=== PATIENT | male | born 1950 | race Caucasian/White ===

== ENCOUNTER → 2019-07-05 | Outpatient (CLI) | payer BC ==
--- NOTE | 2019-07-05 11:01 | US ---
EXAMINATION TYPE: US venous doppler duplex LE DATE OF EXAM: 07/05/2019 10:47 AM COMPARISON: NONE CLINICAL HISTORY: M79.661 pain in limb, M79.662 pain in limb. Pain and edema bilateral legs SIDE PERFORMED: bilateral TECHNIQUE: The lower extremity deep venous system is examined utilizing real time linear array sonog ernestine with graded compression, doppler sonography and color-flow sonography. VESSELS IMAGED: External Iliac Vein (EIV) Common Femoral Vein Deep Femoral Vein Greater Saphenous Vein * Femoral Vein Popliteal Vein Small Saphenous Vein * Proximal Calf Veins (* superficial vessels) Right Leg: No evidence of DVT Left Leg: No evidence of DVT Grayscale, color doppler, spectral doppler imaging performed of the deep veins of the bilateral lower extremities. There is normal flow, compressibility, vascular waveforms. IMPRESSION: No ultrasonographic evidence for acute DVT in either lower extremity.
[2019-07-05 11:12] LABS: Basophils # (A) 0.1 k/uL (0-0.2); Basophils % (A) 1 %; Eosinophils # (A) 0.6 k/uL (0-0.7); Eosinophils % (A) 6 %; HCT 40.4 % (39.0-53.0); HGB 13.4 gm/dL (13.0-17.5); Lymphocytes # (A) 4.4 k/uL (1.0-4.8); Lymphocytes % (A) 39 %; MCHC 33.2 g/dL (31.0-37.0); MCV 99.3 fL (80.0-100.0); Mean Platelet Volume 7.1; Monocytes # (A) 0.7 k/uL (0-1.0); Monocytes % (A) 6 %; Neutrophils % (A) 45 %; Platelet Count 154 k/uL (150-450); RBC 4.07 m/uL (4.30-5.90); RDW 14.3 % (11.5-15.5); WBC 11.1 k/uL (3.8-10.6)
[2019-07-05 11:33] LABS: ALT 50 U/L (21-72); AST 76 U/L (17-59); African American GFR (CKD) >90 (>60 ml/min/1.73 sqM); Albumin 3.5 g/dL (3.5-5.0); Alkaline Phosphatase 84 U/L (38-126); Anion Gap 7 mmol/L; Blood Urea Nitrogen 19 mg/dL (9-20); Carbon Dioxide 28 mmol/L (22-30); Chloride 107 mmol/L (98-107); Glucose 85 mg/dL (74-99); Potassium 4.7 mmol/L (3.5-5.1); Sodium 142 mmol/L (137-145); Total Bilirubin 1.1 mg/dL (0.2-1.3)
--- NOTE | 2019-07-05 13:05 | XR ---
EXAMINATION TYPE: XR chest 2V DATE OF EXAM: 07/05/2019 COMPARISON: NONE HISTORY: I 10, I 50.9 TECHNIQUE: Frontal and lateral views of the chest are obtained. FINDINGS: There is no focal air space opacity, pleural effusion, or pneumothorax seen. The cardiac silhouette size is within normal limits. The osseous structures are intact. IMPRESSION: No acute cardiopulmonary process.
== END | disposition home or self-care (01) ==
LOC: RADUSWWP 10:15
PROVIDERS: ATTEND Internal Medicine
DX: I82.409 Acute embolism and thrombosis of unspecified deep veins of unspecified lower extremity (principal); R22.42 Localized swelling, mass and lump, left lower limb; M79.661 Pain in right lower leg; R22.41 Localized swelling, mass and lump, right lower limb; M79.662 Pain in left lower leg; I11.0 Hypertensive heart disease with heart failure; I50.9 Heart failure, unspecified
CPT/HCPCS: 71046; 80053; 83880; 85025; 93970

== ENCOUNTER → 2020-05-31 | Outpatient (CLI) | payer BC ==
--- NOTE | 2020-05-31 09:28 | US ---
EXAMINATION TYPE: US liver DATE OF EXAM: 05/31/2020 COMPARISON: NONE CLINICAL HISTORY: 69-year-old male R94.5 abnormal liver function test. TECHNIQUE: Multiple sonographic images of the right upper quadrant are obtained. FINDINGS: DESIGN INTERN NOTES: Difficult and limited exam due to patient body habitus and overlying bowel gas EXAM MEASUREMENTS: Liver Length: 12.7 cm Gallbladder: Surgically absent CBD: 0.4 cm Right Kidney: 11.4 x 5.0 x 5.8 cm Pancreas: Obscured by bowel gas. Only a small portion of the pancreatic neck is seen. Liver: Coarse, heterogeneous. Nodular contour. No focal lesion identified. Gallbladder: Surgically absent Evidence for sonographic Michael's sign: No CBD: wnl Right Kidney: No hydronephrosis. IMPRESSION: 1. Cirrhotic morphology of the liver. No focal lesion seen. 2. Status post cholecystectomy. No biliary ductal dilatation.
== END | disposition home or self-care (01) ==
LOC: RADUSWWP 07:39
PROVIDERS: ATTEND Internal Medicine
DX: K74.60 Unspecified cirrhosis of liver (principal); Z90.49 Acquired absence of other specified parts of digestive tract
CPT/HCPCS: 76705

== ENCOUNTER → 2020-08-01 | Outpatient (CLI) | payer BC ==
[2020-08-01 09:45] LABS: Albumin 3.7 g/dL (3.5-5.0); Calcium 9.1 mg/dL (8.4-10.2); Potassium 4.9 mmol/L (3.5-5.1); Total Bilirubin 1.3 mg/dL (0.2-1.3); Total Protein 8.5 g/dL (6.3-8.2)
[2020-08-01 09:50] LABS: HCT 48.7 % (39.0-53.0); HGB 15.8 gm/dL (13.0-17.5); MCH 34.6 pg (25.0-35.0); MCHC 32.3 g/dL (31.0-37.0); MCV 106.9 fL (80.0-100.0); Macrocytosis Moderate; Mean Platelet Volume 7.4; Platelet Count 192 k/uL (150-450); RBC 4.56 m/uL (4.30-5.90); RDW 13.9 % (11.5-15.5); WBC 14.9 k/uL (3.8-10.6)
[2020-08-01 11:34] LABS: Basophils # (M) 0.15 k/uL (0-0.2); Eosinophils # (M) 1.64 k/uL (0-0.7); Lymphocytes # (M) 5.51 k/uL (1.0-4.8); Monocytes # (M) 1.04 k/uL (0-1.0); Neutrophils # (M) 6.56 k/uL (1.3-7.7); Neutrophils % (M) 44 %; Nucleated Red Blood Cells 0 /100 WBC (0-0); Total Cells Counted 100
== END | disposition home or self-care (01) ==
LOC: RADMRIMAIN 07:31
PROVIDERS: ATTEND Nurse Practitioner
DX: B18.2 Chronic viral hepatitis C (principal)
CPT/HCPCS: 80053; 82105; 85025; 87522

== ENCOUNTER → 2021-01-18 | Outpatient (CLI) | payer BC ==
--- NOTE | 2021-01-18 10:21 | US ---
EXAMINATION TYPE: US liver DATE OF EXAM: 01/18/2021 COMPARISON: NONE CLINICAL HISTORY: K74.60 Unspecified cirrhosis of liver. Hep C cirrhosis EXAM MEASUREMENTS: Liver Length: 14 cm Gallbladder Wall: Surgically absent cm CBD: .6 cm Right Kidney: 10.0 x 4.3 x 5.1 cm Pancreas: Obscured by bowel gas Liver: Increased attenuation Gallbladder: Surgically absent Evidence for sonographic Michael's sign: No CBD: wnl Right Kidney: Dilated renal pelvis 2.4 x 2.1 x 3.4 cm there is may be an extrarenal pelvis. IMPRESSION: 1. No suspicious acute changes right upper quadrant ultrasound
== END | disposition home or self-care (01) ==
LOC: RADUSWWP 07:45
PROVIDERS: ATTEND Internal Medicine Gastroenterology
DX: K74.60 Unspecified cirrhosis of liver (principal); B19.20 Unspecified viral hepatitis C without hepatic coma; Z90.49 Acquired absence of other specified parts of digestive tract
CPT/HCPCS: 76705

== ENCOUNTER → 2021-09-20 | Outpatient (CLI) | payer BC ==
--- NOTE | 2021-09-20 08:28 | US ---
EXAMINATION TYPE: US liver DATE OF EXAM: 09/20/2021 COMPARISON: NONE CLINICAL HISTORY: K74.60 Unspecified cirrhosis of liver. Hep C, history cholecystectomy EXAM MEASUREMENTS: Liver Length: 13.0 cm CBD: 0.6 cm Right Kidney: 10.2 x 5.8 x 5.3 cm Pancreas: visualized portions wnl, limited by overlying Liver: heterogeneous, increased attenuation, mildy nodular Gallbladder: surgically absent Evidence for sonographic Michael's sign: no CBD: wnl Right Kidney: wnl IMPRESSION: Cirrhotic changes suggested.
== END | disposition home or self-care (01) ==
LOC: RADUSWWP 07:39
PROVIDERS: ATTEND Internal Medicine Gastroenterology
DX: K74.60 Unspecified cirrhosis of liver (principal)
CPT/HCPCS: 76705

== ENCOUNTER 2021-12-13 09:09 | Inpatient (IN) | payer BC ==
[2021-12-13] MEDS ORDERED: ASPIRIN 81 MG PO STA (09:31)
--- NOTE | 2021-12-13 09:34 | ED ---
Chest Pain HPI - General Source: patient, RN notes reviewed Mode of arrival: ambulatory Limitations: no limitations <Simone Patel - Last Filed: 12/13/21 12:00> <Kady Vegas - Last Filed: 12/17/21 00:34> - General Chief Complaint: Chest Pain Stated Complaint: hypotensive, chest pain, swollen legs Time Seen by Provider: 12/13/21 09:22 - History of Present Illness Initial Comments: This a 71-year-old male presents emergency from from PCPs office chief complaint of chest pain, shortness breath, leg swelling. Patient has been taken Lasix he has no official diagnosis of CHF. Patient states that he cannot lay down on his back he has increasing shortness breath and chest pain. Patient denies any fevers or chills. He has significant leg swelling he states his weight has been up and down presents definitely can't some weight recently. Patient reported to have hypotension at PCPs office. Patient denies any recent dietary changes (Simone Patel) - Related Data Home Medications Medication Instructions Recorded Confirmed Esomeprazole Magnesium [NexIUM] 20 mg PO DAILY 12/13/21 12/13/21 Finasteride [Proscar] 5 mg PO DAILY 12/13/21 12/13/21 Furosemide [Lasix] 40 mg PO BID 12/13/21 12/13/21 Potassium Chloride [Potassium 8 meq PO BID 12/13/21 12/13/21 Chloride ER] traMADol HCL [Ultram] 50 mg PO BID PRN 12/13/21 12/13/21 Previous Rx's Medication Instructions Recorded Apixaban [Eliquis] 5 mg PO BID #60 tab 12/14/21 Albuterol Sulfate [Albuterol 1 puff PO Q4-6H #8.5 gm 12/15/21 Sulfate Hfa] Tiotropium 18 Mcg/Puff [Spiriva] 1 puff INHALATION DAILY #30 each 12/15/21 predniSONE 10 mg PO DAILY 7 Days #21 tab 12/15/21 Allergies Allergy/AdvReac Type Severity Reaction Status Date / Time No Known Allergies Allergy Verified 12/13/21 10:05 Review of Systems ROS Other: All systems not noted in ROS Statement are negative. <Simone Patel - Last Filed: 12/13/21 12:00> ROS Other: All systems not noted in ROS Statement are negative. <Kady Vegas - Last Filed: 12/17/21 00:34> ROS Statement: Those systems with pertinent positive or pertinent negative responses have been documented in the HPI. Past Medical History Past Medical History: GERD/Reflux, Prostate Disorder History of Any Multi-Drug Resistant Organisms: None Reported Past Surgical History: Cholecystectomy, Tonsillectomy Past Psychological History: No Psychological Hx Reported Smoking Status: Current every day smoker Past Alcohol Use History: None Reported Past Drug Use History: Marijuana <Simone Patel - Last Filed: 12/13/21 12:00> General Exam Limitations: no limitations General appearance: alert, in no apparent distress Head exam: Present: atraumatic, normocephalic, normal inspection Eye exam: Present: normal appearance, PERRL, EOMI. Absent: scleral icterus, conjunctival injection, periorbital swelling ENT exam: Present: normal exam, normal oropharynx, mucous membranes moist Neck exam: Present: normal inspection, full ROM. Absent: tenderness, meningismus, lymphadenopathy Respiratory exam: Present: decreased breath sounds. Absent: normal lung sounds bilaterally, respiratory distress, wheezes, rales, rhonchi, stridor Cardiovascular Exam: Present: irregular rhythm, normal heart sounds. Absent: regular rate, normal rhythm, systolic murmur, diastolic murmur, rubs, gallop, clicks GI/Abdominal exam: Present: soft, normal bowel sounds. Absent: distended, tenderness, guarding, rebound, rigid Extremities exam: Present: pedal edema Neurological exam: Present: alert, oriented X3 <Simone Patel - Last Filed: 12/13/21 12:00> Course Vital Signs 12/13/21 12/13/21 12/13/21 09:12 09:31 10:43 Temperature 97.8 F Pulse Rate 58 L 56 L Pulse Rate [ 64 [employer] ] Respiratory 18 16 Rate Blood Pressure 101/71 95/54 O2 Sat by Pulse 95 95 Oximetry 12/13/21 12/13/21 12/13/21 11:00 12:02 12:43 Temperature Pulse Rate 64 58 L 50 L Pulse Rate [ [employer] ] Respiratory 18 16 18 Rate Blood Pressure 90/70 98/57 101/72 O2 Sat by Pulse 95 96 98 Oximetry 12/13/21 14:00 Temperature Pulse Rate 52 L Pulse Rate [ [employer] ] Respiratory 18 Rate Blood Pressure 99/73 O2 Sat by Pulse 97 Oximetry Chest Pain MDM <Simone Patel - Last Filed: 12/13/21 12:00> <Kady Vegas - Last Filed: 12/17/21 00:34> - [facility] 71-year-old male presents emergency from for leg swelling, shortness breath and chest pain. Patient's been having ongoing chest pain. Patient vomiting A. fib which is new onset for the patient, evidence of pulmonary edema on chest x-ray extensive leg swelling. BMP is 1800. Patient was given 40 mg of Lasix IV as he took his morning dose of Lasix. Patient will be admitted for echocardiogram, cardiology (Simone Patel) I was available for consultation in the emergency department. The history and physical exam were done by the midlevel provider. I was consulted for this patients care. I reviewed the case with the midlevel provider and based on their presentation of the patient, I agree with the assessment, medical decision making and plan of care as documented. Chart was dictated using mir[employer] dictation software. Attempts were made to correct any dictation errors however some typographical errors may persist. Patient was seen during a national state of emergency due to the Covid-19 pandemic. (Kady Vegas) Critical Care Time Critical Care Time: Yes Total Critical Care Time: 35 <Simone Patel - Last Filed: 12/13/21 12:00> Disposition <Simone Patel - Last Filed: 12/13/21 12:00> <Kady Vegas - Last Filed: 12/17/21 00:34> Clinical Impression: Chest pain, Acute CHF, A-fib Disposition: ADMITTED IP TO THIS HOSP Condition: Poor
[2021-12-13 10:26] LABS: Basophils # (A) 0.1 k/uL (0-0.2); Basophils % (A) 0 %; Eosinophils # (A) 0.3 k/uL (0-0.7); Eosinophils % (A) 2 %; HCT 40.7 % (39.0-53.0); Lymphocytes # (A) 3.2 k/uL (1.0-4.8); Lymphocytes % (A) 22 %; MCH 35.5 pg (25.0-35.0); MCHC 34.3 g/dL (31.0-37.0); MCV 103.5 fL (80.0-100.0); Macrocytosis Slight; Monocytes % (A) 7 %; Neutrophils # (A) 9.8 k/uL (1.3-7.7); Neutrophils % (A) 67 %; Platelet Count 315 k/uL (150-450); RBC 3.94 m/uL (4.30-5.90); RDW 14.1 % (11.5-15.5); WBC 14.7 k/uL (3.8-10.6)
--- NOTE | 2021-12-13 10:26 | XR ---
EXAMINATION TYPE: XR chest 2V DATE OF EXAM: 12/13/2021 COMPARISON: 07/05/2019 HISTORY: 71-year-old male with chest pain and largest on the swelling TECHNIQUE: AP and lateral views FINDINGS: Heart is enlarged. Interstitial prominence. Small left pleural effusion. Large appearance to the main right pulmonary artery on the lateral view. IMPRESSION: Correlate for CHF with pulmonary vascular congestion. Small left pleural effusion with adjacent atele ctasis and/or consolidation. Possible underlying pulmonary arterial hypertension as well.
[2021-12-13 10:39] LABS: INR 1.2 (<1.2); Prothrombin Time 12.5 sec (9.0-12.0)
[2021-12-13 10:40] LABS: ALT 23 U/L (4-49); AST 43 U/L (17-59); African American GFR (CKD) >90 (>60 ml/min/1.73 sqM); Albumin 2.7 g/dL (3.5-5.0); Alkaline Phosphatase 71 U/L (38-126); Anion Gap 4 mmol/L; Blood Urea Nitrogen 17 mg/dL (9-20); Calcium 8.1 mg/dL (8.4-10.2); Carbon Dioxide 24 mmol/L (22-30); Chloride 108 mmol/L (98-107); Glucose 123 mg/dL (74-99); Lipase 202 U/L (23-300); Non-African American GFR(CKD) 89 (>60 ml/min/1.73 sqM); Potassium 3.9 mmol/L (3.5-5.1); Sodium 136 mmol/L (137-145); Total Bilirubin 1.9 mg/dL (0.2-1.3); Total Protein 7.3 g/dL (6.3-8.2)
[2021-12-13] MEDS ORDERED: FUROSEMIDE 10 MG/ML 2 ML VIAL IV ONE (12:00)
[2021-12-13] MEDS ORDERED: HEPARIN SODIUM 1,000 UN/ML (10ML VL) IV ONE (12:01)
[2021-12-13] MEDS ORDERED: NITROGLYCERIN SL TABS 0.4 MG TAB SUBLINGUAL PRN (12:01)
[2021-12-13] MEDS: HEPARIN SOD,PORK IN 0.45% NACL 25,000 UNIT in 0.45% NACL 1 250ML.BAG IV SCH (12:20)
--- NOTE | 2021-12-13 13:10 | P.HPIM ---
History of Present Illness H&P Date: 12/13/21 Chief Complaint: shortness of breath and chest pain Patient is a 71-year-old male with a past medical history of hepatitis C, BPH, GERD, tobacco abuse and remote history of IV drug abuse who presents to the ED with worsening lower extremity edema, shortness of breath with exertion and also intermittent chest pain for the past 2 weeks. Patient was seen by his PCP this morning who told him to go to the emergency room. Patient states that he sleeps on 2 pillows more for comfort and not because of shortness of breath. Patient states that he takes Lasix at home however does not watch his water intake. He states that he does eat a low-salt diet. Patient states that his chest pain is pressure-like and sometimes on his right side and sometimes on his left side and also sometimes radiates to his neck and his arms. Patient states that his 2-year-old granddaughter was jumping on his chest so he believed that he may have bruised himself. In the ED patient's chest x-ray showed possible CHF with vascular congestion and small left pleural effusion. EKG showed atrial fibrillation with heart rate in the 50s. Patient was given 1 dose of IV Lasix. He reports some improvement in her shortness of breath. He is currently satting well on room air. Review of Systems 10 ROS reviewed and are negative except as noted in HPI Past Medical History Past Medical History: GERD/Reflux, Prostate Disorder History of Any Multi-Drug Resistant Organisms: None Reported Past Surgical History: Cholecystectomy, Tonsillectomy Past Psychological History: No Psychological Hx Reported Smoking Status: Current every day smoker Past Alcohol Use History: None Reported Past Drug Use History: Marijuana Medications and Allergies Home Medications Medication Instructions Recorded Confirmed Type Aspirin 325 mg PO DAILY 12/13/21 12/13/21 History Esomeprazole Magnesium [NexIUM] 20 mg PO DAILY 12/13/21 12/13/21 History Finasteride [Proscar] 5 mg PO DAILY 12/13/21 12/13/21 History Furosemide [Lasix] 40 mg PO BID 12/13/21 12/13/21 History Ibuprofen [Motrin] 800 mg PO Q8H PRN 12/13/21 12/13/21 History Potassium Chloride [Potassium 8 meq PO BID 12/13/21 12/13/21 History Chloride ER] Propranolol [Inderal] 40 mg PO DAILY 12/13/21 12/13/21 History traMADol HCL [Ultram] 50 mg PO BID PRN 12/13/21 12/13/21 History Allergies Allergy/AdvReac Type Severity Reaction Status Date / Time No Known Allergies Allergy Verified 12/13/21 10:05 Physical Exam Osteopathic Statement: *. No significant issues noted on an osteopathic structural exam other than those noted in the History and Physical/Consult. Vitals: Vital Signs Temp Pulse Pulse Resp BP Pulse Ox 12/13/21 12:43 50 L 18 101/72 98 12/13/21 12:02 58 L 16 98/57 96 12/13/21 11:00 64 18 90/70 95 12/13/21 10:43 56 L 16 95/54 95 12/13/21 09:31 64 12/13/21 09:12 97.8 F 58 L 18 101/71 95 Intake and Output 12/12/21 12/13/21 12/13/21 22:59 06:59 14:59 Other: Weight 153.768 kg General: [Alert and oriented, well nourished, no acute distress]. Eye: [PERRL, EOMI, normal conjunctiva]. HENT: [Normocephalic, clear tympanic membranes, normal hearing, moist oral mucosa, no scleral icterus, no sinus tenderness]. Neck: [Supple, non-tender, no carotid bruits, no JVD, no lymphadenopathy]. Lungs: [Diminished but does bilaterally, non-labored respiration]. Heart: [Irregularly irregular, bradycardic, no murmurs rubs or gallops, +3 pitting edema in lower extremities up to the knees]. Abdomen: [Soft, non-tender, non-distended, normal bowel sounds, no masses]. Musculoskeletal: [Normal range of motion and strength, no tenderness or swelling]. Skin: [Skin is warm, dry and pink, no rashes or lesions]. Neurologic: [Awake, alert, and oriented X3, CN II-XII intact]. Psychiatric: [Cooperative, appropriate mood and affect]. Results CBC & Chem 7: 12/13/21 10:05 12/13/21 10:05 Labs: Abnormal Lab Results - Last 24 Hours (Table) 12/13/21 12/13/21 12/13/21 Range/Units 10:05 10:05 10:05 WBC 14.7 H (3.8-10.6) k/uL RBC 3.94 L (4.30-5.90) m/uL MCV 103.5 H (80.0-100.0) fL MCH 35.5 H (25.0-35.0) pg Neutrophils # 9.8 H (1.3-7.7) k/uL PT 12.5 H (9.0-12.0) sec INR 1.2 H (<1.2) Sodium 136 L (137-145) mmol/L Chloride 108 H (98-107) mmol/L Glucose 123 H (74-99) mg/dL Calcium 8.1 L (8.4-10.2) mg/dL Total Bilirubin 1.9 H (0.2-1.3) mg/dL Albumin 2.7 L (3.5-5.0) g/dL Assessment and Plan Assessment: Dyspnea Possible acute unspecified heart failure -We'll start patient on IV Lasix 40 mg twice a day with blood pressure parameters -Strict I's and O's and daily weight -Check echocardiogram -Consult cardiology Atypical chest pain -First set troponin is negative; check 2 more troponins to rule out ACS -No ST changes on EKG -Cardiology consult New-onset Atrial fibrillation with slow ventricular response -Hold home dose propanol -Cardiology consult -Patient started on heparin drip Hepatitis C Possible history of liver cirrhosis -Patient had an ultrasound done last year that showed findings consistent with liver cirrhosis -He follows up with Dr. Appiah from gastroenterology -Patient not aware of any history of liver cirrhosis BPH -Resume finasteride GERD -Resume PPI Tobacco abuse -Patient counseled on smoking cessation History of drug abuse CODE STATUS:full code DPOA: fiance DVT prophylaxis: Heparin drip Discussed with: Patient, ER, rn Anticipated length of stay > than [address]: home A total of 75 minutes was spent on the care of this complex patient more than 50% of the time was spent in counseling and care coordination.
[2021-12-13 13:11] LABS: Appearance,Urine Clear (Clear); Bilirubin,Urine Negative (Negative); Blood,Urine Negative (Negative); Color,Urine Yellow; Glucose,Urine (UA) Negative (Negative); Ketones,Urine Negative (Negative); Leukocyte Esterase,Urine Negative (Negative); Nitrite,Urine Negative (Negative); Protein,Urine Negative (Negative); Specific Gravity,Urine 1.016 (1.001-1.035)
[2021-12-13] MEDS: FUROSEMIDE 10 MG/ML 4 ML VIAL IV SCH (20:56)
[2021-12-14 04:45] LABS: ALT 24 U/L (4-49); AST 45 U/L (17-59); African American GFR (CKD) >90 (>60 ml/min/1.73 sqM); Albumin 2.6 g/dL (3.5-5.0); Alkaline Phosphatase 71 U/L (38-126); Anion Gap 4 mmol/L; Blood Urea Nitrogen 16 mg/dL (9-20); Calcium 8.2 mg/dL (8.4-10.2); Carbon Dioxide 27 mmol/L (22-30); Chloride 107 mmol/L (98-107); Glucose 92 mg/dL (74-99); Magnesium 1.9 mg/dL (1.6-2.3); Non-African American GFR(CKD) >90 (>60 ml/min/1.73 sqM); Sodium 138 mmol/L (137-145); Total Bilirubin 1.8 mg/dL (0.2-1.3)
[2021-12-14 04:58] LABS: Basophils # (A) 0.1 k/uL (0-0.2); Basophils % (A) 1 %; Eosinophils # (A) 0.3 k/uL (0-0.7); Eosinophils % (A) 3 %; Lymphocytes # (A) 2.7 k/uL (1.0-4.8); Lymphocytes % (A) 27 %; MCHC 34.2 g/dL (31.0-37.0); MCV 105.4 fL (80.0-100.0); Macrocytosis Moderate; Mean Platelet Volume 7.1; Monocytes # (A) 0.7 k/uL (0-1.0); Monocytes % (A) 7 %; Neutrophils # (A) 6.2 k/uL (1.3-7.7); Neutrophils % (A) 60 %; Platelet Count 326 k/uL (150-450); RBC 3.89 m/uL (4.30-5.90); RDW 14.1 % (11.5-15.5); WBC 10.3 k/uL (3.8-10.6)
[2021-12-14] MEDS: PANTOPRAZOLE 40 MG TABLET PO SCH (06:26)
[2021-12-14] MEDS: HEPARIN SOD,PORK IN 0.45% NACL 25,000 UNIT in 0.45% NACL 1 250ML.BAG IV SCH (06:27)
--- NOTE | 2021-12-14 07:38 | ECHOF ---
Referral Reason:Chest pain CHF MEASUREMENTS -------- HEIGHT: 185.4 cm WEIGHT: 153.8 kg BP: 101/72 RVIDd: 3.3 cm (< 3.3) IVSd: 1.5 cm (0.6 - 1.1) LVIDd: 4.7 cm (3.9 - 5.3) LVPWd: 1.4 cm (0.6 - 1.1) IVSs: 2.0 cm LVIDs: 3.0 cm LVPWs: 1.9 cm LA Diam: 4.7 cm (2.7 - 3.8) Ao Diam: 3.5 cm (2.0 - 3.7) AV Cusp: 2.5 cm (1.5 - 2.6) MV EXCURSION: 16.399 mm (> 18.000) MV EF SLOPE: 66 mm/s (70 - 150) EPSS: 0.5 cm FINDINGS -------- Atrial fibrillation. This was a technically difficult study with suboptimal views. The left ventricular size is normal. There is moderate concentric left ventricular hypertrophy. O verall left ventricular systolic function is normal with, an EF between 55 - 60 %. The right ventricle is mildly enlarged. The left atrium is moderately dilated. The right atrium is normal in size. 3 ml of Lumason was utilized for enhancement of images. Aortic valve is trileaflet and is mildly thickened. The mitral valve was not well visualized. There is trace mitral regurgitation. The tricuspid valve was not well visualized. Trace/mild (physiologic) pulmonic regurgitation. The aortic root size is normal. The inferior vena cava is mildly dilated. There is a small, generalized pericardial effusion present. CONCLUSIONS -------- 1. This was a technically difficult study with suboptimal views. 2. There is moderate concentric left ventricular hypertrophy. 3. Overall left ventricular systolic function is normal with, an EF between 55 - 60 %. 4. The right ventricle is mildly enlarged. 5. The left atrium is moderately dilated. 6. 3 ml of Lumason was utilized for enhancement of images. 7. Aortic valve is trileaflet and is mildly thickened. 8. There is trace mitral regurgitation. 9. Trace/mild (physiologic) pulmonic regurgitation. 10. The inferior vena cava is mildly dilated. 11. There is a small, generalized pericardial effusion present. ELECTRONIC MASKING SYSTEM OPERATOR: Colette Salguero RDCS
[2021-12-14] MEDS ORDERED: ASPIRIN 325 MG TAB PO SCH (09:00)
[2021-12-14] MEDS ORDERED: ASPIRIN 81 MG PO SCH (09:00)
[2021-12-14 10:06] LABS: Chol/HDL Ratio 3.66 Ratio; LDL Cholesterol,Calculated 52.2 mg/dL (0.0-131.0)
[2021-12-14] MEDS: FUROSEMIDE 10 MG/ML 4 ML VIAL IV SCH ×2 (10:14→20:36)
[2021-12-14] MEDS: FINASTERIDE 5 MG TAB PO SCH (10:14)
[2021-12-14] MEDS: APIXABAN 5 MG TAB PO SCH ×2 (10:14→20:36)
--- NOTE | 2021-12-14 11:31 | P.CRDCN ---
History of Present Illness Consult date: 12/13/21 History of present illness: HISTORY OF PRESENT ILLNESS: This is a 71-year-old male with a past medical history significant for hepatitis, BPH, nicotine dependence, and former IV drug abuse. 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 We have been asked to see the patient in consultation for CHF, afib, and chest pain. Patient examined at the bedside. Patient states he presented to the hospital with a chief complaint of shortness of breath has been progressive over the past 3 weeks. The patient has been taking Lasix on an outpatient basis for lower extremity edema. The patient states he has never been diagnosed with congestive heart failure. He denies any chest pain or pressure. The patient states he is a current cigarette smoker and smokes 1 pack per day. He also reports occasional marijuana use. He denies any alcohol use and states he quit drinking in 2003. * EKG reveals A. fib with slow ventricular rate. * Chest xray correlate for CHF with pulmonary vascular congestion. Small left pleural effusion with adjacent atelectasis and/or consolidation. Possible underlying pulmonary artery hypertension. * Laboratory data: WBC 14.7. Hemoglobin 14.0. Platelet count 315. Sodium 136. Potassium 3.9. BUN 17. Creatinine 0.86. Magnesium 2.0. Troponin negative 2. ProBNP 1810. * Current home cardiac medications include aspirin 325 mg daily, Inderal 40 mg daily, Lasix 40 mg twice a day * Echocardiogram completed revealing ejection fraction 55-60% with trace MR REVIEW OF SYSTEMS: At the time of my exam: CONSTITUTIONAL: Denies fever or chills. HEENT: Denies blurred vision, vision changes, or eye pain. Denies hemoptysis CARDIOVASCULAR: Denies chest pain. Denies orthopnea. Denies PND. Denies palpitations RESPIRATORY: + shortness of breath. GASTROINTESTINAL: Denies abdominal pain. Denies nausea or vomiting. HEMATOLOGIC: Denies bleeding disorders. GENITOURINARY: Denies any blood in urine. SKIN: Denies pruitis. Denies rash. PHYSICAL EXAM: VITAL SIGNS: Reviewed. GENERAL: Well-developed in no acute distress. HEENT: Head is normocephalic. Pupils are equal, round. Sclerae anicteric. Mucous membranes of the mouth are moist. Neck supple. No JVD or thyromegaly LUNGS: Respirations even and unlabored. Lungs diminished to auscultation bilaterally with a few crackles. HEART: Irregular rate and rhythm. S1 and S2 heard. ABDOMEN: Soft. Nondistended. Nontender. EXTREMITIES: Normal range of motion. No clubbing or cyanosis. Peripheral pulses intact. 1-2+ bilateral lower extremity edema NEUROLOGIC: Awake and alert. Oriented x 3. ASSESSMENT Shortness of breath Acute heart failure, likely acute on chronic as patient is prescribed lasix out patient but denies being diagnosed with CHF, diastolic, EF 55-60% New onset atrial fibrillation with slow ventricular rate Hepatitis C GERD Nicotine dependence History of IVDA PLAN: Continue IV lasix Monitor kidney function Daily weights Accurate I&O Begin Eliquis 5mg BID Will hold off on adding beta tammy as patients HR has been on the lower side Obtain D-Dimer Consult pulmonary for evaluation Further recommendations pending patient course Nurse practitioner note has been reviewed by physician. Signing provider agrees with the documented findings, assessment, and plan of care. Past Medical History Past Medical History: GERD/Reflux, Prostate Disorder History of Any Multi-Drug Resistant Organisms: None Reported Past Surgical History: Cholecystectomy, Tonsillectomy Past Psychological History: No Psychological Hx Reported Smoking Status: Current every day smoker Past Alcohol Use History: None Reported Past Drug Use History: Marijuana Medications and Allergies Home Medications Medication Instructions Recorded Confirmed Type Esomeprazole Magnesium [NexIUM] 20 mg PO DAILY 12/13/21 12/13/21 History Finasteride [Proscar] 5 mg PO DAILY 12/13/21 12/13/21 History Furosemide [Lasix] 40 mg PO BID 12/13/21 12/13/21 History Ibuprofen [Motrin] 800 mg PO Q8H PRN 12/13/21 12/13/21 History Potassium Chloride [Potassium 8 meq PO BID 12/13/21 12/13/21 History Chloride ER] Propranolol [Inderal] 40 mg PO DAILY 12/13/21 12/13/21 History traMADol HCL [Ultram] 50 mg PO BID PRN 12/13/21 12/13/21 History Apixaban [Eliquis] 5 mg PO BID #60 tab 12/14/21 Rx Allergies Allergy/AdvReac Type Severity Reaction Status Date / Time No Known Allergies Allergy Verified 12/13/21 10:05 Physical Exam Vitals: Vital Signs Temp Pulse Pulse Resp BP Pulse Ox 12/13/21 12:43 50 L 18 101/72 98 12/13/21 12:02 58 L 16 98/57 96 12/13/21 11:00 64 18 90/70 95 12/13/21 10:43 56 L 16 95/54 95 12/13/21 09:31 64 12/13/21 09:12 97.8 F 58 L 18 101/71 95 Intake and Output 12/12/21 12/13/21 12/13/21 22:59 06:59 14:59 Other: Weight 153.768 kg Results 12/14/21 03:53 12/14/21 03:53 Cardiac Enzymes 12/13/21 12/13/21 12/13/21 Range/Units 10:05 10:05 12:42 AST 43 (17-59) U/L Troponin I 0.012 <0.012 (0.000-0.034) ng/mL Coagulation 12/13/21 Range/Units 10:05 PT 12.5 H (9.0-12.0) sec APTT 29.0 (22.0-30.0) sec CBC 12/13/21 Range/Units 10:05 WBC 14.7 H (3.8-10.6) k/uL RBC 3.94 L (4.30-5.90) m/uL Hgb 14.0 (13.0-17.5) gm/dL Hct 40.7 (39.0-53.0) % Plt Count 315 (150-450) k/uL Comprehensive Metabolic Panel 12/13/21 Range/Units 10:05 Sodium 136 L (137-145) mmol/L Potassium 3.9 (3.5-5.1) mmol/L Chloride 108 H (98-107) mmol/L Carbon Dioxide 24 (22-30) mmol/L BUN 17 (9-20) mg/dL Creatinine 0.86 (0.66-1.25) mg/dL Glucose 123 H (74-99) mg/dL Calcium 8.1 L (8.4-10.2) mg/dL AST 43 (17-59) U/L ALT 23 (4-49) U/L Alkaline Phosphatase 71 (38-126) U/L Total Protein 7.3 (6.3-8.2) g/dL Albumin 2.7 L (3.5-5.0) g/dL Current Medications Generic Name Dose Route Start Last Admin Trade Name Freq PRN Reason Stop Dose Admin Aspirin 325 mg 12/14/21 09:00 Aspirin 325 Mg Tab PO DAILY [facility] Finasteride 5 mg 12/14/21 09:00 Finasteride 5 Mg Tab PO DAILY [facility] Furosemide 40 mg 12/13/21 21:00 Furosemide 10 Mg/Ml 4 Ml Vial IV Q12HR [facility] Heparin Sodium/Sodium Chloride 250 mls @ 9.995 mls/hr 12/13/21 12:15 12/13/21 12:20 25,000 unit/ Sodium Chloride IV 6.5 units/kg/hr .Q24H JACOBO 9.995 mls/hr Administration Protocol 6.5 UNITS/KG/HR Nitroglycerin 0.4 mg 12/13/21 12:01 Nitroglycerin Sl Tabs 0.4 Mg Tab SUBLINGUAL Q5M PRN Chest Pain Pantoprazole Sodium 40 mg 12/14/21 07:30 Pantoprazole 40 Mg Tablet PO AC-BRKFST [facility] Intake and Output 12/12/21 12/13/21 12/13/21 22:59 06:59 14:59 Other: Weight 153.768 kg Patient Weight 12/14/21 06:59 Weight 153.768 kg 12/13/21 10:05 12/13/21 10:05
--- NOTE | 2021-12-14 12:22 | P.PN ---
Subjective Progress Note Date: 12/14/21 Principal diagnosis: CC: shortness of breath Patient stated that his shortness of breath is better compared to yesterday. He states that he is making the same amount of urine as he was at home however he is drinking less water. Patient states that last night he did have some chest tightness. He stated that the Premarin oxygen for the chest tightness. This morning is denying any chest tightness. Objective - Vital Signs Vital signs: Vital Signs Temp 99.7 F H 12/14/21 08:00 Pulse 68 12/14/21 08:00 Resp 16 12/14/21 08:00 BP 134/60 12/14/21 08:00 Pulse Ox 97 12/14/21 08:00 Intake & Output 12/13/21 12/14/21 12/14/21 18:59 06:59 18:59 Intake Total 120 210.340 240 Output Total 810 Balance 120 -599.660 240 Weight 153.768 kg Intake: Intake, IV Titration 210.340 Amount Heparin Sod,Pork in 0.45% 210.340 NaCl 25,000 unit In 0.45 % NaCl 1 250ml.bag @ 6.5 UNITS/KG/HR 9.995 mls/hr IV .Q24H [facility] Rx#: [id number] Oral 120 240 Output: Urine 810 - Exam General examination - Alert and Oriented 3 in NAD Heart - + S1S2 no murmurs Lungs - Clear to auscultation Abdomen soft NT ND +ve BS Extremities -lower extremity pitting edema +3 up to knees 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 - Moving all 4 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 spontaneously Psych - Calm and cooperative - Labs CBC & Chem 7: 12/14/21 03:53 12/14/21 03:53 Labs: Abnormal Lab Results - Last 24 Hours (Table) 12/13/21 12/14/21 12/14/21 Range/Units 17:54 03:53 03:53 RBC 3.89 L (4.30-5.90) m/uL MCV 105.4 H (80.0-100.0) fL MCH 36.0 H (25.0-35.0) pg APTT 37.9 H (22.0-30.0) sec D-Dimer (<0.60) mg/L FEU Calcium 8.2 L (8.4-10.2) mg/dL Total Bilirubin 1.8 H (0.2-1.3) mg/dL Albumin 2.6 L (3.5-5.0) g/dL HDL Cholesterol 24.80 L (40.00-60.00) mg/dL 12/14/21 12/14/21 Range/Units 03:53 10:59 RBC (4.30-5.90) m/uL MCV (80.0-100.0) fL MCH (25.0-35.0) pg APTT 43.9 H (22.0-30.0) sec D-Dimer 6.46 H (<0.60) mg/L FEU Calcium (8.4-10.2) mg/dL Total Bilirubin (0.2-1.3) mg/dL Albumin (3.5-5.0) g/dL HDL Cholesterol (40.00-60.00) mg/dL Assessment and Plan Assessment: Dyspnea Acute on chronic diastolic heart failure Likely has underlying pulmonary hypertension Likely his underlying COPD however no wheezing on exam -We'll start patient on IV Lasix 40 mg twice a day with blood pressure parameters -Strict I's and O's and daily weight -Echocardiogram showed EF of 50-55%. Tricuspid valve could not be visualized so unable to assess right-sided heart pressures -Cardiology on board -Cardiology ordered a d-dimer that was elevated so we will obtain a CTA chest to rule out pulmonary embolism -Cardiology consulted pulmonology Atypical chest pain -Troponin negative 3 -No ST changes on EKG -Cardiology on board New-onset Atrial fibrillation with slow ventricular response -Hold home dose propanol -Cardiology consult -Patient transition from heparin drip to Eliquis Hepatitis C status post treatment Possible history of liver cirrhosis -Patient had an ultrasound done last year that showed findings consistent with liver cirrhosis -He follows up with Dr. Appiah from gastroenterology -Patient not aware of any history of liver cirrhosis BPH -Resume finasteride GERD -Resume PPI Tobacco abuse -Patient counseled on smoking cessation History of drug abuse CODE STATUS:full code DPOA: fiance DVT prophylaxis: Eliquis Anticipated length of stay > than [address]: home
[2021-12-14 12:28] VITALS: BMI 44.7
--- NOTE | 2021-12-14 14:41 | CT ---
EXAMINATION TYPE: CT angio chest DATE OF EXAM: 12/14/2021 COMPARISON: No previous CT scan is available for comparison HISTORY: Elevated d-dimer. Shortness of breath. CT DLP: 836.6 mGy.cm. Automated Exposure Control for Dose Reduction was Utilized. TECHNIQUE AND CONTRAST: CTA scan of the thorax is performed with IV Contrast, patient injected with 100 mL of Isovue 370, as per pulmonary angiogram protocol. MIP Images are created on CT scanner and reviewed. FINDINGS: Suboptimal CT pulmonary angiogram with suboptimal timing as the study is more a thoracic aortogram. N o definite filling defect within the pulmonary trunk, main pulmonary arteries, lobar and segmental br anches to suggest pulmonary embolism. Subsegmental branches are suboptimally assessed. The pulmonary trunk measures 3.3 cm with the right pulmonary artery measures 4.1 cm and the left pulmonary artery m easures 3.4 cm suggestive of pulmonary hypertension. No gross cardiomegaly however there is moderate pericardial effusion with thickened pericardium, sarah carditis and cardiac tamponade cannot be excluded. The ascending aorta is nondilated. Scattered arter ial atherosclerotic calcifications including coronary arterial calcifications. Subcentimeter bilatera l hilar and mediastinal lymph nodes. No pathologically enlarged lymph nodes in the chest. [id number] left-sided pleural effusion with left lower lobe subsegmental pulmonary atelectasis , underlying infection cannot be excluded. Minimal subsegmental atelectasis and reticulations are see n in the right lung base. Right lower lobe pulmonary nodules measuring up to 7 mm. Centrilobular emph ysematous changes mainly seen in the upper lobes. 4 mm irregular nodule in the right lung apex. Cardiomediastinal shift to the left side. Cirrhotic hep atic changes, please correlate with liver function tests and hepatic viral serology. Previous cholecy stectomy. Varices are seen at the gastrohepatic ligament and surrounding the gastroesophageal junctio n. Degenerative changes of the thoracic spine. IMPRESSION: 1. No major or central pulmonary embolism with the limitation of the suboptimal CT pulmonary angiogra m. Dilated pulmonary arteries suggestive of pulmonary hypertension. 2. Thickened pericardium with moderate pericardial effusion suggestive of pericarditis. Cardiac tampo nade cannot be excluded, please correlate clinically. 3. [id number] left-sided pleural effusion with other pulmonary changes as detailed above. Foll ow-up for the lung nodules in 3-6 months can be considered. 4. Cirrhotic hepatic changes and signs of portal hypertension with gastroesophageal varices as descri bed above. Please correlate with liver function tests and hepatic viral serology if not already done. Other incidental findings as described above.
--- NOTE | 2021-12-14 16:12 | P.CNPUL ---
<Allie Tavares M - Last Filed: 12/14/21 15:50> History of Present Illness Consult date: 12/14/21 Requesting physician: Sara Oseguera Reason for consult: dyspnea, chest pain Chief complaint: Shortness of breath, lower extremity swelling, chest discomfort History of present illness: 71-year-old male patient of Dr. Ricky Gayle with past medical history of chronic and ongoing nicotine dependence, and patient carries [id number] smoking history, previous history of hepatitis C treated, chronic lower extremity swelling on diuretics, osteoarthritis who presented to his PCPs office yesterday on 12/13/2021 for evaluation of shortness of breath, low blood pressure, increased swelling in his lower extremities and chest pain and discomfort in his shoulders and neck area. Patient was transferred to the emergency department for further evaluation and treatment from his PCPs office. His chest x-ray in the emergency department shows CHF with pulmonary vascular congestion, small left pleural effusion with adjacent atelectasis. His laboratory evaluation showed white blood cell count of 14.7, hemoglobin of 14.0, INR of 1.2, sodium is 136, potassium 3.9, chloride is 108, CO2 is 24, respiratory electrolytes and renal profile are unremarkable, LFTs are unremarkable, troponins were negative 3, proBNP was 1810, lipase was negative, TSH was within normal limits, urinalysis showed no evidence of infection, COVID- 19 PCR was negative. His EKG showed slow atrial fibrillation with a rate of 55 bpm. Echocardiogram showed moderate concentric LVH, trace mitral regurgitation. Patient was placed on diuretics on which she remains with Lasix 40 mg twice daily. He is in -479 mL in the last 24 hours. Patient had a CTA chest for elevated d-dimer of 6.46, showing no major of central pulmonary embolism with the limitation of the suboptimal CT pulmonary angiogram. There were dilated pulmonary arteries suggestive of pulmonary hypertension. There was moderately sized pericardial effusion suggestive of pericarditis. Small to moderate left- sided pleural effusion, and cirrhotic hepatic changes with signs of portal hypertension and gastroesophageal varices. Patient states he was never diagnosed with COPD, he is not on any inhalers or breathing treatments on a regular basis, he is not normally oxygen dependent, lung windows on the CT chest reveal evidence of centrilobular emphysematous changes in the upper lobes. Review of Systems All systems: negative Constitutional: Denies chills, Denies fever Eyes: denies blurred vision, denies pain Ears, nose, mouth and throat: Denies headache, Denies sore throat Cardiovascular: Reports chest pain, Reports edema, Denies shortness of breath Respiratory: Reports dyspnea, Denies cough Gastrointestinal: Denies abdominal pain, Denies diarrhea, Denies nausea, Denies vomiting Musculoskeletal: Denies myalgias Integumentary: Denies pruritus, Denies rash Neurological: Denies numbness, Denies weakness Psychiatric: Denies anxiety, Denies depression Endocrine: Denies fatigue, Denies weight change Past Medical History Past Medical History: GERD/Reflux, Osteoarthritis (OA), Prostate Disorder History of Any Multi-Drug Resistant Organisms: None Reported Past Surgical History: Cholecystectomy, Tonsillectomy Past Anesthesia/Blood Transfusion Reactions: No Reported Reaction Past Psychological History: No Psychological Hx Reported Smoking Status: Current every day smoker Past Alcohol Use History: None Reported Past Drug Use History: Marijuana Medications and Allergies Home Medications Medication Instructions Recorded Confirmed Type Esomeprazole Magnesium [NexIUM] 20 mg PO DAILY 12/13/21 12/13/21 History Finasteride [Proscar] 5 mg PO DAILY 12/13/21 12/13/21 History Furosemide [Lasix] 40 mg PO BID 12/13/21 12/13/21 History Ibuprofen [Motrin] 800 mg PO Q8H PRN 12/13/21 12/13/21 History Potassium Chloride [Potassium 8 meq PO BID 12/13/21 12/13/21 History Chloride ER] Propranolol [Inderal] 40 mg PO DAILY 12/13/21 12/13/21 History traMADol HCL [Ultram] 50 mg PO BID PRN 12/13/21 12/13/21 History Apixaban [Eliquis] 5 mg PO BID #60 tab 12/14/21 Rx Allergies Allergy/AdvReac Type Severity Reaction Status Date / Time No Known Allergies Allergy Verified 12/13/21 10:05 Physical Exam Vitals: Vital Signs Temp Pulse Resp BP Pulse Ox 12/14/21 14:00 59 L 16 12/14/21 12:00 59 L 112/56 96 12/14/21 08:00 99.7 F H 68 16 134/60 97 12/14/21 04:00 98.4 F 63 16 110/58 95 12/13/21 23:19 98.5 F 59 L 16 123/73 12/13/21 19:44 97.7 F 56 L 18 103/58 95 Intake and Output 12/14/21 12/14/21 12/14/21 06:59 14:59 22:59 Intake Total 124.383 358 Output Total 350 Balance -225.617 358 Intake: Intake, IV Titration 124.383 Amount Heparin Sod,Pork in 0.45% 124.383 NaCl 25,000 unit In 0.45 % NaCl 1 250ml.bag @ 6.5 UNITS/KG/HR 9.995 mls/hr IV .Q24H [facility] Rx#: [id number] Oral 358 Output: Urine 350 Other: Weight 153.768 kg GENERAL EXAM: Alert, very pleasant, 71-year-old white male sitting up in bed, breathing comfortably, on 2 L of oxygen and the pulse ox of 96-97%, comfortable in no apparent distress. HEAD: Normocephalic/atraumatic. EYES: Normal reaction of pupils, equal size. Conjunctiva pink, sclera white. NOSE: Clear with pink turbinates. THROAT: No erythema or exudates. NECK: No masses, no JVD, no thyroid enlargement, no adenopathy. CHEST: No chest wall deformity. Symmetrical expansion. LUNGS: Equal air entry with no wheezes, no rales CVS: Regular rate and rhythm, normal S1 and S2, no gallops, no murmurs, no rubs ABDOMEN: Soft, nontender. No hepatosplenomegaly, normal bowel sounds, no guarding or rigidity. EXTREMITIES: No clubbing, 1+ lower extremity edema with chronic venous stasis changes no cyanosis, 2+ pulses and upper and lower extremities. MUSCULOSKELETAL: Muscle strength and tone normal. SPINE: No scoliosis or deformity SKIN: No rashes CENTRAL NERVOUS SYSTEM: Alert and oriented -3. No focal deficits, tone is normal in all 4 extremities. PSYCHIATRIC: Alert and oriented -3. Appropriate affect. Intact judgment and insight. Results - Laboratory Findings CBC and BMP: 12/14/21 03:53 12/14/21 03:53 PT/INR, D-dimer PT 12.5 sec (9.0-12.0) H 12/13/21 10:05 INR 1.2 (<1.2) H 12/13/21 10:05 D-Dimer 6.46 mg/L FEU (<0.60) H 12/14/21 10:59 Abnormal lab findings: Abnormal Labs 12/13/21 12/13/21 12/13/21 10:05 10:05 10:05 WBC 14.7 H RBC 3.94 L MCV 103.5 H MCH 35.5 H Neutrophils # 9.8 H PT 12.5 H INR 1.2 H APTT D-Dimer Sodium 136 L Chloride 108 H Glucose 123 H Calcium 8.1 L Total Bilirubin 1.9 H Albumin 2.7 L HDL Cholesterol 12/13/21 12/14/21 12/14/21 17:54 03:53 03:53 WBC RBC 3.89 L MCV 105.4 H MCH 36.0 H Neutrophils # PT INR APTT 37.9 H D-Dimer Sodium Chloride Glucose Calcium 8.2 L Total Bilirubin 1.8 H Albumin 2.6 L HDL Cholesterol 24.80 L 12/14/21 12/14/21 03:53 10:59 WBC RBC MCV MCH Neutrophils # PT INR APTT 43.9 H D-Dimer 6.46 H Sodium Chloride Glucose Calcium Total Bilirubin Albumin HDL Cholesterol - Diagnostic Findings Chest x-ray: report reviewed, image reviewed CT scan - chest: report reviewed, image reviewed Assessment and Plan Plan: Assessment: #1. Acute exacerbation of diastolic CHF with EF of 55-60% #2. Evidence of centrilobular emphysema and COPD on CTA chest #3. Chronic and ongoing history of smoking, 40-[id number] history of smoking #4. New onset atrial fibrillation with slow ventricular rate, and patient has been started on Eliquis during this admission #5. Hepatitis C, treated #6. GERD/reflux #7. History of IV drug abuse #8. 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 History of liver cirrhosis, and patient follows with Dr. Zayas #10. Elevated d-dimer without CT evidence of pulmonary embolism Plan: Chest x-ray, CT angiogram, labs, echocardiogram all reviewed There is evidence of COPD and centrilobular emphysema on CT angiogram Recommend adding Spiriva and albuterol inhaler Patient will need outpatient PFT Will likely make further adjustments to his inhalers For now his COPD stable Continue IV diuretics No evidence of PE on CT angiogram GI and DVT prophylaxis I performed a history & physical examination of the patient and discussed their management with my nurse practitioner, Allie Tavares. I reviewed the nurse practitioner's note and agree with the documented findings and plan of care. Lung sounds are positive for dim breath sounds throughout the lung garcia. The findings and the impression was discussed with the patient. I attest to the documentation by the nurse practitioner. I have personally seen and examined the patient, performed the documentation and the assessment and plan as written. Number of minutes spent on the visit: [15] Time with Patient: Greater than 30 <Lito French - Last Filed: 12/14/21 19:09> Physical Exam Vitals: Vital Signs Temp Pulse Resp BP Pulse Ox 12/14/21 16:00 79 126/57 97 12/14/21 14:00 59 L 16 12/14/21 12:00 59 L 112/56 96 12/14/21 08:00 99.7 F H 68 16 134/60 97 12/14/21 04:00 98.4 F 63 16 110/58 95 12/13/21 23:19 98.5 F 59 L 16 123/73 12/13/21 19:44 97.7 F 56 L 18 103/58 95 Intake and Output 12/14/21 12/14/21 12/14/21 06:59 14:59 22:59 Intake Total 124.383 358 Output Total 350 250 Balance -225.617 358 -250 Intake: Intake, IV Titration 124.383 Amount Heparin Sod,Pork in 0.45% 124.383 NaCl 25,000 unit In 0.45 % NaCl 1 250ml.bag @ 6.5 UNITS/KG/HR 9.995 mls/hr IV .Q24H [facility] Rx#: [id number] Oral 358 Output: Urine 350 250 Other: Weight 146.7 kg 153.768 kg 146.7 kg Results - Laboratory Findings CBC and BMP: 12/14/21 03:53 12/14/21 03:53 PT/INR, D-dimer PT 12.5 sec (9.0-12.0) H 12/13/21 10:05 INR 1.2 (<1.2) H 12/13/21 10:05 D-Dimer 6.46 mg/L FEU (<0.60) H 12/14/21 10:59 Abnormal lab findings: Abnormal Labs 12/13/21 12/13/21 12/13/21 10:05 10:05 10:05 WBC 14.7 H RBC 3.94 L MCV 103.5 H MCH 35.5 H Neutrophils # 9.8 H PT 12.5 H INR 1.2 H APTT D-Dimer Sodium 136 L Chloride 108 H Glucose 123 H Calcium 8.1 L Total Bilirubin 1.9 H Albumin 2.7 L HDL Cholesterol 12/13/21 12/14/21 12/14/21 17:54 03:53 03:53 WBC RBC 3.89 L MCV 105.4 H MCH 36.0 H Neutrophils # PT INR APTT 37.9 H D-Dimer Sodium Chloride Glucose Calcium 8.2 L Total Bilirubin 1.8 H Albumin 2.6 L HDL Cholesterol 24.80 L 12/14/21 12/14/21 03:53 10:59 WBC RBC MCV MCH Neutrophils # PT INR APTT 43.9 H D-Dimer 6.46 H Sodium Chloride Glucose Calcium Total Bilirubin Albumin HDL Cholesterol Assessment and Plan Plan: This is a joint evaluations was done along with a nurse practitioner and this evaluation was done and more than 30 minutes. The overall respiratory status is stable. The patient is complaining of shortness of breath. He is noted to have upper lobe emphysematous changes on his computed tomography scan of the chest. There may be a component of mild COPD exacerbation. Nevertheless, the patient has also diastolic heart failure with increased lower extremity edema. He also has a new onset atrial fibrillation. The patient will be subjected to diuretics. As far as his COPD, he be started on Spiriva and infiltration family history basis. He will need outpatient pulmonate function testing. Computed tomography scan of the chest was noted. Optimize CHF. We'll continue to follow.
[2021-12-15] MEDS: PANTOPRAZOLE 40 MG TABLET PO SCH (06:30)
[2021-12-15] MEDS: APIXABAN 5 MG TAB PO SCH (08:05)
[2021-12-15] MEDS: FINASTERIDE 5 MG TAB PO SCH (08:05)
[2021-12-15 08:32] LABS: African American GFR (CKD) >90 (>60 ml/min/1.73 sqM); Anion Gap 5 mmol/L; Blood Urea Nitrogen 14 mg/dL (9-20); Calcium 8.2 mg/dL (8.4-10.2); Carbon Dioxide 27 mmol/L (22-30); Chloride 105 mmol/L (98-107); Glucose 126 mg/dL (74-99); Magnesium 1.9 mg/dL (1.6-2.3); Non-African American GFR(CKD) >90 (>60 ml/min/1.73 sqM); Sodium 137 mmol/L (137-145)
[2021-12-15 08:48] LABS: HCT 40.2 % (39.0-53.0); HGB 13.3 gm/dL (13.0-17.5); MCH 35.1 pg (25.0-35.0); MCHC 33.1 g/dL (31.0-37.0); MCV 106.1 fL (80.0-100.0); Macrocytosis Moderate; Mean Platelet Volume 7.1; Platelet Count 335 k/uL (150-450); RBC 3.79 m/uL (4.30-5.90); RDW 14.2 % (11.5-15.5); WBC 10.4 k/uL (3.8-10.6)
[2021-12-15] MEDS ORDERED: FUROSEMIDE 40 MG TAB PO SCH (09:00)
[2021-12-15 09:52] VITALS: TEMP 98.1
--- NOTE | 2021-12-15 12:21 | P.DS ---
Providers Date of admission: 12/13/21 12:00 Expected date of discharge: 12/15/21 Attending physician: Torres Varela MD Consults: 12/13/21 12:02 Consult Physician Urgent Consulting Provider: Carly Plasencia Consult Reason/Comments: chest pain, CHF, afib Do you want consulting provider notified?: Yes 12/14/21 09:36 Consult Physician Routine Consulting Provider: Albin Perez Consult Reason/Comments: SOB Do you want consulting provider notified?: Yes Primary care physician: Ricky Gayle MD Hospital Course: Discharge Diagnosis: Acute diastolic heart failure New-onset atrial fibrillation with slow ventricular response Atypical chest pain with bradycardia and effusion likely due to pericarditis Likely underlying COPD Tobacco abuse Hepatitis C Cirrhosis GERD BPH Hospital Course: Patient is a 71-year-old male with a past medical history of hepatitis C, BPH, GERD, tobacco abuse and remote history of IV drug abuse who presents to the ED with worsening lower extremity edema, shortness of breath with exertion and also intermittent chest pain for the past 2 weeks. Patient was seen by his PCP this morning who told him to go to the emergency room. Patient chest x-ray was consistent with volume overload with vascular congestion and pleural effusion. Patient's EKG consistent with atrial fibrillation with heart rate in the 50s. Patient was started on IV Lasix and fluid restriction. Patient had an echocardiogram done that showed normal LV function with small pericardial effusion. D-dimer was ordered by cardiology and was elevated. CTA chest was done that was negative for pulmonary embolism however did show moderate pericardial effusion. Patient did reported that he would have the chest pains when he would lie down. I believe patient's atypical chest pain is likely due to pericarditis. I started the patient on steroids and we'll discharge him on 7 days with follow-up with cardiology. Patient was deemed stable for discharge by cardiology. Cardiology plans to do an outpatient cardiac MRI to monitor the pleural effusion and also plans and during heart catheterization as outpatient. At the time of discharge patient denied chest pain. He reported that his shortness of breath was better. Patient instructed to take his regular home dose Lasix however he was counseled on restricting his oral fluid intake. Patient also instructed to stop taking propanolol which was causing his bradycardia. Patient is also counseled on smoking cessation. Patient's computed tomography scan did show emphysema so he was started on Spiriva as well as albuterol inhaler for COPD. Patient instructed to follow pulmonology. Patient seen and examined at bedside.[] Vital signs reviewed and stable. General: [non toxic], [no distress], [appears at stated age] appears chronically debilitated Derm: [warm], [dry] Head: [atraumatic], [normocephalic], [symmetric] Eyes: [EOMI], [no lid lag], [anicteric sclera] Mouth: [no lip lesion], [mucus membranes moist] Cardiovascular: [S1S2 reg], [no murmur], [positive posterior tibial pulse bilateral], Lungs: [CTA bilateral], [no rhonchi, no rales] , [no accessory muscle use] Abdominal: [soft], [ nontender to palpation], [no guarding], [no appreciable organomegaly] Ext: [no gross muscle atrophy], [no edema], [no contractures] Neuro: [ CN II-XI grossly intact], [no focal neuro deficits] Psych: [Alert], [oriented], [appropriate affect] A total of [33] minutes of time were spent preparing this complex discharge s solomon . Patient Condition at Discharge: Poor Plan - Discharge Summary Discharge Rx Participant: Yes New Discharge Prescriptions: New Tiotropium 18 Mcg/Puff [Spiriva] 1 puff INHALATION DAILY #30 each Apixaban [Eliquis] 5 mg PO BID #60 tab Albuterol Sulfate [Albuterol Sulfate Hfa] 1 puff PO Q4-6H #8.5 gm predniSONE 10 mg PO DAILY 7 Days #21 tab Continue Furosemide [Lasix] 40 mg PO BID Esomeprazole Magnesium [NexIUM] 20 mg PO DAILY traMADol HCL [Ultram] 50 mg PO BID PRN PRN Reason: Pain Potassium Chloride [Potassium Chloride ER] 8 meq PO BID Finasteride [Proscar] 5 mg PO DAILY Discontinued Aspirin 325 mg PO DAILY Propranolol [Inderal] 40 mg PO DAILY Ibuprofen [Motrin] 800 mg PO Q8H PRN PRN Reason: Pain Discharge Medication List Esomeprazole Magnesium [NexIUM] 20 mg PO DAILY 12/13/21 [History] Finasteride [Proscar] 5 mg PO DAILY 12/13/21 [History] Furosemide [Lasix] 40 mg PO BID 12/13/21 [History] Potassium Chloride [Potassium Chloride ER] 8 meq PO BID 12/13/21 [History] traMADol HCL [Ultram] 50 mg PO BID PRN 12/13/21 [History] Apixaban [Eliquis] 5 mg PO BID #60 tab 12/14/21 [Rx] Albuterol Sulfate [Albuterol Sulfate Hfa] 1 puff PO Q4-6H #8.5 gm 12/15/21 [Rx] Tiotropium 18 Mcg/Puff [Spiriva] 1 puff INHALATION DAILY #30 each 12/15/21 [Rx] predniSONE 10 mg PO DAILY 7 Days #21 tab 12/15/21 [Rx] Follow up Appointment(s)/Referral(s): Usama Lieberman MD [STAFF PHYSICIAN] - 2 Weeks (will need cardiac MRI and heart cath outpatient. See Dr Lieberman in two weeks. Office will call you to schedule an appointment due to being a new patient. Thanks!) Ricky Gayle MD [Primary Care Provider] - 1-2 days (office closed for weekend, call Friday to schedule follow up thank you. ) Patient Instructions/Handouts: Heart Failure (DC), A-fib (Atrial Fibrillation) (DC), Chest Pain (DC) Activity/Diet/Wound Care/Special Instructions: Maikel will apply the free 30 day supply of Eliquis and give the $10 copay card and you can take this to [facility] pharmacy. Discharge Disposition: HOME SELF-CARE
[2021-12-15 12:52] VITALS: BP 111/64; PULSE 74; RESP 18
--- NOTE | 2021-12-15 13:12 | P.PN ---
Subjective Progress Note Date: 12/15/21 Principal diagnosis: Diastolic congestive heart failure exacerbation 71-year-old male patient of Dr. Ricky Gayle with past medical history of chronic and ongoing nicotine dependence, and patient carries [id number] smoking history, previous history of hepatitis C treated, chronic lower extremity swelling on diuretics, osteoarthritis who presented to his PCPs office yesterday on 12/13/2021 for evaluation of shortness of breath, low blood pressure, increased swelling in his lower extremities and chest pain and discomfort in his shoulders and neck area. Patient was transferred to the emergency department for further evaluation and treatment from his PCPs office. His chest x-ray in the emergency department shows CHF with pulmonary vascular congestion, small left pleural effusion with adjacent atelectasis. His laboratory evaluation showed white blood cell count of 14.7, hemoglobin of 14.0, INR of 1.2, sodium is 136, potassium 3.9, chloride is 108, CO2 is 24, res piratory electrolytes and renal profile are unremarkable, LFTs are unremarkable, troponins were negative 3, proBNP was 1810, lipase was negative, TSH was within normal limits, urinalysis showed no evidence of infection, COVID-19 PCR was negative. His EKG showed slow atrial fibrillation with a rate of 55 bpm. Echocardiogram showed moderate concentric LVH, trace mitral regurgitation. Patient was placed on diuretics on which she remains with Lasix 40 mg twice daily. He is in -479 mL in the last 24 hours. Patient had a CTA chest for elevated d-dimer of 6.46, showing no major of central pulmonary embolism with the limitation of the suboptimal CT pulmonary angiogram. There were dilated pulmonary arteries suggestive of pulmonary hypertension. There was moderately sized pericardial effusion suggestive of pericarditis. Small to moderate left- sided pleural effusion, and cirrhotic hepatic changes with signs of portal hypertension and gastroesophageal varices. Patient states he was never diagnosed with COPD, he is not on any inhalers or breathing treatments on a regular basis, he is not normally oxygen dependent, lung windows on the CT chest reveal evidence of centrilobular emphysematous changes in the upper lobes. The patient is seen today 12/15/2021 in follow-up on the selective care unit. He is currently resting fairly comfortably in bed. Awake and alert in no acute distress. He denies any worsening shortness of breath, cough or congestion. He is maintaining O2 saturations in the 90s on room air. He's been afebrile. Hemodynamically stable. White count 10.4. Hemoglobin 13.3. Platelets 335. Sodium 137. Potassium 4.0. Bicarb 27. Creatinine 0.74. Glucose 126. He remains on oral diuretics. Anticoagulated with Eliquis. Objective - Vital Signs Vital signs: Vital Signs Temp 98.1 F 12/15/21 08:08 Pulse 74 12/15/21 12:00 Resp 18 12/15/21 12:00 BP 111/64 12/15/21 12:00 Pulse Ox 93 L 12/15/21 12:00 Intake & Output 12/14/21 12/15/21 12/15/21 18:59 06:59 18:59 Intake Total 358 400 Output Total 725 Balance 358 -725 400 Weight 146.7 kg 145.9 kg Intake: Oral 358 400 Output: Urine 725 - Exam GENERAL EXAM: Alert, very pleasant, 71-year-old male sitting up in bed, breathing comfortably, on room air, comfortable in no apparent distress. HEAD: Normocephalic/atraumatic. EYES: Normal reaction of pupils, equal size. Conjunctiva pink, sclera white. NOSE: Clear with pink turbinates. THROAT: No erythema or exudates. NECK: No masses, no JVD, no thyroid enlargement, no adenopathy. CHEST: No chest wall deformity. Symmetrical expansion. LUNGS: Equal air entry with no wheezes, no rales area diminished. CVS: Regular rate and rhythm, normal S1 and S2, no gallops, no murmurs, no rubs ABDOMEN: Soft, nontender. No hepatosplenomegaly, normal bowel sounds, no guarding or rigidity. EXTREMITIES: No clubbing, 1+ lower extremity edema with chronic venous stasis changes no cyanosis, 2+ pulses and upper and lower extremities. MUSCULOSKELETAL: Muscle strength and tone normal. SPINE: No scoliosis or deformity SKIN: No rashes CENTRAL NERVOUS SYSTEM: No focal deficits, tone is normal in all 4 extremities. PSYCHIATRIC: Alert and oriented -3. Appropriate affect. Intact judgment and insight. - Labs CBC & Chem 7: 12/15/21 07:53 12/15/21 07:53 Labs: Abnormal Lab Results - Last 24 Hours (Table) 12/15/21 12/15/21 Range/Units 07:53 07:53 RBC 3.79 L (4.30-5.90) m/uL MCV 106.1 H (80.0-100.0) fL MCH 35.1 H (25.0-35.0) pg Glucose 126 H (74-99) mg/dL Calcium 8.2 L (8.4-10.2) mg/dL Assessment and Plan Assessment: 1 Acute exacerbation of diastolic CHF with EF of 55-60% 2 Evidence of centrilobular emphysema and COPD on CTA chest 3 Chronic and ongoing history of smoking, [id number] history of smoking 4 New onset atrial fibrillation with slow ventricular rate, and patient has been started on Eliquis during this admission 5 Hepatitis C, treated 6 GERD/reflux 7 History of IV drug abuse 8 History of EtOH, 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 Zayas 10 Elevated d-dimer without CT evidence of pulmonary embolism Plan: The patient was seen and evaluated Currently stable from the pulmonary standpoint Recommend Spiriva and albuterol inhalers post discharge Follow-up in the office in 1-2 weeks' Plan for full pulmonary function testing to evaluate the severity of his suspect ed COPD and make recommendations for her maintenance medications I, the cosigning physician, performed a history & physical examination of the patient. Lungs sounds are clear but diminished. Maintaining good O2 saturations in the 90s on room air. I discussed the assessment and plan of care with my nurse practitioner, Geena Estrada. I attest to the above note as dictated by her. I have personally seen and examined the patient, performed the documentation and the assessment and plan as written. Number of minutes spent on the visit: 10.
--- NOTE | 2021-12-15 15:52 | PN ---
PROGRESS NOTE Mr. Martínez is doing very well today. He is comfortable resting. He has no chest pain or shortness of breath. His CT scan suggests some thickening of the pericardium and also a small effusion. He has lower extremity edema. This all could be related to some pericardial disease as well. This needs to be further worked up and he will need a cardiac MR down the road. I discussed my thoughts in detail with the patient. We will increase activity today, switch him from IV to oral Lasix, and hopefully he can be discharged, but I have advised him to see me in the office since I am concerned that we should do further workup for his pericardial issues. Patient seems to understand and will follow through. Vitals are stable. JVD not evident. S1-S2 heard normally. Short systolic murmur noted. Lungs reveal improved air entry. Abdomen is soft. Lower extremity edema has improved. MMODL / IJN: [id number] /
--- NOTE | 2021-12-18 13:49 | CDI ---
Documentation Clarification Form Date: 12/18/21 From: Stacey Agustin Admit Date: 12/13/2021 12:00:00 PM Patient Name: Gray Martínez Visit Number: [id number] Discharge Date: 12/15/2021 01:24:00 PM ATTENTION: The Clinical Documentation Specialists (CDI) and [facility] Coding Staff appreciate your assistance in clarifying documentation. Please respond to the clarification below the line at the bottom and electronically sign. The CDI & [facility] Coding staff will review the response and follow-up if needed. Please note: Queries are made part of the Legal Health Record. If you have any questions, please contact the author of this message via ITS. Dr. Usama Lieberman, New onset atrial fibrillation with slow ventricular response is documented the H&P, consults, PNs & DS. Additional clarification regarding the type of atrial fibrillation is requested. History/Risk Factors: acute on chronic diastolic CHF, pericarditis pulmonary HTN, centrilobular emphysema Clinical Indicators: Presented with chest pain, shortness of breath and leg swelling. Hypotension. EKG/telemetry: EKG showed atrial fibrillation with heart rate in the 50's. No ST changes. Treatment: Started on Apixaben 5 mg PO BID. Consults: New onset atrial fibrillation with slow ventricular rate Please clarify the type of atrial fibrillation, if known: [ ] Chronic [ ] Permanent [ ] Paroxysmal [ ] Persistent [ ] Other, please specify [ ] Unable to determine MTDD
== END 2021-12-15 13:24 | disposition home or self-care (01) | DRG 292 ==
LOC: EC 09:09 → 3SCARD 12:00
PROVIDERS: ADMIT Internal Medicine; ATTEND Internal Medicine
DX: I50.33 Acute on chronic diastolic (congestive) heart failure (principal); I31.9 Disease of pericardium, unspecified; I48.19 Other persistent atrial fibrillation; K76.6 Portal hypertension; I27.20 Pulmonary hypertension, unspecified; K74.60 Unspecified cirrhosis of liver; I95.9 Hypotension, unspecified; J43.2 Centrilobular emphysema; F19.11 Other psychoactive substance abuse, in remission; Z20.822 Contact with and (suspected) exposure to COVID-19; I86.4 Gastric varices; R07.89 Other chest pain; N40.0 Benign prostatic hyperplasia without lower urinary tract symptoms; R00.1 Bradycardia, unspecified; T44.7X5A Adverse effect of beta-adrenoreceptor antagonists, initial encounter; K21.9 Gastro-esophageal reflux disease without esophagitis; M19.90 Unspecified osteoarthritis, unspecified site; F17.210 Nicotine dependence, cigarettes, uncomplicated; Z71.6 Tobacco abuse counseling; Z79.82 Long term (current) use of aspirin; Z79.899 Other long term (current) drug therapy; Z90.49 Acquired absence of other specified parts of digestive tract; Z90.89 Acquired absence of other organs; Z87.19 Personal history of other diseases of the digestive system; Z86.19 Personal history of other infectious and parasitic diseases; Z98.890 Other specified postprocedural states
CPT/HCPCS: 36415; 71046; 71275; 80048; 80053; 80061; 81003; 83690; 83735; 83880; 84443; 84484; 85025; 85027; 85049; 85379; 85610; 85730; 87635; 93005; 93306; 96365; 96366; 96375; 99291

== ENCOUNTER → 2022-04-25 | Outpatient (CLI) | payer BC ==
--- NOTE | 2022-04-25 09:19 | US ---
EXAMINATION TYPE: US venous doppler duplex LE LT DATE OF EXAM: 04/25/2022 8:16 AM COMPARISON: NONE CLINICAL HISTORY: SWELLING RIGHT LOWER LIMB R22.41. SIDE PERFORMED: Left TECHNIQUE: The lower extremity deep venous system is examined utilizing real time linear array sonog ernestine with graded compression, doppler sonography and color-flow sonography. VESSELS IMAGED: Common Femoral Vein Deep Femoral Vein Greater Saphenous Vein * Femoral Vein Popliteal Vein Small Saphenous Vein * Proximal Calf Veins (* superficial vessels) Patient of large body habitus with extensive edema in legs, technically difficult somewhat limited st udy. Left Leg: Negative for DVT IMPRESSION: No evidence of DVT at this time.
== END | disposition home or self-care (01) ==
LOC: RADUSWWP 06:43
PROVIDERS: ATTEND Internal Medicine Interventional Cardiology
DX: R22.41 Localized swelling, mass and lump, right lower limb (principal)

== ENCOUNTER → 2022-04-25 | Outpatient (CLI) | payer BC ==
--- NOTE | 2022-04-25 09:09 | CT ---
EXAMINATION TYPE: CT chest wo con DATE OF EXAM: 04/25/2022 COMPARISON: 12/14/2021 HISTORY: Lung nodule. CT DLP: 722.1 mGycm, Automated exposure control for dose reduction was used. CONTRAST: Performed injected with 0 mL of Isovue 300. TECHNIQUE: Axial images were obtained at 5 mm thick sections. Reconstructed images are reviewed on [employer] computer in the coronal plane. FINDINGS: Portion of the thyroid visualized is normal. Emphysematous changes are in the upper lung garcia. There appears to be some scarring at the left ape x. Punctate nodules within the anterior right lung. Series 4 image 25. Punctate densities in the supe rior segment left lower lobe. Series 4 image 30. Nodules within the posterior medial right lung, seri es 4 image 32. This appears stable at 7 mm. No enlarged mediastinal or hilar adenopathy is evident. The ascending aorta diameter at the level o f the main pulmonary artery is 3.6 cm. The main pulmonary artery diameter at the bifurcation is 3.3 cm. Mild coronary artery calcifications present. Limited CT sections are obtained through the upper abdomen. Abdomen is essentially unremarkable. IMPRESSIONS: 1. Stable bilateral lung nodules. Continued follow-up over the course of 2 years is recommended to ev aluate stability. Follow-up CT chest 6 months.
== END | disposition home or self-care (01) ==
LOC: RADCTMAIN 07:21
PROVIDERS: ATTEND Internal Medicine
DX: R91.1 Solitary pulmonary nodule (principal)
CPT/HCPCS: 71250

== ENCOUNTER → 2022-06-25 | Outpatient (CLI) | payer BC ==
--- NOTE | 2022-06-25 08:43 | US ---
EXAMINATION TYPE: US liver DATE OF EXAM: 06/25/2022 COMPARISON: US liver September 20, 2021 CLINICAL HISTORY: K74.60 Cirrhosis of liver. Hep C, Cirrhosis TECHNIQUE: Multiple sonographic images of the right upper quadrant are obtained. FINDINGS: EXAM MEASUREMENTS: Liver Length: 12.4 cm CBD: 0.4 cm Right Kidney: 11.4 x 6.4 x 5.6 cm CUSTOMER SERVICE ANALYST NOTES: Pancreas: Body wnl, head and tail obscured by overlying bowel gas Liver: Lobulated contour, small in size Gallbladder: Surgically absent Evidence for sonographic Michael's sign: No CBD: wnl Right Kidney: No evidence of hydro, upper and lower pole gassed out Visualized portion of pancreas unremarkable, portions obscured by overlying bowel gas. Lobulated cont our to the liver which is heterogeneous in appearance. No surrounding ascites. Evaluation for focal m asses suboptimal due to the heterogeneity. Similar finding to prior ultrasound. Gallbladder surgicall y absent. No biliary dilatation. No right-sided hydronephrosis. IMPRESSION: Persistent heterogeneous hyperechoic appearance of liver consistent with known hepatocell ular disease. No new ascites or biliary dilatation. No significant change from most recent prior.
[2022-06-25 10:50] LABS: Basophils # (A) 0.11 X 10*3/uL (0.00-0.10); Basophils % (A) 1.3 %; Eosinophils # (A) 0.48 X 10*3/uL (0.04-0.35); Eosinophils % (A) 5.6 %; HCT 43.5 % (39.6-50.0); HGB 14.5 g/dL (13.0-17.0); Immature Grans, Automated 0.1 %; Lymphocytes # (A) 3.31 X 10*3/uL (0.90-5.00); Lymphocytes % (A) 38.8 %; MCH 34.1 pg (27.0-32.0); MCHC 33.3 g/dL (32.0-37.0); MCV 102.4 fL (80.0-97.0); Mean Platelet Volume 9.3 fL (9.5-12.2); Monocytes # (A) 0.69 X 10*3/uL (0.20-1.00); Monocytes % (A) 8.1 %; NRBC Per 100 WBC 0 /100 WBCS (0.0-0.0); Neutrophils # (A) 3.92 X 10*3/uL (1.80-7.70); Neutrophils % (A) 46.1 %; Platelet Count 120 X 10*3/uL (140-440); RBC 4.25 X 10*6/uL (4.40-5.60); WBC 8.52 X 10*3/uL (4.50-10.00)
[2022-06-25 11:09] LABS: African American GFR (CKD) 89.2 (60.0-200.0); Albumin 3.3 g/dL (3.8-4.9); Albumin/Globulin Ratio 0.77 (1.60-3.17); Anion Gap 9.3 mmol/L (10.00-18.00); BUN/Creat Ratio 8.59 Ratio (12.00-20.00); Blood Urea Nitrogen 8.6 mg/dL (9.0-27.0); Calcium 9.2 mg/dL (8.7-10.3); Carbon Dioxide 24.9 mmol/L (20.0-27.5); Globulin 4.2 g/dL (1.6-3.3); Non-African American GFR(CKD) 76.9 (60.0-200.0); Potassium 4.3 mmol/L (3.5-5.5); Total Protein 7.5 g/dL (6.2-8.2)
== END | disposition home or self-care (01) ==
LOC: RADUSWWP 08:05
PROVIDERS: ATTEND Internal Medicine Gastroenterology
DX: K74.60 Unspecified cirrhosis of liver (principal); R91.1 Solitary pulmonary nodule
CPT/HCPCS: 76705; 80053; 85025; 87522

== ENCOUNTER → 2022-08-28 | Outpatient (CLI) | payer BC ==
--- NOTE | 2022-08-28 11:32 | MR ---
EXAMINATION TYPE: MR liver wo/w con DATE OF EXAM: 08/28/2022 COMPARISON: Ultrasound liver June 25, 2022 and older studies HISTORY: ABNORMALITY OF ALPHA-FETOPROTEIN LEVEL CONTRAST: Standard multiplanar, multisequence MRI departmental protocol images were obtained without contrast a nd with 14 mL intravenous Gadavist gadolinium contrast. Imaging performed of the abdomen focusing on the liver. FINDINGS: Liver: Liver is overall small in size with lobulated peripheral contour corresponding to history of c irrhosis. Gallbladder is surgically absent. No adjacent ascites is seen. Postcontrast dynamic imaging shows heterogeneous round enhancing 3.1 x 2.9 cm mass in the posterior right hepatic lobe image 391 series 901 with delayed imaging show persistent heterogeneous enhancement slightly greater than adjac ent liver. Lesion fairly isodense on T1 and T2-weighted images but can be visualized. Few punctate ar eas of enhancement in the hepatic dome image 571 on initial images are not as well-seen on delayed im ages. No definitive additional enhancing masses or suspicious areas of washout. There are patent hepa tic veins draining in the IVC. There is tortuous but vessel in the left upper to midabdomen likely re flecting splenic varices. Main portal vein is not dilated and patent with central patent branching po rtal veins. Other: Lung bases are grossly clear. The pancreas and both adrenal glands appear within normal limits . There are areas of cortical thinning and simple appearing thin-walled cysts scattered throughout alyssa th kidneys. No hydronephrosis seen bilaterally. Some simple parapelvic cyst centrally in the left kid dima are present. Ectatic abdominal aorta with Focal AAA up to 3.6 cm AP diameter axial image 105. No suspicious small or large bowel dilatation. Spleen mildly enlarged at 13.7 cm long axis coronal image 28. No intra-abdominal ascites. Multilevel spurring and disc space narrowing in the lower lumbar spi ne. Few small osseous hemangiomas are thought present. IMPRESSION: Area of concern on MRI not classic of focal HCC but given rise in AFP it must be strongly considered. In retrospect I believe it corresponds to ultrasound image 5120.
== END | disposition home or self-care (01) ==
LOC: RADMRIMAIN 07:14
PROVIDERS: ATTEND Internal Medicine Gastroenterology
DX: R77.2 Abnormality of alphafetoprotein (principal)
CPT/HCPCS: 74183; A9585

== ENCOUNTER → 2022-09-20 | Outpatient (CLI) | payer BC ==
--- NOTE | 2022-09-20 08:18 | USB ---
Reason for Exam: Clinical finding. Technique: Method: Whole Breast Handheld. Findings: The whole breast of the right breast, the axilla of the right breast and the retroareolar of both breasts were scanned. No suspicious solid or cystic masses are identified. There appears to be some gynecomastia under the right nipple. Overall Assessment: Benign, BI-RAD 2 Management: Diagnostic Breast Ultrasound of the right breast in 1 year. A clinical breast exam by your physician is recommended on an annual basis and results should be correlated with mammographic findings. This exam should not preclude additional follow-up of suspicious palpable abnormalities. ??Results were given to the patient verbally at the time of exam. Electronically signed and approved by: Geovanny Whitney D.O. Radiologis
== END | disposition home or self-care (01) ==
LOC: RADUSWWP 06:50
PROVIDERS: ATTEND Surgery
DX: N63.10 Unspecified lump in the right breast, unspecified quadrant (principal)

== ENCOUNTER → 2022-09-20 | Outpatient (CLI) | payer BC ==
--- NOTE | 2022-09-20 07:31 | US ---
EXAMINATION TYPE: US duplex aorta DATE OF EXAM: 09/20/2022 COMPARISON: CLINICAL HISTORY: Z123 SCREENING FOR AAA. CAD. HTN. No family history. TECHNIQUE: Multiple sonographic images of the abdominal aorta are obtained. FINDINGS: EXAM MEASUREMENTS: Abdominal Aorta: Proximal: 2.8 x 3.2 cm Mid: 3.0 x 3.0 cm Distal: 2.6 x 2.8 cm Bifurcation: Right - 1.6 x 1.8 cm Left - 1.5 x 2.0 cm PIG FURNACE OPERATOR NOTES: Limited due to patient body habitus. No AAA visualized at time of scan. Aorta ap pears ectatic. IMPRESSION: 1. No suspicious aneurysmal dilatation abdominal aorta
== END | disposition home or self-care (01) ==
LOC: RADUSWWP 06:42
PROVIDERS: ATTEND Surgery
DX: Z13.6 Encounter for screening for cardiovascular disorders (principal); I25.10 Atherosclerotic heart disease of native coronary artery without angina pectoris; I10 Essential (primary) hypertension
CPT/HCPCS: 93979

== ENCOUNTER → 2022-11-18 | Outpatient (CLI) | payer BC ==
--- NOTE | 2022-11-18 09:22 | CT ---
EXAMINATION TYPE: CT chest wo con DATE OF EXAM: 11/18/2022 COMPARISON: Chest CT April 25, 2022 and older study December 14, 2021 HISTORY: Lung nodule CT DLP: 628.8 mGycm. Automated Exposure Control for Dose Reduction was Utilized. TECHNIQUE: CT scan of the thorax is performed without IV contrast. FINDINGS: LUNGS: Moderate underlying emphysematous changes are redemonstrated greatest in the upper lobes. A fe w scattered small nodules are again seen. For reference stable under 5 mm nodules in the peripheral o f the right lower lobe axial image 45. For reference stable 7 x 4 mm right upper lobe nodule axial im age 16 and 5 to 6 mm scarlike nodule axial image 12. No new or enlarging greater than 5 mm pulmonary nodules. No pleural effusion or pneumothorax seen bilaterally. MEDIASTINUM: Lack of IV contrast is noted to limit evaluation for mediastinal and especially hilar ad enopathy. There are no definitive new greater than 1 cm mediastinal lymph nodes. No cardiomegaly or pericardial effusion is seen. Enlarged pulmonary arteries consistent with pulmonary artery hypertens ion is redemonstrated. There is moderate to severe three-vessel coronary artery calcification redemon strated. OTHER: Asymmetric right sided subareolar soft tissue density probable gynecomastia axial image 26 is more prominent from prior studies. Cholecystectomy clips are seen. S-shaped scoliotic curvature with multilevel spurring of the spine is redemonstrated. IMPRESSION: Moderate emphysematous change with stable scattered small nodules. No new or enlarging pu lmonary nodules. New asymmetric prominent right-sided gynecomastia is felt present. Correlate clinica lly.
== END | disposition home or self-care (01) ==
LOC: RADCTMAIN 08:16
PROVIDERS: ATTEND Internal Medicine
DX: J43.9 Emphysema, unspecified (principal); R91.8 Other nonspecific abnormal finding of lung field; N62 Hypertrophy of breast
CPT/HCPCS: 71250

== ENCOUNTER 2024-02-08 08:48 | Inpatient (IN) | payer BC, MEDICARE ==
[2024-02-08] MEDS: DEXAMETHASONE SOD PHOSPHATE 10 MG/ML 1 ML VIAL IV STA (09:05)
--- NOTE | 2024-02-08 09:09 | ED ---
General Adult HPI - General Chief complaint: Shortness of Breath Stated complaint: MARIAMA Time Seen by Provider: 02/08/24 08:49 Source: patient Mode of arrival: EMS Limitations: no limitations - History of Present Illness Initial comments: Dictation was produced using [employer] dictation software. please excuse any grammatical, word or spelling errors. Chief Complaint: 73-year-old male with past medical history of COPD/emphysema presents to the emergency department for dyspnea History of Present Illness: Patient 73-year-old male brought in by EMS from [facility]. Patient has a history of COPD. According to EMS he has been having shortness of breath. Initial pulse ox was in the 70s. He was placed on BiPAP. EMS thought that patient externally sounded wheezing and placed him on BiPAP gave him a DuoNeb. Patient does report some relief with breathing treatment. Patient denies any chest pain. Denies any cardiac history. The ROS documented in this emergency department record has been reviewed and confirmed by me. Those systems with pertinent positive or negative responses have been documented in the HPI. All other systems are other negative and/or noncontributory. - Related Data Home Medications Medication Instructions Recorded Confirmed Esomeprazole Magnesium [NexIUM] 20 mg PO DAILY 12/13/21 12/13/21 Finasteride [Proscar] 5 mg PO DAILY 12/13/21 12/13/21 Furosemide [Lasix] 40 mg PO BID 12/13/21 12/13/21 Potassium Chloride [Potassium 8 meq PO BID 12/13/21 12/13/21 Chloride ER] traMADol HCL [Ultram] 50 mg PO BID PRN 12/13/21 12/13/21 Previous Rx's Medication Instructions Recorded Apixaban [Eliquis] 5 mg PO BID #60 tab 12/14/21 Albuterol Sulfate [Albuterol 1 puff PO Q4-6H #8.5 gm 12/15/21 Sulfate Hfa] Tiotropium 18 Mcg/Puff [Spiriva] 1 puff INHALATION DAILY #30 each 12/15/21 predniSONE 10 mg PO DAILY 7 Days #21 tab 12/15/21 Allergies Allergy/AdvReac Type Severity Reaction Status Date / Time No Known Allergies Allergy Verified 02/08/24 08:54 Review of Systems ROS Statement: Those systems with pertinent positive or pertinent negative responses have been documented in the HPI. ROS Other: All systems not noted in ROS Statement are negative. Past Medical History Past Medical History: GERD/Reflux, Osteoarthritis (OA), Prostate Disorder Additional Past Medical History / Comment(s): COPD, CHF, liver cancer History of Any Multi-Drug Resistant Organisms: None Reported Past Surgical History: Cholecystectomy, Tonsillectomy Past Anesthesia/Blood Transfusion Reactions: No Reported Reaction Past Psychological History: No Psychological Hx Reported Smoking Status: Current every day smoker Past Alcohol Use History: None Reported Past Drug Use History: Marijuana General Exam Limitations: no limitations Course Vital Signs 02/08/24 02/08/24 02/08/24 08:50 08:55 09:05 Temperature Pulse Rate 107 H 107 H 102 H Respiratory 46 H 40 H 40 H Rate Blood Pressure 152/118 108/98 128/106 O2 Sat by Pulse 81 L 84 L 76 L Oximetry Fraction of Inspired Oxygen (FIO2) 02/08/24 02/08/24 02/08/24 09:12 09:17 09:25 Temperature Pulse Rate 116 H 103 H 120 H Respiratory 40 H 40 H 24 Rate Blood Pressure 130/100 112/86 93/69 O2 Sat by Pulse 79 L 78 L 95 Oximetry Fraction of Inspired Oxygen (FIO2) 02/08/24 02/08/24 02/08/24 09:30 09:43 09:44 Temperature 97.5 F L Pulse Rate 120 H 112 H Respiratory 20 20 Rate Blood Pressure 114/76 124/89 O2 Sat by Pulse 95 97 Oximetry Fraction of 100 Inspired Oxygen (FIO2) 02/08/24 02/08/24 02/08/24 10:00 10:15 10:19 Temperature Pulse Rate 106 H 105 H Respiratory 20 20 Rate Blood Pressure 124/62 118/71 O2 Sat by Pulse 97 96 Oximetry Fraction of 80 Inspired Oxygen (FIO2) 02/08/24 02/08/24 02/08/24 10:20 10:46 10:50 Temperature Pulse Rate 106 H 97 Respiratory 20 18 Rate Blood Pressure 85/61 96/51 O2 Sat by Pulse 94 L 94 L Oximetry Fraction of 80 Inspired Oxygen (FIO2) 02/08/24 02/08/24 02/08/24 11:10 11:26 11:30 Temperature Pulse Rate 101 H 91 101 H Respiratory 20 20 Rate Blood Pressure 120/90 117/82 O2 Sat by Pulse 98 96 Oximetry Fraction of Inspired Oxygen (FIO2) 02/08/24 02/08/24 02/08/24 11:38 11:52 12:09 Temperature Pulse Rate 101 H 105 H 106 H Respiratory 18 18 Rate Blood Pressure 113/45 103/63 O2 Sat by Pulse 97 94 L Oximetry Fraction of Inspired Oxygen (FIO2) 02/08/24 12:11 Temperature Pulse Rate Respiratory Rate Blood Pressure O2 Sat by Pulse Oximetry Fraction of 80 Inspired Oxygen (FIO2) - Reevaluation(s) Reevaluation #1: 02/08/24 09:25 Patient seen and evaluated immediately in trauma bay 1. Patient significantly dyspneic. He is tripoding with low oxygen. He is hypoxic 81% on BiPAP. Patient given Decadron. Chart was reviewed did not show any obvious findings of CHF. There was some documentation of COPD emphysema. Blood pressure was 152/1 18. Patient clinical condition continued to decline. Conversation was held with patient of intubation and ventilation. Patient initially sounded apprehensive however ultimately was agreeable to endotracheal intubation and vent placement. Reevaluation #2: 02/08/24 10:00More history obtained from patient's girlfriend, son and son's significant other. Patient has a history of liver cancer. Gets all of his cancer care done at [facility]. He also has a history of A-fib on anticoagulation medications. Patient was in his usual state of health until he suffered a fall approximately 2 days ago. Since that he has been complaining of left-sided pain. His oxygen was tested at home and found to be 70%. He initially did not want to be brought to the emergency department however today he was forced by family. EKG Findings - EKG Comments: EKG Findings:: My EKG interpretation: Ventricular rate 56, sinus bradycardia,. 157, cures 90, QTc 420. Narrow complex tachycardia. No obvious P waves. Suspicious for A-fib though artifact limits interpretation. Mild ST depressions in the lateral precordial leads. Overall this EKG is nonspecific Procedures - Intubation Sedative: Etomidate Paralytic: Rocuronium Laryngoscope: fiber optic video scope Size: 4 ET Tube Size: 8 ET Tube Uncuffed: No Tube Secured Depth (cm): 25 Tube Secured Location: lips Tube Placement Confirmation: visualized tube passing through cords, equal breath sounds bilaterally, no breath sounds over epigastrium, confirmation by c apnometry Patient Tolerated Procedure: well Intubation Complications: none - Sepsis Sepsis Focused Exam #1 Time Sepsis Criteria Met: : Sepsis Focused Exam Date: 02/08/24 Sepsis Focused Exam Time: Sepsis Focused Exam Complete: Yes Vital Signs & RN Notes Reviewed: Yes Capillary Refill: < 2 Seconds: Fingers, Toes Peripheral Pulses: Normal: Radial (R), Radial (L), Posterior Tibialis (R), Posterior Tibialis (L), Dorsalis Pedis (R), Dorsalis Pedis (L) Skin Color: Normal for Patient Respiratory Exam: normal lung sounds, rhonchi Cardiovascular Exam: normal rhythm Medical Decision Making - Medical Decision Making Was pt. sent in by a medical professional or institution (, PA, DERRICK HAND, urgent care, hospital, or skilled nursing...) When possible be specific @ -No Did you speak to anyone other than the patient for history (EMS, parent, family, police, friend...)? What history was obtained from this source @ -See above Did you review nursing and triage notes (agree or disagree)? Why? @ -I reviewed and agree with nursing and triage notes Were old charts reviewed (outside hosp., previous admission, EMS record, old EKG, old radiological studies, urgent care reports/EKG's, skilled nursing records)? Report findings @ -No old charts were reviewed Differential Diagnosis (chest pain, altered mental status, abdominal pain women, abdominal pain men, vaginal bleeding, musculoskeletal, weakness, fever, dyspnea, syncope, headache, dizziness, GI bleed, back pain, seizure, CVA, palpatations, mental health)? @ -Differential Dyspnea: Coronary syndrome, arrhythmia, tamponade, asthma, COPD, pulmonary embolism, pneumonia, pneumothorax, pulmonary effusion, anaphylaxis, diabetic ketoacidosis, flailed chest, pulmonary contusion, diaphragmatic rupture, anemia, neuromuscular, this is not meant to be an all-inclusive list. EKG interpreted by me (3pts min.). @ -See above X-rays interpreted by me (1pt min.). @ -Chest x-ray shows left pleural effusion versus patchy airspace opacity CT interpreted by me (1pt min.). @ -CT scan of the head and C-spine shows no acute process. CT abdomen pelvis shows no acute processes. CT scan of the chest shows opacity to the left lung garcia U/S interpreted by me (1pt. min.). @ -None done What testing was considered but not performed or refused? (CT, X-rays, U/S, labs )? Why? @ -None What meds were considered but not given or refused? Why? @ -None Did you discuss the management of the patient with other professionals (professionals i.e. , PA, DERRICK HAND, lab, RT, psych nurse, social worker health services, card reader, teacher, operations officer trust department, security project manager)? Give summary @ -Case discussed with health companion along with hospitalist for admission. Was smoking cessation discussed for >3mins.? @ -No Was critical care preformed (if so, how long)? @ -Yes, 33 minutes Were there social determinants of health that impacted care today? How? (Homelessness, low income, unemployed, alcoholism, drug addiction, transportation, low edu. Level, literacy, decrease access to med. care, retirement, rehab)? @ -No Was there de-escalation of care discussed even if they declined (Discuss DNR or withdrawal of care, Hospice)? DNR status @ -No What co-morbidities impacted this encounter? (DM, HTN, Smoking, COPD, CAD, Cancer, CVA, ARF, Chemo, Hep., AIDS, mental health diagnosis, sleep apnea, morbid obesity)? @ -None Was patient admitted / discharged? Hospital course, mention meds given and route, prescriptions, significant lab abnormalities, going to OR and other pertinent info. @ -73-year-old male presents to the emergency department respiratory failure. Patient hypoxic on arrival. He showed significant work of breathing on BiPAP. Decision was was made by patient that he is agreeable for endotracheal intubation and ventilatory support. Patient intubated via RSI method. Laboratory evaluation obtained. CBC negative. Metabolic panel shows lactic acidosis of 13.4. Glucose of 67. Imaging studies suggested infection. There is no traumatic injuries noted. Glucose treated with dextrose. Patient will be admitted to the ICU for further care. CTA is limited due to artifact however no large major pulmonary emboli. Patient was not treated with large amounts of fluid per sepsis protocol due to concern of pulmonary edema heart failure. Undiagnosed new problem with uncertain prognosis? @ -No Drug Therapy requiring intensive monitoring for toxicity (Heparin, Nitro, Insulin, Cardizem)? @ -No Were any procedures done? @ -No Diagnosis/symptom? Acute, or Chronic, or Acute on Chronic? Uncomplicated (without systemic symptoms) or Complicated (systemic symptoms)? @ -Acute respiratory failure Side effects of treatment? @ -No Exacerbation, Progression, or Severe Exacerbation? @ -No Poses a threat to life or bodily function? How? (Chest pain, USA, CO, pneumonia, PE, COPD, DKA, ARF, appy, cholecystitis, CVA, Diverticulitis, Homicidal, Suicidal, threat to staff... and all critical care pts) @ -yes - Lab Data Result diagrams: 02/08/24 09:05 02/08/24 09:57 Lab Results 02/08/24 02/08/24 02/08/24 Range/Units 09:05 09:05 09:25 WBC 10.0 (3.8-10.6) k/uL RBC 4.27 L (4.30-5.90) m/uL Hgb 15.0 (13.0-17.5) gm/dL Hct 47.9 (39.0-53.0) % MCV 112.2 H (80.0-100.0) fL MCH 35.0 (25.0-35.0) pg MCHC 31.2 (31.0-37.0) g/dL RDW 15.9 H (11.5-15.5) % Plt Count 150 (150-450) k/uL MPV 9.4 Neutrophils % (Manual) 40 % Band Neuts % (Manual) 27 % Lymphocytes % (Manual) 9 % Monocytes % (Manual) 5 % Eosinophils % (Manual) 1 % Basophils % (Manual) 1 % Metamyelocytes % 13 % Myelocytes % 7 % Neutrophils # (Manual) 6.70 (1.3-7.7) k/uL Lymphocytes # (Manual) 0.90 L (1.0-4.8) k/uL Monocytes # (Manual) 0.50 (0-1.0) k/uL Eosinophils # (Manual) 0.10 (0-0.7) k/uL Basophils # (Manual) 0.10 (0-0.2) k/uL Metamyelocytes # (Man) 1.30 H (0) k/uL Myelocytes # (Manual) 0.70 H (0) k/uL Nucleated RBCs 0 (0-0) /100 WBC Manual Slide Review Performed Hypochromasia Marked Macrocytosis Marked A PT 21.2 H (10.0-12.5) sec INR 2.1 H (<1.2) APTT 31.0 H (22.0-30.0) sec D-Dimer 5.05 H (<0.60) mg/L FEU Sample Site ABG pH (7.35-7.45) ABG pCO2 (35-45) mmHg ABG pO2 (83-108) mmHg ABG HCO3 (21-25) mmol/L ABG Total CO2 (19-24) mmol/L ABG O2 Saturation (94-97) % ABG Base Excess mmol/L Vladimir Test FiO2 % Sodium (137-145) mmol/L Potassium (3.5-5.1) mmol/L Chloride (98-107) mmol/L Carbon Dioxide (22-30) mmol/L Anion Gap mmol/L BUN (9-20) mg/dL Creatinine (0.66-1.25) mg/dL Est GFR (CKD-EPI)AfAm (>60 ml/min/1.73 sqM) Est GFR (CKD-EPI)NonAf (>60 ml/min/1.73 sqM) Glucose (74-99) mg/dL Plasma Lactic Acid Rober (0.7-2.0) mmol/L Calcium (8.4-10.2) mg/dL Total Bilirubin (0.2-1.3) mg/dL AST (17-59) U/L ALT (4-49) U/L Alkaline Phosphatase (38-126) U/L Troponin I (0.000-0.034) ng/mL NT-Pro-B Natriuret Pep pg/mL Total Protein (6.3-8.2) g/dL Albumin (3.5-5.0) g/dL Influenza Type A (PCR) Not Detected (Not Detectd) Influenza Type B (PCR) Not Detected (Not Detectd) RSV (PCR) Not Detected (Not Detectd) SARS-CoV-2 (PCR) Not Detected (Not Detectd) 02/08/24 02/08/24 02/08/24 Range/Units 09:57 09:57 09:57 WBC (3.8-10.6) k/uL RBC (4.30-5.90) m/uL Hgb (13.0-17.5) gm/dL Hct (39.0-53.0) % MCV (80.0-100.0) fL MCH (25.0-35.0) pg MCHC (31.0-37.0) g/dL RDW (11.5-15.5) % Plt Count (150-450) k/uL MPV Neutrophils % (Manual) % Band Neuts % (Manual) % Lymphocytes % (Manual) % Monocytes % (Manual) % Eosinophils % (Manual) % Basophils % (Manual) % Metamyelocytes % % Myelocytes % % Neutrophils # (Manual) (1.3-7.7) k/uL Lymphocytes # (Manual) (1.0-4.8) k/uL Monocytes # (Manual) (0-1.0) k/uL Eosinophils # (Manual) (0-0.7) k/uL Basophils # (Manual) (0-0.2) k/uL Metamyelocytes # (Man) (0) k/uL Myelocytes # (Manual) (0) k/uL Nucleated RBCs (0-0) /100 WBC Manual Slide Review Hypochromasia Macrocytosis PT (10.0-12.5) sec INR (<1.2) APTT (22.0-30.0) sec D-Dimer (<0.60) mg/L FEU Sample Site ABG pH (7.35-7.45) ABG pCO2 (35-45) mmHg ABG pO2 (83-108) mmHg ABG HCO3 (21-25) mmol/L ABG Total CO2 (19-24) mmol/L ABG O2 Saturation (94-97) % ABG Base Excess mmol/L Vladimir Test FiO2 % Sodium 143 (137-145) mmol/L Potassium 3.8 (3.5-5.1) mmol/L Chloride 112 H (98-107) mmol/L Carbon Dioxide 11 L (22-30) mmol/L Anion Gap 20 mmol/L BUN 19 (9-20) mg/dL Creatinine 2.12 H (0.66-1.25) mg/dL Est GFR (CKD-EPI)AfAm 35 (>60 ml/min/1.73 sqM) Est GFR (CKD-EPI)NonAf 30 (>60 ml/min/1.73 sqM) Glucose 67 L (74-99) mg/dL Plasma Lactic Acid Roebr 13.4 H* (0.7-2.0) mmol/L Calcium 8.6 (8.4-10.2) mg/dL Total Bilirubin 3.5 H (0.2-1.3) mg/dL AST 122 H (17-59) U/L ALT 59 H (4-49) U/L Alkaline Phosphatase 58 (38-126) U/L Troponin I 0.154 H* (0.000-0.034) ng/mL NT-Pro-B Natriuret Pep 5390 pg/mL Total Protein 7.9 (6.3-8.2) g/dL Albumin 3.1 L (3.5-5.0) g/dL Influenza Type A (PCR) (Not Detectd) Influenza Type B (PCR) (Not Detectd) RSV (PCR) (Not Detectd) SARS-CoV-2 (PCR) (Not Detectd) 02/08/24 Range/Units 10:00 WBC (3.8-10.6) k/uL RBC (4.30-5.90) m/uL Hgb (13.0-17.5) gm/dL Hct (39.0-53.0) % MCV (80.0-100.0) fL MCH (25.0-35.0) pg MCHC (31.0-37.0) g/dL RDW (11.5-15.5) % Plt Count (150-450) k/uL MPV Neutrophils % (Manual) % Band Neuts % (Manual) % Lymphocytes % (Manual) % Monocytes % (Manual) % Eosinophils % (Manual) % Basophils % (Manual) % Metamyelocytes % % Myelocytes % % Neutrophils # (Manual) (1.3-7.7) k/uL Lymphocytes # (Manual) (1.0-4.8) k/uL Monocytes # (Manual) (0-1.0) k/uL Eosinophils # (Manual) (0-0.7) k/uL Basophils # (Manual) (0-0.2) k/uL Metamyelocytes # (Man) (0) k/uL Myelocytes # (Manual) (0) k/uL Nucleated RBCs (0-0) /100 WBC Manual Slide Review Hypochromasia Macrocytosis PT (10.0-12.5) sec INR (<1.2) APTT (22.0-30.0) sec D-Dimer (<0.60) mg/L FEU Sample Site Right Brachial ABG pH 7.04 L* (7.35-7.45) ABG pCO2 53 H (35-45) mmHg ABG pO2 106 (83-108) mmHg ABG HCO3 14 L (21-25) mmol/L ABG Total CO2 16 L (19-24) mmol/L ABG O2 Saturation 95.4 (94-97) % ABG Base Excess -16.3 mmol/L Vladimir Test Yes FiO2 100 % Sodium (137-145) mmol/L Potassium (3.5-5.1) mmol/L Chloride (98-107) mmol/L Carbon Dioxide (22-30) mmol/L Anion Gap mmol/L BUN (9-20) mg/dL Creatinine (0.66-1.25) mg/dL Est GFR (CKD-EPI)AfAm (>60 ml/min/1.73 sqM) Est GFR (CKD-EPI)NonAf (>60 ml/min/1.73 sqM) Glucose (74-99) mg/dL Plasma Lactic Acid Rober (0.7-2.0) mmol/L Calcium (8.4-10.2) mg/dL Total Bilirubin (0.2-1.3) mg/dL AST (17-59) U/L ALT (4-49) U/L Alkaline Phosphatase (38-126) U/L Troponin I (0.000-0.034) ng/mL NT-Pro-B Natriuret Pep pg/mL Total Protein (6.3-8.2) g/dL Albumin (3.5-5.0) g/dL Influenza Type A (PCR) (Not Detectd) Influenza Type B (PCR) (Not Detectd) RSV (PCR) (Not Detectd) SARS-CoV-2 (PCR) (Not Detectd) Disposition Clinical Impression: Respiratory failure Disposition: ADMITTED IP TO THIS [facility] Condition: Critical Referrals: Ricky Gayle DO [Primary Care Provider] - 1-2 days Decision Time: 12:27
[2024-02-08] MEDS: ETOMIDATE 2 MG/ML 10 ML VIAL IVP STA (09:16)
[2024-02-08] MEDS: ROCURONIUM 10 MG/ML (5 ML VIAL) IV STA (09:17)
--- NOTE | 2024-02-08 09:31 | XR ---
EXAMINATION TYPE: XR chest 1V portable DATE OF EXAM: 02/08/2024 Comparison: 12/13/2021 Clinical History: 73 year-old male shortness of breath, dyspnea Findings: Prominent left basilar opacity. Heart appears borderline in size. Relative upper lung lucencies with diffuse interstitial opacity. Impression: Borderline heart size. Suspect background COPD. Correlate for superimposed pulmonary vascular congest ion. Possible small to moderate left pleural effusion but with prominent left lower lung airspace dis ease/patchy pulmonary edema.
--- NOTE | 2024-02-08 09:46 | XR ---
EXAMINATION TYPE: XR chest 1V confirm line [facility] DATE OF EXAM: 02/08/2024 COMPARISON: 02/08/2024 HISTORY: 73-year-old male intubation and OG tube TECHNIQUE: Single frontal view of the chest is obtained. FINDINGS: ET tube satisfactory. NG tube courses below the diaphragm. Heart borderline enlarged. Airs pace opacity predominantly in the left mid and lower lung as well as the medial right base shows slig ht interval worsening. IMPRESSION: Worsening airspace disease left mid and lower lung as well as the medial right base.
[2024-02-08 09:50] LABS: HCT 47.9 % (39.0-53.0); Hypochromasia Marked; MCHC 31.2 g/dL (31.0-37.0); MCV 112.2 fL (80.0-100.0); Macrocytosis Marked; Mean Platelet Volume 9.4; Platelet Count 150 k/uL (150-450); RBC 4.27 m/uL (4.30-5.90); RDW 15.9 % (11.5-15.5)
[2024-02-08 09:57] LABS: INR 2.1 (<1.2); Prothrombin Time 21.2 sec (10.0-12.5)
[2024-02-08 10:05] LABS: ABG Base Excess -16.3 mmol/L; ABG HCO3 14 mmol/L (21-25); ABG Oxygen Saturation 95.4 % (94-97); ABG PCO2 53 mmHg (35-45); ABG PO2 106 mmHg (83-108); ABG TCO2 16 mmol/L (19-24); Allen Test Performed? Yes
[2024-02-08 10:19] LABS: Band Neutrophils % 27 %; Metamyelocytes % 13 %; Myelocytes % 7 %; Neutrophils % (M) 40 %; Nucleated Red Blood Cells 0 /100 WBC (0-0); Total Cells Counted 200
[2024-02-08 10:19] LABS: ABG PH 7.04 (7.35-7.45)
[2024-02-08 10:26] LABS: ALT 59 U/L (4-49); African American GFR (CKD) 35 (>60 ml/min/1.73 sqM); Anion Gap 20 mmol/L; Blood Urea Nitrogen 19 mg/dL (9-20); Calcium 8.6 mg/dL (8.4-10.2); Carbon Dioxide 11 mmol/L (22-30); Chloride 112 mmol/L (98-107); Glucose 67 mg/dL (74-99); Non-African American GFR(CKD) 30 (>60 ml/min/1.73 sqM); Sodium 143 mmol/L (137-145); Total Bilirubin 3.5 mg/dL (0.2-1.3)
[2024-02-08 10:34] LABS: NT-Pro-B-Type Natriuretic Pept 5390 pg/mL
[2024-02-08 10:36] LABS: AST 122 U/L (17-59); Albumin 3.1 g/dL (3.5-5.0); Alkaline Phosphatase 58 U/L (38-126); Potassium 3.8 mmol/L (3.5-5.1); Total Protein 7.9 g/dL (6.3-8.2)
[2024-02-08] MEDS: IPRATROPIUM-ALBUTEROL 3 ML NEB INHALATION STA (11:29)
[2024-02-08] MEDS: BUDESONIDE 1 MG/2 ML NEBU INHALATION STA (11:30)
[2024-02-08] MEDS: SODIUM BICARB 8.4% 50 ML SYR (1 MEQ/ML) IV STA ×2 (11:33→11:34)
[2024-02-08] MEDS: PIPERACILLIN-TAZOBACTAM 3.375 GM in SODIUM CHLORIDE 0.9% 100 ML IVPB SCH (11:50)
[2024-02-08] MEDS: DEXTROSE 5% IN WATER 1,000 ML with SODIUM BICARB (1 MEQ/ML) 150 ML IV SCH (11:51)
[2024-02-08] MEDS: SODIUM CHLORIDE 0.9% 1,000 ML IV STA (11:56)
--- NOTE | 2024-02-08 11:57 | CT ---
EXAMINATION TYPE: CT brain jhoana wo con DATE OF EXAM: 02/08/2024 COMPARISON: None HISTORY: 73-year-old male fall, AMS CT DLP: 1847 mGycm Automated exposure control for dose reduction was used. Technique: Examination of the head was done in axial plane without intravenous contrast. Coronal and sagittal reconstructions performed. CT of the cervical spine was obtained in axial plane without intravenous injection of contrast mater ial. Coronal and sagittal reformatted images were obtained from the axial views for evaluation of f ractures, spinal alignment and canal. FINDINGS: Head: There is no evidence of acute intracranial hemorrhage, acute ischemic changes, mass, mass-effect, or extra-axial fluid collection. There is no effacement of cerebral sulci or basal subarachnoid cister ns. There is no hydrocephalus. There is no midline shift. Castillo-white matter distinction is preserv ed. Moderate mucosal thickening ethmoid air cells. Layering fluid left frontal sinus, bilateral maxillary sinuses, and bilateral sphenoid sinuses. Orbits and globes appear intact. Mild cerebral cortical volume loss. Moderate patchy white matter hypodensities in both cerebral hemis pheres. This chronic calcifications in the carotid siphons. Cervical spine: Left pleural effusion noted. Emphysematous change. Possible suspicious 8 mm posterior right upper lob e pulmonary nodule, axial image 97. The patient is intubated with ET tube. No craniocervical junction abnormality, predental space widening, or prevertebral soft tissue swellin g. Degenerative change C1 dens articulation. Moderate spondylitic changes especially mid to lower cervical spine. Straightening of the normal cerv ical lordosis with preserved alignment. No acute fracture identified in the cervical spine. Assessment of the spinal canal limited due to art ifact from the patient's elevated shoulders. Variable mild neuroforaminal stenoses throughout. More moderate on the left and C6-7. Sagittal and coronal reformatted images confirm above findings. COMBINED IMPRESSION: 1. Mild cerebral atrophy and moderate patchy burden of chronic small vessel ischemic disease. No acut e intracranial abnormality seen. 2. No acute fracture or malalignment of the cervical spine. Moderate spondylotic change. 3. Layering fluid within the paranasal sinuses. Correlate for acute sinusitis. 4. Possible suspicious pulmonary nodule at the right upper lobe partially seen. Refer to separate rep ort of CTA chest same day.
--- NOTE | 2024-02-08 12:09 | CT ---
EXAMINATION TYPE: CT angio chest DATE OF EXAM: 02/08/2024 COMPARISON: 11/18/2022 HISTORY: 73 year-old male shortness of breath, Elevated D-dimer. R/O PE. TECHNIQUE: Contiguous axial scanning of the chest after the administration of 80 mL of Isovue 300. C oronal/sagittal MIP reconstructions performed. CT DLP: 1097mGycm. Automatic exposure control utilized for a dose reduction. FINDINGS: ET and NG tubes are present. Heart upper limits of normal in size without pericardial effusion. No flattening of the interventricu lar septum reflux of contrast into the hepatic veins. LAD and RCA coronary artery calcifications are present. Conventional arterial sobriety anatomy. No thoracic lymphadenopathy by CT size criteria. Large caliber to the main right and left pulmonary arteries measuring up to 3.7 cm suggesting underly ing pulmonary hypertension. Markedly degraded assessment for pulmonary embolus due to bolus suboptimal contrast bolus and motion artifacts. Unable to exclude segmental branch emboli to the right middle lobe and right lower lobe (f or example, axial images 70 and 77). There is extensive heterogeneity of the pulmonary vasculature du e to the breathing motion limiting assessment. Moderate emphysematous change. Spiculated 8 mm nodule right apex measuring 5 mm on 11/18/2022. There is complete consolidation of the left lower lobe and also extending into the lingula. Lesser de gree of consolidation right infrahilar region and posterior right base. No significant pleural effusi on. Abdomen reported separately. Bones: DISH lower thoracic spine. IMPRESSION: 1. Suboptimal assessment for PE due to combination of motion artifact and suboptimal contrast bolus. UNABLE TO EXCLUDE SCATTERED SEGMENTAL BRANCH EMBOLI ON THE RIGHT. Depending on clinical suspicion, co nsider repeat exam when patient able. 2. Pulmonary arterial hypertension. 3. Severe consolidation throughout the left lower lobe extending into the lingula. Lesser degree of c onsolidation right infrahilar region and posterior right base. Correlate for infectious or aspiration pneumonitis. Follow-up after treatment to ensure clearance. 4. Background COPD with moderate emphysema. A spiculated right apical nodule measures 8 mm versus 5 m m back on 11/18/2022. This should also be monitored on the follow-up to exclude early lung cancer.
--- NOTE | 2024-02-08 12:18 | CT ---
EXAMINATION TYPE: CT abdomen pelvis w con DATE OF EXAM: 02/08/2024 COMPARISON: NONE HISTORY: 73-year-old male fall, AMS TECHNIQUE: Contiguous axial scanning of the abdomen and pelvis following administration of 80 mL Isov ue 370 IV contrast. Delayed images through the kidneys and coronal/sagittal reconstructions performe d. CT DLP: 3520 mGycm Automated exposure control for dose reduction was used. FINDINGS: Chest reported separately. NG tube is in place. Nodular hepatic contour suggesting cirrhosis. Possible suspicious nodule measuring 2.5 cm inferior ri ght liver lobe. Somewhat small caliber to the main portal vein but otherwise patent portal venous sys tem prominent varices in the gastrohepatic ligament region. Adrenal glands, spleen with hilar splenule, and atrophic pancreas show no gross abnormality. No excretion of contrast from the kidneys on delayed scan and punctate 4 mm nonobstructive calculi ar e present on both sides. Bilateral extrarenal pelves. Atherosclerotic calcifications infrarenal abdominal aorta and iliac arteries. There is fusiform aneur ysm infrarenal abdominal aorta to 3.4 cm and fusiform aneurysm distal left common iliac artery up to 2.4 cm. No dilated small bowel, free fluid, or free air. No mesenteric or retroperitoneal lymphadenopathy. No significant stool burden. No pericolonic inflammatory change. Circumferential bladder wall thickening. However, collapsed bladder with Salinas catheter in place. No abnormal fluid collection in the pelvis or pelvic adenopathy. Bones: Severe degenerative change left hip and moderate at the right hip. Degenerative changes left S I joint. [facility] within the lower thoracic spine. Advanced hypertrophic facet arthropathy mid to lower lumbar spi ne with degenerative grade 1 anterolisthesis L4-L5. There may be severe spinal canal stenosis at L3-L 4. IMPRESSION: 1. CIRRHOSIS. PROMINENT COLLATERALS IN THE GASTROHEPATIC LIGAMENT REGION SUGGEST PORTAL VENOUS HYPERT ENSION. 2. UNABLE TO EXCLUDE A SUSPICIOUS 2.5 CM NODULE IN THE INFERIOR RIGHT LIVER LOBE. WE NOTE THAT THIS M EASURED 3.5 CM ON THE PATIENT'S 08/28/2022 MRI. CORRELATE WITH ANY PRIOR WORKUP/DIAGNOSIS. APPROPRIATE FOLLOW-UP ADVISED. SEE REPORT ON MRI OF 08/28/2022. 3. Punctate 4 mm nonobstructive bilateral renal calculi. Given lack of contrast excretion on delayed scan, correlate with kidney function to exclude MITCH. 4. 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 5. Circumferential bladder wall thickening may in part relate to collapse given indwelling Salinas cath eter. Correlate to exclude cystitis. 6. There may be a severe focal spinal canal stenosis at L3-L4.
[2024-02-08] MEDS ORDERED: NALOXONE 0.4 MG/ML 1 ML VIAL IV PRN (12:22)
[2024-02-08 12:29] LABS: Glucose,Whole Blood 50 mg/dL (70-110)
[2024-02-08] MEDS: DEXTROSE 50% SYRINGE 50 ML IVP STA (12:30)
[2024-02-08 13:30] LABS: Glucose,Whole Blood 66 mg/dL (70-110)
[2024-02-08] MEDS: DEXTROSE 50% SYRINGE 50 ML IVP ONE ×2 (13:32→18:55)
[2024-02-08 13:57] LABS: Glucose,Whole Blood 86 mg/dL (70-110)
[2024-02-08 14:55] LABS: Glucose,Whole Blood 65 mg/dL (70-110)
--- NOTE | 2024-02-08 14:56 | P.CNPUL ---
History of Present Illness Consult date: 02/08/24 Requesting physician: Marleni Parish Reason for consult: other (Acute hypoxic respiratory failure requiring intubation mechanical ventilation) Chief complaint: Shortness of breath History of present illness: This is a 73-year-old white male, known history of liver cancer, receiving treatment at [facility]. History of COPD, chronic atrial fibrillation, history of congestive heart failure, tobacco dependence syndrome, patient was brought into the ER this morning by EMS, apparently the patient has been complaining of shortness of breath for the last couple of days. Today his eldon rtness of breath has become more pronounced, and his pulse ox was noted to be in the 70s. EMS was called, and upon arrival patient was placed on BiPAP, and he was noted to have significant wheezing. Brought into the ER, and the patient was in extreme respiratory distress, did not tolerate BiPAP, intubated by ER physician, and I was asked to see the patient on consultation. Patient is now on assist-control rate of 20 tidal volume 450 FiO2 of 100% and PEEP of 5 ABG showed a pO2 of 108 pCO2 53 pH of 7.04. Vent settings were changed, increase his rate up to 24 cut down FiO2 to 80% increased PEEP to 8 and considering his metabolic acidosis I recommended 3 A of bicarb and 1 L of D5W running at 50 cc/h. Follow-up ABG will be done in few hours. Workup in the ER included chest x-ray which clearly showed significant consolidation in the left lower lobe and in the left perihilar area. CT of the head showed mild cerebral atrophy, no acute intracranial process, there was a layering of fluid within the paranasal sinuses consistent with acute sinusitis. CT angiogram of the chest was a subo ptimal to diagnose pulmonary embolism, remind you patient is on Xarelto it did show evidence of pulmonary hypertension, severe consolidation throughout the left lower lobe extending into the lingula and a lesser consolidation noted in the right infrahilar area/right base. Posteriorly. Which raises the possibility of aspiration pneumonitis. There is a background COPD with moderate emphysema, and there is an apical nodule measuring 8 mm apparently this was noted on a previous CT of the chest measuring 5 mm back on 11/18/22. This is likely malignant, and according to the family this has been noted at [facility] and they are keeping an eye and close watch on it Review of Systems ROS unobtainable: due to endotracheal tube Past Medical History Past Medical History: Atrial Fibrillation, Cancer, Heart Failure, GERD/Reflux, Osteoarthritis (OA), Prostate Disorder Additional Past Medical History / Comment(s): COPD, CHF, liver cancer; radiation treatment December and September History of Any Multi-Drug Resistant Organisms: None Reported Past Surgical History: Cholecystectomy, Tonsillectomy Past Anesthesia/Blood Transfusion Reactions: No Reported Reaction Past Psychological History: No Psychological Hx Reported Smoking Status: Former smoker Past Alcohol Use History: None Reported Past Drug Use History: Marijuana - Past Family History Mother Family Medical History: Coronary Artery Disease (CAD), Myocardial Infarction ([place]) Father Family Medical History: Myocardial Infarction ([place]) Medications and Allergies Home Medications Medication Instructions Recorded Confirmed Type Esomeprazole Magnesium [NexIUM] 20 mg PO DAILY 12/13/21 02/08/24 History Finasteride [Proscar] 5 mg PO DAILY 12/13/21 02/08/24 History Furosemide [Lasix] 40 mg PO BID 12/13/21 02/08/24 History Potassium Chloride [Potassium 8 meq PO BID 12/13/21 02/08/24 History Chloride ER] traMADol HCL [Ultram] 50 mg PO BID PRN 12/13/21 02/08/24 History Rivaroxaban [Xarelto] 20 mg PO W/SUPPER 02/08/24 02/08/24 History Tiotropium 2.5 Mcg/Puff [Spiriva 2 puff INHALATION RT-DAILY 02/08/24 02/08/24 History Respimat 2.5 Mcg] Allergies Allergy/AdvReac Type Severity Reaction Status Date / Time No Known Allergies Allergy Verified 02/08/24 12:30 Physical Exam Vitals: Vital Signs Temp Pulse Resp BP Pulse Ox FiO2 02/08/24 14:00 90 25 H 114/58 91 L 02/08/24 13:30 99.3 F 101 H 24 123/61 91 L 80 02/08/24 13:01 92 20 99/50 96 02/08/24 12:45 93 18 104/67 96 02/08/24 12:11 80 02/08/24 12:09 106 H 18 103/63 94 L 02/08/24 11:52 105 H 18 113/45 97 02/08/24 11:38 101 H 02/08/24 11:30 101 H 02/08/24 11:26 91 20 117/82 96 02/08/24 11:10 101 H 20 120/90 98 02/08/24 10:50 97 18 96/51 94 L 02/08/24 10:46 106 H 20 85/61 94 L 02/08/24 10:30 120 H 24 118/71 93 L 02/08/24 10:20 80 02/08/24 10:19 80 02/08/24 10:15 105 H 20 118/71 96 02/08/24 10:00 121 H 20 119/78 96 02/08/24 09:44 112 H 20 124/89 97 02/08/24 09:43 100 02/08/24 09:30 97.5 F L 120 H 20 111/76 92 L 02/08/24 09:25 120 H 24 93/69 95 02/08/24 09:17 103 H 40 H 112/86 78 L 02/08/24 09:12 116 H 40 H 130/100 79 L 02/08/24 09:05 102 H 40 H 128/106 76 L 02/08/24 09:00 124/107 85 L 02/08/24 08:55 107 H 40 H 108/98 84 L 02/08/24 08:51 82 L 02/08/24 08:50 107 H 46 H 152/118 81 L Intake and Output 02/07/24 02/08/24 02/08/24 22:59 06:59 14:59 Intake Total 198.365 Output Total 175 Balance 23.365 Intake: Intake, IV Titration 198.365 Amount Dextrose 5% in Water 1, 50 000 ml @ 50 mls/hr IV . Q23H JACOBO with Sodium Bicarb (1 Meq/ml) 150 ml Rx#:[id number] propofoL 1,000 mg In 148.365 Empty Bag 1 bag @ 40 MCG/ KG/MIN 34.074 mls/hr IV . Q2H57M JACOBO Rx#:[id number] Output: Urine 175 Other: Weight 141.974 kg General: Reveals 73-year-old white male in no distress, intubated mechanically ventilated, sedated, on propofol at 40 mcg/kg/min. Skin: Skin is warm and dry and no rashes or lesions are noted. Eye: Pupils are equal, round and reactive to light, extra-ocular movements are intact; there is normal conjunctiva bilaterally. Ears, nose, mouth and throat: There are moist mucous membranes and no oral lesions. Endotracheal tube and orogastric tube noted to be intact. Neck: The neck is supple, there is no tenderness or JVD. Cardiovascular: Distant S1-S2, no S3 gallop, normal sinus rhythm. No murmur. Respiratory: Minich breath sounds and rhonchi noted bilaterally. Gastrointestinal: Soft nontender no megaly no rebound no guarding Musculoskeletal: No deformities noted. Neurological: Could not assess, fully sedated mechanically ventilated, on propofol Psychiatric: Could not assess. Results - Laboratory Findings CBC and BMP: 02/08/24 09:05 02/08/24 09:57 ABG ABG pH 7.04 (7.35-7.45) L* 02/08/24 10:00 ABG pCO2 53 mmHg (35-45) H 02/08/24 10:00 ABG pO2 106 mmHg (83-108) 02/08/24 10:00 ABG O2 Saturation 95.4 % (94-97) 02/08/24 10:00 PT/INR, D-dimer PT 21.2 sec (10.0-12.5) H 02/08/24 09:05 INR 2.1 (<1.2) H 02/08/24 09:05 D-Dimer 5.05 mg/L FEU (<0.60) H 02/08/24 09:05 Abnormal lab findings: Abnormal Labs 02/08/24 02/08/24 02/08/24 09:05 09:05 09:57 RBC 4.27 L MCV 112.2 H RDW 15.9 H Lymphocytes # (Manual) 0.90 L Metamyelocytes # (Man) 1.30 H Myelocytes # (Manual) 0.70 H Macrocytosis Marked A PT 21.2 H INR 2.1 H APTT 31.0 H D-Dimer 5.05 H ABG pH ABG pCO2 ABG HCO3 ABG Total CO2 Chloride 112 H Carbon Dioxide 11 L Creatinine 2.12 H Glucose 67 L POC Glucose (mg/dL) Plasma Lactic Acid Rober Total Bilirubin 3.5 H AST 122 H ALT 59 H Troponin I Albumin 3.1 L 04/21/24 04/21/24 04/21/24 09:57 09:57 10:00 RBC MCV RDW Lymphocytes # (Manual) Metamyelocytes # (Man) Myelocytes # (Manual) Macrocytosis PT INR APTT D-Dimer ABG pH 7.04 L* ABG pCO2 53 H ABG HCO3 14 L ABG Total CO2 16 L Chloride Carbon Dioxide Creatinine Glucose POC Glucose (mg/dL) Plasma Lactic Acid Rober 13.4 H* Total Bilirubin AST ALT Troponin I 0.154 H* Albumin 02/08/24 02/08/24 12:28 13:28 RBC MCV RDW Lymphocytes # (Manual) Metamyelocytes # (Man) Myelocytes # (Manual) Macrocytosis PT INR APTT D-Dimer ABG pH ABG pCO2 ABG HCO3 ABG Total CO2 Chloride Carbon Dioxide Creatinine Glucose POC Glucose (mg/dL) 50 L 66 L Plasma Lactic Acid Rober Total Bilirubin AST ALT Troponin I Albumin - Diagnostic Findings CT scan - chest: image reviewed (As noted in HPI) Assessment and Plan Assessment: Impression: Acute hypoxic and hypercapnic respiratory failure secondary to acute exacerbation of COPD and bilateral pneumonia, suspect aspiration pneumonia. History of liver cancer, patient is being treated at [facility]. According to family patient is receiving radiation treatment for his liver cancer. Paroxysmal atrial fibrillation, maintained on Xarelto Bibasilar pneumonia, suspect aspiration pneumonia, although it could be community-acquired pneumonia History of congestive heart failure Acute exacerbation of COPD Tobacco dependence syndrome, [id number] smoking history History of hepatitis C, treated History of alcoholism, in remission GERD without esophagitis History of liver cirrhosis, follows with Dr. Appiah History of IV drug use History of portal hypertension and esophageal varices acute anion gap metabolic acidosis Acute kidney injury possible ATN Recommendation: Continue ventilatory support Bronchodilators and steroids Hemodynamic support if necessary Antibiotic, placed on Zosyn for empiric aspiration pneumonia Sodium bicarb drip for severe metabolic acidosis Continue IV fluids and monitor renal profile closely Resume patient on Xarelto orally GI and DVT prophylaxis IV Solu-Medrol for COPD Nutritional support/enteral feeding Family updated on his condition and made aware that his critically ill Will continue to follow Critical care time is over 55 min, not including time for procedures. Time with Patient: Greater than 30
[2024-02-08 15:23] LABS: Glucose,Whole Blood 91 mg/dL (70-110)
[2024-02-08] MEDS: methylPREDNISolone SOD SUCCI 40 MG/ML 1 ML VIAL IV SCH (15:36)
[2024-02-08] MEDS: IPRATROPIUM-ALBUTEROL 3 ML NEB INHALATION SCH (15:53)
[2024-02-08] MEDS ORDERED: Magnesium Replacement Protocol 1 EACH MISC MISCELLANE PRN (15:59)
[2024-02-08] MEDS ORDERED: Potassium Replacement Protocol 1 EACH MISC MISCELLANE PRN (15:59)
--- NOTE | 2024-02-08 16:20 | P.HPIM ---
History of Present Illness H&P Date: 02/08/24 Chief Complaint: dyspnea 73-year-old male, with tobacco dependence, with medical history of cirrhosis secondary to alcohol use/hepatitis C, former IV drug user, hepatocellular carcinoma status post Y90 radiation, COPD, permanent atrial fibrillation, chronic diastolic heart failure presenting for evaluation of dyspnea. History is taken from family who is at bedside as well as ER provider signout and chart review secondary to patient being intubated/sedated. Per my understanding, patient has been having increasing dyspnea over the last 24 to 48 hours. He had been advised to come to the emergency room for further evaluation today upon noting an oxygen saturation of 70% on home pulse ox. In the emergency room, patient was afebrile, 152/118, heart rate 107, respiratory rate of 46, 81% on BiPAP. Therefore, patient was intubated in the emergency room and oxygen saturation went up to 95% with vent settings of PEEP of 8, FiO2 of 80%, volume control 500. CBC demonstrated elevated MCV of 112.2, otherwise unremarkable. Basic metabolic panel demonstrated creatinine of 2.12 with a baseline of 1. Liver function test showed elevation of AST to 122, ALT of 59, total bilirubin of 3.5, albumin of 3.1. Troponin was 0.154, BNP was 5390. Initial ABG demonstrated pH of 7.04, pCO2 of 53, pO2 of 106. Coags demonstrated elevated INR of 2.1, D-dimer 5.05. Influenza A, B, RSV, COVID were negative. EKG, personally interpreted, demonstrates atrial fibrillation with RVR, multiple instances of aberrant conduction. Chest x-ray, personally interpreted demonstrates left-sided consolidation with likely pleural effusion. Chest CTA showed moderate emphysematous change, pulmonary arterial hypertension, severe consolidation throughout the left lower lobe extending into the lingula, but was suboptimal to exclude pulmonary embolism. CT abdomen/pelvis demonstr ated cirrhosis with prominent collaterals in the gastrohepatic ligament suggesting portal venous hypertension, suspicious 2-1/2 cm nodule in the inferior right liver lobe. Head/cervical spine CT shows mild cerebral atrophy and moderate patchy burden of chronic small vessel ischemic disease. This also demonstrated incidental finding of right upper lobe pulmonary nodule which was suspicious, confirmed on CTA to be an 8 mm right apical nodule which was spiculated. Pulmonary/critical care medicine was consulted and patient was transferred to the intensive care unit for further monitoring/management. General: intubated, sedated HEENT: normocephalic, atraumatic, no tracheal deviation Respiratory: symmetric chest rise, no cyanosis, ventilator dependent CVS: perfusing all extremities, no distal gangrene, bilateral pitting edema GI: soft, ND : no SPT, no CVAT, banda is present Neuro: sedated Labs and imaging as above Assessment/plan: Sepsis with acute hypoxemic and hypercarbic respiratory failure Community-acquired versus aspiration pneumonia COPD exacerbation -Admit patient to the intensive care unit -Agree with Zosyn 3.375 g every 8 hours, obtain procalcitonin -Agree with propofol -Sparing IV fluids due to evidence of volume overload secondary to cirrhosis and history of chronic diastolic heart failure -Agree with Solu-Medrol 40 mg IV every 8 hours, budesonide twice daily, fo rmoterol twice daily, DuoNebs scheduled, DuoNebs every 2 as needed -Consideration of Lasix -Repeat chest x-ray tomorrow morning -lower extremity duplex ordered Acute kidney injury Chronic diastolic heart failure Decompensated liver cirrhosis -Holding diuretics in the setting of suspicion of sepsis as above, but low threshold to initiate Lasix -Urinalysis is pending, nephrology consultation ordered -Urine sodium, creatinine, urea GERD Tobacco dependence BPH Permanent atrial fibrillation -Home medications reviewed and reconciled Discussed with family, patient should remain full code DVT prophylaxis is covered with Xarelto Past Medical History Past Medical History: Atrial Fibrillation, Cancer, Heart Failure, GERD/Reflux, Osteoarthritis (OA), Prostate Disorder Additional Past Medical History / Comment(s): COPD, CHF, liver cancer; radiation treatment December and September History of Any Multi-Drug Resistant Organisms: None Reported Past Surgical History: Cholecystectomy, Tonsillectomy Past Anesthesia/Blood Transfusion Reactions: No Reported Reaction Past Psychological History: No Psychological Hx Reported Smoking Status: Former smoker Past Alcohol Use History: None Reported Past Drug Use History: Marijuana - Past Family History Mother Family Medical History: Coronary Artery Disease (CAD), Myocardial Infarction ([place]) Father Family Medical History: Myocardial Infarction ([place]) Medications and Allergies Home Medications Medication Instructions Recorded Confirmed Type Esomeprazole Magnesium [NexIUM] 20 mg PO DAILY 12/13/21 02/08/24 History Finasteride [Proscar] 5 mg PO DAILY 12/13/21 02/08/24 History Furosemide [Lasix] 40 mg PO BID 12/13/21 02/08/24 History Potassium Chloride [Potassium 8 meq PO BID 12/13/21 02/08/24 History Chloride ER] traMADol HCL [Ultram] 50 mg PO BID PRN 12/13/21 02/08/24 History Rivaroxaban [Xarelto] 20 mg PO W/SUPPER 02/08/24 02/08/24 History Tiotropium 2.5 Mcg/Puff [Spiriva 2 puff INHALATION RT-DAILY 02/08/24 02/08/24 History Respimat 2.5 Mcg] Allergies Allergy/AdvReac Type Severity Reaction Status Date / Time No Known Allergies Allergy Verified 02/08/24 12:30 Physical Exam Osteopathic Statement: *. No significant issues noted on an osteopathic structural exam other than those noted in the History and Physical/Consult. Vitals: Vital Signs Temp Pulse Resp BP Pulse Ox FiO2 02/08/24 15:53 100 02/08/24 15:25 80 02/08/24 15:00 101 H 25 H 109/55 91 L 80 02/08/24 14:30 89 26 H 114/58 90 L 02/08/24 14:00 90 25 H 114/58 91 L 02/08/24 13:30 99.3 F 101 H 24 123/61 91 L 80 02/08/24 13:01 92 20 99/50 96 02/08/24 12:45 93 18 104/67 96 02/08/24 12:11 80 02/08/24 12:09 106 H 18 103/63 94 L 02/08/24 11:52 105 H 18 113/45 97 02/08/24 11:38 101 H 02/08/24 11:30 101 H 02/08/24 11:26 91 20 117/82 96 02/08/24 11:10 101 H 20 120/90 98 02/08/24 10:50 97 18 96/51 94 L 02/08/24 10:46 106 H 20 85/61 94 L 02/08/24 10:30 120 H 24 118/71 93 L 02/08/24 10:20 80 02/08/24 10:19 80 02/08/24 10:15 105 H 20 118/71 96 02/08/24 10:00 121 H 20 119/78 96 02/08/24 09:44 112 H 20 124/89 97 02/08/24 09:43 100 02/08/24 09:30 97.5 F L 120 H 20 111/76 92 L 02/08/24 09:25 120 H 24 93/69 95 02/08/24 09:17 103 H 40 H 112/86 78 L 02/08/24 09:12 116 H 40 H 130/100 79 L 02/08/24 09:05 102 H 40 H 128/106 76 L 02/08/24 09:00 124/107 85 L 02/08/24 08:55 107 H 40 H 108/98 84 L 02/08/24 08:51 82 L 02/08/24 08:50 107 H 46 H 152/118 81 L Intake and Output 02/08/24 02/08/24 02/08/24 06:59 14:59 22:59 Intake Total 198.365 89.61 Output Total 175 45 Balance 23.365 44.61 Intake: Intake, IV Titration 198.365 89.61 Amount Dextrose 5% in Water 1, 50 50 000 ml @ 50 mls/hr IV . Q23H JACOBO with Sodium Bicarb (1 Meq/ml) 150 ml Rx#:[id number] propofoL 1,000 mg In 148.365 39.61 Empty Bag 1 bag @ 40 MCG/ KG/MIN 34.074 mls/hr IV . Q2H57M JACOBO Rx#:[id number] Output: Urine 175 45 Other: Weight 141.974 kg Results CBC & Chem 7: 02/08/24 09:05 02/08/24 14:16 Labs: Abnormal Lab Results - Last 24 Hours (Table) 02/08/24 02/08/24 02/08/24 Range/Units 09:05 09:05 09:57 RBC 4.27 L (4.30-5.90) m/uL MCV 112.2 H (80.0-100.0) fL RDW 15.9 H (11.5-15.5) % Lymphocytes # (Manual) 0.90 L (1.0-4.8) k/uL Metamyelocytes # (Man) 1.30 H (0) k/uL Myelocytes # (Manual) 0.70 H (0) k/uL Macrocytosis Marked A PT 21.2 H (10.0-12.5) sec INR 2.1 H (<1.2) APTT 31.0 H (22.0-30.0) sec D-Dimer 5.05 H (<0.60) mg/L FEU ABG pH (7.35-7.45) ABG pCO2 (35-45) mmHg ABG HCO3 (21-25) mmol/L ABG Total CO2 (19-24) mmol/L Chloride 112 H (98-107) mmol/L Carbon Dioxide 11 L (22-30) mmol/L Creatinine 2.12 H (0.66-1.25) mg/dL Glucose 67 L (74-99) mg/dL POC Glucose (mg/dL) (70-110) mg/dL Plasma Lactic Acid Rober (0.7-2.0) mmol/L Total Bilirubin 3.5 H (0.2-1.3) mg/dL AST 122 H (17-59) U/L ALT 59 H (4-49) U/L Troponin I (0.000-0.034) ng/mL Albumin 3.1 L (3.5-5.0) g/dL 02/08/24 02/08/24 02/08/24 Range/Units 09:57 09:57 10:00 RBC (4.30-5.90) m/uL MCV (80.0-100.0) fL RDW (11.5-15.5) % Lymphocytes # (Manual) (1.0-4.8) k/uL Metamyelocytes # (Man) (0) k/uL Myelocytes # (Manual) (0) k/uL Macrocytosis PT (10.0-12.5) sec INR (<1.2) APTT (22.0-30.0) sec D-Dimer (<0.60) mg/L FEU ABG pH 7.04 L* (7.35-7.45) ABG pCO2 53 H (35-45) mmHg ABG HCO3 14 L (21-25) mmol/L ABG Total CO2 16 L (19-24) mmol/L Chloride (98-107) mmol/L Carbon Dioxide (22-30) mmol/L Creatinine (0.66-1.25) mg/dL Glucose (74-99) mg/dL POC Glucose (mg/dL) (70-110) mg/dL Plasma Lactic Acid Rober 13.4 H* (0.7-2.0) mmol/L Total Bilirubin (0.2-1.3) mg/dL AST (17-59) U/L ALT (4-49) U/L Troponin I 0.154 H* (0.000-0.034) ng/mL Albumin (3.5-5.0) g/dL 02/08/24 02/08/24 02/08/24 Range/Units 12:28 13:28 14:06 RBC (4.30-5.90) m/uL MCV (80.0-100.0) fL RDW (11.5-15.5) % Lymphocytes # (Manual) (1.0-4.8) k/uL Metamyelocytes # (Man) (0) k/uL Myelocytes # (Manual) (0) k/uL Macrocytosis PT (10.0-12.5) sec INR (<1.2) APTT (22.0-30.0) sec D-Dimer (<0.60) mg/L FEU ABG pH (7.35-7.45) ABG pCO2 (35-45) mmHg ABG HCO3 (21-25) mmol/L ABG Total CO2 (19-24) mmol/L Chloride (98-107) mmol/L Carbon Dioxide (22-30) mmol/L Creatinine (0.66-1.25) mg/dL Glucose (74-99) mg/dL POC Glucose (mg/dL) 50 L 66 L (70-110) mg/dL Plasma Lactic Acid Rober 11.0 H* (0.7-2.0) mmol/L Total Bilirubin (0.2-1.3) mg/dL AST (17-59) U/L ALT (4-49) U/L Troponin I (0.000-0.034) ng/mL Albumin (3.5-5.0) g/dL 02/08/24 Range/Units 14:54 RBC (4.30-5.90) m/uL MCV (80.0-100.0) fL RDW (11.5-15.5) % Lymphocytes # (Manual) (1.0-4.8) k/uL Metamyelocytes # (Man) (0) k/uL Myelocytes # (Manual) (0) k/uL Macrocytosis PT (10.0-12.5) sec INR (<1.2) APTT (22.0-30.0) sec D-Dimer (<0.60) mg/L FEU ABG pH (7.35-7.45) ABG pCO2 (35-45) mmHg ABG HCO3 (21-25) mmol/L ABG Total CO2 (19-24) mmol/L Chloride (98-107) mmol/L Carbon Dioxide (22-30) mmol/L Creatinine (0.66-1.25) mg/dL Glucose (74-99) mg/dL POC Glucose (mg/dL) 65 L (70-110) mg/dL Plasma Lactic Acid Rober (0.7-2.0) mmol/L Total Bilirubin (0.2-1.3) mg/dL AST (17-59) U/L ALT (4-49) U/L Troponin I (0.000-0.034) ng/mL Albumin (3.5-5.0) g/dL
[2024-02-08] MEDS: SODIUM CHLORIDE 0.9% 1,000 ML IV ONE (16:23)
[2024-02-08] MEDS: POTASSIUM BICARBONATE/CIT AC 20 MEQ TABLET.EFF NG-TUBE SCH (16:23)
[2024-02-08] MEDS: NOREPINEPHRINE 4 MG in SODIUM CHLORIDE 0.9% 250 ML IV SCH (16:27)
[2024-02-08] MEDS: CISATRACURIUM 2 MG/ML 5 ML VIAL IV ONE ×2 (16:39→18:36)
[2024-02-08 17:48] LABS: Glucose,Whole Blood 70 mg/dL (70-110)
[2024-02-08] MEDS: RIVAROXABAN 15 MG TAB PO SCH (17:57)
[2024-02-08 18:32] LABS: Appearance,Urine Cloudy (Clear); Bilirubin,Urine Negative (Negative); Blood,Urine Moderate (Negative); Color,Urine Yellow; Glucose,Urine (UA) Negative (Negative); Ketones,Urine Negative (Negative); Leukocyte Esterase,Urine Negative (Negative); Mucus,Urine Rare /hpf; Nitrite,Urine Negative (Negative); Protein,Urine Trace (Negative); RBC,Urine 18 /hpf (0-5); Specific Gravity,Urine >1.050 (1.001-1.035); Squamous Epithelial Cell,Urine <1 /hpf (0-4); Urobilinogen,Urine <2.0 mg/dL (<2.0); WBC,Urine 17 /hpf (0-5)
[2024-02-08 18:33] LABS: Creatinine,Urine Random 140.1 mg/dL
[2024-02-08 18:54] LABS: Glucose,Whole Blood 62 mg/dL (70-110)
[2024-02-08 19:27] LABS: Glucose,Whole Blood 90 mg/dL (70-110)
[2024-02-08] MEDS: BUDESONIDE 1 MG/2 ML NEBU INHALATION SCH (20:43)
[2024-02-08] MEDS: FORMOTEROL FUMARATE 20 MCG/2 ML NEBU INHALATION SCH (20:43)
[2024-02-08] MEDS: CHLORHEXIDINE GLUCONATE 15 ML CUP MUCOUS MEM SCH (20:57)
--- NOTE | 2024-02-08 21:15 | OP ---
OPERATIVE REPORT DATE OF SERVICE : PROCEDURE: Placement of a right femoral triple-lumen catheter. PREOPERATIVE DIAGNOSIS: Acute hypoxic respiratory failure/pneumonia. POSTOPERATIVE DIAGNOSIS: Acute hypoxic respiratory failure/pneumonia, suspect septic shock. ANESTHESIA USED: 2 mL of 1% lidocaine. PROCEDURE IN DETAIL: The patient was placed in the supine position, the right groin was prepared in a sterile fashion and drapes were applied. The area was locally anesthetized with lidocaine. Then, the right femoral vein was easily cannulated, and a guidewire was placed. The area around the guidewire was dilated, then a triple-lumen catheter was inserted over the guidewire, and the guidewire was removed. Good blood flow noted in the 3 different ports of the triple-lumen catheter, line was secured using 3.0 silk sutures, no complications. MMODL / IJN: [id number] /
--- NOTE | 2024-02-08 21:21 | OP ---
OPERATIVE REPORT DATE OF SERVICE : PROCEDURE: Placement of a right brachial arterial line. PREOPERATIVE DIAGNOSES: Acute hypoxic respiratory failure and sepsis/pneumonia. POSTOPERATIVE DIAGNOSES: Acute hypoxic respiratory failure and sepsis/pneumonia. ANESTHESIA USED: None deployed. PROCEDURE IN DETAIL: The patient was placed in a supine position, the right brachial region was prepared in a sterile fashion and drapes were applied. Then, the right brachial vein was easily cannulated using an Arrow kit with the arterial line. The brachial artery was cannulated easily, then the wire was moved down through the catheter into the brachial artery, then the catheter was threaded over the guidewire. Then, the guidewire was removed. Good blood flow, good waveform, no complications. Line was secured using 3.0 silk sutures. MMODL / IJN: [id number] /
[2024-02-08 22:50] LABS: Glucose,Whole Blood 76 mg/dL (70-110)
--- NOTE | 2024-02-08 23:56 | US ---
EXAMINATION TYPE: US venous doppler duplex LE BI DATE OF EXAM: 02/08/2024 8:34 PM COMPARISON: None CLINICAL INDICATION: Male, 73 years old with history of r/o DVT; Swelling, vented pt in ICU SIDE PERFORMED: Bilateral TECHNIQUE: The lower extremity deep venous system is examined utilizing real time linear array sonog ernestine with graded compression, doppler sonography and color-flow sonography. VESSELS IMAGED: Common Femoral Vein Deep Femoral Vein Greater Saphenous Vein * Femoral Vein Popliteal Vein Small Saphenous Vein * Proximal Calf Veins (* superficial vessels) Right Leg: Visualized portions appeared negative for DVT, right EIV, GSV, CFV, and proximal FV not v isualized due to arterial line in groin Left Leg: Negative for DVT IMPRESSION: Right Leg: Visualized portions negative for DVT. Right EIV, GSV, CFV, and proximal FV not visualized due to arterial line in groin. Left Leg: Negative for DVT.
[2024-02-09 01:24] LABS: Glucose,Whole Blood 63 mg/dL (70-110)
[2024-02-09] MEDS: DEXTROSE 50% SYRINGE 50 ML IVP ONE ×2 (01:25→06:20)
[2024-02-09 01:47] LABS: Glucose,Whole Blood 97 mg/dL (70-110)
[2024-02-09] MEDS: SODIUM CHLORIDE 0.9% 1,000 ML IV ONE ×2 (03:37→07:07)
[2024-02-09 04:40] LABS: Glucose,Whole Blood 72 mg/dL (70-110)
[2024-02-09 06:05] LABS: ABG Base Excess -2.2 mmol/L; ABG HCO3 24 mmol/L (21-25); ABG Oxygen Saturation 97.2 % (94-97); ABG PCO2 50 mmHg (35-45); ABG PH 7.29 (7.35-7.45); ABG PO2 89 mmHg (83-108); ABG TCO2 26 mmol/L (19-24); Allen Test Performed? Yes
[2024-02-09 06:19] LABS: Glucose,Whole Blood 67 mg/dL (70-110)
[2024-02-09 06:24] LABS: Anisocytosis Slight; HCT 46.9 % (39.0-53.0); HGB 14.3 gm/dL (13.0-17.5); Hypochromasia Marked; MCH 35.1 pg (25.0-35.0); MCHC 30.4 g/dL (31.0-37.0); MCV 115.5 fL (80.0-100.0); Macrocytosis Marked; RBC 4.06 m/uL (4.30-5.90); RDW 16.1 % (11.5-15.5); WBC 10.8 k/uL (3.8-10.6)
[2024-02-09 06:43] LABS: Glucose,Whole Blood 105 mg/dL (70-110)
--- NOTE | 2024-02-09 08:28 | XR ---
EXAMINATION TYPE: XR chest 1V portable DATE OF EXAM: 02/09/2024 Comparison: 02/08/2024 Clinical History: 73-year-old male Tube placement Findings: ET and NG tubes are satisfactory. Heart borderline enlarged. Mid and lower lung opacities, left great er than right persist. Relative upper lung lucencies. Impression: COPD with superimposed bilateral mid and lower lung airspace disease, left greater than right. Very s light interval improvement.
[2024-02-09] MEDS ORDERED: VANCOMYCIN IV PER PHARMACY 1 EACH MISC MISCELLANE PRN (09:09)
[2024-02-09 09:23] LABS: African American GFR (CKD) 30 (>60 ml/min/1.73 sqM); Anion Gap 10 mmol/L; Blood Urea Nitrogen 34 mg/dL (9-20); Calcium 7.7 mg/dL (8.4-10.2); Carbon Dioxide 21 mmol/L (22-30); Chloride 110 mmol/L (98-107); Glucose 89 mg/dL (74-99); Non-African American GFR(CKD) 26 (>60 ml/min/1.73 sqM); Potassium 5.3 mmol/L (3.5-5.1); Sodium 141 mmol/L (137-145)
--- NOTE | 2024-02-09 09:42 | P.NPCON ---
History of Present Illness - Reason for Consult acute renal failure - History of Present Illness Reason for consultation: Acute kidney injury History of present illness: Patient is a 73-year-old male seen in renal consultation for acute kidney injury. Patient's creatinine in June 2022 was 1.0. This admission it was elevated at 2.12 and is 2.39 today. Patient was brought to the hospital by the EMS. It appears patient was short of breath. Patient's pulse ox was in the 70s and was subsequently placed on BiPAP. Currently he is intubated. Patient also noted to be hypotensive with systolic blood pressure in the 80s to 90s this admission. He is currently on Levophed. He is receiving third liter of normal saline bolus now and is also receiving bicarb drip for maintenance fluids. Acidosis is improved. Urine output has been 30 to 40 cc an hour. Patient has history of alcohol induced liver cirrhosis. He is also receiving IV antibiotics for possible pneumonia. Patient's blood cultures are positive for gram-positive cocci. I do not see any NSAIDs on his home medication list. Vital signs are stable. On vasopressor support. General: Resting in bed. HEENT: Intubated. LUNGS: Scattered rhonchi. HEART: Rate and Rhythm are regular. ABDOMEN: No distention. EXTREMITITES: Trace edema. Past Medical History Past Medical History: Atrial Fibrillation, Cancer, Heart Failure, GERD/Reflux, Osteoarthritis (OA), Prostate Disorder Additional Past Medical History / Comment(s): COPD, CHF, liver cancer; radiation treatment December and September History of Any Multi-Drug Resistant Organisms: None Reported Past Surgical History: Cholecystectomy, Tonsillectomy Past Anesthesia/Blood Transfusion Reactions: No Reported Reaction Past Psychological History: No Psychological Hx Reported Smoking Status: Former smoker Past Alcohol Use History: None Reported Past Drug Use History: Marijuana - Past Family History Mother Family Medical History: Coronary Artery Disease (CAD), Myocardial Infarction (CT) Father Family Medical History: Myocardial Infarction (CT) Medications and Allergies Home Medications Medication Instructions Recorded Confirmed Type Esomeprazole Magnesium [NexIUM] 20 mg PO DAILY 12/13/21 02/08/24 History Finasteride [Proscar] 5 mg PO DAILY 12/13/21 02/08/24 History Furosemide [Lasix] 40 mg PO BID 12/13/21 02/08/24 History Potassium Chloride [Potassium 8 meq PO BID 12/13/21 02/08/24 History Chloride ER] traMADol HCL [Ultram] 50 mg PO BID PRN 12/13/21 02/08/24 History Rivaroxaban [Xarelto] 20 mg PO W/SUPPER 02/08/24 02/08/24 History Tiotropium 2.5 Mcg/Puff [Spiriva 2 puff INHALATION RT-DAILY 02/08/24 02/08/24 History Respimat 2.5 Mcg] Allergies Allergy/AdvReac Type Severity Reaction Status Date / Time No Known Allergies Allergy Verified 02/08/24 12:30 Physical Exam Vitals: Vital Signs Temp Pulse Resp BP Pulse Ox FiO2 02/09/24 09:26 100 02/09/24 09:25 100 02/09/24 09:12 100 02/09/24 09:08 80 02/09/24 07:00 112 H 26 H 106/61 95 02/09/24 06:30 105 H 26 H 89/50 95 80 02/09/24 06:00 99.3 F 107 H 27 H 89/47 95 80 02/09/24 05:30 109 H 26 H 110/92 93 L 02/09/24 05:00 107 H 25 H 110/56 95 80 02/09/24 04:30 106 H 26 H 110/58 95 02/09/24 04:15 80 02/09/24 04:00 100.9 F H 105 H 29 H 110/52 96 80 02/09/24 03:30 107 H 26 H 102/48 96 02/09/24 03:00 108 H 27 H 101/36 95 02/09/24 02:30 107 H 26 H 111/36 93 L 02/09/24 02:00 112 H 26 H 87/38 93 L 02/09/24 01:30 100.7 F H 115 H 22 106/60 96 80 02/09/24 01:20 80 02/09/24 01:00 117 H 29 H 111/66 96 02/09/24 00:30 115 H 31 H 98/56 96 02/09/24 00:00 111 H 28 H 87/56 96 80 02/08/24 23:30 114 H 26 H 102/60 95 02/08/24 23:03 116 H 27 H 84/58 94 L 04/21/24 23:00 114 H 26 H 117/67 94 L 02/08/24 22:30 106 H 25 H 94/60 94 L 02/08/24 22:00 112 H 28 H 75/51 94 L 80 02/08/24 21:30 115 H 28 H 101/46 94 L 02/08/24 21:00 104 H 27 H 102/44 94 L 02/08/24 20:53 111 H 02/08/24 20:52 111 H 02/08/24 20:44 112 H 02/08/24 20:38 80 02/08/24 20:30 100.2 F H 112 H 30 H 80/62 95 80 02/08/24 20:00 117 H 30 H 114/60 94 L 80 02/08/24 19:30 110 H 28 H 106/70 93 L 02/08/24 19:00 115 H 26 H 90/64 92 L 02/08/24 18:30 115 H 26 H 103/61 90 L 02/08/24 18:00 105 H 24 103/56 91 L 02/08/24 17:30 104 H 24 113/52 91 L 02/08/24 17:00 105 H 24 107/45 92 L 02/08/24 16:30 104 H 27 H 84/69 93 L 80 02/08/24 16:07 100 02/08/24 16:00 100 24 100/44 92 L 80 02/08/24 15:53 100 02/08/24 15:30 93 26 H 100/57 91 L 02/08/24 15:25 80 02/08/24 15:00 101 H 25 H 109/55 91 L 80 02/08/24 14:30 89 26 H 114/58 90 L 02/08/24 14:00 90 25 H 114/58 91 L 02/08/24 13:30 99.3 F 101 H 24 123/61 91 L 80 02/08/24 13:01 92 20 99/50 96 02/08/24 12:45 93 18 104/67 96 02/08/24 12:11 80 02/08/24 12:09 106 H 18 103/63 94 L 02/08/24 11:52 105 H 18 113/45 97 02/08/24 11:38 101 H 02/08/24 11:30 101 H 02/08/24 11:26 91 20 117/82 96 02/08/24 11:10 101 H 20 120/90 98 02/08/24 10:50 97 18 96/51 94 L 02/08/24 10:46 106 H 20 85/61 94 L 02/08/24 10:30 120 H 24 118/71 93 L 02/08/24 10:20 80 02/08/24 10:19 80 02/08/24 10:15 105 H 20 118/71 96 02/08/24 10:00 121 H 20 119/78 96 02/08/24 09:44 112 H 20 124/89 97 02/08/24 09:43 100 Intake and Output 02/08/24 02/09/24 02/09/24 22:59 06:59 14:59 Intake Total 7005.195 0418.323 1050 Output Total 330 265 25 Balance 1342.234 5901.323 1025 Intake: IV 37.5 1250 1050 Dextrose 5% in Water 1, 150 50 000 ml @ 50 mls/hr IV . Q23H JACOBO with Sodium Bicarb (1 Meq/ml) 150 ml Rx#:[id number] Piperacillin-Tazobactam 3 37.5 100 .375 gm In Sodium Chloride 0.9% 100 ml @ 25 mls/hr IVPB Q8HR JACOBO Rx# :[id number] Sodium Chloride 0.9% 1, 1000 1000 000 ml @ 999 mls/hr IV . Q1H1M ONE Rx#:[id number] Intake, IV Titration 1657.144 926.323 Amount Dextrose 5% in Water 1, 400 200 000 ml @ 50 mls/hr IV . Q23H JACOBO with Sodium Bicarb (1 Meq/ml) 150 ml Rx#:[id number] Norepinephrine 4 mg In 217.271 466.581 Sodium Chloride 0.9% 250 ml @ 0.03 MCG/KG/MIN 16. 228 mls/hr IV .[id number] JACOBO Rx#:[id number] Sodium Chloride 0.9% 1, 1000 000 ml @ 999 mls/hr IV . Q1H1M ONE Rx#:[id number] propofoL 1,000 mg In 39.873 259.742 Empty Bag 1 bag @ 40 MCG/ KG/MIN 34.074 mls/hr IV . Q2H57M JACOBO Rx#:[id number] Tube Feeding 60 Output: Urine 330 265 25 Other: Voiding Method Indwelling Catheter Indwelling Catheter Results - Lab Results Most recent lab results ABG pH 7.29 (7.35-7.45) L 02/09/24 06:03 ABG pCO2 50 mmHg (35-45) H 02/09/24 06:03 ABG pO2 89 mmHg (83-108) 02/09/24 06:03 ABG HCO3 24 mmol/L (21-25) 02/09/24 06:03 ABG O2 Saturation 97.2 % (94-97) H 02/09/24 06:03 Calcium 7.7 mg/dL (8.4-10.2) L 02/09/24 08:30 Magnesium 2.0 mg/dL (1.6-2.3) 02/09/24 08:30 02/09/24 05:31 02/09/24 08:30 Assessment and Plan Plan: Assessment: 1. Acute kidney injury secondary to ATN secondary to septic shock. Creatinine 2.39 today. No hydronephrosis noted on CAT scan. Patient received IV contrast for CT on February 08, 2024. 2. Septic shock secondary to gram-positive bacteremia and pneumonia. On antibiotics. On Levophed. 3. Alcohol induced liver cirrhosis. 4. Acute hypoxic respiratory failure. Plan: Change bicarb drip to normal saline at 75 cc an hour. Monitor vancomycin levels. Dose to be adjusted for renal function. Avoid nephrotoxins. Wean FiO2 on Levophed. Continue to monitor renal function and urine output. Thank you for the consultation. I will continue to follow the patient with you during his hospital stay.
[2024-02-09] MEDS ORDERED: VANCOMYCIN 2,000 MG in SODIUM CHLORIDE 0.9% 500 ML 500 ML IVPB SCH (09:45)
[2024-02-09] MEDS: PANTOPRAZOLE 40 MG/10 ML VIAL IV SCH (10:20)
[2024-02-09] MEDS: FINASTERIDE 5 MG TAB PO SCH (10:24)
[2024-02-09] MEDS: VANCOMYCIN 2,000 MG in SODIUM CHLORIDE 0.9% 500 ML 500 ML IVPB ONE (10:25)
[2024-02-09] MEDS: SODIUM CHLORIDE 0.9% 1,000 ML IV SCH (10:27)
--- NOTE | 2024-02-09 10:34 | P.PN ---
Subjective Progress Note Date: 02/09/24 Patient was started on pressors last night, central line and arterial line was placed. Blood cultures returning positive for gram-positive cocci, speciation is pending. Patient's Zosyn was discontinued and patient was started on ceftriaxone. Patient's lactic acid is still at 9. I discussed the case with patient's family member, and indicated that patient was very critical at this time and has a poor prognosis, however, plan is to continue treatment for 20 to 48 hours see how patient progresses. General: intubated, sedated HEENT: normocephalic, atraumatic, no tracheal deviation Respiratory: symmetric chest rise, no cyanosis, ventilator dependent CVS: perfusing all extremities, no distal gangrene, bilateral pitting edema GI: soft, ND : no SPT, no CVAT, banda is present Neuro: sedated Hospital course: 73-year-old male, with tobacco dependence, with medical history of cirrhosis secondary to alcohol use/hepatitis C, former IV drug user, hepatocellular carc inoma status post Y90 radiation, COPD, permanent atrial fibrillation, chronic diastolic heart failure presenting for evaluation of dyspnea. In the emergency room, patient was afebrile, 152/118, heart rate 107, respiratory rate of 46, 81% on BiPAP. Therefore, patient was intubated in the emergency room and oxygen saturation went up to 95% with vent settings of PEEP of 8, FiO2 of 80%, volume control 500. CBC demonstrated elevated MCV of 112.2, otherwise unremarkable. Basic metabolic panel demonstrated creatinine of 2.12 with a baseline of 1. Liver function test showed elevation of AST to 122, ALT of 59, total bilirubin of 3.5, albumin of 3.1. Troponin was 0.154, BNP was 5390. Initial ABG demonstrated pH of 7.04, pCO2 of 53, pO2 of 106. Coags demonstrated elevated INR of 2.1, D-dimer 5.05. Influenza A, B, RSV, COVID were negative. EKG, personally interpreted, demonstrates atrial fibrillation with RVR, multiple instances of aberrant conduction. Chest x-ray, personally interpreted demonstrates left-sided consolidation with likely pleural effusion. Chest CTA showed moderate emphysematous change, pulmonary arterial hypertension, severe consolidation throughout the left lower lobe extending into the lingula, but was suboptimal to exclude pulmonary embolism. CT abdomen/pelvis demonstrated cirrhosis with prominent collaterals in the gastrohepatic ligament suggesting portal venous hypertension, suspicious 2-1/2 cm nodule in the inferior right liver lobe. Head/cervical spine CT shows mild cerebral atrophy and moderate patchy burden of chronic small vessel ischemic disease. This also demonstrated incidental finding of right upper lobe pulmonary nodule which was suspicious, confirmed on CTA to be an 8 mm right apical nodule which was spiculated. Pulmonary/critical care medicine was consulted and patient was transferred to the intensive care unit for further monitoring/management. Assessment/plan: Septic shock with acute hypoxemic and hypercarbic respiratory failure Hypoglycemia related to sepsis Community-acquired pneumonia Streptococcus pneumonia bacteremia COPD exacerbation -Admit patient to the intensive care unit, with pulmonology consult -I started the patient on vancomycin today, follow trough for toxicity -I started the patient on cefepime 1 g every 8 hours -Agree with propofol -Recommend D5/normal saline -Agree with Solu-Medrol 40 mg IV every 8 hours, budesonide twice daily, formoterol twice daily, DuoNebs scheduled, DuoNebs every 2 as needed -Consideration of Lasix -Repeat chest x-ray tomorrow morning -lower extremity duplex ordered and was negative for DVT -Infectious disease was consulted Acute kidney injury Chronic diastolic heart failure Decompensated liver cirrhosis -Holding diuretics in the setting of suspicion of sepsis as above, but low threshold to initiate Lasix -Urinalysis is pending, nephrology consultation ordered -Urine sodium, creatinine, urea GERD Tobacco dependence BPH Permanent atrial fibrillation -Home medications reviewed and reconciled Discussed with family, patient should remain full code DVT prophylaxis is covered with Xarelto Objective - Vital Signs Vital signs: Vital Signs Temp 99.3 F 02/09/24 06:00 Pulse 102 H 02/09/24 09:42 Resp 26 H 02/09/24 07:00 BP 106/61 02/09/24 07:00 Pulse Ox 95 02/09/24 07:00 FiO2 80 02/09/24 09:08 Intake & Output 02/08/24 02/09/24 02/09/24 18:59 06:59 18:59 Intake Total 5155.923 7380.385 1196.7 Output Total 325 445 25 Balance 4632.630 5329.385 1171.7 Weight 141.974 kg Intake: IV 37.5 1250 1050 Dextrose 5% in Water 1, 150 50 000 ml @ 50 mls/hr IV . Q23H JACOOB with Sodium Bicarb (1 Meq/ml) 150 ml Rx#:[id number] Piperacillin-Tazobactam 3 37.5 100 .375 gm In Sodium Chloride 0.9% 100 ml @ 25 mls/hr IVPB Q8HR JACOBO Rx# :[id number] Sodium Chloride 0.9% 1, 1000 1000 000 ml @ 999 mls/hr IV . Q1H1M ONE Rx#:[id number] Intake, IV Titration 8969.338 9189.385 146.7 Amount Dextrose 5% in Water 1, 250 400 000 ml @ 50 mls/hr IV . Q23H JACOBO with Sodium Bicarb (1 Meq/ml) 150 ml Rx#:[id number] Norepinephrine 4 mg In 29.209 654.643 46.7 Sodium Chloride 0.9% 250 ml @ 0.03 MCG/KG/MIN 16. 228 mls/hr IV .[id number] JACOBO Rx#:[id number] Sodium Chloride 0.9% 1, 1000 000 ml @ 999 mls/hr IV . Q1H1M ONE Rx#:[id number] propofoL 1,000 mg In 188.238 259.742 100 Empty Bag 1 bag @ 40 MCG/ KG/MIN 34.074 mls/hr IV . Q2H57M JACOBO Rx#:[id number] Tube Feeding 20 40 Output: Urine 325 445 25 Other: Voiding Method Indwelling Catheter Indwelling Catheter ABP, PAP, CO, CI - Last Documented Arterial Blood Pressure 80/80 - Labs CBC & Chem 7: 02/09/24 05:31 02/09/24 08:30 Labs: Abnormal Lab Results - Last 24 Hours (Table) 02/08/24 02/08/24 02/08/24 Range/Units 09:57 09:57 09:57 WBC (3.8-10.6) k/uL RBC (4.30-5.90) m/uL MCV (80.0-100.0) fL MCH (25.0-35.0) pg MCHC (31.0-37.0) g/dL RDW (11.5-15.5) % Macrocytosis ABG pH (7.35-7.45) ABG pCO2 (35-45) mmHg ABG Total CO2 (19-24) mmol/L ABG O2 Saturation (94-97) % Potassium (3.5-5.1) mmol/L Chloride 112 H (98-107) mmol/L Carbon Dioxide 11 L (22-30) mmol/L BUN (9-20) mg/dL Creatinine 2.12 H (0.66-1.25) mg/dL Glucose 67 L (74-99) mg/dL POC Glucose (mg/dL) (70-110) mg/dL Plasma Lactic Acid Rober 13.4 H* (0.7-2.0) mmol/L Calcium (8.4-10.2) mg/dL Total Bilirubin 3.5 H (0.2-1.3) mg/dL AST 122 H (17-59) U/L ALT 59 H (4-49) U/L Troponin I 0.154 H* (0.000-0.034) ng/mL Albumin 3.1 L (3.5-5.0) g/dL Ur Specific [place] (1.001-1.035) Urine Protein (Negative) Urine Blood (Negative) Urine RBC (0-5) /hpf Urine WBC (0-5) /hpf Urine Mucus (None) /hpf Ur Random Sodium (40-220) mmol/L 02/08/24 02/08/24 02/08/24 Range/Units 12:28 13:28 14:06 WBC (3.8-10.6) k/uL RBC (4.30-5.90) m/uL MCV (80.0-100.0) fL MCH (25.0-35.0) pg MCHC (31.0-37.0) g/dL RDW (11.5-15.5) % Macrocytosis ABG pH (7.35-7.45) ABG pCO2 (35-45) mmHg ABG Total CO2 (19-24) mmol/L ABG O2 Saturation (94-97) % Potassium (3.5-5.1) mmol/L Chloride (98-107) mmol/L Carbon Dioxide (22-30) mmol/L BUN (9-20) mg/dL Creatinine (0.66-1.25) mg/dL Glucose (74-99) mg/dL POC Glucose (mg/dL) 50 L 66 L (70-110) mg/dL Plasma Lactic Acid Rober 11.0 H* (0.7-2.0) mmol/L Calcium (8.4-10.2) mg/dL Total Bilirubin (0.2-1.3) mg/dL AST (17-59) U/L ALT (4-49) U/L Troponin I (0.000-0.034) ng/mL Albumin (3.5-5.0) g/dL Ur Specific [place] (1.001-1.035) Urine Protein (Negative) Urine Blood (Negative) Urine RBC (0-5) /hpf Urine WBC (0-5) /hpf Urine Mucus (None) /hpf Ur Random Sodium (40-220) mmol/L 02/08/24 02/08/24 02/08/24 Range/Units 14:54 17:32 17:50 WBC (3.8-10.6) k/uL RBC (4.30-5.90) m/uL MCV (80.0-100.0) fL MCH (25.0-35.0) pg MCHC (31.0-37.0) g/dL RDW (11.5-15.5) % Macrocytosis ABG pH (7.35-7.45) ABG pCO2 (35-45) mmHg ABG Total CO2 (19-24) mmol/L ABG O2 Saturation (94-97) % Potassium (3.5-5.1) mmol/L Chloride (98-107) mmol/L Carbon Dioxide (22-30) mmol/L BUN (9-20) mg/dL Creatinine (0.66-1.25) mg/dL Glucose (74-99) mg/dL POC Glucose (mg/dL) 65 L (70-110) mg/dL Plasma Lactic Acid Rober 8.7 H* (0.7-2.0) mmol/L Calcium (8.4-10.2) mg/dL Total Bilirubin (0.2-1.3) mg/dL AST (17-59) U/L ALT (4-49) U/L Troponin I (0.000-0.034) ng/mL Albumin (3.5-5.0) g/dL Ur Specific [place] (1.001-1.035) Urine Protein (Negative) Urine Blood (Negative) Urine RBC (0-5) /hpf Urine WBC (0-5) /hpf Urine Mucus (None) /hpf Ur Random Sodium <20 L (40-220) mmol/L 02/08/24 02/08/24 02/08/24 Range/Units 17:50 18:52 20:55 WBC (3.8-10.6) k/uL RBC (4.30-5.90) m/uL MCV (80.0-100.0) fL MCH (25.0-35.0) pg MCHC (31.0-37.0) g/dL RDW (11.5-15.5) % Macrocytosis ABG pH (7.35-7.45) ABG pCO2 (35-45) mmHg ABG Total CO2 (19-24) mmol/L ABG O2 Saturation (94-97) % Potassium (3.5-5.1) mmol/L Chloride (98-107) mmol/L Carbon Dioxide (22-30) mmol/L BUN (9-20) mg/dL Creatinine (0.66-1.25) mg/dL Glucose (74-99) mg/dL POC Glucose (mg/dL) 62 L (70-110) mg/dL Plasma Lactic Acid Rober 8.6 H* (0.7-2.0) mmol/L Calcium (8.4-10.2) mg/dL Total Bilirubin (0.2-1.3) mg/dL AST (17-59) U/L ALT (4-49) U/L Troponin I (0.000-0.034) ng/mL Albumin (3.5-5.0) g/dL Ur Specific [place] >1.050 H (1.001-1.035) Urine Protein Trace H (Negative) Urine Blood Moderate H (Negative) Urine RBC 18 H (0-5) /hpf Urine WBC 17 H (0-5) /hpf Urine Mucus Rare H (None) /hpf Ur Random Sodium (40-220) mmol/L 02/09/24 02/09/24 02/09/24 Range/Units 01:22 01:23 05:31 WBC 10.8 H (3.8-10.6) k/uL RBC 4.06 L (4.30-5.90) m/uL MCV 115.5 H (80.0-100.0) fL MCH 35.1 H (25.0-35.0) pg MCHC 30.4 L (31.0-37.0) g/dL RDW 16.1 H (11.5-15.5) % Macrocytosis Marked A ABG pH (7.35-7.45) ABG pCO2 (35-45) mmHg ABG Total CO2 (19-24) mmol/L ABG O2 Saturation (94-97) % Potassium (3.5-5.1) mmol/L Chloride (98-107) mmol/L Carbon Dioxide (22-30) mmol/L BUN (9-20) mg/dL Creatinine (0.66-1.25) mg/dL Glucose (74-99) mg/dL POC Glucose (mg/dL) 63 L (70-110) mg/dL Plasma Lactic Acid Rober 9.7 H* (0.7-2.0) mmol/L Calcium (8.4-10.2) mg/dL Total Bilirubin (0.2-1.3) mg/dL AST (17-59) U/L ALT (4-49) U/L Troponin I (0.000-0.034) ng/mL Albumin (3.5-5.0) g/dL Ur Specific [place] (1.001-1.035) Urine Protein (Negative) Urine Blood (Negative) Urine RBC (0-5) /hpf Urine WBC (0-5) /hpf Urine Mucus (None) /hpf Ur Random Sodium (40-220) mmol/L 02/09/24 02/09/24 02/09/24 Range/Units 05:31 06:03 06:18 WBC (3.8-10.6) k/uL RBC (4.30-5.90) m/uL MCV (80.0-100.0) fL MCH (25.0-35.0) pg MCHC (31.0-37.0) g/dL RDW (11.5-15.5) % Macrocytosis ABG pH 7.29 L (7.35-7.45) ABG pCO2 50 H (35-45) mmHg ABG Total CO2 26 H (19-24) mmol/L ABG O2 Saturation 97.2 H (94-97) % Potassium (3.5-5.1) mmol/L Chloride (98-107) mmol/L Carbon Dioxide (22-30) mmol/L BUN (9-20) mg/dL Creatinine (0.66-1.25) mg/dL Glucose (74-99) mg/dL POC Glucose (mg/dL) 67 L (70-110) mg/dL Plasma Lactic Acid Rober 9.0 H* (0.7-2.0) mmol/L Calcium (8.4-10.2) mg/dL Total Bilirubin (0.2-1.3) mg/dL AST (17-59) U/L ALT (4-49) U/L Troponin I (0.000-0.034) ng/mL Albumin (3.5-5.0) g/dL Ur Specific [place] (1.001-1.035) Urine Protein (Negative) Urine Blood (Negative) Urine RBC (0-5) /hpf Urine WBC (0-5) /hpf Urine Mucus (None) /hpf Ur Random Sodium (40-220) mmol/L 02/09/24 02/09/24 Range/Units 08:30 08:30 WBC (3.8-10.6) k/uL RBC (4.30-5.90) m/uL MCV (80.0-100.0) fL MCH (25.0-35.0) pg MCHC (31.0-37.0) g/dL RDW (11.5-15.5) % Macrocytosis ABG pH (7.35-7.45) ABG pCO2 (35-45) mmHg ABG Total CO2 (19-24) mmol/L ABG O2 Saturation (94-97) % Potassium 5.3 H (3.5-5.1) mmol/L Chloride 110 H (98-107) mmol/L Carbon Dioxide 21 L (22-30) mmol/L BUN 34 H (9-20) mg/dL Creatinine 2.39 H (0.66-1.25) mg/dL Glucose (74-99) mg/dL POC Glucose (mg/dL) (70-110) mg/dL Plasma Lactic Acid Rober 8.5 H* (0.7-2.0) mmol/L Calcium 7.7 L (8.4-10.2) mg/dL Total Bilirubin (0.2-1.3) mg/dL AST (17-59) U/L ALT (4-49) U/L Troponin I (0.000-0.034) ng/mL Albumin (3.5-5.0) g/dL Ur Specific [place] (1.001-1.035) Urine Protein (Negative) Urine Blood (Negative) Urine RBC (0-5) /hpf Urine WBC (0-5) /hpf Urine Mucus (None) /hpf Ur Random Sodium (40-220) mmol/L Microbiology - Last 24 Hours (Table) 02/08/24 11:45 Blood Culture Gram Stain - Preliminary Blood Blood Culture - Preliminary Streptococcus pneumoniae 02/08/24 11:30 Blood Culture Gram Stain - Preliminary Blood Blood Culture - Preliminary Streptococcus pneumoniae Molecular ID 02/08/24 09:42 Gram Stain - Preliminary Sputum
[2024-02-09] MEDS: NOREPINEPHRINE 8 MG in SODIUM CHLORIDE 0.9% 250 ML IV SCH (10:38)
[2024-02-09] MEDS: DEXTROSE 5%-0.9% NACL 1,000 ML IV SCH (11:24)
[2024-02-09] MEDS: PIPERACILLIN-TAZOBACTAM 3.375 GM in SODIUM CHLORIDE 0.9% 100 ML IVPB SCH (11:30)
[2024-02-09 12:04] LABS: Glucose,Whole Blood 89 mg/dL (70-110)
--- NOTE | 2024-02-09 12:07 | P.PN ---
Subjective Progress Note Date: 02/09/24 Principal diagnosis: Respiratory failure. This is a 73-year-old white male, known history of liver cancer, receiving treatment at [facility]. History of COPD, chronic atrial fibrillation, history of congestive heart failure, tobacco dependence syndrome, patient was brought into the ER this morning by EMS, apparently the patient has been complaining of shortness of breath for the last couple of days. Today his shortness of breath has become more pronounced, and his pulse ox was noted to be in the 70s. EMS was called, and upon arrival patient was placed on BiPAP, and he was noted to have significant wheezing. Brought into the ER, and the patient was in extreme respiratory distress, did not tolerate BiPAP, intubated by ER physician, and I was asked to see the patient on consultation. Patient is now on assist-control rate of 20 tidal volume 450 FiO2 of 100% and PEEP of 5 ABG showed a pO2 of 108 pCO2 53 pH of 7.04. Vent settings were changed, increase his rate up to 24 cut down FiO2 to 80% increased PEEP to 8 and considering his metabolic acidosis I recommended 3 A of bicarb and 1 L of D5W running at 50 cc/h. Follow-up ABG will be done in few hours. Workup in the ER included chest x-ray which clearly showed significant consolidation in the left lower lobe and in the left perihilar area. CT of the head showed mild cerebral atrophy, no acute intracranial process, there was a layering of fluid within the paranasal sinuses consistent with acute sinusitis. CT angiogram of the chest was a suboptimal to diagnose pulmonary embolism, remind you patient is on Xarelto it did show evidence of pulmonary hypertension, severe consolidation throughout the left lower lobe extending into the lingula and a lesser consolidation noted in the right infrahilar area/right base. Posteriorly. Which raises the possibility of aspiration pneumonitis. There is a background COPD with moderate emphysema, and there is an apical nodule measuring 8 mm apparently this was noted on a previous CT of the chest measuring 5 mm back on 11/18/22. This is likely malignant, and according to the family this has been noted at [facility] and they are keeping an eye and close watch on it Progress note dated February 09, 2024. This is a 73-year-old male who is seen today in room 265. He was admitted yesterday, for respiratory failure and COPD. The patient has a history of liver cancer. The patient remains on the mechanical ventilator for respiratory failur e, with settings of volume assist-control, rate 24, tidal volume 500, FiO2 80%, PEEP of 8. Blood gases show pO2 of 89, pCO2 of 50, and a pH of 7.29. In an attempt to reduce the FiO2, the PEEP was increased from 8 to 12 cm of water. The patient was intubated yesterday, on February 08. He continues on propofol at 35 mcg/kg/min, and norepinephrine at 22 mcg/min. Is getting a sodium bicarbonate drip, with 3 ampoules of sodium bicarb in D5W at 75 cc an hour. He is also getting vancomycin and cefepime, and he was started on vital HP at 10 cc an hour, awaiting a dietary evaluation. White count is 10.8, hemoglobin 14.3, hematocrit 46.9, and a platelet count is currently pending. Sodium 141, pot assium 5.3, chlorides 110, CO2 21, anion gap 10, BUN 34, and creatinine 2.39. Lactic acid is 8.5. Calcium is 7.7. Magnesium is 2.0. Blood cultures show evidence of Streptococcus pneumoniae. Chest x-ray shows bilateral mid and lower lung airspace disease. Objective - Vital Signs Vital signs: Vital Signs Temp 99.7 F H 02/09/24 08:00 Pulse 110 H 02/09/24 11:30 Resp 24 02/09/24 11:30 BP 80/41 02/09/24 11:30 Pulse Ox 94 L 02/09/24 11:30 FiO2 80 02/09/24 11:00 Intake & Output 02/08/24 02/09/24 02/09/24 18:59 06:59 18:59 Intake Total 0400.639 0218.385 2071.7 Output Total 325 445 400 Balance 6341.391 3130.385 1671.7 Weight 141.974 kg 141.974 kg Intake: IV 37.5 1250 1925 Dextrose 5% in Water 1, 150 175 000 ml @ 50 mls/hr IV . Q23H [facility] with Sodium Bicarb (1 Meq/ml) 150 ml Rx#:[id number] Dextrose 5%-0.9% NaCl 1, 75 000 ml @ 75 mls/hr IV . [id number] [facility] Rx#:[id number] Piperacillin-Tazobactam 3 37.5 100 100 .375 gm In Sodium Chloride 0.9% 100 ml @ 25 mls/hr IVPB Q8HR [facility] Rx# :[id number] Sodium Chloride 0.9% 1, 75 000 ml @ 75 mls/hr IV . [id number] [facility] Rx#:[id number] Sodium Chloride 0.9% 1, 1000 1000 000 ml @ 999 mls/hr IV . Q1H1M [facility] Rx#:[id number] Vancomycin 2,000 mg In 500 Sodium Chloride 0.9% 500 ml 500 ml @ 167 mls/hr IVPB Q24H [facility] Rx#: [id number] Intake, IV Titration 5883.606 5664.385 146.7 Amount Dextrose 5% in Water 1, 250 400 000 ml @ 50 mls/hr IV . Q23H [facility] with Sodium Bicarb (1 Meq/ml) 150 ml Rx#:[id number] Norepinephrine 4 mg In 29.209 654.643 46.7 Sodium Chloride 0.9% 250 ml @ 0.03 MCG/KG/MIN 16. 228 mls/hr IV .[id number] [facility] Rx#:[id number] Sodium Chloride 0.9% 1, 1000 000 ml @ 999 mls/hr IV . Q1H1M [facility] Rx#:[id number] propofoL 1,000 mg In 188.238 259.742 100 Empty Bag 1 bag @ 40 MCG/ KG/MIN 34.074 mls/hr IV . Q2H57M [facility] Rx#:[id number] Tube Feeding 20 40 Output: Gastric Drainage 250 Urine 325 445 150 Other: Voiding Method Indwelling Catheter Indwelling Catheter ABP, PAP, CO, CI - Last Documented Arterial Blood Pressure 97/47 - Exam No acute distress, sedated, with an orally placed endotracheal tube. HEENT examination is grossly unremarkable. Neck supple. Full range of motion. No adenopathy thyromegaly or neck vein distention. Cardiovascular examination reveals regular rhythm rate. S1-S2 normal. No S3 or S4. No discernible murmur noted. Heart rate 100 bpm. Lungs reveal coarse bilateral rhonchi and expiratory wheezes. No crackles. Breath sounds equal. Saturations are in the mid 90s. Abdomen soft with bowel sounds. Extremities are intact. No cyanosis clubbing or edema. Skin is without rash or lesion. Neurologic examination cannot be assessed at this time. - Labs CBC & Chem 7: 02/09/24 05:31 02/09/24 08:30 Labs: Abnormal Lab Results - Last 24 Hours (Table) 02/08/24 02/08/24 02/08/24 Range/Units 09:57 12:28 13:28 WBC (3.8-10.6) k/uL RBC (4.30-5.90) m/uL MCV (80.0-100.0) fL MCH (25.0-35.0) pg MCHC (31.0-37.0) g/dL RDW (11.5-15.5) % Macrocytosis ABG pH (7.35-7.45) ABG pCO2 (35-45) mmHg ABG Total CO2 (19-24) mmol/L ABG O2 Saturation (94-97) % Potassium (3.5-5.1) mmol/L Chloride (98-107) mmol/L Carbon Dioxide (22-30) mmol/L BUN (9-20) mg/dL Creatinine (0.66-1.25) mg/dL POC Glucose (mg/dL) 50 L 66 L (70-110) mg/dL Plasma Lactic Acid Rober 13.4 H* (0.7-2.0) mmol/L Calcium (8.4-10.2) mg/dL Ur Specific [place] (1.001-1.035) Urine Protein (Negative) Urine Blood (Negative) Urine RBC (0-5) /hpf Urine WBC (0-5) /hpf Urine Mucus (None) /hpf Ur Random Sodium (40-220) mmol/L 02/08/24 02/08/24 02/08/24 Range/Units 14:06 14:54 17:32 WBC (3.8-10.6) k/uL RBC (4.30-5.90) m/uL MCV (80.0-100.0) fL MCH (25.0-35.0) pg MCHC (31.0-37.0) g/dL RDW (11.5-15.5) % Macrocytosis ABG pH (7.35-7.45) ABG pCO2 (35-45) mmHg ABG Total CO2 (19-24) mmol/L ABG O2 Saturation (94-97) % Potassium (3.5-5.1) mmol/L Chloride (98-107) mmol/L Carbon Dioxide (22-30) mmol/L BUN (9-20) mg/dL Creatinine (0.66-1.25) mg/dL POC Glucose (mg/dL) 65 L (70-110) mg/dL Plasma Lactic Acid Rober 11.0 H* 8.7 H* (0.7-2.0) mmol/L Calcium (8.4-10.2) mg/dL Ur Specific [place] (1.001-1.035) Urine Protein (Negative) Urine Blood (Negative) Urine RBC (0-5) /hpf Urine WBC (0-5) /hpf Urine Mucus (None) /hpf Ur Random Sodium (40-220) mmol/L 02/08/24 02/08/24 02/08/24 Range/Units 17:50 17:50 18:52 WBC (3.8-10.6) k/uL RBC (4.30-5.90) m/uL MCV (80.0-100.0) fL MCH (25.0-35.0) pg MCHC (31.0-37.0) g/dL RDW (11.5-15.5) % Macrocytosis ABG pH (7.35-7.45) ABG pCO2 (35-45) mmHg ABG Total CO2 (19-24) mmol/L ABG O2 Saturation (94-97) % Potassium (3.5-5.1) mmol/L Chloride (98-107) mmol/L Carbon Dioxide (22-30) mmol/L BUN (9-20) mg/dL Creatinine (0.66-1.25) mg/dL POC Glucose (mg/dL) 62 L (70-110) mg/dL Plasma Lactic Acid Rober (0.7-2.0) mmol/L Calcium (8.4-10.2) mg/dL Ur Specific [place] >1.050 H (1.001-1.035) Urine Protein Trace H (Negative) Urine Blood Moderate H (Negative) Urine RBC 18 H (0-5) /hpf Urine WBC 17 H (0-5) /hpf Urine Mucus Rare H (None) /hpf Ur Random Sodium <20 L (40-220) mmol/L 02/08/24 02/09/24 02/09/24 Range/Units 20:55 01:22 01:23 WBC (3.8-10.6) k/uL RBC (4.30-5.90) m/uL MCV (80.0-100.0) fL MCH (25.0-35.0) pg MCHC (31.0-37.0) g/dL RDW (11.5-15.5) % Macrocytosis ABG pH (7.35-7.45) ABG pCO2 (35-45) mmHg ABG Total CO2 (19-24) mmol/L ABG O2 Saturation (94-97) % Potassium (3.5-5.1) mmol/L Chloride (98-107) mmol/L Carbon Dioxide (22-30) mmol/L BUN (9-20) mg/dL Creatinine (0.66-1.25) mg/dL POC Glucose (mg/dL) 63 L (70-110) mg/dL Plasma Lactic Acid Rober 8.6 H* 9.7 H* (0.7-2.0) mmol/L Calcium (8.4-10.2) mg/dL Ur Specific [place] (1.001-1.035) Urine Protein (Negative) Urine Blood (Negative) Urine RBC (0-5) /hpf Urine WBC (0-5) /hpf Urine Mucus (None) /hpf Ur Random Sodium (40-220) mmol/L 02/09/24 02/09/24 02/09/24 Range/Units 05:31 05:31 06:03 WBC 10.8 H (3.8-10.6) k/uL RBC 4.06 L (4.30-5.90) m/uL MCV 115.5 H (80.0-100.0) fL MCH 35.1 H (25.0-35.0) pg MCHC 30.4 L (31.0-37.0) g/dL RDW 16.1 H (11.5-15.5) % Macrocytosis Marked A ABG pH 7.29 L (7.35-7.45) ABG pCO2 50 H (35-45) mmHg ABG Total CO2 26 H (19-24) mmol/L ABG O2 Saturation 97.2 H (94-97) % Potassium (3.5-5.1) mmol/L Chloride (98-107) mmol/L Carbon Dioxide (22-30) mmol/L BUN (9-20) mg/dL Creatinine (0.66-1.25) mg/dL POC Glucose (mg/dL) (70-110) mg/dL Plasma Lactic Acid Rober 9.0 H* (0.7-2.0) mmol/L Calcium (8.4-10.2) mg/dL Ur Specific [place] (1.001-1.035) Urine Protein (Negative) Urine Blood (Negative) Urine RBC (0-5) /hpf Urine WBC (0-5) /hpf Urine Mucus (None) /hpf Ur Random Sodium (40-220) mmol/L 02/09/24 02/09/24 02/09/24 Range/Units 06:18 08:30 08:30 WBC (3.8-10.6) k/uL RBC (4.30-5.90) m/uL MCV (80.0-100.0) fL MCH (25.0-35.0) pg MCHC (31.0-37.0) g/dL RDW (11.5-15.5) % Macrocytosis ABG pH (7.35-7.45) ABG pCO2 (35-45) mmHg ABG Total CO2 (19-24) mmol/L ABG O2 Saturation (94-97) % Potassium 5.3 H (3.5-5.1) mmol/L Chloride 110 H (98-107) mmol/L Carbon Dioxide 21 L (22-30) mmol/L BUN 34 H (9-20) mg/dL Creatinine 2.39 H (0.66-1.25) mg/dL POC Glucose (mg/dL) 67 L (70-110) mg/dL Plasma Lactic Acid Rober 8.5 H* (0.7-2.0) mmol/L Calcium 7.7 L (8.4-10.2) mg/dL Ur Specific [place] (1.001-1.035) Urine Protein (Negative) Urine Blood (Negative) Urine RBC (0-5) /hpf Urine WBC (0-5) /hpf Urine Mucus (None) /hpf Ur Random Sodium (40-220) mmol/L Microbiology - Last 24 Hours (Table) 02/08/24 11:45 Blood Culture Gram Stain - Preliminary Blood Blood Culture - Preliminary Streptococcus pneumoniae 02/08/24 11:30 Blood Culture Gram Stain - Preliminary Blood Blood Culture - Preliminary Streptococcus pneumoniae Molecular ID 02/08/24 09:42 Gram Stain - Preliminary Sputum Assessment and Plan Assessment: Acute hypoxemic and hypercapnic respiratory failure, secondary to COPD exacerbation, complicated by bilateral suspected aspiration pneumonia. History of liver cancer, being treated at [facility]. Paroxysmal atrial fibrillation. History of congestive heart failure. History of acute COPD exacerbation. Tobacco dependence syndrome. History of hepatitis C. History of alcoholism. Gastroesophageal reflux disease. History of liver cirrhosis. History of IV drug use. History of portal hypertension and esophageal varices. Acute anion gap metabolic acidosis. Acute kidney injury with possible ATN. Plan: Plan dated February 09, 2024. A arterial line was placed on this patient. We had to use a right femoral space for the arterial line. Labs, x-rays, and medications are reviewed. The patient continues on propofol at 35 mcg/kg/min, norepinephrine at 22 mcg/min. Patient also continues on a sodium bicarb drip 75 cc an hour. The patient continues on vancomycin and cefepime. Cultures were positive for Streptococcus pneumoniae. We will continue to follow make recommendations along the way. In addition, the PEEP was increased from 8-12, in an attempt to wean the FiO2. His [id number] is a nurse on the fourth floor, and we did speak to her today, and gave her an update. Time with Patient: Greater than 30
[2024-02-09 12:09] VITALS: BMI 41.3
[2024-02-09 13:05] LABS: Band Neutrophils % 11 %; Nucleated Red Blood Cells 0 /100 WBC (0-0)
[2024-02-09 13:14] LABS: Lymphocytes # (M) 0.32 k/uL (1.0-4.8); Metamyelocytes # (M) 0.54 k/uL (0); Metamyelocytes % 5 %; Monocytes # (M) 0.32 k/uL (0-1.0); Myelocytes # (M) 0.76 k/uL (0); Myelocytes % 7 %; Neutrophils % (M) 72 %; Total Cells Counted 200
[2024-02-09 13:17] LABS: Platelet Count 85 k/uL (150-450); Poikilocytosis (M) Present
[2024-02-09 13:19] LABS: Polychromasia Present
--- NOTE | 2024-02-09 13:26 | PCN ---
PROCEDURE NOTE PROCEDURE PERFORMED: Right femoral art line. PREOPERATIVE DIAGNOSIS: Hypertension, administration of fluid, sepsis, frequent blood draws, blood gas monitoring. POSTOPERATIVE DIAGNOSIS: Hypertension, administration of fluid, sepsis, frequent blood draws, blood gas monitoring. HELP DESK ADMINISTRATOR: Dr. Perez. BILLET WORKER: First operating room surgical technician was Geena Estrada. DESCRIPTION OF PROCEDURE: A time-out was completed verifying correct patient, procedure, site, positioning, and implant(s) or special equipment if applicable. Vladimir's test was performed to ensure adequate perfusion. The patient's right groin was prepped and draped in sterile fashion. 1% Lidocaine was used to anesthetize the area. An 18G Arrow arterial line was introduced into the femoral artery. The catheter was threaded over the guide wire and the needle was removed with appropriate pulsatile blood return. Blood loss was minimal. The catheter was then sutured in place to the skin and a sterile dressing applied. Perfusion to the extremity distal to the point of catheter insertion was checked and found to be adequate. There was no immediate complication. Good blood return and waveform. The patient tolerated the procedure well and there were no complications. The catheter was sutured in place. Sterile dressing was applied by the nurse. There was no immediate complication. MMODL / IJN: [id number] /
[2024-02-09] MEDS: ACETAMINOPHEN IV (For NPO) 1,000 MG in EMPTY BAG 1 BAG IVPB PRN (14:42)
[2024-02-09] MEDS: VASOPRESSIN 60 UNIT in SODIUM CHLORIDE 0.9% 150 ML IV SCH (16:25)
[2024-02-09 17:21] LABS: Glucose,Whole Blood 124 mg/dL (70-110)
[2024-02-09 19:58] LABS: Glucose,Whole Blood 137 mg/dL (70-110)
[2024-02-09 20:32] LABS: Glucose,Whole Blood 152 mg/dL (70-110)
--- NOTE | 2024-02-09 23:05 | P.CONS ---
History of Present Illness - Reason for Consult Consult date: 02/09/24 - History of Present Illness Patient is a 73-year-old male with a past medical history significant for atrial fibrillation heart failure reflux, alcoholic use/hepatitis C former IV drug user hepatocellular carcinoma s/p radiation therapy patient has been brought into the hospital yesterday morning for evaluation of increasing shortness of breath apparently the patient symptom has been getting worse for the last few days as the history provided by the family at the bedside did have some URI symptoms did have shortness of breath and a cough with occasional sputum production no hemoptysis no clear history of any nausea vomiting abdominal pain no diarrhea patient on arrival as EMS was noticed to be hypoxic with O2 sat in 70s he was started on a BiPAP subsequently because of worsening respiratory status patient did not get intubated and admitted to the ICU on admission to the hospital the patient was afebrile however he did spike a fever of 100.7 F at midnight and 100.7 degree forearm right hand this afternoon, patient was noticed to be tachycardic currently on the vent with a 70% FiO2 no significant purulent secretions through the ET however the patient was noticed to have some fecal material in the NG on suctioning patient did have a white count of 10.8 BUN and creatinine has been mildly elevated lactic acid was elevated liver enzymes are elevated urine has been mildly positive influenza RSV COVID testing was negative patient did have a chest x-ray borderline heart size background COPD pulmonary vascular congestion he also have a CT angiogram of the chest suboptimal assessment for PE severe consolidation throughout the left lower lobe extending into the lingula moderate emphysema CT abdominal pelvis cirrhosis prominent collateral suspicious nodule inferior right lower lobe circumferential bladder wall thickening focal spinal stenosis L3-L4 patient did have a blood culture drawn which came back positive for Streptococcus pneumoniae that has prompted this infectious disease consultation Past Medical History Past Medical History: Atrial Fibrillation, Cancer, Heart Failure, GERD/Reflux, Osteoarthritis (OA), Prostate Disorder Additional Past Medical History / Comment(s): COPD, CHF, liver cancer; radiation treatment December and September History of Any Multi-Drug Resistant Organisms: None Reported Past Surgical History: Cholecystectomy, Tonsillectomy Past Anesthesia/Blood Transfusion Reactions: No Reported Reaction Past Psychological History: No Psychological Hx Reported Smoking Status: Former smoker Past Alcohol Use History: None Reported Past Drug Use History: Marijuana - Past Family History Mother Family Medical History: Coronary Artery Disease (CAD), Myocardial Infarction ([place]) Father Family Medical History: Myocardial Infarction ([place]) Medications and Allergies Home Medications Medication Instructions Recorded Confirmed Type Esomeprazole Magnesium [NexIUM] 20 mg PO DAILY 12/13/21 02/08/24 History Finasteride [Proscar] 5 mg PO DAILY 12/13/21 02/08/24 History Furosemide [Lasix] 40 mg PO BID 12/13/21 02/08/24 History Potassium Chloride [Potassium 8 meq PO BID 12/13/21 02/08/24 History Chloride ER] traMADol HCL [Ultram] 50 mg PO BID PRN 12/13/21 02/08/24 History Rivaroxaban [Xarelto] 20 mg PO W/SUPPER 02/08/24 02/08/24 History Tiotropium 2.5 Mcg/Puff [Spiriva 2 puff INHALATION RT-DAILY 02/08/24 02/08/24 History Respimat 2.5 Mcg] Allergies Allergy/AdvReac Type Severity Reaction Status Date / Time No Known Allergies Allergy Verified 02/08/24 12:30 Physical Exam Vitals: Vital Signs Temp Pulse Resp BP Pulse Ox FiO2 02/09/24 09:42 102 H 02/09/24 09:26 100 02/09/24 09:25 100 02/09/24 09:12 100 02/09/24 09:08 80 02/09/24 07:00 112 H 26 H 106/61 95 02/09/24 06:30 105 H 26 H 89/50 95 80 02/09/24 06:00 99.3 F 107 H 27 H 89/47 95 80 02/09/24 05:30 109 H 26 H 110/92 93 L 02/09/24 05:00 107 H 25 H 110/56 95 80 02/09/24 04:30 106 H 26 H 110/58 95 02/09/24 04:15 80 02/09/24 04:00 100.9 F H 105 H 29 H 110/52 96 80 02/09/24 03:30 107 H 26 H 102/48 96 02/09/24 03:00 108 H 27 H 101/36 95 02/09/24 02:30 107 H 26 H 111/36 93 L 02/09/24 02:00 112 H 26 H 87/38 93 L 02/09/24 01:30 100.7 F H 115 H 22 106/60 96 80 02/09/24 01:20 80 02/09/24 01:00 117 H 29 H 111/66 96 02/09/24 00:30 115 H 31 H 98/56 96 02/09/24 00:00 111 H 28 H 87/56 96 80 02/08/24 23:30 114 H 26 H 102/60 95 02/08/24 23:03 116 H 27 H 84/58 94 L 02/08/24 23:00 114 H 26 H 117/67 94 L 02/08/24 22:30 106 H 25 H 94/60 94 L 02/08/24 22:00 112 H 28 H 75/51 94 L 80 02/08/24 21:30 115 H 28 H 101/46 94 L 02/08/24 21:00 104 H 27 H 102/44 94 L 02/08/24 20:53 111 H 02/08/24 20:52 111 H 02/08/24 20:44 112 H 02/08/24 20:38 80 02/08/24 20:30 100.2 F H 112 H 30 H 80/62 95 80 02/08/24 20:00 117 H 30 H 114/60 94 L 80 02/08/24 19:30 110 H 28 H 106/70 93 L 02/08/24 19:00 115 H 26 H 90/64 92 L 02/08/24 18:30 115 H 26 H 103/61 90 L 02/08/24 18:00 105 H 24 103/56 91 L 02/08/24 17:30 104 H 24 113/52 91 L 02/08/24 17:00 105 H 24 107/45 92 L 02/08/24 16:30 104 H 27 H 84/69 93 L 80 02/08/24 16:07 100 02/08/24 16:00 100 24 100/44 92 L 80 02/08/24 15:53 100 02/08/24 15:30 93 26 H 100/57 91 L 02/08/24 15:25 80 02/08/24 15:00 101 H 25 H 109/55 91 L 80 02/08/24 14:30 89 26 H 114/58 90 L 02/08/24 14:00 90 25 H 114/58 91 L 02/08/24 13:30 99.3 F 101 H 24 123/61 91 L 80 02/08/24 13:01 92 20 99/50 96 02/08/24 12:45 93 18 104/67 96 02/08/24 12:11 80 02/08/24 12:09 106 H 18 103/63 94 L 02/08/24 11:52 105 H 18 113/45 97 02/08/24 11:38 101 H 02/08/24 11:30 101 H 02/08/24 11:26 91 20 117/82 96 02/08/24 11:10 101 H 20 120/90 98 02/08/24 10:50 97 18 96/51 94 L 02/08/24 10:46 106 H 20 85/61 94 L 02/08/24 10:30 120 H 24 118/71 93 L Intake and Output 02/08/24 02/09/24 02/09/24 22:59 06:59 14:59 Intake Total 6153.824 7495.323 1050 Output Total 330 265 25 Balance 4464.253 5921.323 1025 Intake: IV 37.5 1250 1050 Dextrose 5% in Water 1, 150 50 000 ml @ 50 mls/hr IV . Q23H [facility] with Sodium Bicarb (1 Meq/ml) 150 ml Rx#:[id number] Piperacillin-Tazobactam 3 37.5 100 .375 gm In Sodium Chloride 0.9% 100 ml @ 25 mls/hr IVPB Q8HR [facility] Rx# :[id number] Sodium Chloride 0.9% 1, 1000 1000 000 ml @ 999 mls/hr IV . Q1H1M [facility] Rx#:[id number] Intake, IV Titration 1657.144 926.323 Amount Dextrose 5% in Water 1, 400 200 000 ml @ 50 mls/hr IV . Q23H [facility] with Sodium Bicarb (1 Meq/ml) 150 ml Rx#:[id number] Norepinephrine 4 mg In 217.271 466.581 Sodium Chloride 0.9% 250 ml @ 0.03 MCG/KG/MIN 16. 228 mls/hr IV .[id number] [facility] Rx#:[id number] Sodium Chloride 0.9% 1, 1000 000 ml @ 999 mls/hr IV . Q1H1M [facility] Rx#:[id number] propofoL 1,000 mg In 39.873 259.742 Empty Bag 1 bag @ 40 MCG/ KG/MIN 34.074 mls/hr IV . Q2H57M [facility] Rx#:[id number] Tube Feeding 60 Output: Urine 330 265 25 Other: Voiding Method Indwelling Catheter Indwelling Catheter Results CBC & Chem 7: 02/09/24 05:31 02/09/24 08:30 Labs: Abnormal Lab Results - Last 24 Hours (Table) 02/08/24 02/08/24 02/08/24 Range/Units 09:05 09:57 09:57 WBC (3.8-10.6) k/uL RBC (4.30-5.90) m/uL MCV (80.0-100.0) fL MCH (25.0-35.0) pg MCHC (31.0-37.0) g/dL RDW (11.5-15.5) % Lymphocytes # (Manual) 0.90 L (1.0-4.8) k/uL Metamyelocytes # (Man) 1.30 H (0) k/uL Myelocytes # (Manual) 0.70 H (0) k/uL Macrocytosis ABG pH (7.35-7.45) ABG pCO2 (35-45) mmHg ABG Total CO2 (19-24) mmol/L ABG O2 Saturation (94-97) % Potassium (3.5-5.1) mmol/L Chloride 112 H (98-107) mmol/L Carbon Dioxide 11 L (22-30) mmol/L BUN (9-20) mg/dL Creatinine 2.12 H (0.66-1.25) mg/dL Glucose 67 L (74-99) mg/dL POC Glucose (mg/dL) (70-110) mg/dL Plasma Lactic Acid Rober 13.4 H* (0.7-2.0) mmol/L Calcium (8.4-10.2) mg/dL Total Bilirubin 3.5 H (0.2-1.3) mg/dL AST 122 H (17-59) U/L ALT 59 H (4-49) U/L Troponin I (0.000-0.034) ng/mL Albumin 3.1 L (3.5-5.0) g/dL Ur Specific [place] (1.001-1.035) Urine Protein (Negative) Urine Blood (Negative) Urine RBC (0-5) /hpf Urine WBC (0-5) /hpf Urine Mucus (None) /hpf Ur Random Sodium (40-220) mmol/L 02/08/24 02/08/24 02/08/24 Range/Units 09:57 12:28 13:28 WBC (3.8-10.6) k/uL RBC (4.30-5.90) m/uL MCV (80.0-100.0) fL MCH (25.0-35.0) pg MCHC (31.0-37.0) g/dL RDW (11.5-15.5) % Lymphocytes # (Manual) (1.0-4.8) k/uL Metamyelocytes # (Man) (0) k/uL Myelocytes # (Manual) (0) k/uL Macrocytosis ABG pH (7.35-7.45) ABG pCO2 (35-45) mmHg ABG Total CO2 (19-24) mmol/L ABG O2 Saturation (94-97) % Potassium (3.5-5.1) mmol/L Chloride (98-107) mmol/L Carbon Dioxide (22-30) mmol/L BUN (9-20) mg/dL Creatinine (0.66-1.25) mg/dL Glucose (74-99) mg/dL POC Glucose (mg/dL) 50 L 66 L (70-110) mg/dL Plasma Lactic Acid Rober (0.7-2.0) mmol/L Calcium (8.4-10.2) mg/dL Total Bilirubin (0.2-1.3) mg/dL AST (17-59) U/L ALT (4-49) U/L Troponin I 0.154 H* (0.000-0.034) ng/mL Albumin (3.5-5.0) g/dL Ur Specific [place] (1.001-1.035) Urine Protein (Negative) Urine Blood (Negative) Urine RBC (0-5) /hpf Urine WBC (0-5) /hpf Urine Mucus (None) /hpf Ur Random Sodium (40-220) mmol/L 02/08/24 02/08/24 02/08/24 Range/Units 14:06 14:54 17:32 WBC (3.8-10.6) k/uL RBC (4.30-5.90) m/uL MCV (80.0-100.0) fL MCH (25.0-35.0) pg MCHC (31.0-37.0) g/dL RDW (11.5-15.5) % Lymphocytes # (Manual) (1.0-4.8) k/uL Metamyelocytes # (Man) (0) k/uL Myelocytes # (Manual) (0) k/uL Macrocytosis ABG pH (7.35-7.45) ABG pCO2 (35-45) mmHg ABG Total CO2 (19-24) mmol/L ABG O2 Saturation (94-97) % Potassium (3.5-5.1) mmol/L Chloride (98-107) mmol/L Carbon Dioxide (22-30) mmol/L BUN (9-20) mg/dL Creatinine (0.66-1.25) mg/dL Glucose (74-99) mg/dL POC Glucose (mg/dL) 65 L (70-110) mg/dL Plasma Lactic Acid Rober 11.0 H* 8.7 H* (0.7-2.0) mmol/L Calcium (8.4-10.2) mg/dL Total Bilirubin (0.2-1.3) mg/dL AST (17-59) U/L ALT (4-49) U/L Troponin I (0.000-0.034) ng/mL Albumin (3.5-5.0) g/dL Ur Specific [place] (1.001-1.035) Urine Protein (Negative) Urine Blood (Negative) Urine RBC (0-5) /hpf Urine WBC (0-5) /hpf Urine Mucus (None) /hpf Ur Random Sodium (40-220) mmol/L 02/08/24 02/08/24 02/08/24 Range/Units 17:50 17:50 18:52 WBC (3.8-10.6) k/uL RBC (4.30-5.90) m/uL MCV (80.0-100.0) fL MCH (25.0-35.0) pg MCHC (31.0-37.0) g/dL RDW (11.5-15.5) % Lymphocytes # (Manual) (1.0-4.8) k/uL Metamyelocytes # (Man) (0) k/uL Myelocytes # (Manual) (0) k/uL Macrocytosis ABG pH (7.35-7.45) ABG pCO2 (35-45) mmHg ABG Total CO2 (19-24) mmol/L ABG O2 Saturation (94-97) % Potassium (3.5-5.1) mmol/L Chloride (98-107) mmol/L Carbon Dioxide (22-30) mmol/L BUN (9-20) mg/dL Creatinine (0.66-1.25) mg/dL Glucose (74-99) mg/dL POC Glucose (mg/dL) 62 L (70-110) mg/dL Plasma Lactic Acid Rober (0.7-2.0) mmol/L Calcium (8.4-10.2) mg/dL Total Bilirubin (0.2-1.3) mg/dL AST (17-59) U/L ALT (4-49) U/L Troponin I (0.000-0.034) ng/mL Albumin (3.5-5.0) g/dL Ur Specific [place] >1.050 H (1.001-1.035) Urine Protein Trace H (Negative) Urine Blood Moderate H (Negative) Urine RBC 18 H (0-5) /hpf Urine WBC 17 H (0-5) /hpf Urine Mucus Rare H (None) /hpf Ur Random Sodium <20 L (40-220) mmol/L 02/08/24 02/09/24 02/09/24 Range/Units 20:55 01:22 01:23 WBC (3.8-10.6) k/uL RBC (4.30-5.90) m/uL MCV (80.0-100.0) fL MCH (25.0-35.0) pg MCHC (31.0-37.0) g/dL RDW (11.5-15.5) % Lymphocytes # (Manual) (1.0-4.8) k/uL Metamyelocytes # (Man) (0) k/uL Myelocytes # (Manual) (0) k/uL Macrocytosis ABG pH (7.35-7.45) ABG pCO2 (35-45) mmHg ABG Total CO2 (19-24) mmol/L ABG O2 Saturation (94-97) % Potassium (3.5-5.1) mmol/L Chloride (98-107) mmol/L Carbon Dioxide (22-30) mmol/L BUN (9-20) mg/dL Creatinine (0.66-1.25) mg/dL Glucose (74-99) mg/dL POC Glucose (mg/dL) 63 L (70-110) mg/dL Plasma Lactic Acid Rober 8.6 H* 9.7 H* (0.7-2.0) mmol/L Calcium (8.4-10.2) mg/dL Total Bilirubin (0.2-1.3) mg/dL AST (17-59) U/L ALT (4-49) U/L Troponin I (0.000-0.034) ng/mL Albumin (3.5-5.0) g/dL Ur Specific [place] (1.001-1.035) Urine Protein (Negative) Urine Blood (Negative) Urine RBC (0-5) /hpf Urine WBC (0-5) /hpf Urine Mucus (None) /hpf Ur Random Sodium (40-220) mmol/L 02/09/24 02/09/24 02/09/24 Range/Units 05:31 05:31 06:03 WBC 10.8 H (3.8-10.6) k/uL RBC 4.06 L (4.30-5.90) m/uL MCV 115.5 H (80.0-100.0) fL MCH 35.1 H (25.0-35.0) pg MCHC 30.4 L (31.0-37.0) g/dL RDW 16.1 H (11.5-15.5) % Lymphocytes # (Manual) (1.0-4.8) k/uL Metamyelocytes # (Man) (0) k/uL Myelocytes # (Manual) (0) k/uL Macrocytosis Marked A ABG pH 7.29 L (7.35-7.45) ABG pCO2 50 H (35-45) mmHg ABG Total CO2 26 H (19-24) mmol/L ABG O2 Saturation 97.2 H (94-97) % Potassium (3.5-5.1) mmol/L Chloride (98-107) mmol/L Carbon Dioxide (22-30) mmol/L BUN (9-20) mg/dL Creatinine (0.66-1.25) mg/dL Glucose (74-99) mg/dL POC Glucose (mg/dL) (70-110) mg/dL Plasma Lactic Acid Rober 9.0 H* (0.7-2.0) mmol/L Calcium (8.4-10.2) mg/dL Total Bilirubin (0.2-1.3) mg/dL AST (17-59) U/L ALT (4-49) U/L Troponin I (0.000-0.034) ng/mL Albumin (3.5-5.0) g/dL Ur Specific [place] (1.001-1.035) Urine Protein (Negative) Urine Blood (Negative) Urine RBC (0-5) /hpf Urine WBC (0-5) /hpf Urine Mucus (None) /hpf Ur Random Sodium (40-220) mmol/L 02/09/24 02/09/24 02/09/24 Range/Units 06:18 08:30 08:30 WBC (3.8-10.6) k/uL RBC (4.30-5.90) m/uL MCV (80.0-100.0) fL MCH (25.0-35.0) pg MCHC (31.0-37.0) g/dL RDW (11.5-15.5) % Lymphocytes # (Manual) (1.0-4.8) k/uL Metamyelocytes # (Man) (0) k/uL Myelocytes # (Manual) (0) k/uL Macrocytosis ABG pH (7.35-7.45) ABG pCO2 (35-45) mmHg ABG Total CO2 (19-24) mmol/L ABG O2 Saturation (94-97) % Potassium 5.3 H (3.5-5.1) mmol/L Chloride 110 H (98-107) mmol/L Carbon Dioxide 21 L (22-30) mmol/L BUN 34 H (9-20) mg/dL Creatinine 2.39 H (0.66-1.25) mg/dL Glucose (74-99) mg/dL POC Glucose (mg/dL) 67 L (70-110) mg/dL Plasma Lactic Acid Rober 8.5 H* (0.7-2.0) mmol/L Calcium 7.7 L (8.4-10.2) mg/dL Total Bilirubin (0.2-1.3) mg/dL AST (17-59) U/L ALT (4-49) U/L Troponin I (0.000-0.034) ng/mL Albumin (3.5-5.0) g/dL Ur Specific [place] (1.001-1.035) Urine Protein (Negative) Urine Blood (Negative) Urine RBC (0-5) /hpf Urine WBC (0-5) /hpf Urine Mucus (None) /hpf Ur Random Sodium (40-220) mmol/L Microbiology - Last 24 Hours (Table) 02/08/24 09:42 Gram Stain - Preliminary Sputum 02/08/24 11:30 Blood Culture Gram Stain - Preliminary Blood Blood Culture - Preliminary Molecular ID 02/08/24 11:45 Blood Culture Gram Stain - Preliminary Blood Assessment and Plan Plan: 1patient presented to hospital with sepsis in this patient who did have a fever tachycardia elevated white count source is likely left-sided pneumonia in this patient who is growing strep pneumo in the blood likely pathogen causing his pneumonia as per the pharmacist note did not have any resistant gene pattern however currently waiting for the final sensitivities 2-patient is currently on Zosyn should provide adequate coverage for this pathogen while waiting for the sensitivity finalize We will follow on clinical condition and cultures to further adjust medication if needed Thank you for this consultation we will follow the patient along with you Dictation was produced using [employer] dictation software. please excuse any grammatical, word or spelling errors. Time with Patient: Greater than 30
[2024-02-09] MEDS: IPRATROPIUM-ALBUTEROL 3 ML NEB INHALATION PRN (23:53)
[2024-02-10 04:25] LABS: Glucose,Whole Blood 159 mg/dL (70-110)
[2024-02-10 05:04] LABS: Basophils # (A) 0.1 k/uL (0-0.2); Basophils % (A) 1 %; Eosinophils % (A) 0 %; HCT 40.8 % (39.0-53.0); HGB 13.2 gm/dL (13.0-17.5); Hypochromasia Slight; Lymphocytes # (A) 0.4 k/uL (1.0-4.8); Lymphocytes % (A) 3 %; MCH 35.9 pg (25.0-35.0); MCHC 32.4 g/dL (31.0-37.0); MCV 110.7 fL (80.0-100.0); Macrocytosis Marked; Mean Platelet Volume 8.4; Monocytes # (A) 0.4 k/uL (0-1.0); Monocytes % (A) 3 %; Neutrophils # (A) 11.9 k/uL (1.3-7.7); Neutrophils % (A) 91 %; Platelet Count 121 k/uL (150-450); RBC 3.69 m/uL (4.30-5.90); RDW 15.4 % (11.5-15.5)
[2024-02-10 05:16] LABS: African American GFR (CKD) 24 (>60 ml/min/1.73 sqM); Anion Gap 2 mmol/L; Blood Urea Nitrogen 55 mg/dL (9-20); Calcium 7.7 mg/dL (8.4-10.2); Carbon Dioxide 28 mmol/L (22-30); Chloride 110 mmol/L (98-107); Glucose 183 mg/dL (74-99); Non-African American GFR(CKD) 21 (>60 ml/min/1.73 sqM); Potassium 4.8 mmol/L (3.5-5.1); Sodium 140 mmol/L (137-145)
[2024-02-10 05:58] LABS: ABG Base Excess 2.9 mmol/L; ABG HCO3 29 mmol/L (21-25); ABG PCO2 56 mmHg (35-45); ABG PH 7.32 (7.35-7.45); ABG PO2 76 mmHg (83-108); ABG TCO2 31 mmol/L (19-24); Allen Test Performed? Yes
[2024-02-10 08:17] LABS: Glucose,Whole Blood 164 mg/dL (70-110)
[2024-02-10] MEDS: CEFEPIME 2 GM in SODIUM CHLORIDE 0.9% 100 ML IVPB SCH (08:34)
[2024-02-10] MEDS: CEFEPIME 1 GM in SODIUM CHLORIDE 0.9% 50 ML IVPB SCH (08:34)
[2024-02-10] MEDS: DEXTROSE 5% IN WATER 1,000 ML with SODIUM BICARB (1 MEQ/ML) 150 ML IV SCH (08:34)
[2024-02-10] MEDS ORDERED: VANCOMYCIN 2,000 MG in SODIUM CHLORIDE 0.9% 500 ML 500 ML IVPB SCH (09:00)
--- NOTE | 2024-02-10 10:29 | P.PN ---
Subjective Patient is seen in follow-up for acute kidney injury. Renal function slightly worse. Urine output 20 to 25 cc an hour. Currently on Levophed and vasopressin. Receiving tube feeds. Intubated. Vital signs are stable. On vasopressor support. General: Resting in bed. HEENT: Intubated. LUNGS: No audible rhonchi or wheezes. HEART: Rate and Rhythm are regular. ABDOMEN: Obese, soft. EXTREMITITES: Trace edema. Objective - Vital Signs Vital signs: Vital Signs Temp 98.6 F 02/10/24 08:00 Pulse 92 02/10/24 09:24 Resp 20 02/10/24 09:15 BP 92/58 02/10/24 09:15 Pulse Ox 91 L 02/10/24 09:15 FiO2 70 02/10/24 09:15 Intake & Output 02/09/24 02/10/24 02/10/24 18:59 06:59 18:59 Intake Total 3648.402 1933.823 389.501 Output Total 780 525 70 Balance 2868.402 1408.823 319.501 Weight 141.974 kg Intake: IV 2625 925 225 Dextrose 5% in Water 1, 175 000 ml @ 50 mls/hr IV . Q23H [facility] with Sodium Bicarb (1 Meq/ml) 150 ml Rx#:[id number] Dextrose 5%-0.9% NaCl 1, 675 825 225 000 ml @ 75 mls/hr IV . [id number] [facility] Rx#:[id number] Piperacillin-Tazobactam 3 200 100 .375 gm In Sodium Chloride 0.9% 100 ml @ 25 mls/hr IVPB Q8HR [facility] Rx# :[id number] Sodium Chloride 0.9% 1, 75 000 ml @ 75 mls/hr IV . [id number] [facility] Rx#:[id number] Sodium Chloride 0.9% 1, 1000 000 ml @ 999 mls/hr IV . Q1H1M [facility] Rx#:[id number] Vancomycin 2,000 mg In 500 Sodium Chloride 0.9% 500 ml 500 ml @ 167 mls/hr IVPB Q24H [facility] Rx#: [id number] Intake, IV Titration 713.402 744.823 80.501 Amount Norepinephrine 4 mg In 46.7 Sodium Chloride 0.9% 250 ml @ 0.03 MCG/KG/MIN 16. 228 mls/hr IV .[id number] [facility] Rx#:[id number] Norepinephrine 8 mg In 388.309 353.511 Sodium Chloride 0.9% 250 ml @ 0.17 MCG/KG/MIN 46. 702 mls/hr IV .Q5H32M [facility] Rx#:[id number] propofoL 1,000 mg In 278.393 391.312 80.501 Empty Bag 1 bag @ 40 MCG/ KG/MIN 34.074 mls/hr IV . Q2H57M [facility] Rx#:[id number] Tube Feeding 220 264 84 Other 90 Output: Gastric Drainage 450 230 Urine 330 295 70 Other: Voiding Method Indwelling Catheter Indwelling Catheter Indwelling Catheter ABP, PAP, CO, CI - Last Documented Arterial Blood Pressure 113/61 - Labs CBC & Chem 7: 02/10/24 04:45 02/10/24 04:45 Labs: Abnormal Lab Results - Last 24 Hours (Table) 02/09/24 02/09/24 02/09/24 Range/Units 05:31 17:20 19:55 WBC (3.8-10.6) k/uL RBC (4.30-5.90) m/uL MCV (80.0-100.0) fL MCH (25.0-35.0) pg Plt Count 85 L (150-450) k/uL Neutrophils # (1.3-7.7) k/uL Neutrophils # (Manual) 8.90 H (1.3-7.7) k/uL Lymphocytes # (1.0-4.8) k/uL Lymphocytes # (Manual) 0.32 L (1.0-4.8) k/uL Metamyelocytes # (Man) 0.54 H (0) k/uL Myelocytes # (Manual) 0.76 H (0) k/uL Macrocytosis ABG pH (7.35-7.45) ABG pCO2 (35-45) mmHg ABG pO2 (83-108) mmHg ABG HCO3 (21-25) mmol/L ABG Total CO2 (19-24) mmol/L Chloride (98-107) mmol/L BUN (9-20) mg/dL Creatinine (0.66-1.25) mg/dL Glucose (74-99) mg/dL POC Glucose (mg/dL) 124 H 137 H (70-110) mg/dL Calcium (8.4-10.2) mg/dL 02/09/24 02/10/24 02/10/24 Range/Units 20:31 04:22 04:45 WBC 13.0 H (3.8-10.6) k/uL RBC 3.69 L (4.30-5.90) m/uL MCV 110.7 H (80.0-100.0) fL MCH 35.9 H (25.0-35.0) pg Plt Count 121 L (150-450) k/uL Neutrophils # 11.9 H (1.3-7.7) k/uL Neutrophils # (Manual) (1.3-7.7) k/uL Lymphocytes # 0.4 L (1.0-4.8) k/uL Lymphocytes # (Manual) (1.0-4.8) k/uL Metamyelocytes # (Man) (0) k/uL Myelocytes # (Manual) (0) k/uL Macrocytosis Marked A ABG pH (7.35-7.45) ABG pCO2 (35-45) mmHg ABG pO2 (83-108) mmHg ABG HCO3 (21-25) mmol/L ABG Total CO2 (19-24) mmol/L Chloride (98-107) mmol/L BUN (9-20) mg/dL Creatinine (0.66-1.25) mg/dL Glucose (74-99) mg/dL POC Glucose (mg/dL) 152 H 159 H (70-110) mg/dL Calcium (8.4-10.2) mg/dL 02/10/24 02/10/24 02/10/24 Range/Units 04:45 05:55 08:15 WBC (3.8-10.6) k/uL RBC (4.30-5.90) m/uL MCV (80.0-100.0) fL MCH (25.0-35.0) pg Plt Count (150-450) k/uL Neutrophils # (1.3-7.7) k/uL Neutrophils # (Manual) (1.3-7.7) k/uL Lymphocytes # (1.0-4.8) k/uL Lymphocytes # (Manual) (1.0-4.8) k/uL Metamyelocytes # (Man) (0) k/uL Myelocytes # (Manual) (0) k/uL Macrocytosis ABG pH 7.32 L (7.35-7.45) ABG pCO2 56 H (35-45) mmHg ABG pO2 76 L (83-108) mmHg ABG HCO3 29 H (21-25) mmol/L ABG Total CO2 31 H (19-24) mmol/L Chloride 110 H (98-107) mmol/L BUN 55 H (9-20) mg/dL Creatinine 2.89 H (0.66-1.25) mg/dL Glucose 183 H (74-99) mg/dL POC Glucose (mg/dL) 164 H (70-110) mg/dL Calcium 7.7 L (8.4-10.2) mg/dL Microbiology - Last 24 Hours (Table) 02/08/24 17:50 Urine Culture - Final Urine,Voided 02/08/24 11:45 Blood Culture Gram Stain - Preliminary Blood Blood Culture - Preliminary Streptococcus pneumoniae 02/08/24 11:30 Blood Culture Gram Stain - Preliminary Blood Blood Culture - Preliminary Streptococcus pneumoniae Molecular ID 02/08/24 09:42 Gram Stain - Preliminary Sputum Assessment and Plan Plan: Assessment: 1. Acute kidney injury secondary to ATN secondary to septic shock. Creatinine 2.89 today. No hydronephrosis noted on CAT scan. Patient received IV contrast for CT on February 08, 2024. 2. Septic shock secondary to strep pneumo bacteremia and pneumonia. On antibiotics. On Levophed and vasopressin. 3. Alcohol induced liver cirrhosis. 4. Acute hypoxic respiratory failure. Plan: Maintain normal saline. Maintain tube feeds. Monitor vancomycin levels. Dose to be adjusted for renal function. Avoid nephrotoxins. Wean FiO2 and vasopressors. Continue to monitor renal function and urine output. Lasix 80 mg IV once today. Continue to assess daily for need for renal replacement therapy.
--- NOTE | 2024-02-10 10:31 | XR ---
EXAMINATION TYPE: XR chest 1V portable DATE OF EXAM: 02/10/2024 Comparison: 02/09/2024 Clinical History: 73-year-old male Tube placement Findings: ET tube satisfactory. Distal aspect of the NG tube courses below the field of view. Heart mildly enla rged. Diffuse perihilar and interstitial opacities persist. Confluent opacity in left lower lung is u nchanged. Impression: Overall stable exam, probably CHF with patchy pulmonary edema.
[2024-02-10] MEDS: SENNOSIDES 8.6 MG TAB OG-TUBE PRN (11:25)
[2024-02-10] MEDS: polyethylene glycoL 3350 17 GM POWD.PACK OG-TUBE SCH (11:25)
--- NOTE | 2024-02-10 11:26 | P.PN ---
Subjective Progress Note Date: 02/10/24 Principal diagnosis: Respiratory failure. This is a 73-year-old white male, known history of liver cancer, receiving treatment at [facility]. History of COPD, chronic atrial fibrillation, history of congestive heart failure, tobacco dependence syndrome, patient was brought into the ER this morning by EMS, apparently the patient has been complaining of shortness of breath for the last couple of days. Today his shortness of breath has become more pronounced, and his pulse ox was noted to be in the 70s. EMS was called, and upon arrival patient was placed on BiPAP, and he was noted to have significant wheezing. Brought into the ER, and the patient was in extreme respiratory distress, did not tolerate BiPAP, intubated by ER physician, and I was asked to see the patient on consultation. Patient is now on assist-control rate of 20 tidal volume 450 FiO2 of 100% and PEEP of 5 ABG showed a pO2 of 108 pCO2 53 pH of 7.04. Vent settings were changed, increase his rate up to 24 cut down FiO2 to 80% increased PEEP to 8 and considering his metabolic acidosis I recommended 3 A of bicarb and 1 L of D5W running at 50 cc/h. Follow-up ABG will be done in few hours. Workup in the ER included chest x-ray which clearly showed significant consolidation in the left lower lobe and in the left perihilar area. CT of the head showed mild cerebral atrophy, no acute intracranial process, there was a layering of fluid within the paranasal sinuses consistent with acute sinusitis. CT angiogram of the chest was a suboptimal to diagnose pulmonary embolism, remind you patient is on Xarelto it did show evidence of pulmonary hypertension, severe consolidation throughout the left lower lobe extending into the lingula and a lesser consolidation noted in the right infrahilar area/right base. Posteriorly. Which raises the possibility of aspiration pneumonitis. There is a background COPD with moderate emphysema, and there is an apical nodule measuring 8 mm apparently this was noted on a previous CT of the chest measuring 5 mm back on 11/18/22. This is likely malignant, and according to the family this has been noted at [facility] and they are keeping an eye and close watch on it Progress note dated February 09, 2024. This is a 73-year-old male who is seen today in room 265. He was admitted yesterday, for respiratory failure and COPD. The patient has a history of liver cancer. The patient remains on the mechanical ventilator for respiratory failur e, with settings of volume assist-control, rate 24, tidal volume 500, FiO2 80%, PEEP of 8. Blood gases show pO2 of 89, pCO2 of 50, and a pH of 7.29. In an attempt to reduce the FiO2, the PEEP was increased from 8 to 12 cm of water. The patient was intubated yesterday, on February 08. He continues on propofol at 35 mcg/kg/min, and norepinephrine at 22 mcg/min. Is getting a sodium bicarbonate drip, with 3 ampoules of sodium bicarb in D5W at 75 cc an hour. He is also getting vancomycin and cefepime, and he was started on vital HP at 10 cc an hour, awaiting a dietary evaluation. White count is 10.8, hemoglobin 14.3, hematocrit 46.9, and a platelet count is currently pending. Sodium 141, pot assium 5.3, chlorides 110, CO2 21, anion gap 10, BUN 34, and creatinine 2.39. Lactic acid is 8.5. Calcium is 7.7. Magnesium is 2.0. Blood cultures show evidence of Streptococcus pneumoniae. Chest x-ray shows bilateral mid and lower lung airspace disease. Progress note dated February 10, 2024. This is a 73-year-old male who is seen today in room 265. He was admitted on the , for respiratory failure and COPD. The patient has a history of liver cancer. The patient continues on the mechanical ventilator. Settings include volume assist-control, rate 24, tidal volume 500, FiO2 70%, PEEP of 12. Blood gases show pO2 76, pCO2 of 56, pH is 7.32. The patient is getting dextrose with saline at 75 cc an hour, propofol at 35 mcg/kg/min, vasopressin at 0.03 units/min, norepinephrine at 18 mcg/min, and vital AF at 42 cc an hour which is goal. The patient had streptococci in the blood, and for that he is on Zosyn. We did speak to his [id number] today. White count 13, hemoglobin 13.2, hematocrit 40.8, platelet count 121,000. Sodium 140, potassium 4.8, chloride 110, CO2 28, BUN 55, creatinine 2.89. Calcium is 7.7. Glucose is 164. Blood cultures are positive for Streptococcus pneumoniae. Chest x-ray is unchanged. Objective - Vital Signs Vital signs: Vital Signs Temp 98.6 F 02/10/24 08:00 Pulse 92 02/10/24 11:00 Resp 24 02/10/24 11:00 BP 106/65 02/10/24 11:00 Pulse Ox 90 L 02/10/24 11:00 FiO2 65 02/10/24 11:00 Intake & Output 02/09/24 02/10/24 02/10/24 18:59 06:59 18:59 Intake Total 3648.402 1933.823 715.648 Output Total 780 525 100 Balance 2868.402 1408.823 615.648 Weight 141.974 kg Intake: IV 2625 925 375 Dextrose 5% in Water 1, 175 000 ml @ 50 mls/hr IV . Q23H [facility] with Sodium Bicarb (1 Meq/ml) 150 ml Rx#:[id number] Dextrose 5%-0.9% NaCl 1, 675 825 375 000 ml @ 75 mls/hr IV . [id number] [facility] Rx#:[id number] Piperacillin-Tazobactam 3 200 100 .375 gm In Sodium Chloride 0.9% 100 ml @ 25 mls/hr IVPB Q8HR [facility] Rx# :[id number] Sodium Chloride 0.9% 1, 75 000 ml @ 75 mls/hr IV . [id number] [facility] Rx#:[id number] Sodium Chloride 0.9% 1, 1000 000 ml @ 999 mls/hr IV . Q1H1M [facility] Rx#:[id number] Vancomycin 2,000 mg In 500 Sodium Chloride 0.9% 500 ml 500 ml @ 167 mls/hr IVPB Q24H [facility] Rx#: [id number] Intake, IV Titration 713.402 744.823 256.648 Amount Norepinephrine 4 mg In 46.7 Sodium Chloride 0.9% 250 ml @ 0.03 MCG/KG/MIN 16. 228 mls/hr IV .[id number] [facility] Rx#:[id number] Norepinephrine 8 mg In 388.309 353.511 88.69 Sodium Chloride 0.9% 250 ml @ 0.17 MCG/KG/MIN 46. 702 mls/hr IV .Q5H32M [facility] Rx#:[id number] propofoL 1,000 mg In 278.393 391.312 167.958 Empty Bag 1 bag @ 40 MCG/ KG/MIN 34.074 mls/hr IV . Q2H57M [facility] Rx#:[id number] Tube Feeding 220 264 84 Other 90 Output: Gastric Drainage 450 230 Urine 330 295 100 Other: Voiding Method Indwelling Catheter Indwelling Catheter Indwelling Catheter ABP, PAP, CO, CI - Last Documented Arterial Blood Pressure 111/55 - Exam No acute distress, sedated, with an orally placed endotracheal tube. HEENT examination is grossly unremarkable. Neck supple. Full range of motion. No adenopathy thyromegaly or neck vein distention. Cardiovascular examination reveals regular rhythm rate. S1-S2 normal. No S3 or S4. No discernible murmur noted. Heart rate 92 bpm. Lungs reveal coarse bilateral rhonchi and expiratory wheezes. No crackles. Breath sounds equal. Saturations are 90%. Abdomen soft with bowel sounds. Extremities are intact. No cyanosis clubbing or edema. Skin is without rash or lesion. Neurologic examination cannot be assessed at this time. - Labs CBC & Chem 7: 02/10/24 04:45 02/10/24 04:45 Labs: Abnormal Lab Results - Last 24 Hours (Table) 02/09/24 02/09/24 02/09/24 Range/Units 05:31 17:20 19:55 WBC (3.8-10.6) k/uL RBC (4.30-5.90) m/uL MCV (80.0-100.0) fL MCH (25.0-35.0) pg Plt Count 85 L (150-450) k/uL Neutrophils # (1.3-7.7) k/uL Neutrophils # (Manual) 8.90 H (1.3-7.7) k/uL Lymphocytes # (1.0-4.8) k/uL Lymphocytes # (Manual) 0.32 L (1.0-4.8) k/uL Metamyelocytes # (Man) 0.54 H (0) k/uL Myelocytes # (Manual) 0.76 H (0) k/uL Macrocytosis ABG pH (7.35-7.45) ABG pCO2 (35-45) mmHg ABG pO2 (83-108) mmHg ABG HCO3 (21-25) mmol/L ABG Total CO2 (19-24) mmol/L Chloride (98-107) mmol/L BUN (9-20) mg/dL Creatinine (0.66-1.25) mg/dL Glucose (74-99) mg/dL POC Glucose (mg/dL) 124 H 137 H (70-110) mg/dL Calcium (8.4-10.2) mg/dL 02/09/24 02/10/24 02/10/24 Range/Units 20:31 04:22 04:45 WBC 13.0 H (3.8-10.6) k/uL RBC 3.69 L (4.30-5.90) m/uL MCV 110.7 H (80.0-100.0) fL MCH 35.9 H (25.0-35.0) pg Plt Count 121 L (150-450) k/uL Neutrophils # 11.9 H (1.3-7.7) k/uL Neutrophils # (Manual) (1.3-7.7) k/uL Lymphocytes # 0.4 L (1.0-4.8) k/uL Lymphocytes # (Manual) (1.0-4.8) k/uL Metamyelocytes # (Man) (0) k/uL Myelocytes # (Manual) (0) k/uL Macrocytosis Marked A ABG pH (7.35-7.45) ABG pCO2 (35-45) mmHg ABG pO2 (83-108) mmHg ABG HCO3 (21-25) mmol/L ABG Total CO2 (19-24) mmol/L Chloride (98-107) mmol/L BUN (9-20) mg/dL Creatinine (0.66-1.25) mg/dL Glucose (74-99) mg/dL POC Glucose (mg/dL) 152 H 159 H (70-110) mg/dL Calcium (8.4-10.2) mg/dL 02/10/24 02/10/24 02/10/24 Range/Units 04:45 05:55 08:15 WBC (3.8-10.6) k/uL RBC (4.30-5.90) m/uL MCV (80.0-100.0) fL MCH (25.0-35.0) pg Plt Count (150-450) k/uL Neutrophils # (1.3-7.7) k/uL Neutrophils # (Manual) (1.3-7.7) k/uL Lymphocytes # (1.0-4.8) k/uL Lymphocytes # (Manual) (1.0-4.8) k/uL Metamyelocytes # (Man) (0) k/uL Myelocytes # (Manual) (0) k/uL Macrocytosis ABG pH 7.32 L (7.35-7.45) ABG pCO2 56 H (35-45) mmHg ABG pO2 76 L (83-108) mmHg ABG HCO3 29 H (21-25) mmol/L ABG Total CO2 31 H (19-24) mmol/L Chloride 110 H (98-107) mmol/L BUN 55 H (9-20) mg/dL Creatinine 2.89 H (0.66-1.25) mg/dL Glucose 183 H (74-99) mg/dL POC Glucose (mg/dL) 164 H (70-110) mg/dL Calcium 7.7 L (8.4-10.2) mg/dL Microbiology - Last 24 Hours (Table) 02/08/24 11:45 Blood Culture Gram Stain - Final Blood Blood Culture - Final Streptococcus pneumoniae 02/08/24 11:30 Blood Culture Gram Stain - Final Blood Blood Culture - Final Streptococcus pneumoniae Molecular ID 02/08/24 17:50 Urine Culture - Final Urine,Voided 02/08/24 09:42 Gram Stain - Preliminary Sputum Assessment and Plan Assessment: Acute hypoxemic and hypercapnic respiratory failure, secondary to COPD exacerbation, complicated by bilateral suspected aspiration pneumonia. S/P intubation and mechanical ventilation on February 07, for respiratory failure. History of liver cancer, being treated at [facility]. Paroxysmal atrial fibrillation. History of congestive heart failure. History of acute COPD exacerbation. Tobacco dependence syndrome. History of hepatitis C. History of alcoholism. Gastroesophageal reflux disease. History of liver cirrhosis. History of IV drug use. History of portal hypertension and esophageal varices. Acute anion gap metabolic acidosis. Acute kidney injury with possible ATN. Plan: Plan dated February 09, 2024. A arterial line was placed on this patient. We had to use a right femoral space for the arterial line. Labs, x-rays, and medications are reviewed. The patient continues on propofol at 35 mcg/kg/min, norepinephrine at 22 mcg/min. Patient also continues on a sodium bicarb drip 75 cc an hour. The patient continues on vancomycin and cefepime. Cultures were positive for Streptococcus pneumoniae. We will continue to follow make recommendations along the way. In addition, the PEEP was increased from 8-12, in an attempt to wean the FiO2. His bqloexqx-xr-drl is a nurse on the fourth floor, and we did speak to her today, and gave her an update. Dated February 10, 2024. The patient is seen today in room 265. The patient remains on the mechanical ventilator. We increased the PEEP from 12 to 15 cm of water, to see if we cannot wean down the FiO2. The patient continues on dextrose and saline at 75 cc an hour, propofol at 35 mcg/kg/min, vasopressin at 0.04 units/min, and norepinephrine 18 mcg/min. The patient continues on Zosyn for streptococci in his blood stream. The patient is getting vital AF at 42 cc an hour which is g oal. Overall prognosis remains very guarded. We will continue to follow the patient, make recommendations along the way. We did speak to the patient's [id number]-loo today. Prognosis is certainly guarded. Time with Patient: Greater than 30
[2024-02-10 11:53] LABS: Glucose,Whole Blood 191 mg/dL (70-110)
--- NOTE | 2024-02-10 13:15 | P.PN ---
Subjective Progress Note Date: 02/10/24 Hospital Course: 73-year-old male, with tobacco dependence, with medical history of cirrhosis s econdary to alcohol use/hepatitis C, former IV drug user, hepatocellular carcinoma status post Y90 radiation, COPD, permanent atrial fibrillation, chronic diastolic heart failure presenting for evaluation of dyspnea. In the emergency room, patient was afebrile, 152/118, heart rate 107, respiratory rate of 46, 81% on BiPAP. Therefore, patient was intubated in the emergency room and oxygen saturation went up to 95% with vent settings of PEEP of 8, FiO2 of 80%, volume control 500. CBC demonstrated elevated MCV of 112.2, otherwise unremarkable. Basic metabolic panel demonstrated creatinine of 2.12 with a baseline of 1. Liver function test showed elevation of AST to 122, ALT of 59, total bilirubin of 3.5, albumin of 3.1. Troponin was 0.154, BNP was 5390. Initial ABG demonstrated pH of 7.04, pCO2 of 53, pO2 of 106. Coags demonstrated elevated INR of 2.1, D-dimer 5.05. Influenza A, B, RSV, COVID were negative. EKG, personally interpreted, demonstrates atrial fibrillation with RVR, multiple instances of aberrant conduction. Chest x-ray, personally interpreted demonstrates left-sided consolidation with likely pleural effusion. Chest CTA showed moderate emphysematous change, pulmonary arterial hypertension, severe consolidation throughout the left lower lobe extending into the lingula, but was suboptimal to exclude pulmonary embolism. CT abdomen/pelvis demonstrated cirrhosis with prominent collaterals in the gastrohepatic ligament suggesting portal venous hypertension, suspicious 2-1/2 cm nodule in the inferior right liver lobe. Head/cervical spine CT shows mild cerebral atrophy and moderate patchy burden of chronic small vessel ischemic disease. This also demonstrated incidental finding of right upper lobe pulmonary nodule which was suspicious, confirmed on CTA to be an 8 mm right apical nodule which was spiculated. Pulmonary/critical care medicine was consulted and patient was transferred to the intensive care unit for further monitoring/management. Blood cultures positive for strep pneumo. Patient currently on IV Zosyn. ID following. Pressor requirements continue to go up. Patient also in acute renal failure. Nephrology following. Subjective: Patient seen and examined at bedside. No acute events overnight. Continues to have increasing vasopressor requirements. Currently on Levophed and vasopressin. Plan is to increase PEEP, decreasing FiO2. Urine output decreasing. No bowel movements. [place] catheter in place. Pertinent positives and negatives as discussed above, a complete review of systems was performed and all other systems are negative. Vitals Signs Reviewed. General: Intubated sedated Derm: Warm, dry Head: Atraumatic, normocephalic, symmetric Eyes: Pupils equal and reactive Mouth: No lip lesion, mucus membranes moist Cardiovascular: S1S2 reg, no murmur Lungs: Bilateral rhonchi, intubated Abdominal: Soft, nontender to palpation, no guarding, no appreciable organomegaly Ext: No gross muscle atrophy, 2+ pitting edema, no contractures Neuro: Sedated Psych: Unable to assess Data Reviewed Today: Pertinent Labs: WBC 13, hemoglobin 13.2, platelet 121, pH 7.32, pCO2 56, pO2 76, bicarb 28, creatinine 2.89, blood sugars range between 1 64-1 91. Imaging: Chest x-ray independently interpreted, shows persistent left lower lobe opacity. Assessment and Plan: Septic shock with acute hypoxemic and hypercarbic respiratory failure Hypoglycemia related to sepsis Community-acquired pneumonia Streptococcus pneumonia bacteremia COPD exacerbation -ICU note reviewed, increase PEEP from 12-15, wean down FiO2, continue D5 normal saline at 75 cc an hour, continue propofol, vasopressin and norepinephrine, continue to wean pressors - Continue Pulmicort twice daily, Solu-Medrol 40 IV every 8 hours, DuoNebs 4 times daily, every 2 hours as needed, Perforomist twice daily - Patient currently on IV Zosyn 3.375 g every 8 hours, repeat cultures ordered - ID following Acute kidney injury Chronic diastolic heart failure Decompensated liver cirrhosis - Nephrology note reviewed, Lasix 80 mg IV given once today - Repeat BMP tomorrow GERD Tobacco dependence BPH Permanent atrial fibrillation -Home medications reviewed and reconciled DVT ppx: Xarelto Code status: Full code Anticipated discharge place: Pending clinical course Anticipated discharge time: Pending clinical course Objective - Vital Signs Vital signs: Vital Signs Temp 98.6 F 02/10/24 08:00 Pulse 90 02/10/24 12:30 Resp 24 02/10/24 11:00 BP 106/65 02/10/24 11:00 Pulse Ox 90 L 02/10/24 11:00 FiO2 65 02/10/24 12:10 Intake & Output 02/09/24 02/10/24 02/10/24 18:59 06:59 18:59 Intake Total 3648.402 1933.823 791.929 Output Total 780 525 100 Balance 2868.402 1408.823 691.929 Weight 141.974 kg Intake: IV 2625 925 375 Dextrose 5% in Water 1, 175 000 ml @ 50 mls/hr IV . Q23H [facility] with Sodium Bicarb (1 Meq/ml) 150 ml Rx#:[id number] Dextrose 5%-0.9% NaCl 1, 675 825 375 000 ml @ 75 mls/hr IV . [id number] [facility] Rx#:[id number] Piperacillin-Tazobactam 3 200 100 .375 gm In Sodium Chloride 0.9% 100 ml @ 25 mls/hr IVPB Q8HR [facility] Rx# :[id number] Sodium Chloride 0.9% 1, 75 000 ml @ 75 mls/hr IV . [id number] [facility] Rx#:[id number] Sodium Chloride 0.9% 1, 1000 000 ml @ 999 mls/hr IV . Q1H1M [facility] Rx#:[id number] Vancomycin 2,000 mg In 500 Sodium Chloride 0.9% 500 ml 500 ml @ 167 mls/hr IVPB Q24H [facility] Rx#: [id number] Intake, IV Titration 713.402 744.823 332.929 Amount Norepinephrine 4 mg In 46.7 Sodium Chloride 0.9% 250 ml @ 0.03 MCG/KG/MIN 16. 228 mls/hr IV .[id number] [facility] Rx#:[id number] Norepinephrine 8 mg In 388.309 353.511 164.971 Sodium Chloride 0.9% 250 ml @ 0.17 MCG/KG/MIN 46. 702 mls/hr IV .Q5H32M [facility] Rx#:[id number] propofoL 1,000 mg In 278.393 391.312 167.958 Empty Bag 1 bag @ 40 MCG/ KG/MIN 34.074 mls/hr IV . Q2H57M [facility] Rx#:[id number] Tube Feeding 220 264 84 Other 90 Output: Gastric Drainage 450 230 Urine 330 295 100 Other: Voiding Method Indwelling Catheter Indwelling Catheter Indwelling Catheter ABP, PAP, CO, CI - Last Documented Arterial Blood Pressure 111/55 - Labs CBC & Chem 7: 02/10/24 04:45 02/10/24 04:45 Labs: Abnormal Lab Results - Last 24 Hours (Table) 02/09/24 02/09/24 02/09/24 Range/Units 05:31 17:20 19:55 WBC (3.8-10.6) k/uL RBC (4.30-5.90) m/uL MCV (80.0-100.0) fL MCH (25.0-35.0) pg Plt Count 85 L (150-450) k/uL Neutrophils # (1.3-7.7) k/uL Neutrophils # (Manual) 8.90 H (1.3-7.7) k/uL Lymphocytes # (1.0-4.8) k/uL Lymphocytes # (Manual) 0.32 L (1.0-4.8) k/uL Metamyelocytes # (Man) 0.54 H (0) k/uL Myelocytes # (Manual) 0.76 H (0) k/uL Macrocytosis ABG pH (7.35-7.45) ABG pCO2 (35-45) mmHg ABG pO2 (83-108) mmHg ABG HCO3 (21-25) mmol/L ABG Total CO2 (19-24) mmol/L Chloride (98-107) mmol/L BUN (9-20) mg/dL Creatinine (0.66-1.25) mg/dL Glucose (74-99) mg/dL POC Glucose (mg/dL) 124 H 137 H (70-110) mg/dL Calcium (8.4-10.2) mg/dL 02/09/24 02/10/24 02/10/24 Range/Units 20:31 04:22 04:45 WBC 13.0 H (3.8-10.6) k/uL RBC 3.69 L (4.30-5.90) m/uL MCV 110.7 H (80.0-100.0) fL MCH 35.9 H (25.0-35.0) pg Plt Count 121 L (150-450) k/uL Neutrophils # 11.9 H (1.3-7.7) k/uL Neutrophils # (Manual) (1.3-7.7) k/uL Lymphocytes # 0.4 L (1.0-4.8) k/uL Lymphocytes # (Manual) (1.0-4.8) k/uL Metamyelocytes # (Man) (0) k/uL Myelocytes # (Manual) (0) k/uL Macrocytosis Marked A ABG pH (7.35-7.45) ABG pCO2 (35-45) mmHg ABG pO2 (83-108) mmHg ABG HCO3 (21-25) mmol/L ABG Total CO2 (19-24) mmol/L Chloride (98-107) mmol/L BUN (9-20) mg/dL Creatinine (0.66-1.25) mg/dL Glucose (74-99) mg/dL POC Glucose (mg/dL) 152 H 159 H (70-110) mg/dL Calcium (8.4-10.2) mg/dL 02/10/24 02/10/24 02/10/24 Range/Units 04:45 05:55 08:15 WBC (3.8-10.6) k/uL RBC (4.30-5.90) m/uL MCV (80.0-100.0) fL MCH (25.0-35.0) pg Plt Count (150-450) k/uL Neutrophils # (1.3-7.7) k/uL Neutrophils # (Manual) (1.3-7.7) k/uL Lymphocytes # (1.0-4.8) k/uL Lymphocytes # (Manual) (1.0-4.8) k/uL Metamyelocytes # (Man) (0) k/uL Myelocytes # (Manual) (0) k/uL Macrocytosis ABG pH 7.32 L (7.35-7.45) ABG pCO2 56 H (35-45) mmHg ABG pO2 76 L (83-108) mmHg ABG HCO3 29 H (21-25) mmol/L ABG Total CO2 31 H (19-24) mmol/L Chloride 110 H (98-107) mmol/L BUN 55 H (9-20) mg/dL Creatinine 2.89 H (0.66-1.25) mg/dL Glucose 183 H (74-99) mg/dL POC Glucose (mg/dL) 164 H (70-110) mg/dL Calcium 7.7 L (8.4-10.2) mg/dL 02/10/24 Range/Units 11:51 WBC (3.8-10.6) k/uL RBC (4.30-5.90) m/uL MCV (80.0-100.0) fL MCH (25.0-35.0) pg Plt Count (150-450) k/uL Neutrophils # (1.3-7.7) k/uL Neutrophils # (Manual) (1.3-7.7) k/uL Lymphocytes # (1.0-4.8) k/uL Lymphocytes # (Manual) (1.0-4.8) k/uL Metamyelocytes # (Man) (0) k/uL Myelocytes # (Manual) (0) k/uL Macrocytosis ABG pH (7.35-7.45) ABG pCO2 (35-45) mmHg ABG pO2 (83-108) mmHg ABG HCO3 (21-25) mmol/L ABG Total CO2 (19-24) mmol/L Chloride (98-107) mmol/L BUN (9-20) mg/dL Creatinine (0.66-1.25) mg/dL Glucose (74-99) mg/dL POC Glucose (mg/dL) 191 H (70-110) mg/dL Calcium (8.4-10.2) mg/dL Microbiology - Last 24 Hours (Table) 02/08/24 09:42 Gram Stain - Preliminary Sputum Sputum Culture - Preliminary Streptococcus pneumoniae 02/08/24 11:45 Blood Culture Gram Stain - Final Blood Blood Culture - Final Streptococcus pneumoniae 02/08/24 11:30 Blood Culture Gram Stain - Final Blood Blood Culture - Final Streptococcus pneumoniae Molecular ID 02/08/24 17:50 Urine Culture - Final Urine,Voided
[2024-02-10] MEDS: AMPICILLIN-SULBACTAM 3 GM in SODIUM CHLORIDE 0.9% 100 ML IVPB SCH (15:57)
[2024-02-10] MEDS: FUROSEMIDE 10 MG/ML 4 ML VIAL IV STA (15:59)
[2024-02-10 16:26] LABS: Glucose,Whole Blood 191 mg/dL (70-110)
[2024-02-10] MEDS: SODIUM CHLORIDE 0.9% 1,000 ML IV SCH (17:01)
[2024-02-10 22:23] LABS: Glucose,Whole Blood 169 mg/dL (70-110)
[2024-02-11 04:17] LABS: Glucose,Whole Blood 172 mg/dL (70-110)
[2024-02-11 04:40] LABS: Basophils % (A) 0 %; Eosinophils % (A) 0 %; HCT 39.8 % (39.0-53.0); HGB 12.8 gm/dL (13.0-17.5); Lymphocytes # (A) 0.4 k/uL (1.0-4.8); Lymphocytes % (A) 3 %; MCH 35.1 pg (25.0-35.0); MCHC 32.3 g/dL (31.0-37.0); MCV 108.7 fL (80.0-100.0); Mean Platelet Volume 8.6; Monocytes % (A) 7 %; Neutrophils # (A) 12.7 k/uL (1.3-7.7); Neutrophils % (A) 88 %; Platelet Count 108 k/uL (150-450); RBC 3.66 m/uL (4.30-5.90); RDW 15.9 % (11.5-15.5); WBC 14.3 k/uL (3.8-10.6)
[2024-02-11 04:42] LABS: ALT 27 U/L (4-49); AST 71 U/L (17-59); African American GFR (CKD) 26 (>60 ml/min/1.73 sqM); Albumin 2.2 g/dL (3.5-5.0); Alkaline Phosphatase 52 U/L (38-126); Anion Gap 2 mmol/L; Blood Urea Nitrogen 78 mg/dL (9-20); Calcium 7.9 mg/dL (8.4-10.2); Carbon Dioxide 28 mmol/L (22-30); Chloride 111 mmol/L (98-107); Glucose 183 mg/dL (74-99); Non-African American GFR(CKD) 23 (>60 ml/min/1.73 sqM); Potassium 4.8 mmol/L (3.5-5.1); Sodium 141 mmol/L (137-145); Total Bilirubin 2.7 mg/dL (0.2-1.3); Total Protein 6.2 g/dL (6.3-8.2)
[2024-02-11 04:47] LABS: Macrocytosis Marked
[2024-02-11 05:55] LABS: ABG Base Excess 3.6 mmol/L; ABG HCO3 29 mmol/L (21-25); ABG PCO2 53 mmHg (35-45); ABG PH 7.35 (7.35-7.45); ABG PO2 87 mmHg (83-108); ABG TCO2 31 mmol/L (19-24); Allen Test Performed? Yes
[2024-02-11 08:22] LABS: Glucose,Whole Blood 162 mg/dL (70-110)
--- NOTE | 2024-02-11 09:19 | XR ---
EXAMINATION TYPE: XR chest 1V portable DATE OF EXAM: 02/11/2024 Comparison: 02/10/2024 Clinical History: 73-year-old male Tube placement Findings: ET and NG tubes are satisfactory. Borderline cardiac medley. Relative upper lung lucencies. Patchy mi d and lower lung opacities persist. Impression: Cardiomegaly, COPD, and ongoing patchy bilateral mid and lower lung opacities.
--- NOTE | 2024-02-11 10:53 | P.PN ---
Subjective Patient is seen in follow-up for acute kidney injury. Renal function stable. Received 40 mg IV Lasix yesterday. Urine output better. Currently on Levophed and vasopressin. Receiving tube feeds. Intubated. Vital signs are stable. On vasopressor support. General: Resting in bed. HEENT: Intubated. LUNGS: No audible rhonchi or wheezes. HEART: Rate and Rhythm are regular. ABDOMEN: Obese, soft. EXTREMITITES: Trace edema. Objective - Vital Signs Vital signs: Vital Signs Temp 98.8 F 02/11/24 08:00 Pulse 76 02/11/24 08:44 Resp 27 H 02/11/24 08:00 BP 122/62 02/11/24 07:00 Pulse Ox 96 02/11/24 08:00 FiO2 50 02/11/24 08:13 Intake & Output 02/10/24 02/11/24 02/11/24 18:59 06:59 18:59 Intake Total 2492.338 1514.082 315.607 Output Total 320 475 150 Balance 2172.338 1039.082 165.607 Intake: IV 1000 150 75 Ampicillin-Sulbactam 3 gm 100 In Sodium Chloride 0.9% 100 ml @ 200 mls/hr IVPB Q8HR [facility] Rx#:[id number] Dextrose 5%-0.9% NaCl 1, 675 000 ml @ 75 mls/hr IV . [id number] [facility] Rx#:[id number] Sodium Chloride 0.9% 1, 225 150 000 ml @ 75 mls/hr IV . [id number] [facility] Rx#:[id number] Sodium Chloride 0.9% 1, 75 000 ml @ 75 mls/hr IV . [id number] [facility] Rx#:[id number] Intake, IV Titration 898.338 944.082 125.607 Amount Norepinephrine 8 mg In 430.526 217.533 30.813 Sodium Chloride 0.9% 250 ml @ 0.17 MCG/KG/MIN 46. 702 mls/hr IV .Q5H32M [facility] Rx#:[id number] Sodium Chloride 0.9% 1, 600 000 ml @ 75 mls/hr IV . [id number] [facility] Rx#:[id number] Vasopressin 60 unit In 106.718 79.178 Sodium Chloride 0.9% 150 ml @ 0.03 UNITS/MIN 4.59 mls/hr IV .Q24H [facility] Rx#: [id number] propofoL 1,000 mg In 361.094 126.549 15.616 Empty Bag 1 bag @ 40 MCG/ KG/MIN 34.074 mls/hr IV . Q2H57M [facility] Rx#:[id number] Tube Feeding 504 420 85 Other 90 30 Output: Urine 320 475 150 Other: Voiding Method Indwelling Catheter Indwelling Catheter # Bowel Movements 0 ABP, PAP, CO, CI - Last Documented Arterial Blood Pressure 125/61 - Labs CBC & Chem 7: 02/11/24 04:15 02/11/24 04:15 Labs: Abnormal Lab Results - Last 24 Hours (Table) 02/10/24 02/10/24 02/10/24 Range/Units 11:51 16:24 22:22 WBC (3.8-10.6) k/uL RBC (4.30-5.90) m/uL Hgb (13.0-17.5) gm/dL MCV (80.0-100.0) fL MCH (25.0-35.0) pg RDW (11.5-15.5) % Plt Count (150-450) k/uL Neutrophils # (1.3-7.7) k/uL Lymphocytes # (1.0-4.8) k/uL Macrocytosis ABG pCO2 (35-45) mmHg ABG HCO3 (21-25) mmol/L ABG Total CO2 (19-24) mmol/L Chloride (98-107) mmol/L BUN (9-20) mg/dL Creatinine (0.66-1.25) mg/dL Glucose (74-99) mg/dL POC Glucose (mg/dL) 191 H 191 H 169 H (70-110) mg/dL Calcium (8.4-10.2) mg/dL Total Bilirubin (0.2-1.3) mg/dL AST (17-59) U/L Total Protein (6.3-8.2) g/dL Albumin (3.5-5.0) g/dL 02/11/24 02/11/24 02/11/24 Range/Units 04:15 04:15 04:16 WBC 14.3 H (3.8-10.6) k/uL RBC 3.66 L (4.30-5.90) m/uL Hgb 12.8 L (13.0-17.5) gm/dL MCV 108.7 H (80.0-100.0) fL MCH 35.1 H (25.0-35.0) pg RDW 15.9 H (11.5-15.5) % Plt Count 108 L (150-450) k/uL Neutrophils # 12.7 H (1.3-7.7) k/uL Lymphocytes # 0.4 L (1.0-4.8) k/uL Macrocytosis Marked A ABG pCO2 (35-45) mmHg ABG HCO3 (21-25) mmol/L ABG Total CO2 (19-24) mmol/L Chloride 111 H (98-107) mmol/L BUN 78 H (9-20) mg/dL Creatinine 2.72 H (0.66-1.25) mg/dL Glucose 183 H (74-99) mg/dL POC Glucose (mg/dL) 172 H (70-110) mg/dL Calcium 7.9 L (8.4-10.2) mg/dL Total Bilirubin 2.7 H (0.2-1.3) mg/dL AST 71 H (17-59) U/L Total Protein 6.2 L (6.3-8.2) g/dL Albumin 2.2 L (3.5-5.0) g/dL 02/11/24 02/11/24 Range/Units 05:55 08:20 WBC (3.8-10.6) k/uL RBC (4.30-5.90) m/uL Hgb (13.0-17.5) gm/dL MCV (80.0-100.0) fL MCH (25.0-35.0) pg RDW (11.5-15.5) % Plt Count (150-450) k/uL Neutrophils # (1.3-7.7) k/uL Lymphocytes # (1.0-4.8) k/uL Macrocytosis ABG pCO2 53 H (35-45) mmHg ABG HCO3 29 H (21-25) mmol/L ABG Total CO2 31 H (19-24) mmol/L Chloride (98-107) mmol/L BUN (9-20) mg/dL Creatinine (0.66-1.25) mg/dL Glucose (74-99) mg/dL POC Glucose (mg/dL) 162 H (70-110) mg/dL Calcium (8.4-10.2) mg/dL Total Bilirubin (0.2-1.3) mg/dL AST (17-59) U/L Total Protein (6.3-8.2) g/dL Albumin (3.5-5.0) g/dL Microbiology - Last 24 Hours (Table) 02/08/24 09:42 Gram Stain - Final Sputum Sputum Culture - Final Streptococcus pneumoniae 02/08/24 11:45 Blood Culture Gram Stain - Final Blood Blood Culture - Final Streptococcus pneumoniae 02/08/24 11:30 Blood Culture Gram Stain - Final Blood Blood Culture - Final Streptococcus pneumoniae Molecular ID Assessment and Plan Plan: Assessment: 1. Acute kidney injury secondary to ATN secondary to septic shock. Creatinine fairly stable at 2.72 today. No hydronephrosis noted on CAT scan. Patient received IV contrast for CT on February 08, 2024. 2. Septic shock secondary to strep pneumo bacteremia and pneumonia. On antibiotics. On Levophed and vasopressin. 3. Alcohol induced liver cirrhosis. 4. Acute hypoxic respiratory failure. Plan: Maintain normal saline. Maintain tube feeds. Avoid nephrotoxins. Wean FiO2 and vasopressors. Continue to monitor renal function and urine output. Repeat IV Lasix if urine output drops to below 30 cc an hour for 3 hours. Continue to assess daily for need for renal replacement therapy. No urgency at this time.
[2024-02-11 11:43] LABS: Glucose,Whole Blood 157 mg/dL (70-110)
--- NOTE | 2024-02-11 12:36 | P.PN ---
Subjective Progress Note Date: 02/10/24 Principal diagnosis: Reason for follow-up is sepsis and pneumonia/ bacteremia Patient is a 73-year-old male with a past medical history significant for atrial fibrillation heart failure reflux, alcoholic use/hepatitis C former IV drug user hepatocellular carcinoma s/p radiation therapy patient has been brought into the hospital for evaluation of increasing shortness of breath patient did have a significant hypoxemia requiring intubation and admission to the ICU and there was left-sided consolidation on the CT blood culture positive for Streptococcus pneumoniae On today's evaluation that is 02/10/2024, patient did have a low-grade fever 100 F at noon, patient remains still intubated on the vent with an FiO2 of 60% no significant purulent secretions related or any other changes reported by nursing staff still requiring some pressor support Patient white count is 13,000, creatinine is 2.89, blood and sputum culture with Streptococcus pneumoniae Objective - Vital Signs Vital signs: Vital Signs Temp 98.6 F 02/10/24 08:00 Pulse 90 02/10/24 12:30 Resp 24 02/10/24 11:00 BP 106/65 02/10/24 11:00 Pulse Ox 90 L 02/10/24 11:00 FiO2 65 02/10/24 12:10 Intake & Output 02/09/24 02/10/24 02/10/24 18:59 06:59 18:59 Intake Total 3648.402 1933.823 791.929 Output Total 780 525 100 Balance 2868.402 1408.823 691.929 Weight 141.974 kg Intake: IV 2625 925 375 Dextrose 5% in Water 1, 175 000 ml @ 50 mls/hr IV . Q23H [facility] with Sodium Bicarb (1 Meq/ml) 150 ml Rx#:[id number] Dextrose 5%-0.9% NaCl 1, 675 825 375 000 ml @ 75 mls/hr IV . [id number] [facility] Rx#:[id number] Piperacillin-Tazobactam 3 200 100 .375 gm In Sodium Chloride 0.9% 100 ml @ 25 mls/hr IVPB Q8HR [facility] Rx# :[id number] Sodium Chloride 0.9% 1, 75 000 ml @ 75 mls/hr IV . [id number] [facility] Rx#:[id number] Sodium Chloride 0.9% 1, 1000 000 ml @ 999 mls/hr IV . Q1H1M [facility] Rx#:[id number] Vancomycin 2,000 mg In 500 Sodium Chloride 0.9% 500 ml 500 ml @ 167 mls/hr IVPB Q24H [facility] Rx#: [id number] Intake, IV Titration 713.402 744.823 332.929 Amount Norepinephrine 4 mg In 46.7 Sodium Chloride 0.9% 250 ml @ 0.03 MCG/KG/MIN 16. 228 mls/hr IV .[id number] [facility] Rx#:[id number] Norepinephrine 8 mg In 388.309 353.511 164.971 Sodium Chloride 0.9% 250 ml @ 0.17 MCG/KG/MIN 46. 702 mls/hr IV .Q5H32M [facility] Rx#:[id number] propofoL 1,000 mg In 278.393 391.312 167.958 Empty Bag 1 bag @ 40 MCG/ KG/MIN 34.074 mls/hr IV . Q2H57M [facility] Rx#:[id number] Tube Feeding 220 264 84 Other 90 Output: Gastric Drainage 450 230 Urine 330 295 100 Other: Voiding Method Indwelling Catheter Indwelling Catheter Indwelling Catheter ABP, PAP, CO, CI - Last Documented Arterial Blood Pressure 111/55 - Exam GENERAL DESCRIPTION: An elderly male intubated on the vent RESPIRATORY SYSTEM: Unlabored breathing , decreased breath sounds at bases HEART: S1 S2 regular rate and rhythm , ABDOMEN: Soft , no tenderness EXTREMITIES: Swelling to the leg but no redness - Labs CBC & Chem 7: 02/11/24 04:15 02/11/24 04:15 Labs: Abnormal Lab Results - Last 24 Hours (Table) 02/09/24 02/09/24 02/09/24 Range/Units 17:20 19:55 20:31 WBC (3.8-10.6) k/uL RBC (4.30-5.90) m/uL MCV (80.0-100.0) fL MCH (25.0-35.0) pg Plt Count (150-450) k/uL Neutrophils # (1.3-7.7) k/uL Lymphocytes # (1.0-4.8) k/uL Macrocytosis ABG pH (7.35-7.45) ABG pCO2 (35-45) mmHg ABG pO2 (83-108) mmHg ABG HCO3 (21-25) mmol/L ABG Total CO2 (19-24) mmol/L Chloride (98-107) mmol/L BUN (9-20) mg/dL Creatinine (0.66-1.25) mg/dL Glucose (74-99) mg/dL POC Glucose (mg/dL) 124 H 137 H 152 H (70-110) mg/dL Calcium (8.4-10.2) mg/dL 02/10/24 02/10/24 02/10/24 Range/Units 04:22 04:45 04:45 WBC 13.0 H (3.8-10.6) k/uL RBC 3.69 L (4.30-5.90) m/uL MCV 110.7 H (80.0-100.0) fL MCH 35.9 H (25.0-35.0) pg Plt Count 121 L (150-450) k/uL Neutrophils # 11.9 H (1.3-7.7) k/uL Lymphocytes # 0.4 L (1.0-4.8) k/uL Macrocytosis Marked A ABG pH (7.35-7.45) ABG pCO2 (35-45) mmHg ABG pO2 (83-108) mmHg ABG HCO3 (21-25) mmol/L ABG Total CO2 (19-24) mmol/L Chloride 110 H (98-107) mmol/L BUN 55 H (9-20) mg/dL Creatinine 2.89 H (0.66-1.25) mg/dL Glucose 183 H (74-99) mg/dL POC Glucose (mg/dL) 159 H (70-110) mg/dL Calcium 7.7 L (8.4-10.2) mg/dL 02/10/24 02/10/24 02/10/24 Range/Units 05:55 08:15 11:51 WBC (3.8-10.6) k/uL RBC (4.30-5.90) m/uL MCV (80.0-100.0) fL MCH (25.0-35.0) pg Plt Count (150-450) k/uL Neutrophils # (1.3-7.7) k/uL Lymphocytes # (1.0-4.8) k/uL Macrocytosis ABG pH 7.32 L (7.35-7.45) ABG pCO2 56 H (35-45) mmHg ABG pO2 76 L (83-108) mmHg ABG HCO3 29 H (21-25) mmol/L ABG Total CO2 31 H (19-24) mmol/L Chloride (98-107) mmol/L BUN (9-20) mg/dL Creatinine (0.66-1.25) mg/dL Glucose (74-99) mg/dL POC Glucose (mg/dL) 164 H 191 H (70-110) mg/dL Calcium (8.4-10.2) mg/dL Microbiology - Last 24 Hours (Table) 02/08/24 09:42 Gram Stain - Preliminary Sputum Sputum Culture - Preliminary Streptococcus pneumoniae 02/08/24 11:45 Blood Culture Gram Stain - Final Blood Blood Culture - Final Streptococcus pneumoniae 02/08/24 11:30 Blood Culture Gram Stain - Final Blood Blood Culture - Final Streptococcus pneumoniae Molecular ID 02/08/24 17:50 Urine Culture - Final Urine,Voided Assessment and Plan (1) Pneumonia Current Visit: Yes Status: Acute Code(s): J18.9 - PNEUMONIA, UNSPECIFIED ORGANISM SNOMED Code(s): 496450694 (2) Bacteremia Current Visit: Yes Status: Acute Code(s): R78.81 - BACTEREMIA SNOMED Code(s): 0676744 (3) Leukocytosis Current Visit: Yes Status: Acute Code(s): D72.829 - ELEVATED WHITE BLOOD CELL COUNT, UNSPECIFIED SNOMED Code(s): 908926081 Plan: 1patient presented to hospital with sepsis in this patient who did have a fever tachycardia elevated white count source is likely left-sided pneumonia in this patient who is growing strep pneumo in the blood source likely pneumonia which is a pansensitive pathogen 2-we will discontinue Zosyn and start the patient on Unasyn with concern for possible aspiration Dictation was produced using [employer] dictation software. please excuse any grammatical, word or spelling errors. Time with Patient: Less than 30
--- NOTE | 2024-02-11 12:36 | P.PN ---
Subjective Progress Note Date: 02/11/24 Principal diagnosis: Reason for follow-up is sepsis and pneumonia/ bacteremia Patient is a 73-year-old male with a past medical history significant for atrial fibrillation heart failure reflux, alcoholic use/hepatitis C former IV drug user hepatocellular carcinoma s/p radiation therapy patient has been brought into the hospital for evaluation of increasing shortness of breath patient did have a significant hypoxemia requiring intubation and admission to the ICU and there was left-sided consolidation on the CT blood culture positive for Streptococcus pneumoniae On today's evaluation that is 02/11/2024,the patient did have resolution of his fever and afebrile this morning, the patient remains to be debated on the vent FiO2 down to 50% did not have any response with sedation holiday this morning per the nursing staff, no diarrhea and the changes reported Patient white count is 14.3 creatinine is 2.72 Objective - Vital Signs Vital signs: Vital Signs Temp 98.8 F 02/11/24 08:00 Pulse 75 02/11/24 11:43 Resp 27 H 02/11/24 08:00 BP 122/62 02/11/24 07:00 Pulse Ox 96 02/11/24 08:00 FiO2 50 02/11/24 10:59 Intake & Output 02/10/24 02/11/24 02/11/24 18:59 06:59 18:59 Intake Total 2492.338 1514.082 315.607 Output Total 320 475 150 Balance 2172.338 1039.082 165.607 Weight 141.974 kg Intake: IV 1000 150 75 Ampicillin-Sulbactam 3 gm 100 In Sodium Chloride 0.9% 100 ml @ 200 mls/hr IVPB Q8HR [facility] Rx#:[id number] Dextrose 5%-0.9% NaCl 1, 675 000 ml @ 75 mls/hr IV . K96H16M [facility] Rx#:[id number] Sodium Chloride 0.9% 1, 225 150 000 ml @ 75 mls/hr IV . [id number] [facility] Rx#:[id number] Sodium Chloride 0.9% 1, 75 000 ml @ 75 mls/hr IV . [id number] [facility] Rx#:[id number] Intake, IV Titration 898.338 944.082 125.607 Amount Norepinephrine 8 mg In 430.526 217.533 30.813 Sodium Chloride 0.9% 250 ml @ 0.17 MCG/KG/MIN 46. 702 mls/hr IV .Q5H32M [facility] Rx#:[id number] Sodium Chloride 0.9% 1, 600 000 ml @ 75 mls/hr IV . [id number] [facility] Rx#:[id number] Vasopressin 60 unit In 106.718 79.178 Sodium Chloride 0.9% 150 ml @ 0.03 UNITS/MIN 4.59 mls/hr IV .Q24H [facility] Rx#: [id number] propofoL 1,000 mg In 361.094 126.549 15.616 Empty Bag 1 bag @ 40 MCG/ KG/MIN 34.074 mls/hr IV . Q2H57M [facility] Rx#:[id number] Tube Feeding 504 420 85 Other 90 30 Output: Urine 320 475 150 Other: Voiding Method Indwelling Catheter Indwelling Catheter # Bowel Movements 0 ABP, PAP, CO, CI - Last Documented Arterial Blood Pressure 125/61 - Exam GENERAL DESCRIPTION: An elderly male intubated on the vent RESPIRATORY SYSTEM: Unlabored breathing , decreased breath sounds at bases HEART: S1 S2 regular rate and rhythm , ABDOMEN: Soft , no tenderness EXTREMITIES: Swelling to the leg but no redness - Labs CBC & Chem 7: 02/11/24 04:15 02/11/24 04:15 Labs: Abnormal Lab Results - Last 24 Hours (Table) 02/10/24 02/10/24 02/11/24 Range/Units 16:24 22:22 04:15 WBC 14.3 H (3.8-10.6) k/uL RBC 3.66 L (4.30-5.90) m/uL Hgb 12.8 L (13.0-17.5) gm/dL MCV 108.7 H (80.0-100.0) fL MCH 35.1 H (25.0-35.0) pg RDW 15.9 H (11.5-15.5) % Plt Count 108 L (150-450) k/uL Neutrophils # 12.7 H (1.3-7.7) k/uL Lymphocytes # 0.4 L (1.0-4.8) k/uL Macrocytosis Marked A ABG pCO2 (35-45) mmHg ABG HCO3 (21-25) mmol/L ABG Total CO2 (19-24) mmol/L Chloride (98-107) mmol/L BUN (9-20) mg/dL Creatinine (0.66-1.25) mg/dL Glucose (74-99) mg/dL POC Glucose (mg/dL) 191 H 169 H (70-110) mg/dL Calcium (8.4-10.2) mg/dL Total Bilirubin (0.2-1.3) mg/dL AST (17-59) U/L Total Protein (6.3-8.2) g/dL Albumin (3.5-5.0) g/dL 02/11/24 02/11/24 02/11/24 Range/Units 04:15 04:16 05:55 WBC (3.8-10.6) k/uL RBC (4.30-5.90) m/uL Hgb (13.0-17.5) gm/dL MCV (80.0-100.0) fL MCH (25.0-35.0) pg RDW (11.5-15.5) % Plt Count (150-450) k/uL Neutrophils # (1.3-7.7) k/uL Lymphocytes # (1.0-4.8) k/uL Macrocytosis ABG pCO2 53 H (35-45) mmHg ABG HCO3 29 H (21-25) mmol/L ABG Total CO2 31 H (19-24) mmol/L Chloride 111 H (98-107) mmol/L BUN 78 H (9-20) mg/dL Creatinine 2.72 H (0.66-1.25) mg/dL Glucose 183 H (74-99) mg/dL POC Glucose (mg/dL) 172 H (70-110) mg/dL Calcium 7.9 L (8.4-10.2) mg/dL Total Bilirubin 2.7 H (0.2-1.3) mg/dL AST 71 H (17-59) U/L Total Protein 6.2 L (6.3-8.2) g/dL Albumin 2.2 L (3.5-5.0) g/dL 24 02/11/24 Range/Units 08:20 11:42 WBC (3.8-10.6) k/uL RBC (4.30-5.90) m/uL Hgb (13.0-17.5) gm/dL MCV (80.0-100.0) fL MCH (25.0-35.0) pg RDW (11.5-15.5) % Plt Count (150-450) k/uL Neutrophils # (1.3-7.7) k/uL Lymphocytes # (1.0-4.8) k/uL Macrocytosis ABG pCO2 (35-45) mmHg ABG HCO3 (21-25) mmol/L ABG Total CO2 (19-24) mmol/L Chloride (98-107) mmol/L BUN (9-20) mg/dL Creatinine (0.66-1.25) mg/dL Glucose (74-99) mg/dL POC Glucose (mg/dL) 162 H 157 H (70-110) mg/dL Calcium (8.4-10.2) mg/dL Total Bilirubin (0.2-1.3) mg/dL AST (17-59) U/L Total Protein (6.3-8.2) g/dL Albumin (3.5-5.0) g/dL Microbiology - Last 24 Hours (Table) 02/08/24 09:42 Gram Stain - Final Sputum Sputum Culture - Final Streptococcus pneumoniae 02/08/24 11:45 Blood Culture Gram Stain - Final Blood Blood Culture - Final Streptococcus pneumoniae 02/08/24 11:30 Blood Culture Gram Stain - Final Blood Blood Culture - Final Streptococcus pneumoniae Molecular ID Assessment and Plan (1) Pneumonia Current Visit: Yes Status: Acute Code(s): J18.9 - PNEUMONIA, UNSPECIFIED ORGANISM SNOMED Code(s): 341176253 (2) Bacteremia Current Visit: Yes Status: Acute Code(s): R78.81 - BACTEREMIA SNOMED Code(s): 0500211 (3) Leukocytosis Current Visit: Yes Status: Acute Code(s): D72.829 - ELEVATED WHITE BLOOD CELL COUNT, UNSPECIFIED SNOMED Code(s): 560464451 Plan: 1patient presented to hospital with sepsis in this patient who did have a fever tachycardia elevated white count source is likely left-sided pneumonia in this patient who is growing strep pneumo in the blood source likely pneumonia which is a pansensitive pathogen 2-patient is currently being treated with Unasyn to continue white count is slightly up we will monitor closely Family at the bedside questions answered Dictation was produced using [employer] software. please excuse any grammatical, word or spelling errors. Time with Patient: Less than 30
--- NOTE | 2024-02-11 13:24 | P.PN ---
Subjective Progress Note Date: 02/11/24 Principal diagnosis: Respiratory failure. This is a 73-year-old white male, known history of liver cancer, receiving treatment at [facility]. History of COPD, chronic atrial fibrillation, history of congestive heart failure, tobacco dependence syndrome, patient was brought into the ER this morning by EMS, apparently the patient has been complaining of shortness of breath for the last couple of days. Today his shortness of breath has become more pronounced, and his pulse ox was noted to be in the 70s. EMS was called, and upon arrival patient was placed on BiPAP, and he was noted to have significant wheezing. Brought into the ER, and the patient was in extreme respiratory distress, did not tolerate BiPAP, intubated by ER physician, and I was asked to see the patient on consultation. Patient is now on assist-control rate of 20 tidal volume 450 FiO2 of 100% and PEEP of 5 ABG showed a pO2 of 108 pCO2 53 pH of 7.04. Vent settings were changed, increase his rate up to 24 cut down FiO2 to 80% increased PEEP to 8 and considering his metabolic acidosis I recommended 3 A of bicarb and 1 L of D5W running at 50 cc/h. Follow-up ABG will be done in few hours. Workup in the ER included chest x-ray which clearly showed significant consolidation in the left lower lobe and in the left perihilar area. CT of the head showed mild cerebral atrophy, no acute intracranial process, there was a layering of fluid within the paranasal sinuses consistent with acute sinusitis. CT angiogram of the chest was a suboptimal to diagnose pulmonary embolism, remind you patient is on Xarelto it did show evidence of pulmonary hypertension, severe consolidation throughout the left lower lobe extending into the lingula and a lesser consolidation noted in the right infrahilar area/right base. Posteriorly. Which raises the possibility of aspiration pneumonitis. There is a background COPD with moderate emphysema, and there is an apical nodule measuring 8 mm apparently this was noted on a previous CT of the chest measuring 5 mm back on 11/18/22. This is likely malignant, and according to the family this has been noted at [facility] and they are keeping an eye and close watch on it Progress note dated February 09, 2024. This is a 73-year-old male who is seen today in room 265. He was admitted yesterday, for respiratory failure and COPD. The patient has a history of liver cancer. The patient remains on the mechanical ventilator for respiratory failur e, with settings of volume assist-control, rate 24, tidal volume 500, FiO2 80%, PEEP of 8. Blood gases show pO2 of 89, pCO2 of 50, and a pH of 7.29. In an attempt to reduce the FiO2, the PEEP was increased from 8 to 12 cm of water. The patient was intubated yesterday, on February 08. He continues on propofol at 35 mcg/kg/min, and norepinephrine at 22 mcg/min. Is getting a sodium bicarbonate drip, with 3 ampoules of sodium bicarb in D5W at 75 cc an hour. He is also getting vancomycin and cefepime, and he was started on vital HP at 10 cc an hour, awaiting a dietary evaluation. White count is 10.8, hemoglobin 14.3, hematocrit 46.9, and a platelet count is currently pending. Sodium 141, pot assium 5.3, chlorides 110, CO2 21, anion gap 10, BUN 34, and creatinine 2.39. Lactic acid is 8.5. Calcium is 7.7. Magnesium is 2.0. Blood cultures show evidence of Streptococcus pneumoniae. Chest x-ray shows bilateral mid and lower lung airspace disease. Progress note dated February 10, 2024. This is a 73-year-old male who is seen today in room 265. He was admitted on the , for respiratory failure and COPD. The patient has a history of liver cancer. The patient continues on the mechanical ventilator. Settings include volume assist-control, rate 24, tidal volume 500, FiO2 70%, PEEP of 12. Blood gases show pO2 76, pCO2 of 56, pH is 7.32. The patient is getting dextrose with saline at 75 cc an hour, propofol at 35 mcg/kg/min, vasopressin at 0.03 units/min, norepinephrine at 18 mcg/min, and vital AF at 42 cc an hour which is goal. The patient had streptococci in the blood, and for that he is on Zosyn. We did speak to his bgsyiqpo-[id number] today. White count 13, hemoglobin 13.2, hematocrit 40.8, platelet count 121,000. Sodium 140, potassium 4.8, chloride 110, CO2 28, BUN 55, creatinine 2.89. Calcium is 7.7. Glucose is 164. Blood cultures are positive for Streptococcus pneumoniae. Chest x-ray is unchanged. Progress note dated February 11, 2024. 73-year-old male seen today in room 265. The patient was admitted on 07 February, for respiratory failure and COPD. The patient does have a history of liver cancer. The patient remains on the mechanical ventilator. His condition is essentially unchanged. He is on volume assist-control, rate 24, tidal volume 500, FiO2 50%, PEEP of 15. Blood gases show pO2 of 87, pCO2 of 53, and a pH of 7.35. The patient is getting saline at 75 cc an hour, and vital, at 42 cc an hour, which is goal. Propofol was held, for daily interruption of sedation. The patient was not responsive, but was asynchronous with the ventilator, so propofol was restarted. In addition, the patient continues on Unasyn. White count is 14.3, hemoglobin 12.8, hematocrit 39.8, platelet count 208,000. Sodium 141, potassium 4.8, chlorides 111, CO2 28, BUN 78, creatinine 2.72, glucose 157, and albumin 2.2. Blood cultures are positive for Streptococcus pneumoniae. Sputum Gram stain is also positive for the same organism. Chest x-ray shows cardiomegaly, and patchy bilateral infiltrates. Objective - Vital Signs Vital signs: Vital Signs Temp 98.8 F 02/11/24 08:00 Pulse 75 02/11/24 11:43 Resp 27 H 02/11/24 08:00 BP 122/62 02/11/24 07:00 Pulse Ox 96 02/11/24 08:00 FiO2 50 02/11/24 10:59 Intake & Output 02/10/24 02/11/24 02/11/24 18:59 06:59 18:59 Intake Total 2492.338 1514.082 371.413 Output Total 320 475 150 Balance 2172.338 1039.082 221.413 Weight 141.974 kg Intake: IV 1000 150 75 Ampicillin-Sulbactam 3 gm 100 In Sodium Chloride 0.9% 100 ml @ 200 mls/hr IVPB Q8HR [facility] Rx#:[id number] Dextrose 5%-0.9% NaCl 1, 675 000 ml @ 75 mls/hr IV . [id number] [facility] Rx#:[id number] Sodium Chloride 0.9% 1, 225 150 000 ml @ 75 mls/hr IV . [id number] [facility] Rx#:[id number] Sodium Chloride 0.9% 1, 75 000 ml @ 75 mls/hr IV . [id number] [facility] Rx#:[id number] Intake, IV Titration 898.338 944.082 181.413 Amount Norepinephrine 8 mg In 430.526 217.533 31.958 Sodium Chloride 0.9% 250 ml @ 0.17 MCG/KG/MIN 46. 702 mls/hr IV .Q5H32M [facility] Rx#:[id number] Sodium Chloride 0.9% 1, 600 000 ml @ 75 mls/hr IV . [id number] [facility] Rx#:[id number] Vasopressin 60 unit In 106.718 79.178 Sodium Chloride 0.9% 150 ml @ 0.03 UNITS/MIN 4.59 mls/hr IV .Q24H [facility] Rx#: [id number] propofoL 1,000 mg In 361.094 126.549 70.277 Empty Bag 1 bag @ 40 MCG/ KG/MIN 34.074 mls/hr IV . [id number] [facility] Rx#:[id number] Tube Feeding 504 420 85 Other 90 30 Output: Urine 320 475 150 Other: Voiding Method Indwelling Catheter Indwelling Catheter # Bowel Movements 0 ABP, PAP, CO, CI - Last Documented Arterial Blood Pressure 125/61 - Exam No acute distress, sedated, with an orally placed endotracheal tube. HEENT examination is grossly unremarkable. Neck supple. Full range of motion. No adenopathy thyromegaly or neck vein distention. Cardiovascular examination reveals regular rhythm rate. S1-S2 normal. No S3 or S4. No discernible murmur noted. Heart rate 75 bpm. Lungs reveal coarse bilateral rhonchi and expiratory wheezes. No crackles. Breath sounds equal. Saturations are 96 %. Abdomen soft with bowel sounds. Extremities are intact. No cyanosis clubbing or edema. Skin is without rash or lesion. Neurologic examination cannot be assessed at this time. - Labs CBC & Chem 7: 02/11/24 04:15 02/11/24 04:15 Labs: Abnormal Lab Results - Last 24 Hours (Table) 02/10/24 02/10/24 02/11/24 Range/Units 16:24 22:22 04:15 WBC 14.3 H (3.8-10.6) k/uL RBC 3.66 L (4.30-5.90) m/uL Hgb 12.8 L (13.0-17.5) gm/dL MCV 108.7 H (80.0-100.0) fL MCH 35.1 H (25.0-35.0) pg RDW 15.9 H (11.5-15.5) % Plt Count 108 L (150-450) k/uL Neutrophils # 12.7 H (1.3-7.7) k/uL Lymphocytes # 0.4 L (1.0-4.8) k/uL Macrocytosis Marked A ABG pCO2 (35-45) mmHg ABG HCO3 (21-25) mmol/L ABG Total CO2 (19-24) mmol/L Chloride (98-107) mmol/L BUN (9-20) mg/dL Creatinine (0.66-1.25) mg/dL Glucose (74-99) mg/dL POC Glucose (mg/dL) 191 H 169 H (70-110) mg/dL Calcium (8.4-10.2) mg/dL Total Bilirubin (0.2-1.3) mg/dL AST (17-59) U/L Total Protein (6.3-8.2) g/dL Albumin (3.5-5.0) g/dL 02/11/24 02/11/24 02/11/24 Range/Units 04:15 04:16 05:55 WBC (3.8-10.6) k/uL RBC (4.30-5.90) m/uL Hgb (13.0-17.5) gm/dL MCV (80.0-100.0) fL MCH (25.0-35.0) pg RDW (11.5-15.5) % Plt Count (150-450) k/uL Neutrophils # (1.3-7.7) k/uL Lymphocytes # (1.0-4.8) k/uL Macrocytosis ABG pCO2 53 H (35-45) mmHg ABG HCO3 29 H (21-25) mmol/L ABG Total CO2 31 H (19-24) mmol/L Chloride 111 H (98-107) mmol/L BUN 78 H (9-20) mg/dL Creatinine 2.72 H (0.66-1.25) mg/dL Glucose 183 H (74-99) mg/dL POC Glucose (mg/dL) 172 H (70-110) mg/dL Calcium 7.9 L (8.4-10.2) mg/dL Total Bilirubin 2.7 H (0.2-1.3) mg/dL AST 71 H (17-59) U/L Total Protein 6.2 L (6.3-8.2) g/dL Albumin 2.2 L (3.5-5.0) g/dL 02/11/24 02/11/24 Range/Units 08:20 11:42 WBC (3.8-10.6) k/uL RBC (4.30-5.90) m/uL Hgb (13.0-17.5) gm/dL MCV (80.0-100.0) fL MCH (25.0-35.0) pg RDW (11.5-15.5) % Plt Count (150-450) k/uL Neutrophils # (1.3-7.7) k/uL Lymphocytes # (1.0-4.8) k/uL Macrocytosis ABG pCO2 (35-45) mmHg ABG HCO3 (21-25) mmol/L ABG Total CO2 (19-24) mmol/L Chloride (98-107) mmol/L BUN (9-20) mg/dL Creatinine (0.66-1.25) mg/dL Glucose (74-99) mg/dL POC Glucose (mg/dL) 162 H 157 H (70-110) mg/dL Calcium (8.4-10.2) mg/dL Total Bilirubin (0.2-1.3) mg/dL AST (17-59) U/L Total Protein (6.3-8.2) g/dL Albumin (3.5-5.0) g/dL Microbiology - Last 24 Hours (Table) 02/08/24 09:42 Gram Stain - Final Sputum Sputum Culture - Final Streptococcus pneumoniae 02/08/24 11:45 Blood Culture Gram Stain - Final Blood Blood Culture - Final Streptococcus pneumoniae 02/08/24 11:30 Blood Culture Gram Stain - Final Blood Blood Culture - Final Streptococcus pneumoniae Molecular ID Assessment and Plan Assessment: Acute hypoxemic and hypercapnic respiratory failure, secondary to COPD exacerbation, complicated by bilateral suspected aspiration pneumonia. S/P intubation and mechanical ventilation on February 07, for respiratory failure. Streptococcus pneumoniae tracheobronchitis/bronchopneumonia, and bacteremia. History of liver cancer, being treated at [facility]. Paroxysmal atrial fibrillation. History of congestive heart failure. History of acute COPD exacerbation. Tobacco dependence syndrome. History of hepatitis C. History of alcoholism. Gastroesophageal reflux disease. History of liver cirrhosis. History of IV drug use. History of portal hypertension and esophageal varices. Acute anion gap metabolic acidosis. Acute kidney injury with possible ATN. Plan: Plan dated February 09, 2024. A arterial line was placed on this patient. We had to use a right femoral space for the arterial line. Labs, x-rays, and medications are reviewed. The patient continues on propofol at 35 mcg/kg/min, norepinephrine at 22 mcg/min. Patient also continues on a sodium bicarb drip 75 cc an hour. The patient continues on vancomycin and cefepime. Cultures were positive for Streptococcus pneumoniae. We will continue to follow make recommendations along the way. In addition, the PEEP was increased from 8-12, in an attempt to wean the FiO2. His [id number]-xz-qdv is a nurse on the fourth floor, and we did speak to her today, and gave her an update. Plan dated February 10, 2024. The patient is seen today in room 265. The patient remains on the mechanical ventilator. We increased the PEEP from 12 to 15 cm of water, to see if we cannot wean down the FiO2. The patient continues on dextrose and saline at 75 cc an hour, propofol at 35 mcg/kg/min, vasopressin at 0.04 units/min, and norepinephrine 18 mcg/min. The patient continues on Zosyn for streptococci in his blood stream. The patient is getting vital AF at 42 cc an hour which is goal. Overall prognosis remains very guarded. We will continue to follow the patient, make recommendations along the way. We did speak to the patient's [id number] today. Prognosis is certainly guarded. Plan dated February 11, 2024. The patient is seen today in room 265. I do have the opportunity speak to the patient's son and ynlkicxi-zn-yoe. I told him that basically he remains relatively stable, but critically ill. The patient continues on Unasyn for the streptococci, and his sputum, and blood. Currently, the patient is also on propofol, as it was turned off for daily interruption of sedation. The patient has improved and sense that his blood pressure is much more stable, and yesterday as you remember he was on both vasopressin and norepinephrine. Labs, x-rays, and medications are reviewed. We will continue to follow make recommendations along the way. Prognosis is guarded. Time with Patient: Greater than 30
--- NOTE | 2024-02-11 15:06 | P.PN ---
Subjective Progress Note Date: 02/11/24 Hospital Course: 73-year-old male, with tobacco dependence, with medical history of cirrhosis s econdary to alcohol use/hepatitis C, former IV drug user, hepatocellular carcinoma status post Y90 radiation, COPD, permanent atrial fibrillation, chronic diastolic heart failure presenting for evaluation of dyspnea. In the emergency room, patient was afebrile, 152/118, heart rate 107, respiratory rate of 46, 81% on BiPAP. Therefore, patient was intubated in the emergency room and oxygen saturation went up to 95% with vent settings of PEEP of 8, FiO2 of 80%, volume control 500. CBC demonstrated elevated MCV of 112.2, otherwise unremarkable. Basic metabolic panel demonstrated creatinine of 2.12 with a baseline of 1. Liver function test showed elevation of AST to 122, ALT of 59, total bilirubin of 3.5, albumin of 3.1. Troponin was 0.154, BNP was 5390. Initial ABG demonstrated pH of 7.04, pCO2 of 53, pO2 of 106. Coags demonstrated elevated INR of 2.1, D-dimer 5.05. Influenza A, B, RSV, COVID were negative. EKG, personally interpreted, demonstrates atrial fibrillation with RVR, multiple instances of aberrant conduction. Chest x-ray, personally interpreted demonstrates left-sided consolidation with likely pleural effusion. Chest CTA showed moderate emphysematous change, pulmonary arterial hypertension, severe consolidation throughout the left lower lobe extending into the lingula, but was suboptimal to exclude pulmonary embolism. CT abdomen/pelvis demonstrated cirrhosis with prominent collaterals in the gastrohepatic ligament suggesting portal venous hypertension, suspicious 2-1/2 cm nodule in the inferior right liver lobe. Head/cervical spine CT shows mild cerebral atrophy and moderate patchy burden of chronic small vessel ischemic disease. This also demonstrated incidental finding of right upper lobe pulmonary nodule which was suspicious, confirmed on CTA to be an 8 mm right apical nodule which was spiculated. Pulmonary/critical care medicine was consulted and patient was transferred to the intensive care unit for further monitoring/management. Blood cultures positive for strep pneumo. Patient currently on IV Zosyn. ID following. Pressor requirements continue to go up. Patient also in acute renal failure. Nephrology following. Subjective: Patient seen and examined at bedside. No acute events overnight. Pressor requirements came down. Respiratory function slightly improved. Patient did have sedation holiday yesterday, but did not have any purposeful movements or followed any commands. [place] catheter in place. Pertinent positives and negatives as discussed above, a complete review of systems was performed and all other systems are negative. Vitals Signs Reviewed. General: Intubated sedated Derm: Warm, dry Head: Atraumatic, normocephalic, symmetric Eyes: Pupils equal and reactive Mouth: No lip lesion, mucus membranes moist Cardiovascular: S1S2 reg, no murmur Lungs: Bilateral rhonchi, intubated Abdominal: Soft, nontender to palpation, no guarding, no appreciable organomegaly Ext: No gross muscle atrophy, 2+ pitting edema, no contractures Neuro: Sedated Psych: Unable to assess Data Reviewed Today: Pertinent Labs: WBC 14.3, hemoglobin 12.8, platelet 108, pH 7.35, pCO2 53, pO2 87, potassium 4.8, creatinine 2.72, blood sugars range between 1 57-1 83 Imaging: Chest x-ray independently interpreted, shows persistent left lower lobe opacity. Assessment and Plan: Septic shock with acute hypoxemic and hypercarbic respiratory failure Hypoglycemia related to sepsis, resolved Community-acquired pneumonia Streptococcus pneumonia bacteremia COPD exacerbation -ICU note reviewed, try another sedation holiday, continue to wean pressors - Continue Pulmicort twice daily, Solu-Medrol 40 IV every 8 hours, DuoNebs 4 times daily, every 2 hours as needed, Perforomist twice daily -Pending repeat cultures - ID note reviewed, Zosyn switched to IV Unasyn 3 g every 12 hours Acute kidney injury Chronic diastolic heart failure Decompensated liver cirrhosis - Nephrology note reviewed, currently on normal saline 75 cc an hour - Repeat BMP tomorrow Urine output improving GERD Tobacco dependence BPH Permanent atrial fibrillation -Home medications reviewed and reconciled DVT ppx: Xarelto Code status: Full code Anticipated discharge place: Pending clinical course Anticipated discharge time: Pending clinical course Objective - Vital Signs Vital signs: Vital Signs Temp 98.8 F 02/11/24 12:00 Pulse 73 02/11/24 15:00 Resp 22 02/11/24 15:00 BP 104/53 02/11/24 14:00 Pulse Ox 94 L 02/11/24 15:00 FiO2 50 02/11/24 15:00 Intake & Output 02/10/24 02/11/24 02/11/24 18:59 06:59 18:59 Intake Total 2492.338 4849.285 7445.413 Output Total 320 475 410 Balance 2172.338 1039.082 748.413 Weight 141.974 kg Intake: IV 1000 150 525 Ampicillin-Sulbactam 3 gm 100 In Sodium Chloride 0.9% 100 ml @ 200 mls/hr IVPB Q8HR [facility] Rx#:[id number] Dextrose 5%-0.9% NaCl 1, 675 000 ml @ 75 mls/hr IV . [id number] [facility] Rx#:[id number] Sodium Chloride 0.9% 1, 225 150 000 ml @ 75 mls/hr IV . [id number] [facility] Rx#:[id number] Sodium Chloride 0.9% 1, 525 000 ml @ 75 mls/hr IV . [id number] [facility] Rx#:[id number] Intake, IV Titration 898.338 944.082 181.413 Amount Norepinephrine 8 mg In 430.526 217.533 31.958 Sodium Chloride 0.9% 250 ml @ 0.17 MCG/KG/MIN 46. 702 mls/hr IV .Q5H32M [facility] Rx#:[id number] Sodium Chloride 0.9% 1, 600 000 ml @ 75 mls/hr IV . [id number] [facility] Rx#:[id number] Vasopressin 60 unit In 106.718 79.178 Sodium Chloride 0.9% 150 ml @ 0.03 UNITS/MIN 4.59 mls/hr IV .Q24H [facility] Rx#: [id number] propofoL 1,000 mg In 361.094 126.549 70.277 Empty Bag 1 bag @ 40 MCG/ KG/MIN 34.074 mls/hr IV . Q2H57M [facility] Rx#:[id number] Tube Feeding 504 420 392 Other 90 60 Output: Urine 320 475 410 Other: Voiding Method Indwelling Catheter Indwelling Catheter Indwelling Catheter # Bowel Movements 0 0 ABP, PAP, CO, CI - Last Documented Arterial Blood Pressure 103/51 - Labs CBC & Chem 7: 02/11/24 04:15 02/11/24 04:15 Labs: Abnormal Lab Results - Last 24 Hours (Table) 02/10/24 02/10/24 02/11/24 Range/Units 16:24 22:22 04:15 WBC 14.3 H (3.8-10.6) k/uL RBC 3.66 L (4.30-5.90) m/uL Hgb 12.8 L (13.0-17.5) gm/dL MCV 108.7 H (80.0-100.0) fL MCH 35.1 H (25.0-35.0) pg RDW 15.9 H (11.5-15.5) % Plt Count 108 L (150-450) k/uL Neutrophils # 12.7 H (1.3-7.7) k/uL Lymphocytes # 0.4 L (1.0-4.8) k/uL Macrocytosis Marked A ABG pCO2 (35-45) mmHg ABG HCO3 (21-25) mmol/L ABG Total CO2 (19-24) mmol/L Chloride (98-107) mmol/L BUN (9-20) mg/dL Creatinine (0.66-1.25) mg/dL Glucose (74-99) mg/dL POC Glucose (mg/dL) 191 H 169 H (70-110) mg/dL Calcium (8.4-10.2) mg/dL Total Bilirubin (0.2-1.3) mg/dL AST (17-59) U/L Total Protein (6.3-8.2) g/dL Albumin (3.5-5.0) g/dL 02/11/24 02/11/24 02/11/24 Range/Units 04:15 04:16 05:55 WBC (3.8-10.6) k/uL RBC (4.30-5.90) m/uL Hgb (13.0-17.5) gm/dL MCV (80.0-100.0) fL MCH (25.0-35.0) pg RDW (11.5-15.5) % Plt Count (150-450) k/uL Neutrophils # (1.3-7.7) k/uL Lymphocytes # (1.0-4.8) k/uL Macrocytosis ABG pCO2 53 H (35-45) mmHg ABG HCO3 29 H (21-25) mmol/L ABG Total CO2 31 H (19-24) mmol/L Chloride 111 H (98-107) mmol/L BUN 78 H (9-20) mg/dL Creatinine 2.72 H (0.66-1.25) mg/dL Glucose 183 H (74-99) mg/dL POC Glucose (mg/dL) 172 H (70-110) mg/dL Calcium 7.9 L (8.4-10.2) mg/dL Total Bilirubin 2.7 H (0.2-1.3) mg/dL AST 71 H (17-59) U/L Total Protein 6.2 L (6.3-8.2) g/dL Albumin 2.2 L (3.5-5.0) g/dL 02/11/24 02/11/24 Range/Units 08:20 11:42 WBC (3.8-10.6) k/uL RBC (4.30-5.90) m/uL Hgb (13.0-17.5) gm/dL MCV (80.0-100.0) fL MCH (25.0-35.0) pg RDW (11.5-15.5) % Plt Count (150-450) k/uL Neutrophils # (1.3-7.7) k/uL Lymphocytes # (1.0-4.8) k/uL Macrocytosis ABG pCO2 (35-45) mmHg ABG HCO3 (21-25) mmol/L ABG Total CO2 (19-24) mmol/L Chloride (98-107) mmol/L BUN (9-20) mg/dL Creatinine (0.66-1.25) mg/dL Glucose (74-99) mg/dL POC Glucose (mg/dL) 162 H 157 H (70-110) mg/dL Calcium (8.4-10.2) mg/dL Total Bilirubin (0.2-1.3) mg/dL AST (17-59) U/L Total Protein (6.3-8.2) g/dL Albumin (3.5-5.0) g/dL Microbiology - Last 24 Hours (Table) 02/08/24 09:42 Gram Stain - Final Sputum Sputum Culture - Final Streptococcus pneumoniae
[2024-02-11 18:20] LABS: Glucose,Whole Blood 177 mg/dL (70-110)
[2024-02-11] MEDS: AMPICILLIN-SULBACTAM 3 GM in SODIUM CHLORIDE 0.9% 100 ML IVPB SCH (20:22)
[2024-02-11 23:45] LABS: Glucose,Whole Blood 152 mg/dL (70-110)
[2024-02-12 03:54] LABS: Basophils # (A) 0.1 k/uL (0-0.2); Basophils % (A) 1 %; Eosinophils % (A) 0 %; HCT 38.9 % (39.0-53.0); HGB 12.5 gm/dL (13.0-17.5); Hypochromasia Slight; Lymphocytes # (A) 0.4 k/uL (1.0-4.8); Lymphocytes % (A) 4 %; MCH 35.4 pg (25.0-35.0); MCHC 32.1 g/dL (31.0-37.0); MCV 110.2 fL (80.0-100.0); Macrocytosis Marked; Mean Platelet Volume 9.5; Monocytes # (A) 0.9 k/uL (0-1.0); Monocytes % (A) 9 %; Neutrophils # (A) 8.8 k/uL (1.3-7.7); Neutrophils % (A) 85 %; RBC 3.53 m/uL (4.30-5.90); RDW 15.6 % (11.5-15.5); WBC 10.5 k/uL (3.8-10.6)
[2024-02-12 04:12] LABS: Ovalocytes Present; Platelet Count 78 k/uL (150-450)
[2024-02-12 04:34] LABS: ALT 31 U/L (4-49); AST 61 U/L (17-59); African American GFR (CKD) 33 (>60 ml/min/1.73 sqM); Albumin 2.1 g/dL (3.5-5.0); Alkaline Phosphatase 63 U/L (38-126); Anion Gap 2 mmol/L; Blood Urea Nitrogen 95 mg/dL (9-20); Carbon Dioxide 28 mmol/L (22-30); Chloride 112 mmol/L (98-107); Glucose 188 mg/dL (74-99); Non-African American GFR(CKD) 28 (>60 ml/min/1.73 sqM); Potassium 4.9 mmol/L (3.5-5.1); Sodium 142 mmol/L (137-145); Total Bilirubin 2.3 mg/dL (0.2-1.3)
[2024-02-12 06:08] LABS: Glucose,Whole Blood 157 mg/dL (70-110)
[2024-02-12 06:21] LABS: ABG Base Excess 4.6 mmol/L; ABG HCO3 30 mmol/L (21-25); ABG Oxygen Saturation 97.5 % (94-97); ABG PCO2 52 mmHg (35-45); ABG PH 7.37 (7.35-7.45); ABG PO2 87 mmHg (83-108); ABG TCO2 32 mmol/L (19-24); Allen Test Performed? Yes
--- NOTE | 2024-02-12 08:38 | XR ---
EXAMINATION TYPE: XR chest 1V portable DATE OF EXAM: 02/12/2024 Comparison: 02/11/2024 Clinical History: 73-year-old male mechanical ventilation Findings: ET tube satisfactory. NG tube courses below the diaphragm outside the [id number]. Heart upper limi ts of normal in size. Relative upper lung lucencies remain with patchy bilateral lower lung opacities and retrocardiac opacity. Blunted left costophrenic angle suggests small effusion. Aeration slightly improved. Impression: Correlate for COPD with ongoing small left effusion but with some improvement in bilateral lower lung opacities.
--- NOTE | 2024-02-12 10:18 | P.PN ---
Subjective Patient is seen in follow-up for acute kidney injury. Renal function better. No improvement in mentation. Nonoliguric. Still on vasopressin. Off Levophed. Intubated. Vital signs are stable. On vasopressor support. General: Resting in bed. HEENT: Intubated. LUNGS: No audible rhonchi or wheezes. HEART: Rate and Rhythm are regular. ABDOMEN: Obese, soft. EXTREMITITES: Trace edema. Objective - Vital Signs Vital signs: Vital Signs Temp 99.4 F 02/12/24 08:00 Pulse 81 02/12/24 10:00 Resp 24 02/12/24 10:00 BP 112/52 02/12/24 09:00 Pulse Ox 95 02/12/24 10:00 FiO2 50 02/12/24 09:23 Intake & Output 02/11/24 02/12/24 02/12/24 18:59 06:59 18:59 Intake Total 9215.121 5724.146 499.231 Output Total 830 650 275 Balance 5355.868 6764.146 224.231 Weight 141.974 kg Intake: IV 835 930 310 Invasive Line 3 10 30 10 Sodium Chloride 0.9% 1, 825 900 300 000 ml @ 75 mls/hr IV . [id number] [facility] Rx#:[id number] Intake, IV Titration 340.521 291.146 89.231 Amount Ampicillin-Sulbactam 3 gm 100 In Sodium Chloride 0.9% 100 ml @ 200 mls/hr IVPB Q12HR [facility] Rx#:[id number] Norepinephrine 8 mg In 102.564 Sodium Chloride 0.9% 250 ml @ 0.17 MCG/KG/MIN 46. 702 mls/hr IV .Q5H32M [facility] Rx#:[id number] Vasopressin 60 unit In 113.680 Sodium Chloride 0.9% 150 ml @ 0.03 UNITS/MIN 4.59 mls/hr IV .Q24H [facility] Rx#: [id number] propofoL 1,000 mg In 124.277 Empty Bag 1 bag @ 40 MCG/ KG/MIN 34.074 mls/hr IV . Q2H57M [facility] Rx#:[id number] propofoL 1,000 mg In 191.146 89.231 Empty Bag 1 bag @ 40 MCG/ KG/MIN 34.074 mls/hr IV . Q2H57M [facility] Rx#:[id number] Oral 100 Tube Feeding 657 583 Other 60 Output: Urine 830 650 275 Other: Voiding Method Indwelling Catheter Indwelling Catheter Indwelling Catheter # Bowel Movements 0 0 ABP, PAP, CO, CI - Last Documented Arterial Blood Pressure 98/50 - Labs CBC & Chem 7: 02/12/24 03:45 02/12/24 03:45 Labs: Abnormal Lab Results - Last 24 Hours (Table) 02/11/24 02/11/24 02/11/24 Range/Units 11:42 18:18 23:44 RBC (4.30-5.90) m/uL Hgb (13.0-17.5) gm/dL Hct (39.0-53.0) % MCV (80.0-100.0) fL MCH (25.0-35.0) pg RDW (11.5-15.5) % Plt Count (150-450) k/uL Neutrophils # (1.3-7.7) k/uL Lymphocytes # (1.0-4.8) k/uL Macrocytosis ABG pCO2 (35-45) mmHg ABG HCO3 (21-25) mmol/L ABG Total CO2 (19-24) mmol/L ABG O2 Saturation (94-97) % Chloride (98-107) mmol/L BUN (9-20) mg/dL Creatinine (0.66-1.25) mg/dL Glucose (74-99) mg/dL POC Glucose (mg/dL) 157 H 177 H 152 H (70-110) mg/dL Calcium (8.4-10.2) mg/dL Total Bilirubin (0.2-1.3) mg/dL AST (17-59) U/L Total Protein (6.3-8.2) g/dL Albumin (3.5-5.0) g/dL 02/12/24 02/12/24 02/12/24 Range/Units 03:45 03:45 06:07 RBC 3.53 L (4.30-5.90) m/uL Hgb 12.5 L (13.0-17.5) gm/dL Hct 38.9 L (39.0-53.0) % MCV 110.2 H (80.0-100.0) fL MCH 35.4 H (25.0-35.0) pg RDW 15.6 H (11.5-15.5) % Plt Count 78 L (150-450) k/uL Neutrophils # 8.8 H (1.3-7.7) k/uL Lymphocytes # 0.4 L (1.0-4.8) k/uL Macrocytosis Marked A ABG pCO2 (35-45) mmHg ABG HCO3 (21-25) mmol/L ABG Total CO2 (19-24) mmol/L ABG O2 Saturation (94-97) % Chloride 112 H (98-107) mmol/L BUN 95 H (9-20) mg/dL Creatinine 2.26 H (0.66-1.25) mg/dL Glucose 188 H (74-99) mg/dL POC Glucose (mg/dL) 157 H (70-110) mg/dL Calcium 8.0 L (8.4-10.2) mg/dL Total Bilirubin 2.3 H (0.2-1.3) mg/dL AST 61 H (17-59) U/L Total Protein 6.0 L (6.3-8.2) g/dL Albumin 2.1 L (3.5-5.0) g/dL 02/12/24 Range/Units 06:18 RBC (4.30-5.90) m/uL Hgb (13.0-17.5) gm/dL Hct (39.0-53.0) % MCV (80.0-100.0) fL MCH (25.0-35.0) pg RDW (11.5-15.5) % Plt Count (150-450) k/uL Neutrophils # (1.3-7.7) k/uL Lymphocytes # (1.0-4.8) k/uL Macrocytosis ABG pCO2 52 H (35-45) mmHg ABG HCO3 30 H (21-25) mmol/L ABG Total CO2 32 H (19-24) mmol/L ABG O2 Saturation 97.5 H (94-97) % Chloride (98-107) mmol/L BUN (9-20) mg/dL Creatinine (0.66-1.25) mg/dL Glucose (74-99) mg/dL POC Glucose (mg/dL) (70-110) mg/dL Calcium (8.4-10.2) mg/dL Total Bilirubin (0.2-1.3) mg/dL AST (17-59) U/L Total Protein (6.3-8.2) g/dL Albumin (3.5-5.0) g/dL Microbiology - Last 24 Hours (Table) 02/10/24 14:35 Blood Culture - Preliminary Blood 02/10/24 14:23 Blood Culture - Preliminary Blood 02/08/24 09:42 Gram Stain - Final Sputum Sputum Culture - Final Streptococcus pneumoniae Assessment and Plan Plan: Assessment: 1. Acute kidney injury secondary to ATN secondary to septic shock. Renal function better. Creatinine 2.26 today. No hydronephrosis noted on CAT scan. Patient received IV contrast for CT on February 08, 2024. 2. Septic shock secondary to strep pneumo bacteremia and pneumonia. On antibiotics. On vasopressin. 3. Alcohol induced liver cirrhosis. 4. Acute hypoxic respiratory failure. Plan: Maintain normal saline. Tube feeds held due to high residuals. Avoid nephrotoxins. Wean FiO2 and vasopressors. Continue to monitor renal function and urine output. Repeat IV Lasix if urine output drops to below 30 cc an hour for 3 hours. No need for renal replacement therapy at this time.
[2024-02-12 11:50] LABS: Glucose,Whole Blood 163 mg/dL (70-110)
[2024-02-12] MEDS ORDERED: DEXTROSE 50% SYRINGE 50 ML IVP PRN ×2 (12:10)
[2024-02-12] MEDS ORDERED: INSULIN ASPART (NovoLOG) 100 UNIT/ML VIAL SQ SCH (12:15)
[2024-02-12] MEDS: METOCLOPRAMIDE 5 MG/ML 2 ML VIAL IVP SCH (12:22)
[2024-02-12 12:30] VITALS: BP 112/57
--- NOTE | 2024-02-12 12:37 | P.PN ---
Subjective Progress Note Date: 02/12/24 Principal diagnosis: Respiratory failure. This is a 73-year-old white male, known history of liver cancer, receiving treatment at [facility]. History of COPD, chronic atrial fibrillation, history of congestive heart failure, tobacco dependence syndrome, patient was brought into the ER this morning by EMS, apparently the patient has been complaining of shortness of breath for the last couple of days. Today his shortness of breath has become more pronounced, and his pulse ox was noted to be in the 70s. EMS was called, and upon arrival patient was placed on BiPAP, and he was noted to have significant wheezing. Brought into the ER, and the patient was in extreme respiratory distress, did not tolerate BiPAP, intubated by ER physician, and I was asked to see the patient on consultation. Patient is now on assist-control rate of 20 tidal volume 450 FiO2 of 100% and PEEP of 5 ABG showed a pO2 of 108 pCO2 53 pH of 7.04. Vent settings were changed, increase his rate up to 24 cut down FiO2 to 80% increased PEEP to 8 and considering his metabolic acidosis I recommended 3 A of bicarb and 1 L of D5W running at 50 cc/h. Follow-up ABG will be done in few hours. Workup in the ER included chest x-ray which clearly showed significant consolidation in the left lower lobe and in the left perihilar area. CT of the head showed mild cerebral atrophy, no acute intracranial process, there was a layering of fluid within the paranasal sinuses consistent with acute sinusitis. CT angiogram of the chest was a suboptimal to diagnose pulmonary embolism, remind you patient is on Xarelto it did show evidence of pulmonary hypertension, severe consolidation throughout the left lower lobe extending into the lingula and a lesser consolidation noted in the right infrahilar area/right base. Posteriorly. Which raises the possibility of aspiration pneumonitis. There is a background COPD with moderate emphysema, and there is an apical nodule measuring 8 mm apparently this was noted on a previous CT of the chest measuring 5 mm back on 11/18/22. This is likely malignant, and according to the family this has been noted at [facility] and they are keeping an eye and close watch on it Progress note dated February 09, 2024. This is a 73-year-old male who is seen today in room 265. He was admitted yesterday, for respiratory failure and COPD. The patient has a history of liver cancer. The patient remains on the mechanical ventilator for respiratory failur e, with settings of volume assist-control, rate 24, tidal volume 500, FiO2 80%, PEEP of 8. Blood gases show pO2 of 89, pCO2 of 50, and a pH of 7.29. In an attempt to reduce the FiO2, the PEEP was increased from 8 to 12 cm of water. The patient was intubated yesterday, on February 08. He continues on propofol at 35 mcg/kg/min, and norepinephrine at 22 mcg/min. Is getting a sodium bicarbonate drip, with 3 ampoules of sodium bicarb in D5W at 75 cc an hour. He is also getting vancomycin and cefepime, and he was started on vital HP at 10 cc an hour, awaiting a dietary evaluation. White count is 10.8, hemoglobin 14.3, hematocrit 46.9, and a platelet count is currently pending. Sodium 141, pot assium 5.3, chlorides 110, CO2 21, anion gap 10, BUN 34, and creatinine 2.39. Lactic acid is 8.5. Calcium is 7.7. Magnesium is 2.0. Blood cultures show evidence of Streptococcus pneumoniae. Chest x-ray shows bilateral mid and lower lung airspace disease. Progress note dated February 10, 2024. This is a 73-year-old male who is seen today in room 265. He was admitted on the , for respiratory failure and COPD. The patient has a history of liver cancer. The patient continues on the mechanical ventilator. Settings include volume assist-control, rate 24, tidal volume 500, FiO2 70%, PEEP of 12. Blood gases show pO2 76, pCO2 of 56, pH is 7.32. The patient is getting dextrose with saline at 75 cc an hour, propofol at 35 mcg/kg/min, vasopressin at 0.03 units/min, norepinephrine at 18 mcg/min, and vital AF at 42 cc an hour which is goal. The patient had streptococci in the blood, and for that he is on Zosyn. We did speak to his [id number] today. White count 13, hemoglobin 13.2, hematocrit 40.8, platelet count 121,000. Sodium 140, potassium 4.8, chloride 110, CO2 28, BUN 55, creatinine 2.89. Calcium is 7.7. Glucose is 164. Blood cultures are positive for Streptococcus pneumoniae. Chest x-ray is unchanged. Progress note dated February 11, 2024. 73-year-old male seen today in room 265. The patient was admitted on 07 February, for respiratory failure and COPD. The patient does have a history of liver cancer. The patient remains on the mechanical ventilator. His condition is essentially unchanged. He is on volume assist-control, rate 24, tidal volume 500, FiO2 50%, PEEP of 15. Blood gases show pO2 of 87, pCO2 of 53, and a pH of 7.35. The patient is getting saline at 75 cc an hour, and vital, at 42 cc an hour, which is goal. Propofol was held, for daily interruption of sedation. The patient was not responsive, but was asynchronous with the ventilator, so propofol was restarted. In addition, the patient continues on Unasyn. White count is 14.3, hemoglobin 12.8, hematocrit 39.8, platelet count 208,000. Sodium 141, potassium 4.8, chlorides 111, CO2 28, BUN 78, creatinine 2.72, glucose 157, and albumin 2.2. Blood cultures are positive for Streptococcus pneumoniae. Sputum Gram stain is also positive for the same organism. Chest x-ray shows cardiomegaly, and patchy bilateral infiltrates. Progress note dated February 12, 2024. 73-year-old male seen in room 265. Patient was admitted on February 07 for respiratory failure and COPD. The patient does have a history of liver cancer. Patient remains on the ventilator. Ventilator settings include volume assist- control, rate 24, tidal volume 500, FiO2 50%, PEEP of 15. Blood gases show pO2 of 87, pCO2 of 52, pH is 7.37. The patient continues on Unasyn. The patient is also on propofol at 5 mcg/kg/min, saline at 75 cc an hour, and vasopressin at 0.03 units/min. Will add some Reglan 10 mg every 6 for, high residuals. In addition, tube feedings are currently on hold. We will do a daily interruption of sedation today. Current white count 10.5, hemoglobin 12.5, hematocrit 38.9, platelet count 78,000. Sodium 142, potassium 4.9, chlorides 112, CO2 28, BUN 95, creatinine 2.26. Glucose 163. Calcium 8. Albumin 2.1. Blood cultures and sputum cultures show evidence of Streptococcus pneumoniae. Chest x-ray shows changes of COPD, was a small left-sided pleural effusion. Lower lung capacities are improved. Objective - Vital Signs Vital signs: Vital Signs Temp 98.8 F 02/12/24 12:00 Pulse 86 02/12/24 12:15 Resp 24 02/12/24 12:15 BP 112/57 02/12/24 12:00 Pulse Ox 96 02/12/24 12:15 FiO2 50 02/12/24 12:00 Intake & Output 02/11/24 02/12/24 02/12/24 18:59 06:59 18:59 Intake Total 6528.111 8354.146 760.165 Output Total 830 650 405 Balance 4687.797 2406.146 355.165 Weight 141.974 kg Intake: IV 835 930 470 Invasive Line 3 10 30 20 Sodium Chloride 0.9% 1, 825 900 450 000 ml @ 75 mls/hr IV . [id number] [facility] Rx#:[id number] Intake, IV Titration 340.521 291.146 190.165 Amount Ampicillin-Sulbactam 3 gm 100 In Sodium Chloride 0.9% 100 ml @ 200 mls/hr IVPB Q12HR [facility] Rx#:[id number] Norepinephrine 8 mg In 102.564 Sodium Chloride 0.9% 250 ml @ 0.17 MCG/KG/MIN 46. 702 mls/hr IV .Q5H32M [facility] Rx#:[id number] Vasopressin 60 unit In 113.680 86.879 Sodium Chloride 0.9% 150 ml @ 0.03 UNITS/MIN 4.59 mls/hr IV .Q24H [facility] Rx#: [id number] propofoL 1,000 mg In 124.277 Empty Bag 1 bag @ 40 MCG/ KG/MIN 34.074 mls/hr IV . Q2H57M [facility] Rx#:[id number] propofoL 1,000 mg In 191.146 103.286 Empty Bag 1 bag @ 40 MCG/ KG/MIN 34.074 mls/hr IV . Q2H57M [facility] Rx#:[id number] Oral 100 Tube Feeding 657 583 Other 60 Output: Urine 830 650 405 Other: Voiding Method Indwelling Catheter Indwelling Catheter Indwelling Catheter # Bowel Movements 0 0 ABP, PAP, CO, CI - Last Documented Arterial Blood Pressure 114/57 - Exam No acute distress, sedated, with an orally placed endotracheal tube. HEENT examination is grossly unremarkable. Neck supple. Full range of motion. No adenopathy thyromegaly or neck vein distention. Cardiovascular examination reveals regular rhythm rate. S1-S2 normal. No S3 or S4. No discernible murmur noted. Heart rate 86 bpm. Lungs reveal coarse bilateral rhonchi and expiratory wheezes. No crackles. Breath sounds equal. Saturations are 96 %. Abdomen soft with bowel sounds. Extremities are intact. No cyanosis clubbing or edema. Skin is without rash or lesion. Neurologic examination cannot be assessed at this time. - Labs CBC & Chem 7: 02/12/24 03:45 02/12/24 03:45 Labs: Abnormal Lab Results - Last 24 Hours (Table) 02/11/24 02/11/24 02/12/24 Range/Units 18:18 23:44 03:45 RBC 3.53 L (4.30-5.90) m/uL Hgb 12.5 L (13.0-17.5) gm/dL Hct 38.9 L (39.0-53.0) % MCV 110.2 H (80.0-100.0) fL MCH 35.4 H (25.0-35.0) pg RDW 15.6 H (11.5-15.5) % Plt Count 78 L (150-450) k/uL Neutrophils # 8.8 H (1.3-7.7) k/uL Lymphocytes # 0.4 L (1.0-4.8) k/uL Macrocytosis Marked A ABG pCO2 (35-45) mmHg ABG HCO3 (21-25) mmol/L ABG Total CO2 (19-24) mmol/L ABG O2 Saturation (94-97) % Chloride (98-107) mmol/L BUN (9-20) mg/dL Creatinine (0.66-1.25) mg/dL Glucose (74-99) mg/dL POC Glucose (mg/dL) 177 H 152 H (70-110) mg/dL Calcium (8.4-10.2) mg/dL Total Bilirubin (0.2-1.3) mg/dL AST (17-59) U/L Total Protein (6.3-8.2) g/dL Albumin (3.5-5.0) g/dL 02/12/24 02/12/24 02/12/24 Range/Units 03:45 06:07 06:18 RBC (4.30-5.90) m/uL Hgb (13.0-17.5) gm/dL Hct (39.0-53.0) % MCV (80.0-100.0) fL MCH (25.0-35.0) pg RDW (11.5-15.5) % Plt Count (150-450) k/uL Neutrophils # (1.3-7.7) k/uL Lymphocytes # (1.0-4.8) k/uL Macrocytosis ABG pCO2 52 H (35-45) mmHg ABG HCO3 30 H (21-25) mmol/L ABG Total CO2 32 H (19-24) mmol/L ABG O2 Saturation 97.5 H (94-97) % Chloride 112 H (98-107) mmol/L BUN 95 H (9-20) mg/dL Creatinine 2.26 H (0.66-1.25) mg/dL Glucose 188 H (74-99) mg/dL POC Glucose (mg/dL) 157 H (70-110) mg/dL Calcium 8.0 L (8.4-10.2) mg/dL Total Bilirubin 2.3 H (0.2-1.3) mg/dL AST 61 H (17-59) U/L Total Protein 6.0 L (6.3-8.2) g/dL Albumin 2.1 L (3.5-5.0) g/dL 02/12/24 Range/Units 11:49 RBC (4.30-5.90) m/uL Hgb (13.0-17.5) gm/dL Hct (39.0-53.0) % MCV (80.0-100.0) fL MCH (25.0-35.0) pg RDW (11.5-15.5) % Plt Count (150-450) k/uL Neutrophils # (1.3-7.7) k/uL Lymphocytes # (1.0-4.8) k/uL Macrocytosis ABG pCO2 (35-45) mmHg ABG HCO3 (21-25) mmol/L ABG Total CO2 (19-24) mmol/L ABG O2 Saturation (94-97) % Chloride (98-107) mmol/L BUN (9-20) mg/dL Creatinine (0.66-1.25) mg/dL Glucose (74-99) mg/dL POC Glucose (mg/dL) 163 H (70-110) mg/dL Calcium (8.4-10.2) mg/dL Total Bilirubin (0.2-1.3) mg/dL AST (17-59) U/L Total Protein (6.3-8.2) g/dL Albumin (3.5-5.0) g/dL Microbiology - Last 24 Hours (Table) 02/10/24 14:35 Blood Culture - Preliminary Blood 02/10/24 14:23 Blood Culture - Preliminary Blood 02/08/24 09:42 Gram Stain - Final Sputum Sputum Culture - Final Streptococcus pneumoniae Assessment and Plan Assessment: Acute hypoxemic and hypercapnic respiratory failure, secondary to COPD exacerbation, complicated by bilateral suspected aspiration pneumonia. S/P intubation and mechanical ventilation on February 07, for respiratory failure. Streptococcus pneumoniae tracheobronchitis/bronchopneumonia, and bacteremia. History of liver cancer, being treated at [facility]. Paroxysmal atrial fibrillation. History of congestive heart failure. History of acute COPD exacerbation. Tobacco dependence syndrome. History of hepatitis C. History of alcoholism. Gastroesophageal reflux disease. History of liver cirrhosis. History of IV drug use. History of portal hypertension and esophageal varices. Acute anion gap metabolic acidosis. Acute kidney injury with possible ATN. Plan: Plan dated February 09, 2024. A arterial line was placed on this patient. We had to use a right femoral space for the arterial line. Labs, x-rays, and medications are reviewed. The patient continues on propofol at 35 mcg/kg/min, norepinephrine at 22 mcg/min. Patient also continues on a sodium bicarb drip 75 cc an hour. The patient continues on vancomycin and cefepime. Cultures were positive for Streptococcus pneumoniae. We will continue to follow make recommendations along the way. In addition, the PEEP was increased from 8-12, in an attempt to wean the FiO2. His njehrtpt-iu-oaq is a nurse on the fourth floor, and we did speak to her today, and gave her an update. Plan dated February 10, 2024. The patient is seen today in room 265. The patient remains on the mechanical ventilator. We increased the PEEP from 12 to 15 cm of water, to see if we cannot wean down the FiO2. The patient continues on dextrose and saline at 75 cc an hour, propofol at 35 mcg/kg/min, vasopressin at 0.04 units/min, and norepinephrine 18 mcg/min. The patient continues on Zosyn for streptococci in his blood stream. The patient is getting vital AF at 42 cc an hour which is goal. Overall prognosis remains very guarded. We will continue to follow the patient, make recommendations along the way. We did speak to the patient's [id number] today. Prognosis is certainly guarded. Plan dated February 11, 2024. The patient is seen today in room 265. I do have the opportunity speak to the patient's son and [id number]. I told him that basically he remains relatively stable, but critically ill. The patient continues on Unasyn for the streptococci, and his sputum, and blood. Currently, the patient is also on propofol, as it was turned off for daily interruption of sedation. The patient has improved and sense that his blood pressure is much more stable, and yesterday as you remember he was on both vasopressin and norepinephrine. Labs, x-rays, and medications are reviewed. We will continue to follow make recommendations along the way. Prognosis is guarded. Plan dated February 12, 2024. The patient is seen today in room 265. Labs, x-rays, medications are reviewed. The patient is doing about the same overall. The patient is overall prognosis is poor. The patient is back on vasopressin. I did have a chance to speak to the family today. The patient had a daily interruption of sedation, but apparently did not improve neurologically. We have ordered an EEG. He may need a repeat CT scan. Additional recommendations and suggestions are forthcoming. We will continue to follow make recommendations. Prognosis as mentioned above, is guarded. Time with Patient: Greater than 30
--- NOTE | 2024-02-12 12:43 | P.PN ---
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 In the emergency room, patient was afebrile, 152/118, heart rate 107, respiratory rate of 46, 81% on BiPAP. Therefore, patient was intubated in the emergency room and oxygen saturation went up to 95% with vent settings of PEEP of 8, FiO2 of 80%, volume control 500. CBC demonstrated elevated MCV of 112.2, otherwise unremarkable. Basic metabolic panel demonstrated creatinine of 2.12 with a baseline of 1. Liver function test showed elevation of AST to 122, ALT of 59, total bilirubin of 3.5, albumin of 3.1. Troponin was 0.154, BNP was 5390. Initial ABG demonstrated pH of 7.04, pCO2 of 53, pO2 of 106. Coags demonstrated elevated INR of 2.1, D-dimer 5.05. Influenza A, B, RSV, COVID were negative. EKG, personally interpreted, demonstrates atrial fibrillation with RVR, multiple instances of aberrant conduction. Chest x-ray, personally interpreted demonstrates left-sided consolidation with likely pleural effusion. Chest CTA showed moderate emphysematous change, pulmonary arterial hypertension, severe consolidation throughout the left lower lobe extending into the lingula, but was suboptimal to exclude pulmonary embolism. CT abdomen/pelvis demonstrated cirrhosis with prominent collaterals in the gastrohepatic ligament suggesting portal venous hypertension, suspicious 2-1/2 cm nodule in the inferior right liver lobe. Head/cervical spine CT shows mild cerebral atrophy and moderate patchy burden of chronic small vessel ischemic disease. This also demonstrated incidental finding of right upper lobe pulmonary nodule which was suspicious, confirmed on CTA to be an 8 mm right apical nodule which was spiculated. Pulmonary/critical care medicine was consulted and patient was transferred to the intensive care unit for further monitoring/management. Blood cultures positive for strep pneumo. Patient currently on IV Zosyn. ID following. Pressor requirements continue to go up. Patient also in acute renal failure. Nephrology following. Subjective: Patient seen and examined at bedside. No acute events overnight. Did have sedation holiday yesterday, no much meaningful neurological activity. Pressor requirements and vent settings coming down. Making adequate urine. Pertinent positives and negatives as discussed above, a complete review of sys tems was performed and all other systems are negative. Vitals Signs Reviewed. General: Intubated sedated Derm: Warm, dry Head: Atraumatic, normocephalic, symmetric Eyes: Pupils equal and reactive Mouth: No lip lesion, mucus membranes moist Cardiovascular: S1S2 reg, no murmur Lungs: Bilateral rhonchi, intubated Abdominal: Soft, nontender to palpation, no guarding, no appreciable organomegaly Ext: No gross muscle atrophy, 2+ pitting edema, no contractures Neuro: Sedated Psych: Unable to assess Data Reviewed Today: Pertinent Labs: WBC 10.5, hemoglobin 12.5, platelets 78, creatinine 2.06, blood sugars range between 10/20/1947 2- 88 Imaging: Chest x-ray independently interpreted, shows persistent left lower lobe opacity. Assessment and Plan: Septic shock with acute hypoxemic and hypercarbic respiratory failure Hypoglycemia related to sepsis, resolved Community-acquired pneumonia Streptococcus pneumonia bacteremia COPD exacerbation -ICU note reviewed, continue IV antibiotics, sedation holiday daily, continue to wean pressors - Continue Pulmicort twice daily, Solu-Medrol 40 IV every 8 hours, DuoNebs 4 times daily, every 2 hours as needed, Perforomist twice daily -Repeat blood cultures negative growth to date - ID following, on IV Unasyn 3 g every 8 hours Acute kidney injury, improving Chronic diastolic heart failure, not in exacerbation Decompensated liver cirrhosis - Nephrology note reviewed, currently on normal saline 75 cc an hour Patient is on vasopressin at the moment, Could consider IV albumin - Repeat BMP tomorrow - Urine output improving Mild thrombocytopenia, likely in the setting of liver cirrhosis GERD Tobacco dependence BPH Permanent atrial fibrillation -Home medications reviewed and reconciled DVT ppx: Xarelto Code status: Full code Anticipated discharge place: Pending clinical course Anticipated discharge time: Pending clinical course Objective - Vital Signs Vital signs: Vital Signs Temp 98.8 F 02/12/24 12:00 Pulse 86 02/12/24 12:15 Resp 24 02/12/24 12:15 BP 112/57 02/12/24 12:00 Pulse Ox 96 02/12/24 12:15 FiO2 50 02/12/24 12:00 Intake & Output 02/11/24 02/12/24 02/12/24 18:59 06:59 18:59 Intake Total 4735.640 8467.146 760.165 Output Total 830 650 405 Balance 2938.096 1886.146 355.165 Weight 141.974 kg Intake: IV 835 930 470 Invasive Line 3 10 30 20 Sodium Chloride 0.9% 1, 825 900 450 000 ml @ 75 mls/hr IV . [id number] [facility] Rx#:[id number] Intake, IV Titration 340.521 291.146 190.165 Amount Ampicillin-Sulbactam 3 gm 100 In Sodium Chloride 0.9% 100 ml @ 200 mls/hr IVPB Q12HR [facility] Rx#:[id number] Norepinephrine 8 mg In 102.564 Sodium Chloride 0.9% 250 ml @ 0.17 MCG/KG/MIN 46. 702 mls/hr IV .Q5H32M [facility] Rx#:[id number] Vasopressin 60 unit In 113.680 86.879 Sodium Chloride 0.9% 150 ml @ 0.03 UNITS/MIN 4.59 mls/hr IV .Q24H [facility] Rx#: [id number] propofoL 1,000 mg In 124.277 Empty Bag 1 bag @ 40 MCG/ KG/MIN 34.074 mls/hr IV . Q2H57M [facility] Rx#:[id number] propofoL 1,000 mg In 191.146 103.286 Empty Bag 1 bag @ 40 MCG/ KG/MIN 34.074 mls/hr IV . Q2H57M [facility] Rx#:[id number] Oral 100 Tube Feeding 657 583 Other 60 Output: Urine 830 650 405 Other: Voiding Method Indwelling Catheter Indwelling Catheter Indwelling Catheter # Bowel Movements 0 0 ABP, PAP, CO, CI - Last Documented Arterial Blood Pressure 114/57 - Labs CBC & Chem 7: 02/12/24 03:45 02/12/24 03:45 Labs: Abnormal Lab Results - Last 24 Hours (Table) 02/11/24 02/11/24 02/12/24 Range/Units 18:18 23:44 03:45 RBC 3.53 L (4.30-5.90) m/uL Hgb 12.5 L (13.0-17.5) gm/dL Hct 38.9 L (39.0-53.0) % MCV 110.2 H (80.0-100.0) fL MCH 35.4 H (25.0-35.0) pg RDW 15.6 H (11.5-15.5) % Plt Count 78 L (150-450) k/uL Neutrophils # 8.8 H (1.3-7.7) k/uL Lymphocytes # 0.4 L (1.0-4.8) k/uL Macrocytosis Marked A ABG pCO2 (35-45) mmHg ABG HCO3 (21-25) mmol/L ABG Total CO2 (19-24) mmol/L ABG O2 Saturation (94-97) % Chloride (98-107) mmol/L BUN (9-20) mg/dL Creatinine (0.66-1.25) mg/dL Glucose (74-99) mg/dL POC Glucose (mg/dL) 177 H 152 H (70-110) mg/dL Calcium (8.4-10.2) mg/dL Total Bilirubin (0.2-1.3) mg/dL AST (17-59) U/L Total Protein (6.3-8.2) g/dL Albumin (3.5-5.0) g/dL 02/12/24 02/12/24 02/12/24 Range/Units 03:45 06:07 06:18 RBC (4.30-5.90) m/uL Hgb (13.0-17.5) gm/dL Hct (39.0-53.0) % MCV (80.0-100.0) fL MCH (25.0-35.0) pg RDW (11.5-15.5) % Plt Count (150-450) k/uL Neutrophils # (1.3-7.7) k/uL Lymphocytes # (1.0-4.8) k/uL Macrocytosis ABG pCO2 52 H (35-45) mmHg ABG HCO3 30 H (21-25) mmol/L ABG Total CO2 32 H (19-24) mmol/L ABG O2 Saturation 97.5 H (94-97) % Chloride 112 H (98-107) mmol/L BUN 95 H (9-20) mg/dL Creatinine 2.26 H (0.66-1.25) mg/dL Glucose 188 H (74-99) mg/dL POC Glucose (mg/dL) 157 H (70-110) mg/dL Calcium 8.0 L (8.4-10.2) mg/dL Total Bilirubin 2.3 H (0.2-1.3) mg/dL AST 61 H (17-59) U/L Total Protein 6.0 L (6.3-8.2) g/dL Albumin 2.1 L (3.5-5.0) g/dL 02/12/24 Range/Units 11:49 RBC (4.30-5.90) m/uL Hgb (13.0-17.5) gm/dL Hct (39.0-53.0) % MCV (80.0-100.0) fL MCH (25.0-35.0) pg RDW (11.5-15.5) % Plt Count (150-450) k/uL Neutrophils # (1.3-7.7) k/uL Lymphocytes # (1.0-4.8) k/uL Macrocytosis ABG pCO2 (35-45) mmHg ABG HCO3 (21-25) mmol/L ABG Total CO2 (19-24) mmol/L ABG O2 Saturation (94-97) % Chloride (98-107) mmol/L BUN (9-20) mg/dL Creatinine (0.66-1.25) mg/dL Glucose (74-99) mg/dL POC Glucose (mg/dL) 163 H (70-110) mg/dL Calcium (8.4-10.2) mg/dL Total Bilirubin (0.2-1.3) mg/dL AST (17-59) U/L Total Protein (6.3-8.2) g/dL Albumin (3.5-5.0) g/dL Microbiology - Last 24 Hours (Table) 02/10/24 14:35 Blood Culture - Preliminary Blood 02/10/24 14:23 Blood Culture - Preliminary Blood 02/08/24 09:42 Gram Stain - Final Sputum Sputum Culture - Final Streptococcus pneumoniae
[2024-02-12] MEDS: levETIRAcetam IV 500 MG/5 ML VIAL IVP SCH (14:57)
[2024-02-12] MEDS: AMPICILLIN-SULBACTAM 3 GM in SODIUM CHLORIDE 0.9% 100 ML IVPB SCH (16:16)
--- NOTE | 2024-02-12 16:23 | P.PN ---
Subjective Progress Note Date: 02/12/24 Principal diagnosis: Reason for follow-up is sepsis and pneumonia/ bacteremia Patient is a 73-year-old male with a past medical history significant for atrial fibrillation heart failure reflux, alcoholic use/hepatitis C former IV drug user hepatocellular carcinoma s/p radiation therapy patient has been brought into the hospital for evaluation of increasing shortness of breath patient did have a significant hypoxemia requiring intubation and admission to the ICU and there was left-sided consolidation on the CT blood culture positive for Streptococcus pneumoniae On today's evaluation that is 02/12/2024,the patient remains to be afebrile, patient is on the vent FiO2 currently at 50% no significant purulent secretions through the ET diarrhea or any other changes reported by the nursing staff patient remains to be sedated. Patient white count normalized to 10.5 creatinine is 2.26 blood culture repeat currently pending Objective - Vital Signs Vital signs: Vital Signs Temp 98.8 F 02/12/24 12:00 Pulse 86 02/12/24 12:15 Resp 24 02/12/24 12:15 BP 112/57 02/12/24 12:00 Pulse Ox 96 02/12/24 12:15 FiO2 50 02/12/24 12:00 Intake & Output 02/11/24 02/12/24 02/12/24 18:59 06:59 18:59 Intake Total 7498.919 4458.146 760.165 Output Total 830 650 405 Balance 2858.825 0816.146 355.165 Weight 141.974 kg Intake: IV 835 930 470 Invasive Line 3 10 30 20 Sodium Chloride 0.9% 1, 825 900 450 000 ml @ 75 mls/hr IV . S32S12H [facility] Rx#:[id number] Intake, IV Titration 340.521 291.146 190.165 Amount Ampicillin-Sulbactam 3 gm 100 In Sodium Chloride 0.9% 100 ml @ 200 mls/hr IVPB Q12HR [facility] Rx#:[id number] Norepinephrine 8 mg In 102.564 Sodium Chloride 0.9% 250 ml @ 0.17 MCG/KG/MIN 46. 702 mls/hr IV .Q5H32M [facility] Rx#:[id number] Vasopressin 60 unit In 113.680 86.879 Sodium Chloride 0.9% 150 ml @ 0.03 UNITS/MIN 4.59 mls/hr IV .Q24H [facility] Rx#: [id number] propofoL 1,000 mg In 124.277 Empty Bag 1 bag @ 40 MCG/ KG/MIN 34.074 mls/hr IV . Q2H57M [facility] Rx#:[id number] propofoL 1,000 mg In 191.146 103.286 Empty Bag 1 bag @ 40 MCG/ KG/MIN 34.074 mls/hr IV . Q2H57M [facility] Rx#:[id number] Oral 100 Tube Feeding 657 583 Other 60 Output: Urine 830 650 405 Other: Voiding Method Indwelling Catheter Indwelling Catheter Indwelling Catheter # Bowel Movements 0 0 ABP, PAP, CO, CI - Last Documented Arterial Blood Pressure 114/57 - Exam GENERAL DESCRIPTION: An elderly male intubated on the vent RESPIRATORY SYSTEM: Unlabored breathing , decreased breath sounds at bases HEART: S1 S2 regular rate and rhythm , ABDOMEN: Soft , no tenderness EXTREMITIES: Swelling to the leg but no redness - Labs CBC & Chem 7: 02/12/24 03:45 02/12/24 03:45 Labs: Abnormal Lab Results - Last 24 Hours (Table) 02/11/24 02/11/24 02/12/24 Range/Units 18:18 23:44 03:45 RBC 3.53 L (4.30-5.90) m/uL Hgb 12.5 L (13.0-17.5) gm/dL Hct 38.9 L (39.0-53.0) % MCV 110.2 H (80.0-100.0) fL MCH 35.4 H (25.0-35.0) pg RDW 15.6 H (11.5-15.5) % Plt Count 78 L (150-450) k/uL Neutrophils # 8.8 H (1.3-7.7) k/uL Lymphocytes # 0.4 L (1.0-4.8) k/uL Macrocytosis Marked A ABG pCO2 (35-45) mmHg ABG HCO3 (21-25) mmol/L ABG Total CO2 (19-24) mmol/L ABG O2 Saturation (94-97) % Chloride (98-107) mmol/L BUN (9-20) mg/dL Creatinine (0.66-1.25) mg/dL Glucose (74-99) mg/dL POC Glucose (mg/dL) 177 H 152 H (70-110) mg/dL Calcium (8.4-10.2) mg/dL Total Bilirubin (0.2-1.3) mg/dL AST (17-59) U/L Total Protein (6.3-8.2) g/dL Albumin (3.5-5.0) g/dL 02/12/24 02/12/24 02/12/24 Range/Units 03:45 06:07 06:18 RBC (4.30-5.90) m/uL Hgb (13.0-17.5) gm/dL Hct (39.0-53.0) % MCV (80.0-100.0) fL MCH (25.0-35.0) pg RDW (11.5-15.5) % Plt Count (150-450) k/uL Neutrophils # (1.3-7.7) k/uL Lymphocytes # (1.0-4.8) k/uL Macrocytosis ABG pCO2 52 H (35-45) mmHg ABG HCO3 30 H (21-25) mmol/L ABG Total CO2 32 H (19-24) mmol/L ABG O2 Saturation 97.5 H (94-97) % Chloride 112 H (98-107) mmol/L BUN 95 H (9-20) mg/dL Creatinine 2.26 H (0.66-1.25) mg/dL Glucose 188 H (74-99) mg/dL POC Glucose (mg/dL) 157 H (70-110) mg/dL Calcium 8.0 L (8.4-10.2) mg/dL Total Bilirubin 2.3 H (0.2-1.3) mg/dL AST 61 H (17-59) U/L Total Protein 6.0 L (6.3-8.2) g/dL Albumin 2.1 L (3.5-5.0) g/dL 02/12/24 Range/Units 11:49 RBC (4.30-5.90) m/uL Hgb (13.0-17.5) gm/dL Hct (39.0-53.0) % MCV (80.0-100.0) fL MCH (25.0-35.0) pg RDW (11.5-15.5) % Plt Count (150-450) k/uL Neutrophils # (1.3-7.7) k/uL Lymphocytes # (1.0-4.8) k/uL Macrocytosis ABG pCO2 (35-45) mmHg ABG HCO3 (21-25) mmol/L ABG Total CO2 (19-24) mmol/L ABG O2 Saturation (94-97) % Chloride (98-107) mmol/L BUN (9-20) mg/dL Creatinine (0.66-1.25) mg/dL Glucose (74-99) mg/dL POC Glucose (mg/dL) 163 H (70-110) mg/dL Calcium (8.4-10.2) mg/dL Total Bilirubin (0.2-1.3) mg/dL AST (17-59) U/L Total Protein (6.3-8.2) g/dL Albumin (3.5-5.0) g/dL Microbiology - Last 24 Hours (Table) 02/10/24 14:35 Blood Culture - Preliminary Blood 02/10/24 14:23 Blood Culture - Preliminary Blood 02/08/24 09:42 Gram Stain - Final Sputum Sputum Culture - Final Streptococcus pneumoniae Assessment and Plan (1) Pneumonia Current Visit: Yes Status: Acute Code(s): J18.9 - PNEUMONIA, UNSPECIFIED ORGANISM SNOMED Code(s): 501234600 (2) Bacteremia Current Visit: Yes Status: Acute Code(s): R78.81 - BACTEREMIA SNOMED Code(s): 7237129 (3) Leukocytosis Current Visit: Yes Status: Acute Code(s): D72.829 - ELEVATED WHITE BLOOD CELL COUNT, UNSPECIFIED SNOMED Code(s): 070762506 Plan: 1patient presented to hospital with sepsis in this patient who did have a fever tachycardia elevated white count source is likely left-sided pneumonia in this patient who is growing strep pneumo in the blood source likely pneumonia which is a pansensitive pathogen 2-patient is afebrile, the patient white count has normalized blood cultures so far negative we will keep the patient on Unasyn and monitor clinical course closely Family at the bedside questions answered Dictation was produced using [employer] dictation software. please excuse any grammatical, word or spelling errors. Time with Patient: Less than 30
--- NOTE | 2024-02-12 16:25 | P.CNNES ---
History of Present Illness Consult date: 02/12/24 Requesting physician: Albin Perez Reason for Consult: eeg discharges History of Present Illness: this is a 73-year-old gentleman with history of liver cancer, cirrhosis, heavy alcohol use, chronic atrial fibrillation on Xareltowho presented emergency department because of shortness of breath. History was obtained from the patient's family members and girlfriend. This seems recently the patient was having shortness of breath. He did have a recent nausea and vomiting on the Friday prior to coming to the hospital which resolved but he mainly presented because of the shortness of breath. He denied any fever or any headache. Per the [id number] may be was a more confused. No fevers recently. No recent travels or sick contacts that they're aware of.patient was intubated because of his hypoxemic and hypercapnic respiratory failure secondary due to his COPD exacerbation and was competent by bilateral aspiration pneumonia. Was felt that the patient had the pneumonia and had strep pneumo. He presented with fevers and he is on antibiotics and the fevers has resolved. she also has acute kidney injury. He was on sedation IV propofol and it was held at the 10 AM today. Today an EEG was ordered by the ICU attending and the upon reviewing the EEG the patient had discharges over the left central temporal region therefore I notified the ICU team and then the neurology was involved in the case. note patient stopped smoking. He has history of IV drug use. His history of liver cancer is due to his cirrhosis from that alcohol use. some other workup during his hospital visit consisted of: his temperature was as high as 100.7F patient was having the fevers the first 2 days of his hospital visit but has resolved 2 days ago. on initial presentation his white blood cells is normal (10K) then trending up slight and now resolved. serum glucose is 188 Magnesium is 2.3 most recent AST is 61and ALT of 31. creatinine on presentation was 2.12 and went as high as 2.89 and currently is trending down to 2.6 CT of the head is reported as mild cerebral atrophy and moderate patchy of burden of chronic small vessel ischemic disease. No acute intracranial abnormality seen. CT cervical spine is reported as a no acute fracture or malalignment of the cervical spine. Moderate spondylitic change. Layering fluid within the paranasal sinus. Correlate for acute sinusitis. Possible suspicious pulmonary nodule at the right upper lobe partially seen. patient Gram stain of sputum culture is a strep pneumo. Blood culture is strep pneumo. Review of Systems Limited but positive and negative as per HPI. Past Medical History Past Medical History: Atrial Fibrillation, Cancer, Heart Failure, GERD/Reflux, Osteoarthritis (OA), Prostate Disorder Additional Past Medical History / Comment(s): COPD, CHF, liver cancer; radiation treatment December and September History of Any Multi-Drug Resistant Organisms: None Reported Past Surgical History: Cholecystectomy, Tonsillectomy Past Anesthesia/Blood Transfusion Reactions: No Reported Reaction Past Psychological History: No Psychological Hx Reported Smoking Status: Former smoker Past Alcohol Use History: None Reported Past Drug Use History: Marijuana - Past Family History Mother Family Medical History: Coronary Artery Disease (CAD), Myocardial Infarction (MA) Father Family Medical History: Myocardial Infarction (MA) Medications and Allergies Home Medications Medication Instructions Recorded Confirmed Type Esomeprazole Magnesium [NexIUM] 20 mg PO DAILY 12/13/21 02/08/24 History Finasteride [Proscar] 5 mg PO DAILY 12/13/21 02/08/24 History Furosemide [Lasix] 40 mg PO BID 12/13/21 02/08/24 History Potassium Chloride [Potassium 8 meq PO BID 12/13/21 02/08/24 History Chloride ER] traMADol HCL [Ultram] 50 mg PO BID PRN 12/13/21 02/08/24 History Rivaroxaban [Xarelto] 20 mg PO W/SUPPER 02/08/24 02/08/24 History Tiotropium 2.5 Mcg/Puff [Spiriva 2 puff INHALATION RT-DAILY 02/08/24 02/08/24 History Respimat 2.5 Mcg] Allergies Allergy/AdvReac Type Severity Reaction Status Date / Time No Known Allergies Allergy Verified 02/08/24 12:30 Physical Examination - Vital Signs Vital Signs: Vital Signs Temp Pulse Resp BP Pulse Ox FiO2 02/12/24 15:40 88 02/12/24 15:25 50 02/12/24 15:24 84 02/12/24 15:00 90 24 96 02/12/24 14:45 90 24 96 02/12/24 14:30 90 30 H 96 02/12/24 14:15 86 24 96 02/12/24 14:00 88 24 95 02/12/24 13:45 96 24 95 02/12/24 13:30 87 26 H 96 02/12/24 13:15 98 25 H 96 02/12/24 13:00 85 24 95 02/12/24 12:45 89 24 96 02/12/24 12:30 90 24 96 02/12/24 12:15 86 24 96 02/12/24 12:00 98.8 F 82 24 112/57 95 50 02/12/24 11:45 87 24 96 02/12/24 11:38 87 02/12/24 11:30 87 24 96 02/12/24 11:27 50 02/12/24 11:26 87 02/12/24 11:15 91 24 96 02/12/24 11:00 83 24 96 02/12/24 10:45 79 16 96 02/12/24 10:30 73 20 96 02/12/24 10:15 84 15 96 02/12/24 10:00 81 24 95 02/12/24 09:46 85 02/12/24 09:45 77 24 96 02/12/24 09:36 84 02/12/24 09:35 84 02/12/24 09:30 90 25 H 95 02/12/24 09:23 50 02/12/24 09:20 88 02/12/24 09:00 93 16 112/52 96 02/12/24 08:00 99.4 F 81 18 106/52 95 50 02/12/24 07:49 50 02/12/24 07:00 85 18 106/52 95 02/12/24 06:00 98.7 F 84 25 H 106/52 95 02/12/24 05:00 84 24 106/52 95 02/12/24 04:55 50 02/12/24 04:00 84 24 97/58 95 50 02/12/24 03:00 87 24 97/58 95 02/12/24 02:00 89 17 97/58 96 02/12/24 01:00 76 24 97/58 95 02/12/24 00:45 94 02/12/24 00:29 89 02/12/24 00:26 50 02/12/24 00:00 98.5 F 80 24 99/54 97 50 02/11/24 23:00 82 20 99/54 98 02/11/24 22:55 76 24 97 02/11/24 22:45 77 21 99/54 95 02/11/24 22:30 11 L 99/54 95 02/11/24 22:15 90 24 99/54 94 L 02/11/24 22:00 98.5 F 67 23 99/54 94 L 02/11/24 21:45 78 23 99/54 94 L 02/11/24 21:30 73 23 99/54 94 L 02/11/24 21:15 76 23 99/54 94 L 02/11/24 21:04 93 02/11/24 21:03 93 02/11/24 21:00 81 24 99/54 93 L 02/11/24 20:52 84 02/11/24 20:51 50 02/11/24 20:45 73 21 99/54 94 L 02/11/24 20:30 87 24 99/54 94 L 02/11/24 20:15 86 25 H 99/54 94 L 02/11/24 20:00 99.5 F 76 25 H 102/49 94 L 50 02/11/24 19:45 76 24 94 L 50 02/11/24 19:30 86 24 94 L 50 02/11/24 19:15 82 24 94 L 50 02/11/24 19:00 79 25 H 94 L 50 02/11/24 18:45 75 24 94 L 50 02/11/24 18:30 85 24 95 50 02/11/24 18:15 90 24 94 L 50 02/11/24 18:00 85 24 94 L 50 02/11/24 17:45 84 24 95 50 02/11/24 17:30 85 24 94 L 50 02/11/24 17:15 87 24 94 L 50 02/11/24 17:00 80 24 94 L 50 02/11/24 16:45 86 24 94 L 50 02/11/24 16:30 80 24 94 L 50 02/11/24 16:15 77 24 94 L 50 02/11/24 16:06 75 Intake and Output 02/12/24 02/12/24 02/12/24 06:59 14:59 22:59 Intake Total 1182.146 912.434 75 Output Total 410 525 60 Balance 772.146 387.434 15 Intake: IV 620 620 75 Invasive Line 3 20 20 Sodium Chloride 0.9% 1, 600 600 75 000 ml @ 75 mls/hr IV . [id number] JACOBO Rx#:[id number] Intake, IV Titration 191.146 192.434 Amount Vasopressin 60 unit In 89.148 Sodium Chloride 0.9% 150 ml @ 0.03 UNITS/MIN 4.59 mls/hr IV .Q24H JACOBO Rx#: [id number] propofoL 1,000 mg In 191.146 103.286 Empty Bag 1 bag @ 40 MCG/ KG/MIN 34.074 mls/hr IV . [id number] JACOBO Rx#:[id number] Oral 100 Tube Feeding 371 Output: Urine 410 525 60 Other: Voiding Method Indwelling Catheter Indwelling Catheter # Bowel Movements 0 ABP, PAP, CO, CI - Last 8 Hours Arterial Blood Pressure 122/61 Arterial Blood Pressure 122/62 Arterial Blood Pressure 132/68 Arterial Blood Pressure 114/55 Arterial Blood Pressure 115/58 Arterial Blood Pressure 113/57 Arterial Blood Pressure 131/65 Arterial Blood Pressure 128/66 Arterial Blood Pressure 104/52 Arterial Blood Pressure 105/52 Arterial Blood Pressure 124/60 Arterial Blood Pressure 114/57 Arterial Blood Pressure 110/52 Arterial Blood Pressure 114/54 Arterial Blood Pressure 110/53 Arterial Blood Pressure 117/58 Arterial Blood Pressure 112/57 Arterial Blood Pressure 116/58 Arterial Blood Pressure 114/57 Arterial Blood Pressure 102/50 Arterial Blood Pressure 98/50 Arterial Blood Pressure 103/50 Arterial Blood Pressure 106/54 Arterial Blood Pressure 109/52 General: Lying in bed and does not appear in acute distress. HENT: Supple neck Resp: Intubated on ventilator. Neuro: Limited. IV Propofol was held at 10am today. Patient is comatose GCS 3 (E1, VT1, M1) I had to manually open his eyes. Primary gaze is midline. Pupils are round, equal and reactive to light. Pupils are 3mm bilaterally. No facial weakness form limitation of exam. Motor: Strength unable to assess. No spontaneous movement. Results - Laboratory Findings CBC and BMP: 02/12/24 03:45 02/12/24 03:45 Abnormal Lab Findings: Abnormal Labs 02/08/24 02/08/24 02/08/24 09:05 09:05 09:57 WBC RBC 4.27 L Hgb Hct MCV 112.2 H MCH MCHC RDW 15.9 H Plt Count Neutrophils # Neutrophils # (Manual) Lymphocytes # Lymphocytes # (Manual) 0.90 L Metamyelocytes # (Man) 1.30 H Myelocytes # (Manual) 0.70 H Macrocytosis Marked A PT 21.2 H INR 2.1 H APTT 31.0 H D-Dimer 5.05 H ABG pH ABG pCO2 ABG pO2 ABG HCO3 ABG Total CO2 ABG O2 Saturation Potassium Chloride 112 H Carbon Dioxide 11 L BUN Creatinine 2.12 H Glucose 67 L POC Glucose (mg/dL) Plasma Lactic Acid Rober Calcium Total Bilirubin 3.5 H AST 122 H ALT 59 H Troponin I Total Protein Albumin 3.1 L Ur Specific [place] Urine Protein Urine Blood Urine RBC Urine WBC Urine Mucus Ur Random Sodium 02/08/24 02/08/24 02/08/24 09:57 09:57 10:00 WBC RBC Hgb Hct MCV MCH MCHC RDW Plt Count Neutrophils # Neutrophils # (Manual) Lymphocytes # Lymphocytes # (Manual) Metamyelocytes # (Man) Myelocytes # (Manual) Macrocytosis PT INR APTT D-Dimer ABG pH 7.04 L* ABG pCO2 53 H ABG pO2 ABG HCO3 14 L ABG Total CO2 16 L ABG O2 Saturation Potassium Chloride Carbon Dioxide BUN Creatinine Glucose POC Glucose (mg/dL) Plasma Lactic Acid Rober 13.4 H* Calcium Total Bilirubin AST ALT Troponin I 0.154 H* Total Protein Albumin Ur Specific [place] Urine Protein Urine Blood Urine RBC Urine WBC Urine Mucus Ur Random Sodium 02/08/24 02/08/24 02/08/24 12:28 13:28 14:06 WBC RBC Hgb Hct MCV MCH MCHC RDW Plt Count Neutrophils # Neutrophils # (Manual) Lymphocytes # Lymphocytes # (Manual) Metamyelocytes # (Man) Myelocytes # (Manual) Macrocytosis PT INR APTT D-Dimer ABG pH ABG pCO2 ABG pO2 ABG HCO3 ABG Total CO2 ABG O2 Saturation Potassium Chloride Carbon Dioxide BUN Creatinine Glucose POC Glucose (mg/dL) 50 L 66 L Plasma Lactic Acid Rober 11.0 H* Calcium Total Bilirubin AST ALT Troponin I Total Protein Albumin Ur Specific [place] Urine Protein Urine Blood Urine RBC Urine WBC Urine Mucus Ur Random Sodium 02/08/24 02/08/24 02/08/24 14:54 17:32 17:50 WBC RBC Hgb Hct MCV MCH MCHC RDW Plt Count Neutrophils # Neutrophils # (Manual) Lymphocytes # Lymphocytes # (Manual) Metamyelocytes # (Man) Myelocytes # (Manual) Macrocytosis PT INR APTT D-Dimer ABG pH ABG pCO2 ABG pO2 ABG HCO3 ABG Total CO2 ABG O2 Saturation Potassium Chloride Carbon Dioxide BUN Creatinine Glucose POC Glucose (mg/dL) 65 L Plasma Lactic Acid Rober 8.7 H* Calcium Total Bilirubin AST ALT Troponin I Total Protein Albumin Ur Specific [place] Urine Protein Urine Blood Urine RBC Urine WBC Urine Mucus Ur Random Sodium <20 L 02/08/24 02/08/24 02/08/24 17:50 18:52 20:55 WBC RBC Hgb Hct MCV MCH MCHC RDW Plt Count Neutrophils # Neutrophils # (Manual) Lymphocytes # Lymphocytes # (Manual) Metamyelocytes # (Man) Myelocytes # (Manual) Macrocytosis PT INR APTT D-Dimer ABG pH ABG pCO2 ABG pO2 ABG HCO3 ABG Total CO2 ABG O2 Saturation Potassium Chloride Carbon Dioxide BUN Creatinine Glucose POC Glucose (mg/dL) 62 L Plasma Lactic Acid Rober 8.6 H* Calcium Total Bilirubin AST ALT Troponin I Total Protein Albumin Ur Specific [place] >1.050 H Urine Protein Trace H Urine Blood Moderate H Urine RBC 18 H Urine WBC 17 H Urine Mucus Rare H Ur Random Sodium 02/09/24 02/09/24 02/09/24 01:22 01:23 05:31 WBC 10.8 H RBC 4.06 L Hgb Hct MCV 115.5 H MCH 35.1 H MCHC 30.4 L RDW 16.1 H Plt Count 85 L Neutrophils # Neutrophils # (Manual) 8.90 H Lymphocytes # Lymphocytes # (Manual) 0.32 L Metamyelocytes # (Man) 0.54 H Myelocytes # (Manual) 0.76 H Macrocytosis Marked A PT INR APTT D-Dimer ABG pH ABG pCO2 ABG pO2 ABG HCO3 ABG Total CO2 ABG O2 Saturation Potassium Chloride Carbon Dioxide BUN Creatinine Glucose POC Glucose (mg/dL) 63 L Plasma Lactic Acid Rober 9.7 H* Calcium Total Bilirubin AST ALT Troponin I Total Protein Albumin Ur Specific [place] Urine Protein Urine Blood Urine RBC Urine WBC Urine Mucus Ur Random Sodium 02/09/24 02/09/24 02/09/24 05:31 06:03 06:18 WBC RBC Hgb Hct MCV MCH MCHC RDW Plt Count Neutrophils # Neutrophils # (Manual) Lymphocytes # Lymphocytes # (Manual) Metamyelocytes # (Man) Myelocytes # (Manual) Macrocytosis PT INR APTT D-Dimer ABG pH 7.29 L ABG pCO2 50 H ABG pO2 ABG HCO3 ABG Total CO2 26 H ABG O2 Saturation 97.2 H Potassium Chloride Carbon Dioxide BUN Creatinine Glucose POC Glucose (mg/dL) 67 L Plasma Lactic Acid Rober 9.0 H* Calcium Total Bilirubin AST ALT Troponin I Total Protein Albumin Ur Specific [place] Urine Protein Urine Blood Urine RBC Urine WBC Urine Mucus Ur Random Sodium 02/09/24 02/09/24 02/09/24 08:30 08:30 17:20 WBC RBC Hgb Hct MCV MCH MCHC RDW Plt Count Neutrophils # Neutrophils # (Manual) Lymphocytes # Lymphocytes # (Manual) Metamyelocytes # (Man) Myelocytes # (Manual) Macrocytosis PT INR APTT D-Dimer ABG pH ABG pCO2 ABG pO2 ABG HCO3 ABG Total CO2 ABG O2 Saturation Potassium 5.3 H Chloride 110 H Carbon Dioxide 21 L BUN 34 H Creatinine 2.39 H Glucose POC Glucose (mg/dL) 124 H Plasma Lactic Acid Rober 8.5 H* Calcium 7.7 L Total Bilirubin AST ALT Troponin I Total Protein Albumin Ur Specific [place] Urine Protein Urine Blood Urine RBC Urine WBC Urine Mucus Ur Random Sodium 02/09/24 02/09/24 02/10/24 19:55 20:31 04:22 WBC RBC Hgb Hct MCV MCH MCHC RDW Plt Count Neutrophils # Neutrophils # (Manual) Lymphocytes # Lymphocytes # (Manual) Metamyelocytes # (Man) Myelocytes # (Manual) Macrocytosis PT INR APTT D-Dimer ABG pH ABG pCO2 ABG pO2 ABG HCO3 ABG Total CO2 ABG O2 Saturation Potassium Chloride Carbon Dioxide BUN Creatinine Glucose POC Glucose (mg/dL) 137 H 152 H 159 H Plasma Lactic Acid Rober Calcium Total Bilirubin AST ALT Troponin I Total Protein Albumin Ur Specific [place] Urine Protein Urine Blood Urine RBC Urine WBC Urine Mucus Ur Random Sodium 02/10/24 02/10/24 02/10/24 04:45 04:45 05:55 WBC 13.0 H RBC 3.69 L Hgb Hct MCV 110.7 H MCH 35.9 H MCHC RDW Plt Count 121 L Neutrophils # 11.9 H Neutrophils # (Manual) Lymphocytes # 0.4 L Lymphocytes # (Manual) Metamyelocytes # (Man) Myelocytes # (Manual) Macrocytosis Marked A PT INR APTT D-Dimer ABG pH 7.32 L ABG pCO2 56 H ABG pO2 76 L ABG HCO3 29 H ABG Total CO2 31 H ABG O2 Saturation Potassium Chloride 110 H Carbon Dioxide BUN 55 H Creatinine 2.89 H Glucose 183 H POC Glucose (mg/dL) Plasma Lactic Acid Rober Calcium 7.7 L Total Bilirubin AST ALT Troponin I Total Protein Albumin Ur Specific [place] Urine Protein Urine Blood Urine RBC Urine WBC Urine Mucus Ur Random Sodium 02/10/24 02/10/24 02/10/24 08:15 11:51 16:24 WBC RBC Hgb Hct MCV MCH MCHC RDW Plt Count Neutrophils # Neutrophils # (Manual) Lymphocytes # Lymphocytes # (Manual) Metamyelocytes # (Man) Myelocytes # (Manual) Macrocytosis PT INR APTT D-Dimer ABG pH ABG pCO2 ABG pO2 ABG HCO3 ABG Total CO2 ABG O2 Saturation Potassium Chloride Carbon Dioxide BUN Creatinine Glucose POC Glucose (mg/dL) 164 H 191 H 191 H Plasma Lactic Acid Rober Calcium Total Bilirubin AST ALT Troponin I Total Protein Albumin Ur Specific [place] Urine Protein Urine Blood Urine RBC Urine WBC Urine Mucus Ur Random Sodium 02/10/24 02/11/24 02/11/24 22:22 04:15 04:15 WBC 14.3 H RBC 3.66 L Hgb 12.8 L Hct MCV 108.7 H MCH 35.1 H MCHC RDW 15.9 H Plt Count 108 L Neutrophils # 12.7 H Neutrophils # (Manual) Lymphocytes # 0.4 L Lymphocytes # (Manual) Metamyelocytes # (Man) Myelocytes # (Manual) Macrocytosis Marked A PT INR APTT D-Dimer ABG pH ABG pCO2 ABG pO2 ABG HCO3 ABG Total CO2 ABG O2 Saturation Potassium Chloride 111 H Carbon Dioxide BUN 78 H Creatinine 2.72 H Glucose 183 H POC Glucose (mg/dL) 169 H Plasma Lactic Acid Rober Calcium 7.9 L Total Bilirubin 2.7 H AST 71 H ALT Troponin I Total Protein 6.2 L Albumin 2.2 L Ur Specific [place] Urine Protein Urine Blood Urine RBC Urine WBC Urine Mucus Ur Random Sodium 02/11/24 02/11/24 02/11/24 04:16 05:55 08:20 WBC RBC Hgb Hct MCV MCH MCHC RDW Plt Count Neutrophils # Neutrophils # (Manual) Lymphocytes # Lymphocytes # (Manual) Metamyelocytes # (Man) Myelocytes # (Manual) Macrocytosis PT INR APTT D-Dimer ABG pH ABG pCO2 53 H ABG pO2 ABG HCO3 29 H ABG Total CO2 31 H ABG O2 Saturation Potassium Chloride Carbon Dioxide BUN Creatinine Glucose POC Glucose (mg/dL) 172 H 162 H Plasma Lactic Acid Rober Calcium Total Bilirubin AST ALT Troponin I Total Protein Albumin Ur Specific [place] Urine Protein Urine Blood Urine RBC Urine WBC Urine Mucus Ur Random Sodium 02/11/24 02/11/24 02/11/24 11:42 18:18 23:44 WBC RBC Hgb Hct MCV MCH MCHC RDW Plt Count Neutrophils # Neutrophils # (Manual) Lymphocytes # Lymphocytes # (Manual) Metamyelocytes # (Man) Myelocytes # (Manual) Macrocytosis PT INR APTT D-Dimer ABG pH ABG pCO2 ABG pO2 ABG HCO3 ABG Total CO2 ABG O2 Saturation Potassium Chloride Carbon Dioxide BUN Creatinine Glucose POC Glucose (mg/dL) 157 H 177 H 152 H Plasma Lactic Acid Rober Calcium Total Bilirubin AST ALT Troponin I Total Protein Albumin Ur Specific [place] Urine Protein Urine Blood Urine RBC Urine WBC Urine Mucus Ur Random Sodium 02/12/24 02/12/24 02/12/24 03:45 03:45 06:07 WBC RBC 3.53 L Hgb 12.5 L Hct 38.9 L MCV 110.2 H MCH 35.4 H MCHC RDW 15.6 H Plt Count 78 L Neutrophils # 8.8 H Neutrophils # (Manual) Lymphocytes # 0.4 L Lymphocytes # (Manual) Metamyelocytes # (Man) Myelocytes # (Manual) Macrocytosis Marked A PT INR APTT D-Dimer ABG pH ABG pCO2 ABG pO2 ABG HCO3 ABG Total CO2 ABG O2 Saturation Potassium Chloride 112 H Carbon Dioxide BUN 95 H Creatinine 2.26 H Glucose 188 H POC Glucose (mg/dL) 157 H Plasma Lactic Acid Rober Calcium 8.0 L Total Bilirubin 2.3 H AST 61 H ALT Troponin I Total Protein 6.0 L Albumin 2.1 L Ur Specific [place] Urine Protein Urine Blood Urine RBC Urine WBC Urine Mucus Ur Random Sodium 02/12/24 02/12/24 06:18 11:49 WBC RBC Hgb Hct MCV MCH MCHC RDW Plt Count Neutrophils # Neutrophils # (Manual) Lymphocytes # Lymphocytes # (Manual) Metamyelocytes # (Man) Myelocytes # (Manual) Macrocytosis PT INR APTT D-Dimer ABG pH ABG pCO2 52 H ABG pO2 ABG HCO3 30 H ABG Total CO2 32 H ABG O2 Saturation 97.5 H Potassium Chloride Carbon Dioxide BUN Creatinine Glucose POC Glucose (mg/dL) 163 H Plasma Lactic Acid Rober Calcium Total Bilirubin AST ALT Troponin I Total Protein Albumin Ur Specific [place] Urine Protein Urine Blood Urine RBC Urine WBC Urine Mucus Ur Random Sodium Assessment and Plan Assessment: this is a 73-year-old gentleman who presents because of shortness of breath.patient was found to be hypoxic and hypercapnic secondary due to COPD exacerbation, K by bilateral suspected aspiration pneumonia. As a result the patient was intubated on a ventilator. A routine EEG was ordered by the ICU team and the preliminary shows possible epileptiform discharges over the left central temporal region. Alternate is status due to multifactorial due to underlying pneumonia, metabolic encephalopathy the patient has acute kidney injury, medication induced patient is on IV propofol. Has possible epileptiform discharges over the left central temporal which can increase risk for seizures. no history of seizures according to family members likely aspiration pneumonia, strep pneumo shortness of breath withAcute hypoxic and hypercapnic respiratory failure was due to COPD exacerbation acute kidney injury proximal atrial fibrillation on Xarelto History of liver cancer and was treated and therefore History of hepatitis C History of cirrhosis due to alcohol use as well as hepatitis History of congestive heart for a History of portal hypertension and esophageal varices History of IV drug use Plan: I started the patient on Keppra 500 mg IV twice a day. Leist on seizure precaution seizure pads I ordered a repeat CT of the head and I ordered ammonia level, vitamin B12. Notified the patient's family I cannot rule out meningeal encephalitis which seems unlikely. his white blood cell and fever has normalized. If patient mentation does not improve within 2 days we'll pursue lumbar puncture and the family is in agreement. ID is on board and we'll defer modification of antibiotic and infection management to the ID team. nephrology is on board We'll defer the rest of the medical measure the primary and other specialists The plan was discussed with family members, primary attending and the ICU nurse Thank you for the consultation. Time with Patient: Greater than 30
[2024-02-12] MEDS: INSULIN ASPART (NovoLOG) 100 UNIT/ML VIAL SQ SCH (17:41)
--- NOTE | 2024-02-12 17:41 | CT ---
EXAMINATION TYPE: CT brain wo con DATE OF EXAM: 02/12/2024 COMPARISON: 02/08/2024 HISTORY: altered mental status CT DLP: 1222.4 mGycm Automated exposure control for dose reduction was used. Findings: The ventricles, basal cisterns and sulci over the convexities are within normal limits for the patien t's age and there is no mass effect or shift of midline structures. No abnormal density is seen throughout the brain parenchyma and there is no acute intra or extra-axia l hemorrhage. The posterior fossa including the brainstem, fourth ventricle and cerebellar pontine angles appear no rmal. Intraorbital contents appear normal and symmetric. Visualized paranasal sinuses and mastoid air cells are well aerated. The calvarium is intact. IMPRESSION: No significant abnormality seen. There is no acute bleed or mass effect.
[2024-02-12 17:42] LABS: Glucose,Whole Blood 139 mg/dL (70-110)
[2024-02-13 00:03] LABS: Glucose,Whole Blood 139 mg/dL (70-110)
--- NOTE | 2024-02-13 02:13 | EEG ---
ELECTROENCEPHALOGRAM REPORT CLINICAL HISTORY: This is a 73-year-old gentleman with altered mental status. The video EEG is obtained to evaluate for seizure epileptiform activity. RELEVANT MEDICATIONS: IV propofol is held since morning. The EEG type is a routine 21-channel EEG with video using the 10/20 electrode placement system. DESCRIPTION: The patient is intubated on ventilator. The background consists of [id number] voltage of 4.5 to 5.5 hertz diffuse nonrhythmic theta activity and at times, background consists of diffuse nonrhythmic polymorphic delta activity. There is no physiological stage 2 sleep architecture. There is no focal slowing. There is tripahsic waves. INTERICTAL AND ICTAL: There appears to be sharp and slow waves over the frontotemporal region bilateral, but no clear, epileptiform discharge, or seizure on the EEG. ACTIVATION PROCEDURE: Photic stimulation does not evoke a posterior driving response. There is no abnormality during the photic stimulation. Hyperventilation is not performed. CLINICAL INTERPRETATION: This is an abnormal routine EEG. The background slowing is suggestive of moderate-to- severe encephalopathy. There is sharp and slow waves over bilateral temporal region, but no clear epileptiform discharge or seizure on the EEG. The tripahsic waves is due to toxic-metabolic derangement. Clinical correlation is recommended. MMODL / IJN: [id number] / MARIN
[2024-02-13 04:32] LABS: ALT 31 U/L (4-49); AST 58 U/L (17-59); African American GFR (CKD) 41 (>60 ml/min/1.73 sqM); Albumin 2.1 g/dL (3.5-5.0); Alkaline Phosphatase 57 U/L (38-126); Anion Gap 0 mmol/L; Calcium 8.5 mg/dL (8.4-10.2); Carbon Dioxide 30 mmol/L (22-30); Chloride 115 mmol/L (98-107); Glucose 148 mg/dL (74-99); Non-African American GFR(CKD) 36 (>60 ml/min/1.73 sqM); Potassium 4.9 mmol/L (3.5-5.1); Sodium 145 mmol/L (137-145)
[2024-02-13 05:20] LABS: Blood Urea Nitrogen 109 mg/dL (9-20)
[2024-02-13 06:13] LABS: ABG Base Excess 5.5 mmol/L; ABG HCO3 30 mmol/L (21-25); ABG Oxygen Saturation 97.1 % (94-97); ABG PCO2 44 mmHg (35-45); ABG PH 7.44 (7.35-7.45); ABG PO2 82 mmHg (83-108); ABG TCO2 31 mmol/L (19-24)
[2024-02-13 06:14] LABS: HCT 38.4 % (39.0-53.0); HGB 12.3 gm/dL (13.0-17.5); MCH 35.3 pg (25.0-35.0); MCHC 32.1 g/dL (31.0-37.0); Mean Platelet Volume 9.4; RBC 3.49 m/uL (4.30-5.90); RDW 15.9 % (11.5-15.5)
[2024-02-13 06:20] LABS: Macrocytosis Marked; Platelet Count 96 k/uL (150-450)
[2024-02-13 06:43] LABS: Glucose,Whole Blood 142 mg/dL (70-110)
[2024-02-13 07:43] LABS: Myelocytes % 1 %; Neutrophils % (M) 84 %; Nucleated Red Blood Cells 4 /100 WBC (0-0); Total Cells Counted 200
[2024-02-13 07:44] LABS: Lymphocytes # (M) 0.85 k/uL (1.0-4.8); Myelocytes # (M) 0.12 k/uL (0); Neutrophils # (M) 10.25 k/uL (1.3-7.7); WBC 12.2 k/uL (3.8-10.6)
[2024-02-13 07:45] LABS: Polychromasia Present
[2024-02-13] MEDS ORDERED: LACTATED RINGERS 1,000 ML IV SCH (09:30)
--- NOTE | 2024-02-13 10:17 | P.PN ---
Subjective Patient is seen in follow-up for acute kidney injury. Renal function better. No improvement in mentation. Nonoliguric. Off vasopressors. Intubated. Family present at bedside. Vital signs are stable. Off vasopressor support. General: Resting in bed. HEENT: Intubated. LUNGS: No audible rhonchi or wheezes. HEART: Rate and Rhythm are regular. ABDOMEN: Obese, soft. EXTREMITITES: Trace edema. Objective - Vital Signs Vital signs: Vital Signs Temp 99.3 F 02/13/24 08:00 Pulse 90 02/13/24 09:00 Resp 24 02/13/24 09:00 BP 112/57 02/12/24 12:00 Pulse Ox 96 02/13/24 09:00 FiO2 50 02/13/24 08:00 Intake & Output 02/12/24 02/13/24 02/13/24 18:59 06:59 18:59 Intake Total 6346.586 6182 345 Output Total 770 940 525 Balance 572.434 300 -180 Intake: IV 930 930 235 Invasive Line 3 30 30 10 Sodium Chloride 0.9% 1, 900 900 225 000 ml @ 75 mls/hr IV . [id number] [facility] Rx#:[id number] Intake, IV Titration 292.434 Amount Ampicillin-Sulbactam 3 gm 100 In Sodium Chloride 0.9% 100 ml @ 200 mls/hr IVPB Q12HR [facility] Rx#:[id number] Vasopressin 60 unit In 89.148 Sodium Chloride 0.9% 150 ml @ 0.03 UNITS/MIN 4.59 mls/hr IV .Q24H [facility] Rx#: [id number] propofoL 1,000 mg In 103.286 Empty Bag 1 bag @ 40 MCG/ KG/MIN 34.074 mls/hr IV . Q2H57M [facility] Rx#:[id number] Oral 100 Tube Feeding 20 220 80 Other 90 30 Output: Urine 770 940 525 Other: Voiding Method Indwelling Catheter Indwelling Catheter ABP, PAP, CO, CI - Last Documented Arterial Blood Pressure 134/62 - Labs CBC & Chem 7: 02/13/24 04:00 02/13/24 04:00 Labs: Abnormal Lab Results - Last 24 Hours (Table) 02/12/24 02/12/24 02/12/24 Range/Units 11:49 16:15 16:15 WBC (3.8-10.6) k/uL RBC (4.30-5.90) m/uL Hgb (13.0-17.5) gm/dL Hct (39.0-53.0) % MCV (80.0-100.0) fL MCH (25.0-35.0) pg RDW (11.5-15.5) % Plt Count (150-450) k/uL Neutrophils # (Manual) (1.3-7.7) k/uL Lymphocytes # (Manual) (1.0-4.8) k/uL Monocytes # (Manual) (0-1.0) k/uL Myelocytes # (Manual) (0) k/uL Nucleated RBCs (0-0) /100 WBC Macrocytosis ABG pO2 (83-108) mmHg ABG HCO3 (21-25) mmol/L ABG Total CO2 (19-24) mmol/L ABG O2 Saturation (94-97) % Chloride (98-107) mmol/L BUN (9-20) mg/dL Creatinine (0.66-1.25) mg/dL Glucose (74-99) mg/dL POC Glucose (mg/dL) 163 H (70-110) mg/dL Total Bilirubin (0.2-1.3) mg/dL Ammonia 56 H (<30) umol/L Total Protein (6.3-8.2) g/dL Albumin (3.5-5.0) g/dL Vitamin B12 >3600.0 H (200.0-944.0) pg/mL 02/12/24 02/13/24 02/13/24 Range/Units 17:40 00:01 04:00 WBC 12.2 H (3.8-10.6) k/uL RBC 3.49 L (4.30-5.90) m/uL Hgb 12.3 L (13.0-17.5) gm/dL Hct 38.4 L (39.0-53.0) % MCV 110.0 H (80.0-100.0) fL MCH 35.3 H (25.0-35.0) pg RDW 15.9 H (11.5-15.5) % Plt Count 96 L (150-450) k/uL Neutrophils # (Manual) 10.25 H (1.3-7.7) k/uL Lymphocytes # (Manual) 0.85 L (1.0-4.8) k/uL Monocytes # (Manual) 1.10 H (0-1.0) k/uL Myelocytes # (Manual) 0.12 H (0) k/uL Nucleated RBCs 4 H (0-0) /100 WBC Macrocytosis Marked A ABG pO2 (83-108) mmHg ABG HCO3 (21-25) mmol/L ABG Total CO2 (19-24) mmol/L ABG O2 Saturation (94-97) % Chloride (98-107) mmol/L BUN (9-20) mg/dL Creatinine (0.66-1.25) mg/dL Glucose (74-99) mg/dL POC Glucose (mg/dL) 139 H 139 H (70-110) mg/dL Total Bilirubin (0.2-1.3) mg/dL Ammonia (<30) umol/L Total Protein (6.3-8.2) g/dL Albumin (3.5-5.0) g/dL Vitamin B12 (200.0-944.0) pg/mL 02/13/24 02/13/24 02/13/24 Range/Units 04:00 06:10 06:42 WBC (3.8-10.6) k/uL RBC (4.30-5.90) m/uL Hgb (13.0-17.5) gm/dL Hct (39.0-53.0) % MCV (80.0-100.0) fL MCH (25.0-35.0) pg RDW (11.5-15.5) % Plt Count (150-450) k/uL Neutrophils # (Manual) (1.3-7.7) k/uL Lymphocytes # (Manual) (1.0-4.8) k/uL Monocytes # (Manual) (0-1.0) k/uL Myelocytes # (Manual) (0) k/uL Nucleated RBCs (0-0) /100 WBC Macrocytosis ABG pO2 82 L (83-108) mmHg ABG HCO3 30 H (21-25) mmol/L ABG Total CO2 31 H (19-24) mmol/L ABG O2 Saturation 97.1 H (94-97) % Chloride 115 H (98-107) mmol/L BUN 109 H* (9-20) mg/dL Creatinine 1.87 H (0.66-1.25) mg/dL Glucose 148 H (74-99) mg/dL POC Glucose (mg/dL) 142 H (70-110) mg/dL Total Bilirubin 4.0 H (0.2-1.3) mg/dL Ammonia (<30) umol/L Total Protein 6.0 L (6.3-8.2) g/dL Albumin 2.1 L (3.5-5.0) g/dL Vitamin B12 (200.0-944.0) pg/mL Microbiology - Last 24 Hours (Table) 02/10/24 14:35 Blood Culture - Preliminary Blood 02/10/24 14:23 Blood Culture - Preliminary Blood Assessment and Plan Plan: Assessment: 1. Acute kidney injury secondary to ATN secondary to septic shock. Renal function better. Creatinine 1.87 today. No hydronephrosis noted on CAT scan. Patient received IV contrast for CT on February 08, 2024. 2. Septic shock secondary to strep pneumo bacteremia and pneumonia. On antibiotics. Now off vasopressors. 3. Alcohol induced liver cirrhosis. 4. Acute hypoxic respiratory failure. 5. Mild hypernatremia from lack of oral water intake. Plan: Change IV fluids to half-normal saline at 75 cc an hour. Maintain tube feeds. Avoid nephrotoxins. Wean FiO2. Continue to monitor renal function and urine output. No need for renal replacement therapy at this time. Case discussed with family and primary attending.
--- NOTE | 2024-02-13 11:32 | P.PN ---
Subjective Progress Note Date: 02/13/24 Hospital Course: 73-year-old male, with tobacco dependence, with medical history of cirrhosis s econdary to alcohol use/hepatitis C, former IV drug user, hepatocellular carcinoma status post Y90 radiation, COPD, permanent atrial fibrillation, chronic diastolic heart failure presenting for evaluation of dyspnea. In the emergency room, patient was afebrile, 152/118, heart rate 107, respiratory rate of 46, 81% on BiPAP. Therefore, patient was intubated in the emergency room and oxygen saturation went up to 95% with vent settings of PEEP of 8, FiO2 of 80%, volume control 500. CBC demonstrated elevated MCV of 112.2, otherwise unremarkable. Basic metabolic panel demonstrated creatinine of 2.12 with a baseline of 1. Liver function test showed elevation of AST to 122, ALT of 59, total bilirubin of 3.5, albumin of 3.1. Troponin was 0.154, BNP was 5390. Initial ABG demonstrated pH of 7.04, pCO2 of 53, pO2 of 106. Coags demonstrated elevated INR of 2.1, D-dimer 5.05. Influenza A, B, RSV, COVID were negative. EKG, personally interpreted, demonstrates atrial fibrillation with RVR, multiple instances of aberrant conduction. Chest x-ray, personally interpreted demonstrates left-sided consolidation with likely pleural effusion. Chest CTA showed moderate emphysematous change, pulmonary arterial hypertension, severe consolidation throughout the left lower lobe extending into the lingula, but was suboptimal to exclude pulmonary embolism. CT abdomen/pelvis demonstrated cirrhosis with prominent collaterals in the gastrohepatic ligament suggesting portal venous hypertension, suspicious 2-1/2 cm nodule in the inferior right liver lobe. Head/cervical spine CT shows mild cerebral atrophy and moderate patchy burden of chronic small vessel ischemic disease. This also demonstrated incidental finding of right upper lobe pulmonary nodule which was suspicious, confirmed on CTA to be an 8 mm right apical nodule which was spiculated. Pulmonary/critical care medicine was consulted and patient was transferred to the intensive care unit for further monitoring/management. Blood cultures positive for strep pneumo. Patient currently on IV Zosyn. ID following. Pressor requirements continue to go up. Patient also in acute renal failure. Nephrology following. Subjective: Patient seen and examined at bedside. No acute events overnight. Patient has been off of sedation for almost a day, still no significant neurological activity. Did have bowel movement. Making adequate urine. Pertinent positives and negatives as discussed above, a complete review of systems was performed and all other systems are negative. Vitals Signs Reviewed. General: Intubated sedated Derm: Warm, dry Head: Atraumatic, normocephalic, symmetric Eyes: Pupils equal and reactive Mouth: No lip lesion, mucus membranes moist Cardiovascular: S1S2 reg, no murmur Lungs: Bilateral rhonchi, intubated Abdominal: Soft, nontender to palpation, no guarding, no appreciable organomegaly Ext: No gross muscle atrophy, 2+ pitting edema, no contractures Neuro: Sedated Psych: Unable to assess Data Reviewed Today: Pertinent Labs: WBC 12.2, hemoglobin 12.3, platelet 96, potassium 4.9, BUN 109, creatinine 1.87 Imaging: Chest x-ray independently interpreted, shows persistent left lower lobe opacity. Head CT did not show any acute process. EEG showed background slowing suggestive of moderate to severe encephalopathy, sharp and slow waves over bilateral temporal region but no clear epileptiform discharges or seizures on the EEG. Assessment and Plan: Further discussion with family, if no significant neurological activity despite extended sedation holiday, may consider terminal extubation. Septic shock with acute hypoxemic and hypercarbic respiratory failure Hypoglycemia related to sepsis, resolved Community-acquired pneumonia Streptococcus pneumonia bacteremia COPD exacerbation -ICU following, vent settings Off of vasopressors - Continue Pulmicort twice daily, Solu-Medrol 40 IV every 8 hours, DuoNebs 4 times daily, every 2 hours as needed, Perforomist twice daily -Repeat blood cultures negative growth to date - ID following, on IV Unasyn 3 g every 8 hours Acute kidney injury, improving Chronic diastolic heart failure, not in exacerbation Decompensated liver cirrhosis -Discussed management with nephrology, IV fluids changed to 0.45 normal saline at 75 cc an hour Off of vasopressors - Repeat BMP tomorrow - Urine output improving Mild thrombocytopenia, likely in the setting of liver cirrhosis GERD Tobacco dependence BPH Permanent atrial fibrillation -Home medications reviewed and reconciled DVT ppx: Xarelto Code status: Full code Anticipated discharge place: Pending clinical course Anticipated discharge time: Pending clinical course Objective - Vital Signs Vital signs: Vital Signs Temp 99.3 F 02/13/24 08:00 Pulse 85 02/13/24 11:16 Resp 25 H 02/13/24 10:00 BP 112/57 02/12/24 12:00 Pulse Ox 95 04/26/24 10:00 FiO2 50 02/13/24 11:05 Intake & Output 02/12/24 02/13/24 02/13/24 18:59 06:59 18:59 Intake Total 1746.479 5454 443 Output Total 770 940 625 Balance 572.434 300 -182 Intake: IV 930 930 313 .9ns pressure bag 3 Invasive Line 3 30 30 10 Sodium Chloride 0.9% 1, 900 900 300 000 ml @ 75 mls/hr IV . [id number] [facility] Rx#:[id number] Intake, IV Titration 292.434 Amount Ampicillin-Sulbactam 3 gm 100 In Sodium Chloride 0.9% 100 ml @ 200 mls/hr IVPB Q12HR [facility] Rx#:[id number] Vasopressin 60 unit In 89.148 Sodium Chloride 0.9% 150 ml @ 0.03 UNITS/MIN 4.59 mls/hr IV .Q24H [facility] Rx#: [id number] propofoL 1,000 mg In 103.286 Empty Bag 1 bag @ 40 MCG/ KG/MIN 34.074 mls/hr IV . Q2H57M [facility] Rx#:[id number] Oral 100 Tube Feeding 20 220 100 Other 90 30 Output: Urine 770 940 625 Other: Voiding Method Indwelling Catheter Indwelling Catheter Indwelling Catheter ABP, PAP, CO, CI - Last Documented Arterial Blood Pressure 140/64 - Labs CBC & Chem 7: 02/13/24 04:00 02/13/24 04:00 Labs: Abnormal Lab Results - Last 24 Hours (Table) 02/12/24 02/12/24 02/12/24 Range/Units 11:49 16:15 16:15 WBC (3.8-10.6) k/uL RBC (4.30-5.90) m/uL Hgb (13.0-17.5) gm/dL Hct (39.0-53.0) % MCV (80.0-100.0) fL MCH (25.0-35.0) pg RDW (11.5-15.5) % Plt Count (150-450) k/uL Neutrophils # (Manual) (1.3-7.7) k/uL Lymphocytes # (Manual) (1.0-4.8) k/uL Monocytes # (Manual) (0-1.0) k/uL Myelocytes # (Manual) (0) k/uL Nucleated RBCs (0-0) /100 WBC Macrocytosis ABG pO2 (83-108) mmHg ABG HCO3 (21-25) mmol/L ABG Total CO2 (19-24) mmol/L ABG O2 Saturation (94-97) % Chloride (98-107) mmol/L BUN (9-20) mg/dL Creatinine (0.66-1.25) mg/dL Glucose (74-99) mg/dL POC Glucose (mg/dL) 163 H (70-110) mg/dL Total Bilirubin (0.2-1.3) mg/dL Ammonia 56 H (<30) umol/L Total Protein (6.3-8.2) g/dL Albumin (3.5-5.0) g/dL Vitamin B12 >3600.0 H (200.0-944.0) pg/mL 02/12/24 02/13/24 02/13/24 Range/Units 17:40 00:01 04:00 WBC 12.2 H (3.8-10.6) k/uL RBC 3.49 L (4.30-5.90) m/uL Hgb 12.3 L (13.0-17.5) gm/dL Hct 38.4 L (39.0-53.0) % MCV 110.0 H (80.0-100.0) fL MCH 35.3 H (25.0-35.0) pg RDW 15.9 H (11.5-15.5) % Plt Count 96 L (150-450) k/uL Neutrophils # (Manual) 10.25 H (1.3-7.7) k/uL Lymphocytes # (Manual) 0.85 L (1.0-4.8) k/uL Monocytes # (Manual) 1.10 H (0-1.0) k/uL Myelocytes # (Manual) 0.12 H (0) k/uL Nucleated RBCs 4 H (0-0) /100 WBC Macrocytosis Marked A ABG pO2 (83-108) mmHg ABG HCO3 (21-25) mmol/L ABG Total CO2 (19-24) mmol/L ABG O2 Saturation (94-97) % Chloride (98-107) mmol/L BUN (9-20) mg/dL Creatinine (0.66-1.25) mg/dL Glucose (74-99) mg/dL POC Glucose (mg/dL) 139 H 139 H (70-110) mg/dL Total Bilirubin (0.2-1.3) mg/dL Ammonia (<30) umol/L Total Protein (6.3-8.2) g/dL Albumin (3.5-5.0) g/dL Vitamin B12 (200.0-944.0) pg/mL 02/13/24 02/13/24 02/13/24 Range/Units 04:00 06:10 06:42 WBC (3.8-10.6) k/uL RBC (4.30-5.90) m/uL Hgb (13.0-17.5) gm/dL Hct (39.0-53.0) % MCV (80.0-100.0) fL MCH (25.0-35.0) pg RDW (11.5-15.5) % Plt Count (150-450) k/uL Neutrophils # (Manual) (1.3-7.7) k/uL Lymphocytes # (Manual) (1.0-4.8) k/uL Monocytes # (Manual) (0-1.0) k/uL Myelocytes # (Manual) (0) k/uL Nucleated RBCs (0-0) /100 WBC Macrocytosis ABG pO2 82 L (83-108) mmHg ABG HCO3 30 H (21-25) mmol/L ABG Total CO2 31 H (19-24) mmol/L ABG O2 Saturation 97.1 H (94-97) % Chloride 115 H (98-107) mmol/L BUN 109 H* (9-20) mg/dL Creatinine 1.87 H (0.66-1.25) mg/dL Glucose 148 H (74-99) mg/dL POC Glucose (mg/dL) 142 H (70-110) mg/dL Total Bilirubin 4.0 H (0.2-1.3) mg/dL Ammonia (<30) umol/L Total Protein 6.0 L (6.3-8.2) g/dL Albumin 2.1 L (3.5-5.0) g/dL Vitamin B12 (200.0-944.0) pg/mL Microbiology - Last 24 Hours (Table) 02/10/24 14:35 Blood Culture - Preliminary Blood 02/10/24 14:23 Blood Culture - Preliminary Blood
[2024-02-13 11:44] LABS: Glucose,Whole Blood 131 mg/dL (70-110)
--- NOTE | 2024-02-13 11:49 | P.PN ---
Subjective Progress Note Date: 02/13/24 Principal diagnosis: Respiratory failure. This is a 73-year-old white male, known history of liver cancer, receiving treatment at [facility]. History of COPD, chronic atrial fibrillation, history of congestive heart failure, tobacco dependence syndrome, patient was brought into the ER this morning by EMS, apparently the patient has been complaining of shortness of breath for the last couple of days. Today his shortness of breath has become more pronounced, and his pulse ox was noted to be in the 70s. EMS was called, and upon arrival patient was placed on BiPAP, and he was noted to have significant wheezing. Brought into the ER, and the patient was in extreme respiratory distress, did not tolerate BiPAP, intubated by ER physician, and I was asked to see the patient on consultation. Patient is now on assist-control rate of 20 tidal volume 450 FiO2 of 100% and PEEP of 5 ABG showed a pO2 of 108 pCO2 53 pH of 7.04. Vent settings were changed, increase his rate up to 24 cut down FiO2 to 80% increased PEEP to 8 and considering his metabolic acidosis I recommended 3 A of bicarb and 1 L of D5W running at 50 cc/h. Follow-up ABG will be done in few hours. Workup in the ER included chest x-ray which clearly showed significant consolidation in the left lower lobe and in the left perihilar area. CT of the head showed mild cerebral atrophy, no acute intracranial process, there was a layering of fluid within the paranasal sinuses consistent with acute sinusitis. CT angiogram of the chest was a suboptimal to diagnose pulmonary embolism, remind you patient is on Xarelto it did show evidence of pulmonary hypertension, severe consolidation throughout the left lower lobe extending into the lingula and a lesser consolidation noted in the right infrahilar area/right base. Posteriorly. Which raises the possibility of aspiration pneumonitis. There is a background COPD with moderate emphysema, and there is an apical nodule measuring 8 mm apparently this was noted on a previous CT of the chest measuring 5 mm back on 11/18/22. This is likely malignant, and according to the family this has been noted at [facility] and they are keeping an eye and close watch on it Progress note dated February 09, 2024. This is a 73-year-old male who is seen today in room 265. He was admitted yesterday, for respiratory failure and COPD. The patient has a history of liver cancer. The patient remains on the mechanical ventilator for respiratory failur e, with settings of volume assist-control, rate 24, tidal volume 500, FiO2 80%, PEEP of 8. Blood gases show pO2 of 89, pCO2 of 50, and a pH of 7.29. In an attempt to reduce the FiO2, the PEEP was increased from 8 to 12 cm of water. The patient was intubated yesterday, on February 08. He continues on propofol at 35 mcg/kg/min, and norepinephrine at 22 mcg/min. Is getting a sodium bicarbonate drip, with 3 ampoules of sodium bicarb in D5W at 75 cc an hour. He is also getting vancomycin and cefepime, and he was started on vital HP at 10 cc an hour, awaiting a dietary evaluation. White count is 10.8, hemoglobin 14.3, hematocrit 46.9, and a platelet count is currently pending. Sodium 141, pot assium 5.3, chlorides 110, CO2 21, anion gap 10, BUN 34, and creatinine 2.39. Lactic acid is 8.5. Calcium is 7.7. Magnesium is 2.0. Blood cultures show evidence of Streptococcus pneumoniae. Chest x-ray shows bilateral mid and lower lung airspace disease. Progress note dated February 10, 2024. This is a 73-year-old male who is seen today in room 265. He was admitted on the , for respiratory failure and COPD. The patient has a history of liver cancer. The patient continues on the mechanical ventilator. Settings include volume assist-control, rate 24, tidal volume 500, FiO2 70%, PEEP of 12. Blood gases show pO2 76, pCO2 of 56, pH is 7.32. The patient is getting dextrose with saline at 75 cc an hour, propofol at 35 mcg/kg/min, vasopressin at 0.03 units/min, norepinephrine at 18 mcg/min, and vital AF at 42 cc an hour which is goal. The patient had streptococci in the blood, and for that he is on Zosyn. We did speak to his olnrujrj-kc-tiv today. White count 13, hemoglobin 13.2, hematocrit 40.8, platelet count 121,000. Sodium 140, potassium 4.8, chloride 110, CO2 28, BUN 55, creatinine 2.89. Calcium is 7.7. Glucose is 164. Blood cultures are positive for Streptococcus pneumoniae. Chest x-ray is unchanged. Progress note dated February 11, 2024. 73-year-old male seen today in room 265. The patient was admitted on 07 February, for respiratory failure and COPD. The patient does have a history of liver cancer. The patient remains on the mechanical ventilator. His condition is essentially unchanged. He is on volume assist-control, rate 24, tidal volume 500, FiO2 50%, PEEP of 15. Blood gases show pO2 of 87, pCO2 of 53, and a pH of 7.35. The patient is getting saline at 75 cc an hour, and vital, at 42 cc an hour, which is goal. Propofol was held, for daily interruption of sedation. The patient was not responsive, but was asynchronous with the ventilator, so propofol was restarted. In addition, the patient continues on Unasyn. White count is 14.3, hemoglobin 12.8, hematocrit 39.8, platelet count 208,000. Sodium 141, potassium 4.8, chlorides 111, CO2 28, BUN 78, creatinine 2.72, glucose 157, and albumin 2.2. Blood cultures are positive for Streptococcus pneumoniae. Sputum Gram stain is also positive for the same organism. Chest x-ray shows cardiomegaly, and patchy bilateral infiltrates. Progress note dated February 12, 2024. 73-year-old male seen in room 265. Patient was admitted on February 07 for respiratory failure and COPD. The patient does have a history of liver cancer. Patient remains on the ventilator. Ventilator settings include volume assist- control, rate 24, tidal volume 500, FiO2 50%, PEEP of 15. Blood gases show pO2 of 87, pCO2 of 52, pH is 7.37. The patient continues on Unasyn. The patient is also on propofol at 5 mcg/kg/min, saline at 75 cc an hour, and vasopressin at 0.03 units/min. Will add some Reglan 10 mg every 6 for, high residuals. In addition, tube feedings are currently on hold. We will do a daily interruption of sedation today. Current white count 10.5, hemoglobin 12.5, hematocrit 38.9, platelet count 78,000. Sodium 142, potassium 4.9, chlorides 112, CO2 28, BUN 95, creatinine 2.26. Glucose 163. Calcium 8. Albumin 2.1. Blood cultures and sputum cultures show evidence of Streptococcus pneumoniae. Chest x-ray shows changes of COPD, was a small left-sided pleural effusion. Lower lung capacities are improved. Progress note dated February 13, 2024. 73-year-old male seen in [facility]. The patient remains in the intensive care unit, on the ventilator. He was admitted on February 07 for respiratory failure and COPD. He does have a history of liver cancer. Current ventilator settings include volume assist-control, rate 24, tidal volume 500, FiO2 50%, PEEP of 12. Blood gases show pO2 of 82, pCO2 44, pH is 7.44. The patient is getting saline at 75 cc an hour. He is getting vital AF at 20, which is goal. He continues on Unasyn. The patient had an EEG which showed slowing, consistent with anoxic/metabolic encephalopathy. The patient has been off of propofol since 10:00 AM, on February 11. The patient may end up having a lumbar puncture later today. Current white count 12.2, hemoglobin 12.3, hematocrit 38.4, and platelet count was 96,000. Sodium 145, potassium 4.9, chlorides 115, CO2 30, BUN 109, creatinine 1.87. Glucose is 131. Albumin 2.1. Calcium 8.5. Bilirubin is 4.0. Previous cultures were positive for Streptococcus pneumoniae, both in sputum and blood. Chest x-ray shows small bilateral pleural effusions, and some atelectatic changes at the bases. Objective - Vital Signs Vital signs: Vital Signs Temp 99.3 F 02/13/24 08:00 Pulse 85 02/13/24 11:16 Resp 22 02/13/24 11:00 BP 112/57 02/12/24 12:00 Pulse Ox 96 02/13/24 11:00 FiO2 50 02/13/24 11:05 Intake & Output 02/12/24 02/13/24 02/13/24 18:59 06:59 18:59 Intake Total 6527.699 5112 443 Output Total 770 940 625 Balance 572.434 300 -182 Intake: IV 930 930 313 .9ns pressure bag 3 Invasive Line 3 30 30 10 Sodium Chloride 0.9% 1, 900 900 300 000 ml @ 75 mls/hr IV . [id number] [facility] Rx#:[id number] Intake, IV Titration 292.434 Amount Ampicillin-Sulbactam 3 gm 100 In Sodium Chloride 0.9% 100 ml @ 200 mls/hr IVPB Q12HR [facility] Rx#:[id number] Vasopressin 60 unit In 89.148 Sodium Chloride 0.9% 150 ml @ 0.03 UNITS/MIN 4.59 mls/hr IV .Q24H [facility] Rx#: [id number] propofoL 1,000 mg In 103.286 Empty Bag 1 bag @ 40 MCG/ KG/MIN 34.074 mls/hr IV . Q2H57M [facility] Rx#:[id number] Oral 100 Tube Feeding 20 220 100 Other 90 30 Output: Urine 770 940 625 Other: Voiding Method Indwelling Catheter Indwelling Catheter Indwelling Catheter ABP, PAP, CO, CI - Last Documented Arterial Blood Pressure 133/64 - Exam No acute distress, off of all sedation, with an orally placed endotracheal tube. HEENT examination is grossly unremarkable. Neck supple. Full range of motion. No adenopathy thyromegaly or neck vein distention. Cardiovascular examination reveals regular rhythm rate. S1-S2 normal. No S3 or S4. No discernible murmur noted. Heart rate 85 bpm. Lungs reveal coarse bilateral rhonchi and expiratory wheezes. No crackles. Breath sounds equal. Saturations are 96 %. Abdomen soft with bowel sounds. Extremities are intact. No cyanosis clubbing or edema. Skin is without rash or lesion. Neurologic examination cannot be assessed at this time. - Labs CBC & Chem 7: 02/13/24 04:00 02/13/24 04:00 Labs: Abnormal Lab Results - Last 24 Hours (Table) 02/12/24 02/12/24 02/12/24 Range/Units 11:49 16:15 16:15 WBC (3.8-10.6) k/uL RBC (4.30-5.90) m/uL Hgb (13.0-17.5) gm/dL Hct (39.0-53.0) % MCV (80.0-100.0) fL MCH (25.0-35.0) pg RDW (11.5-15.5) % Plt Count (150-450) k/uL Neutrophils # (Manual) (1.3-7.7) k/uL Lymphocytes # (Manual) (1.0-4.8) k/uL Monocytes # (Manual) (0-1.0) k/uL Myelocytes # (Manual) (0) k/uL Nucleated RBCs (0-0) /100 WBC Macrocytosis ABG pO2 (83-108) mmHg ABG HCO3 (21-25) mmol/L ABG Total CO2 (19-24) mmol/L ABG O2 Saturation (94-97) % Chloride (98-107) mmol/L BUN (9-20) mg/dL Creatinine (0.66-1.25) mg/dL Glucose (74-99) mg/dL POC Glucose (mg/dL) 163 H (70-110) mg/dL Total Bilirubin (0.2-1.3) mg/dL Ammonia 56 H (<30) umol/L Total Protein (6.3-8.2) g/dL Albumin (3.5-5.0) g/dL Vitamin B12 >3600.0 H (200.0-944.0) pg/mL 02/12/24 02/13/24 02/13/24 Range/Units 17:40 00:01 04:00 WBC 12.2 H (3.8-10.6) k/uL RBC 3.49 L (4.30-5.90) m/uL Hgb 12.3 L (13.0-17.5) gm/dL Hct 38.4 L (39.0-53.0) % MCV 110.0 H (80.0-100.0) fL MCH 35.3 H (25.0-35.0) pg RDW 15.9 H (11.5-15.5) % Plt Count 96 L (150-450) k/uL Neutrophils # (Manual) 10.25 H (1.3-7.7) k/uL Lymphocytes # (Manual) 0.85 L (1.0-4.8) k/uL Monocytes # (Manual) 1.10 H (0-1.0) k/uL Myelocytes # (Manual) 0.12 H (0) k/uL Nucleated RBCs 4 H (0-0) /100 WBC Macrocytosis Marked A ABG pO2 (83-108) mmHg ABG HCO3 (21-25) mmol/L ABG Total CO2 (19-24) mmol/L ABG O2 Saturation (94-97) % Chloride (98-107) mmol/L BUN (9-20) mg/dL Creatinine (0.66-1.25) mg/dL Glucose (74-99) mg/dL POC Glucose (mg/dL) 139 H 139 H (70-110) mg/dL Total Bilirubin (0.2-1.3) mg/dL Ammonia (<30) umol/L Total Protein (6.3-8.2) g/dL Albumin (3.5-5.0) g/dL Vitamin B12 (200.0-944.0) pg/mL 02/13/24 02/13/24 02/13/24 Range/Units 04:00 06:10 06:42 WBC (3.8-10.6) k/uL RBC (4.30-5.90) m/uL Hgb (13.0-17.5) gm/dL Hct (39.0-53.0) % MCV (80.0-100.0) fL MCH (25.0-35.0) pg RDW (11.5-15.5) % Plt Count (150-450) k/uL Neutrophils # (Manual) (1.3-7.7) k/uL Lymphocytes # (Manual) (1.0-4.8) k/uL Monocytes # (Manual) (0-1.0) k/uL Myelocytes # (Manual) (0) k/uL Nucleated RBCs (0-0) /100 WBC Macrocytosis ABG pO2 82 L (83-108) mmHg ABG HCO3 30 H (21-25) mmol/L ABG Total CO2 31 H (19-24) mmol/L ABG O2 Saturation 97.1 H (94-97) % Chloride 115 H (98-107) mmol/L BUN 109 H* (9-20) mg/dL Creatinine 1.87 H (0.66-1.25) mg/dL Glucose 148 H (74-99) mg/dL POC Glucose (mg/dL) 142 H (70-110) mg/dL Total Bilirubin 4.0 H (0.2-1.3) mg/dL Ammonia (<30) umol/L Total Protein 6.0 L (6.3-8.2) g/dL Albumin 2.1 L (3.5-5.0) g/dL Vitamin B12 (200.0-944.0) pg/mL Microbiology - Last 24 Hours (Table) 02/10/24 14:35 Blood Culture - Preliminary Blood 02/10/24 14:23 Blood Culture - Preliminary Blood Assessment and Plan Assessment: Acute hypoxemic and hypercapnic respiratory failure, secondary to COPD exacerbation, complicated by bilateral suspected aspiration pneumonia. S/P intubation and mechanical ventilation on February 07, for respiratory failure. Streptococcus pneumoniae tracheobronchitis/bronchopneumonia, and bacteremia. Anoxic/metabolic encephalopathy. History of liver cancer, being treated at [facility]. Paroxysmal atrial fibrillation. History of congestive heart failure. History of acute COPD exacerbation. Tobacco dependence syndrome. History of hepatitis C. History of alcoholism. Gastroesophageal reflux disease. History of liver cirrhosis. History of IV drug use. History of portal hypertension and esophageal varices. Acute anion gap metabolic acidosis. Acute kidney injury with possible ATN. Plan: Plan dated February 09, 2024. A arterial line was placed on this patient. We had to use a right femoral space for the arterial line. Labs, x-rays, and medications are reviewed. The patient continues on propofol at 35 mcg/kg/min, norepinephrine at 22 mcg/min. Patient also continues on a sodium bicarb drip 75 cc an hour. The patient continues on vancomycin and cefepime. Cultures were positive for Streptococcus pneumoniae. We will continue to follow make recommendations along the way. In addition, the PEEP was increased from 8-12, in an attempt to wean the FiO2. His susabcug-[id number]-eoz is a nurse on the fourth floor, and we did speak to her today, and gave her an update. Plan dated February 10, 2024. The patient is seen today in room 265. The patient remains on the mechanical ventilator. We increased the PEEP from 12 to 15 cm of water, to see if we cannot wean down the FiO2. The patient continues on dextrose and saline at 75 cc an hour, propofol at 35 mcg/kg/min, vasopressin at 0.04 units/min, and norepinephrine 18 mcg/min. The patient continues on Zosyn for streptococci in his blood stream. The patient is getting vital AF at 42 cc an hour which is goal. Overall prognosis remains very guarded. We will continue to follow the patient, make recommendations along the way. We did speak to the patient's ejuhjptd-dy-bod today. Prognosis is certainly guarded. Plan dated February 11, 2024. The patient is seen today in room 265. I do have the opportunity speak to the patient's son and [id number]. I told him that basically he remains relatively stable, but critically ill. The patient continues on Unasyn for the streptococci, and his sputum, and blood. Currently, the patient is also on propofol, as it was turned off for daily interruption of sedation. The patient has improved and sense that his blood pressure is much more stable, and yesterday as you remember he was on both vasopressin and norepinephrine. Labs, x-rays, and medications are reviewed. We will continue to follow make recommendations along the way. Prognosis is guarded. Plan dated February 12, 2024. The patient is seen today in room 265. Labs, x-rays, medications are reviewed. The patient is doing about the same overall. The patient is overall prognosis is poor. The patient is back on vasopressin. I did have a chance to speak to the family today. The patient had a daily interruption of sedation, but apparently did not improve neurologically. We have ordered an EEG. He may need a repeat CT scan. Additional recommendations and suggestions are forthcoming. We will continue to follow make recommendations. Prognosis as mentioned above, is guarded. Plan dated February 13, 2024. The patient is seen today in room 265. The patient is currently not on any vasopressors at this time. Unfortunately, his mental status is very poor, and the patient has been off of propofol since 10:00 on February 11. The patient's EEG showed abnormal slowing, consistent with toxic/metabolic encephalopathy. The patient is getting saline at 75 cc an hour. He will be converted to lactated Ringer's. The patient is getting tube feedings at goal. He continues on Unasyn for streptococcal infection. Blood gases are reasonable. The patient's overall prognosis remains guarded. We will continue to follow make recommendations along the way. Time with Patient: Greater than 30
[2024-02-13] MEDS: SODIUM CHLORIDE 0.45% 1,000 ML IV ONE (11:52)
--- NOTE | 2024-02-13 12:09 | XR ---
EXAMINATION TYPE: XR chest 1V portable DATE OF EXAM: 02/13/2024 Comparison: 02/12/2024 Clinical History: 73-year-old male Intubated Findings: ET tube tube tip not well-seen but appear satisfactory. NG tube courses below the diaphragm. Leftward patient rotation alters the normal cardiomediastinal contours. Heart may be borderline in size. Diff use interstitial densities persist. Retrocardiac and left basilar opacity similar to slightly increas ed. Impression: Interstitial densities are similar, possible mild pulmonary vascular congestion. Patchy retrocardiac and left basilar opacity slightly worsened.
--- NOTE | 2024-02-13 15:40 | P.PN ---
Subjective Progress Note Date: 02/13/24 I am following-up with patient and per daughter and girlfriend, they feel patient is doing slightly better and when daughter touch his hand she felt he felt it. Objective - Vital Signs Vital signs: Vital Signs Temp 98.4 F 02/13/24 12:00 Pulse 92 02/13/24 15:08 Resp 24 02/13/24 15:00 BP 112/57 02/12/24 12:00 Pulse Ox 98 02/13/24 15:00 FiO2 100 02/13/24 14:55 Intake & Output 02/12/24 02/13/24 02/13/24 18:59 06:59 18:59 Intake Total 8540.335 5046 963 Output Total 770 940 910 Balance 572.434 300 53 Intake: IV 930 930 713 .9ns pressure bag 18 Invasive Line 3 30 30 20 Sodium Chloride 0.9% 1, 900 900 675 000 ml @ 75 mls/hr IV . [id number] [facility] Rx#:[id number] Intake, IV Titration 292.434 Amount Ampicillin-Sulbactam 3 gm 100 In Sodium Chloride 0.9% 100 ml @ 200 mls/hr IVPB Q12HR [facility] Rx#:[id number] Vasopressin 60 unit In 89.148 Sodium Chloride 0.9% 150 ml @ 0.03 UNITS/MIN 4.59 mls/hr IV .Q24H [facility] Rx#: [id number] propofoL 1,000 mg In 103.286 Empty Bag 1 bag @ 40 MCG/ KG/MIN 34.074 mls/hr IV . Q2H57M [facility] Rx#:[id number] Oral 100 Tube Feeding 20 220 220 Other 90 30 Output: Urine 770 940 910 Other: Voiding Method Indwelling Catheter Indwelling Catheter Indwelling Catheter ABP, PAP, CO, CI - Last Documented Arterial Blood Pressure 133/58 - Exam General: Lying in bed and does not appear in acute distress. HENT: Supple neck Resp: Intubated on ventilator. Neuro: Limited. Sedation held. Patient is comatose GCS 3 (E1, VT1, M1) I had to manually open his eyes. Primary gaze is midline. Pupils are round, equal and reactive to light. Pupils are 3mm bilaterally. No facial weakness form limitation of exam. Motor: Strength unable to assess. No spontaneous movement. some other workup during his hospital visit consisted of: his temperature was as high as 100.7F patient was having the fevers the first 2 days of his hospital visit but has resolved 2 days ago. on initial presentation his white blood cells is normal (10K) then trending up slight and now resolved. serum glucose is 188 Magnesium is 2.3 most recent AST is 61and ALT of 31. CT of the head is reported as mild cerebral atrophy and moderate patchy of burden of chronic small vessel ischemic disease. No acute intracranial ab normality seen. CT cervical spine is reported as a no acute fracture or malalignment of the cervical spine. Moderate spondylitic change. Layering fluid within the paranasal sinus. Correlate for acute sinusitis. Possible suspicious pulmonary nodule at the right upper lobe partially seen. patient Gram stain of sputum culture is a strep pneumo. Blood culture is strep pneumo. Ammonia level 56 Folate 12.9 Vitamin B12 >3600 routine EEG is abnormal. The practical slowing suggestive of metabolic to severe encephalopathy. They're sharp a activity over bilateral temporal region but no clear epileptiform discharges or seizure. the triphasic wave is due to toxic metabolic derangement. Repeat CT head: no significant abnormality seen. - Labs CBC & Chem 7: 02/13/24 04:00 02/13/24 04:00 Labs: Abnormal Lab Results - Last 24 Hours (Table) 02/12/24 02/12/24 02/12/24 Range/Units 16:15 16:15 17:40 WBC (3.8-10.6) k/uL RBC (4.30-5.90) m/uL Hgb (13.0-17.5) gm/dL Hct (39.0-53.0) % MCV (80.0-100.0) fL MCH (25.0-35.0) pg RDW (11.5-15.5) % Plt Count (150-450) k/uL Neutrophils # (Manual) (1.3-7.7) k/uL Lymphocytes # (Manual) (1.0-4.8) k/uL Monocytes # (Manual) (0-1.0) k/uL Myelocytes # (Manual) (0) k/uL Nucleated RBCs (0-0) /100 WBC Macrocytosis ABG pO2 (83-108) mmHg ABG HCO3 (21-25) mmol/L ABG Total CO2 (19-24) mmol/L ABG O2 Saturation (94-97) % Chloride (98-107) mmol/L BUN (9-20) mg/dL Creatinine (0.66-1.25) mg/dL Glucose (74-99) mg/dL POC Glucose (mg/dL) 139 H (70-110) mg/dL Total Bilirubin (0.2-1.3) mg/dL Ammonia 56 H (<30) umol/L Total Protein (6.3-8.2) g/dL Albumin (3.5-5.0) g/dL Vitamin B12 >3600.0 H (200.0-944.0) pg/mL 02/13/24 02/13/24 02/13/24 Range/Units 00:01 04:00 04:00 WBC 12.2 H (3.8-10.6) k/uL RBC 3.49 L (4.30-5.90) m/uL Hgb 12.3 L (13.0-17.5) gm/dL Hct 38.4 L (39.0-53.0) % MCV 110.0 H (80.0-100.0) fL MCH 35.3 H (25.0-35.0) pg RDW 15.9 H (11.5-15.5) % Plt Count 96 L (150-450) k/uL Neutrophils # (Manual) 10.25 H (1.3-7.7) k/uL Lymphocytes # (Manual) 0.85 L (1.0-4.8) k/uL Monocytes # (Manual) 1.10 H (0-1.0) k/uL Myelocytes # (Manual) 0.12 H (0) k/uL Nucleated RBCs 4 H (0-0) /100 WBC Macrocytosis Marked A ABG pO2 (83-108) mmHg ABG HCO3 (21-25) mmol/L ABG Total CO2 (19-24) mmol/L ABG O2 Saturation (94-97) % Chloride 115 H (98-107) mmol/L BUN 109 H* (9-20) mg/dL Creatinine 1.87 H (0.66-1.25) mg/dL Glucose 148 H (74-99) mg/dL POC Glucose (mg/dL) 139 H (70-110) mg/dL Total Bilirubin 4.0 H (0.2-1.3) mg/dL Ammonia (<30) umol/L Total Protein 6.0 L (6.3-8.2) g/dL Albumin 2.1 L (3.5-5.0) g/dL Vitamin B12 (200.0-944.0) pg/mL 02/13/24 02/13/24 02/13/24 Range/Units 06:10 06:42 11:42 WBC (3.8-10.6) k/uL RBC (4.30-5.90) m/uL Hgb (13.0-17.5) gm/dL Hct (39.0-53.0) % MCV (80.0-100.0) fL MCH (25.0-35.0) pg RDW (11.5-15.5) % Plt Count (150-450) k/uL Neutrophils # (Manual) (1.3-7.7) k/uL Lymphocytes # (Manual) (1.0-4.8) k/uL Monocytes # (Manual) (0-1.0) k/uL Myelocytes # (Manual) (0) k/uL Nucleated RBCs (0-0) /100 WBC Macrocytosis ABG pO2 82 L (83-108) mmHg ABG HCO3 30 H (21-25) mmol/L ABG Total CO2 31 H (19-24) mmol/L ABG O2 Saturation 97.1 H (94-97) % Chloride (98-107) mmol/L BUN (9-20) mg/dL Creatinine (0.66-1.25) mg/dL Glucose (74-99) mg/dL POC Glucose (mg/dL) 142 H 131 H (70-110) mg/dL Total Bilirubin (0.2-1.3) mg/dL Ammonia (<30) umol/L Total Protein (6.3-8.2) g/dL Albumin (3.5-5.0) g/dL Vitamin B12 (200.0-944.0) pg/mL Microbiology - Last 24 Hours (Table) 02/10/24 14:35 Blood Culture - Preliminary Blood 02/10/24 14:23 Blood Culture - Preliminary Blood Assessment and Plan Assessment: this is a 73-year-old gentleman who presents because of shortness of breath.patient was found to be hypoxic and hypercapnic secondary due to COPD exacerbation, bilateral suspected aspiration pneumonia. As a result the patient was intubated on a ventilator. Alternate is status due to multifactorial due to underlying pneumonia, metabolic encephalopathy, acute kidney injury, hyperammonemia, medication induced patient is on IV propofol. Has sharp activity over the left temporal/central but no lakhwinder ar epileptiform or seizure. 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 Again there is no clear epileptiform discharge or seizure on the EEG. Will get repeat CT EEG. For elevated ammonia will defer management to primary. Notified the patient's family I cannot rule out meningeal encephalitis which seems unlikely. his white blood cell and fever has normalized. If patient mentation does not improve by tomorrow then will consider Lumbar puncture. ID is on board and we'll defer modification of antibiotic and infection management to the ID team. nephrology is on board We'll defer the rest of the medical measure the primary and other specialists The plan was discussed with family members, primary attending. Time with Patient: Less than 30
[2024-02-13 17:37] LABS: Glucose,Whole Blood 144 mg/dL (70-110)
--- NOTE | 2024-02-13 21:10 | P.PN ---
Subjective Progress Note Date: 02/13/24 Principal diagnosis: Reason for follow-up is sepsis and pneumonia/ bacteremia Patient is a 73-year-old male with a past medical history significant for atrial fibrillation heart failure reflux, alcoholic use/hepatitis C former IV drug user hepatocellular carcinoma s/p radiation therapy patient has been brought into the hospital for evaluation of increasing shortness of breath patient did have a significant hypoxemia requiring intubation and admission to the ICU and there was left-sided consolidation on the CT blood culture positive for Streptococcus pneumoniae On today's evaluation that is 02/13/2024, the patient continues to be afebrile, the patient is on the vent FiO2 50% no significant purulent secretions through the ET or diarrhea has been reported, patient is hemodynamic stable not requiring pressor support however the patient not waking up with the nursing sta ff. Patient white count slightly up to 12.2 today, creatinine is 1.87 blood culture repeat has been negative so far Objective - Vital Signs Vital signs: Vital Signs Temp 99.6 F 02/13/24 20:00 Pulse 81 02/13/24 21:00 Resp 24 02/13/24 21:00 BP 112/57 02/12/24 12:00 Pulse Ox 98 02/13/24 21:00 FiO2 100 02/13/24 21:06 Intake & Output 02/13/24 02/13/24 02/14/24 06:59 18:59 06:59 Intake Total 1240 1417 236 Output Total 940 1625 100 Balance 300 -208 136 Weight 141.974 kg Intake: IV 930 1057 166 .9ns pressure bag 27 6 Ampicillin-Sulbactam 3 gm 100 In Sodium Chloride 0.9% 100 ml @ 200 mls/hr IVPB Q8HR [facility] Rx#:[id number] Invasive Line 3 30 30 10 Sodium Chloride 0.45% 1, 150 150 000 ml @ 75 mls/hr IV . [id number] Rx#:[id number] Sodium Chloride 0.9% 1, 900 750 000 ml @ 75 mls/hr IV . [id number] [facility] Rx#:[id number] Tube Feeding 220 300 40 Other 90 60 30 Output: Urine 940 1625 100 Other: Voiding Method Indwelling Catheter Indwelling Catheter ABP, PAP, CO, CI - Last Documented Arterial Blood Pressure 134/65 - Exam GENERAL DESCRIPTION: An elderly male intubated on the vent RESPIRATORY SYSTEM: Unlabored breathing , decreased breath sounds at bases HEART: S1 S2 regular rate and rhythm , ABDOMEN: Soft , no tenderness EXTREMITIES: Swelling to the leg but no redness - Labs CBC & Chem 7: 02/13/24 04:00 02/13/24 04:00 Labs: Abnormal Lab Results - Last 24 Hours (Table) 02/12/24 02/13/24 02/13/24 Range/Units 16:15 00:01 04:00 WBC 12.2 H (3.8-10.6) k/uL RBC 3.49 L (4.30-5.90) m/uL Hgb 12.3 L (13.0-17.5) gm/dL Hct 38.4 L (39.0-53.0) % MCV 110.0 H (80.0-100.0) fL MCH 35.3 H (25.0-35.0) pg RDW 15.9 H (11.5-15.5) % Plt Count 96 L (150-450) k/uL Neutrophils # (Manual) 10.25 H (1.3-7.7) k/uL Lymphocytes # (Manual) 0.85 L (1.0-4.8) k/uL Monocytes # (Manual) 1.10 H (0-1.0) k/uL Myelocytes # (Manual) 0.12 H (0) k/uL Nucleated RBCs 4 H (0-0) /100 WBC Macrocytosis Marked A ABG pO2 (83-108) mmHg ABG HCO3 (21-25) mmol/L ABG Total CO2 (19-24) mmol/L ABG O2 Saturation (94-97) % Chloride (98-107) mmol/L BUN (9-20) mg/dL Creatinine (0.66-1.25) mg/dL Glucose (74-99) mg/dL POC Glucose (mg/dL) 139 H (70-110) mg/dL Total Bilirubin (0.2-1.3) mg/dL Total Protein (6.3-8.2) g/dL Albumin (3.5-5.0) g/dL Vitamin B12 >3600.0 H (200.0-944.0) pg/mL 02/13/24 02/13/24 02/13/24 Range/Units 04:00 06:10 06:42 WBC (3.8-10.6) k/uL RBC (4.30-5.90) m/uL Hgb (13.0-17.5) gm/dL Hct (39.0-53.0) % MCV (80.0-100.0) fL MCH (25.0-35.0) pg RDW (11.5-15.5) % Plt Count (150-450) k/uL Neutrophils # (Manual) (1.3-7.7) k/uL Lymphocytes # (Manual) (1.0-4.8) k/uL Monocytes # (Manual) (0-1.0) k/uL Myelocytes # (Manual) (0) k/uL Nucleated RBCs (0-0) /100 WBC Macrocytosis ABG pO2 82 L (83-108) mmHg ABG HCO3 30 H (21-25) mmol/L ABG Total CO2 31 H (19-24) mmol/L ABG O2 Saturation 97.1 H (94-97) % Chloride 115 H (98-107) mmol/L BUN 109 H* (9-20) mg/dL Creatinine 1.87 H (0.66-1.25) mg/dL Glucose 148 H (74-99) mg/dL POC Glucose (mg/dL) 142 H (70-110) mg/dL Total Bilirubin 4.0 H (0.2-1.3) mg/dL Total Protein 6.0 L (6.3-8.2) g/dL Albumin 2.1 L (3.5-5.0) g/dL Vitamin B12 (200.0-944.0) pg/mL 02/13/24 02/13/24 Range/Units 11:42 17:35 WBC (3.8-10.6) k/uL RBC (4.30-5.90) m/uL Hgb (13.0-17.5) gm/dL Hct (39.0-53.0) % MCV (80.0-100.0) fL MCH (25.0-35.0) pg RDW (11.5-15.5) % Plt Count (150-450) k/uL Neutrophils # (Manual) (1.3-7.7) k/uL Lymphocytes # (Manual) (1.0-4.8) k/uL Monocytes # (Manual) (0-1.0) k/uL Myelocytes # (Manual) (0) k/uL Nucleated RBCs (0-0) /100 WBC Macrocytosis ABG pO2 (83-108) mmHg ABG HCO3 (21-25) mmol/L ABG Total CO2 (19-24) mmol/L ABG O2 Saturation (94-97) % Chloride (98-107) mmol/L BUN (9-20) mg/dL Creatinine (0.66-1.25) mg/dL Glucose (74-99) mg/dL POC Glucose (mg/dL) 131 H 144 H (70-110) mg/dL Total Bilirubin (0.2-1.3) mg/dL Total Protein (6.3-8.2) g/dL Albumin (3.5-5.0) g/dL Vitamin B12 (200.0-944.0) pg/mL Microbiology - Last 24 Hours (Table) 02/10/24 14:35 Blood Culture - Preliminary Blood 02/10/24 14:23 Blood Culture - Preliminary Blood Assessment and Plan (1) Pneumonia Current Visit: Yes Status: Acute Code(s): J18.9 - PNEUMONIA, UNSPECIFIED ORGANISM SNOMED Code(s): 643309905 (2) Bacteremia Current Visit: Yes Status: Acute Code(s): R78.81 - BACTEREMIA SNOMED Code(s): 6288446 (3) Leukocytosis Current Visit: Yes Status: Acute Code(s): D72.829 - ELEVATED WHITE BLOOD CELL COUNT, UNSPECIFIED SNOMED Code(s): 703937345 Plan: 1patient presented to hospital with sepsis in this patient who did have a fever tachycardia elevated white count source is likely left-sided pneumonia in this patient who is growing strep pneumo in the blood source likely pneumonia which is a pansensitive pathogen 2-patient is afebrile, the patient white count is slightly up today and will monitor closely, blood cultures so far negative 3-patient to continue with the Unasyn and monitor clinical course closely prognosis guarded Dictation was produced using [employer] dictation software. please excuse any grammatical, word or spelling errors.
[2024-02-13] MEDS: LACTULOSE 20 GM/30 ML CUP PO SCH (22:41)
[2024-02-14 00:20] LABS: Glucose,Whole Blood 173 mg/dL (70-110)
[2024-02-14 05:04] LABS: Anisocytosis Slight; HCT 37.9 % (39.0-53.0); HGB 11.4 gm/dL (13.0-17.5); Hypochromasia Moderate; MCH 34.4 pg (25.0-35.0); MCHC 30.2 g/dL (31.0-37.0); Macrocytosis Marked; Mean Platelet Volume 9.3; Platelet Count 109 k/uL (150-450); RBC 3.33 m/uL (4.30-5.90); RDW 16.5 % (11.5-15.5)
--- NOTE | 2024-02-14 05:06 | EEG ---
ELECTROENCEPHALOGRAM REPORT CLINICAL HISTORY: This is a 73-year-old gentleman with altered mental status. The video EEG is obtained to evaluate for seizure epileptiform activity. RELEVANT MEDICATION: Keppra. EEG TYPE: This is a routine 21-channel EEG with video using the 10/20 electrode placement system. DESCRIPTION: The patient is intubated on a ventilator. The background consists of [id number] voltage of polymorphic, polyrhythmic 5 to 6 hertz theta activity and at times, the background consists of diffuse polymorphic nonrhythmic delta activity. There is no physiological stage 2 sleep architecture. There is no focal slowing. Interictal and ictal is none. ACTIVATION PROCEDURE: Photic stimulation did not evoke a posterior driving response. There is no abnormality during the photic stimulation. Hyperventilation is not performed. CLINICAL INTERPRETATION: This is an abnormal routine EEG. The background slowing is suggestive of moderate-to- severe encephalopathy. Otherwise, there is no focal slowing, epileptiform discharge, or seizure on the EEG. There is no longer any sharply controlled activity that was seen on the prior EEG. Clinical correlation is recommended. HOLLIS / GLENNN: [id number] / MTDD
[2024-02-14 05:09] LABS: MCV 113.8 fL (80.0-100.0)
[2024-02-14 05:35] LABS: African American GFR (CKD) 31 (>60 ml/min/1.73 sqM); Anion Gap 3 mmol/L; Calcium 8.2 mg/dL (8.4-10.2); Carbon Dioxide 27 mmol/L (22-30); Chloride 117 mmol/L (98-107); Glucose 159 mg/dL (74-99); Magnesium 3.3 mg/dL (1.6-2.3); Non-African American GFR(CKD) 27 (>60 ml/min/1.73 sqM); Potassium 5.6 mmol/L (3.5-5.1); Sodium 147 mmol/L (137-145)
[2024-02-14 05:42] LABS: Band Neutrophils % 4 %; Lymphocytes # (M) 1.78 k/uL (1.0-4.8); Metamyelocytes # (M) 0.67 k/uL (0); Metamyelocytes % 3 %; Monocytes # (M) 0.89 k/uL (0-1.0); Myelocytes # (M) 0.22 k/uL (0); Myelocytes % 1 %; Neutrophils % (M) 80 %; Nucleated Red Blood Cells 20 /100 WBC (0-0); Total Cells Counted 200; WBC 22.3 k/uL (3.8-10.6)
[2024-02-14 05:43] LABS: Anisocytosis (M) Present; Ovalocytes Present; Poikilocytosis (M) Present; Polychromasia Present; Tear Drop Cells Present
[2024-02-14 06:01] LABS: Blood Urea Nitrogen 131 mg/dL (9-20)
[2024-02-14 06:05] LABS: Glucose,Whole Blood 187 mg/dL (70-110)
[2024-02-14 06:57] LABS: ABG Base Excess 2.1 mmol/L; ABG HCO3 28 mmol/L (21-25); ABG Oxygen Saturation 96.4 % (94-97); ABG PCO2 51 mmHg (35-45); ABG PH 7.34 (7.35-7.45); ABG PO2 84 mmHg (83-108); ABG TCO2 29 mmol/L (19-24); Allen Test Performed? Yes
--- NOTE | 2024-02-14 09:31 | XR ---
EXAMINATION TYPE: XR chest 1V portable DATE OF EXAM: 02/14/2024 Comparison: 02/13/2024 Clinical History: 73-year-old male ICU follow-up, vent Findings: ET tube is in place. NG tube courses below the diaphragm. Heart borderline enlarged. Diffuse intersti tial opacities with hyperinflation and hazy bilateral lower lung opacities. Retrocardiac opacity pers ists. Impression: Correlate for COPD with superimposed pulmonary vascular congestion. Dense retrocardiac and left basil ar opacity persists.
[2024-02-14] MEDS: PANTOPRAZOLE 40 MG/10 ML VIAL IV SCH (10:07)
[2024-02-14 11:42] LABS: Glucose,Whole Blood 154 mg/dL (70-110)
--- NOTE | 2024-02-14 12:14 | P.PN ---
Subjective Progress Note Date: 02/14/24 I am following-up with patient and per nurse his sedation has been held since 02/12/2024 and no improvement in neurological condition. It seems his kidney function has worsened and has worsening leukocytosis with low grade fever. Objective - Vital Signs Vital signs: Vital Signs Temp 100.0 F H 02/14/24 08:00 Pulse 87 02/14/24 11:00 Resp 27 H 02/14/24 11:00 BP 112/57 02/12/24 12:00 Pulse Ox 93 L 02/14/24 11:00 FiO2 50 02/14/24 11:28 Intake & Output 02/13/24 02/14/24 02/14/24 18:59 06:59 18:59 Intake Total 1417 1158 530 Output Total 1625 645 165 Balance -208 513 365 Weight 141.974 kg Intake: IV 1057 888 490 .9ns pressure bag 27 33 15 Ampicillin-Sulbactam 3 gm 100 100 In Sodium Chloride 0.9% 100 ml @ 200 mls/hr IVPB Q8HR [facility] Rx#:[id number] Invasive Line 3 30 30 Sodium Chloride 0.45% 1, 150 825 375 000 ml @ 75 mls/hr IV . [id number] [facility] Rx#:[id number] Sodium Chloride 0.9% 1, 750 000 ml @ 75 mls/hr IV . [id number] [facility] Rx#:[id number] Tube Feeding 300 240 40 Other 60 30 Output: Urine 1625 645 165 Other: Voiding Method Indwelling Catheter Indwelling Catheter Indwelling Catheter ABP, PAP, CO, CI - Last Documented Arterial Blood Pressure 109/45 - Exam General: Lying in bed and does not appear in acute distress. HENT: Supple neck Resp: Intubated on ventilator. Neuro: Limited. Sedation held. Patient is comatose GCS 3 (E1, VT1, M1) I had to manually open his eyes. Primary gaze is midline. Pupils are round, equal and reactive to light. Pupils are 3mm bilaterally. No facial weakness form limitation of exam. Motor: Strength unable to assess. No spontaneous movement. some other workup during his hospital visit consisted of: on initial presentation his white blood cells is normal (10K) then trending up slight and now resolved. Now trending up again serum glucose is 188 Magnesium is 2.3 most recent AST is 61and ALT of 31. BUN and Creatnine is trending up CT of the head is reported as mild cerebral atrophy and moderate patchy of burden of chronic small vessel ischemic disease. No acute intracranial abnormality seen. CT cervical spine is reported as a no acute fracture or malalignment of the cervical spine. Moderate spondylitic change. Layering fluid within the paranasal sinus. Correlate for acute sinusitis. Possible suspicious pulmonary nodule at the right upper lobe partially seen. patient Gram stain of sputum culture is a strep pneumo. Blood culture is strep pneumo. Ammonia level 56 Folate 12.9 Vitamin B12 >3600 routine EEG is abnormal. The practical slowing suggestive of metabolic to severe encephalopathy. They're sharp a activity over bilateral temporal region but no clear epileptiform discharges or seizure. the triphasic wave is due to toxic metabolic derangement. Repeat CT head: no significant abnormality seen. Repeat Routine EEG: Is abnormal. The background slowing is suggestive of moderate to severe encephalopathy. Otherwise, no focal slowing, epileptiform discharges or seizure on the EEG. There is no longer sharply contoured activity that was not seen on the prior EEG. - Labs CBC & Chem 7: 02/14/24 04:30 02/14/24 04:30 Labs: Abnormal Lab Results - Last 24 Hours (Table) 02/13/24 02/14/24 02/14/24 Range/Units 17:35 00:18 04:30 WBC 22.3 H (3.8-10.6) k/uL RBC 3.33 L (4.30-5.90) m/uL Hgb 11.4 L (13.0-17.5) gm/dL Hct 37.9 L (39.0-53.0) % MCV 113.8 H (80.0-100.0) fL MCHC 30.2 L (31.0-37.0) g/dL RDW 16.5 H (11.5-15.5) % Plt Count 109 L (150-450) k/uL Neutrophils # (Manual) 18.70 H (1.3-7.7) k/uL Metamyelocytes # (Man) 0.67 H (0) k/uL Myelocytes # (Manual) 0.22 H (0) k/uL Nucleated RBCs 20 H (0-0) /100 WBC Macrocytosis Marked A ABG pH (7.35-7.45) ABG pCO2 (35-45) mmHg ABG HCO3 (21-25) mmol/L ABG Total CO2 (19-24) mmol/L Sodium (137-145) mmol/L Potassium (3.5-5.1) mmol/L Chloride (98-107) mmol/L BUN (9-20) mg/dL Creatinine (0.66-1.25) mg/dL Glucose (74-99) mg/dL POC Glucose (mg/dL) 144 H 173 H (70-110) mg/dL Calcium (8.4-10.2) mg/dL Magnesium (1.6-2.3) mg/dL 02/14/24 02/14/24 02/14/24 Range/Units 04:30 06:03 06:55 WBC (3.8-10.6) k/uL RBC (4.30-5.90) m/uL Hgb (13.0-17.5) gm/dL Hct (39.0-53.0) % MCV (80.0-100.0) fL MCHC (31.0-37.0) g/dL RDW (11.5-15.5) % Plt Count (150-450) k/uL Neutrophils # (Manual) (1.3-7.7) k/uL Metamyelocytes # (Man) (0) k/uL Myelocytes # (Manual) (0) k/uL Nucleated RBCs (0-0) /100 WBC Macrocytosis ABG pH 7.34 L (7.35-7.45) ABG pCO2 51 H (35-45) mmHg ABG HCO3 28 H (21-25) mmol/L ABG Total CO2 29 H (19-24) mmol/L Sodium 147 H (137-145) mmol/L Potassium 5.6 H (3.5-5.1) mmol/L Chloride 117 H (98-107) mmol/L BUN 131 H* (9-20) mg/dL Creatinine 2.33 H (0.66-1.25) mg/dL Glucose 159 H (74-99) mg/dL POC Glucose (mg/dL) 187 H (70-110) mg/dL Calcium 8.2 L (8.4-10.2) mg/dL Magnesium 3.3 H (1.6-2.3) mg/dL 02/14/24 Range/Units 11:41 WBC (3.8-10.6) k/uL RBC (4.30-5.90) m/uL Hgb (13.0-17.5) gm/dL Hct (39.0-53.0) % MCV (80.0-100.0) fL MCHC (31.0-37.0) g/dL RDW (11.5-15.5) % Plt Count (150-450) k/uL Neutrophils # (Manual) (1.3-7.7) k/uL Metamyelocytes # (Man) (0) k/uL Myelocytes # (Manual) (0) k/uL Nucleated RBCs (0-0) /100 WBC Macrocytosis ABG pH (7.35-7.45) ABG pCO2 (35-45) mmHg ABG HCO3 (21-25) mmol/L ABG Total CO2 (19-24) mmol/L Sodium (137-145) mmol/L Potassium (3.5-5.1) mmol/L Chloride (98-107) mmol/L BUN (9-20) mg/dL Creatinine (0.66-1.25) mg/dL Glucose (74-99) mg/dL POC Glucose (mg/dL) 154 H (70-110) mg/dL Calcium (8.4-10.2) mg/dL Magnesium (1.6-2.3) mg/dL Microbiology - Last 24 Hours (Table) 02/10/24 14:35 Blood Culture - Preliminary Blood 02/10/24 14:23 Blood Culture - Preliminary Blood Assessment and Plan Assessment: this is a 73-year-old gentleman who presents because of shortness of breath.patient was found to be hypoxic and hypercapnic secondary due to COPD exacerbation, bilateral suspected aspiration pneumonia. As a result the patient was intubated on a ventilator. Altered mental status due to multifactorial due to underlying pneumonia, metabolic encephalopathy, acute kidney injury, hyperammonemia. Has sharp activity over the left temporal/central but no clear epileptiform or seizure and on repeat there is no further sharply contoured activity and again no seizure or discharges. His kidney, leukocytosis and fever are worsening. He has been off sedation for two days. 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 Will decrease Keppra to 500mg daily and by tomorrow stop. Notified the patient's family I cannot rule out meningeal encephalitis which seems unlikely. Consider Lumbar puncture. ID is on board and we'll defer modification of antibiotic and infection management to the ID team. Family is consider comfort care when they had conversation with primary team so they did not want to pursue with Lumbar Puncture and they will have a family meeting and will decide. nephrology is on board We'll defer the rest of the medical measure the primary and other specialists Overall condition is very guarded. The plan was discussed with her daughter, primary attending and ICU nurse. Time with Patient: Less than 30
[2024-02-14 12:27] VITALS: TEMP 101.2
--- NOTE | 2024-02-14 12:54 | P.PN ---
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 In the emergency room, patient was afebrile, 152/118, heart rate 107, respiratory rate of 46, 81% on BiPAP. Therefore, patient was intubated in the emergency room and oxygen saturation went up to 95% with vent settings of PEEP of 8, FiO2 of 80%, volume control 500. CBC demonstrated elevated MCV of 112.2, otherwise unremarkable. Basic metabolic panel demonstrated creatinine of 2.12 with a baseline of 1. Liver function test showed elevation of AST to 122, ALT of 59, total bilirubin of 3.5, albumin of 3.1. Troponin was 0.154, BNP was 5390. Initial ABG demonstrated pH of 7.04, pCO2 of 53, pO2 of 106. Coags demonstrated elevated INR of 2.1, D-dimer 5.05. Influenza A, B, RSV, COVID were negative. EKG, personally interpreted, demonstrates atrial fibrillation with RVR, multiple instances of aberrant conduction. Chest x-ray, personally interpreted demonstrates left-sided consolidation with likely pleural effusion. Chest CTA showed moderate emphysematous change, pulmonary arterial hypertension, severe consolidation throughout the left lower lobe extending into the lingula, but was suboptimal to exclude pulmonary embolism. CT abdomen/pelvis demonstrated cirrhosis with prominent collaterals in the gastrohepatic ligament suggesting portal venous hypertension, suspicious 2-1/2 cm nodule in the inferior right liver lobe. Head/cervical spine CT shows mild cerebral atrophy and moderate patchy burden of chronic small vessel ischemic disease. This also demonstrated incidental finding of right upper lobe pulmonary nodule which was suspicious, confirmed on CTA to be an 8 mm right apical nodule which was spiculated. Pulmonary/critical care medicine was consulted and patient was transferred to the intensive care unit for further monitoring/management. Blood cultures positive for strep pneumo. Patient currently on IV Zosyn. ID following. Pressor requirements continue to go up. Patient also in acute renal failure. Nephrology following. Head CT did not show any acute process. EEG showed background slowing suggestive of moderate to severe encephalopathy, sharp and slow waves over bilateral temporal region but no clear epileptiform discharges or seizures on the EEG. Patient remained off of sedation for 2 days without any meaningful neurological activity. Family decided to pursue comfort care measures. Subjective: Patient seen and examined at bedside. No acute events overnight. Patient has been off of sedation for 2 days. Pertinent positives and negatives as discussed above, a complete review of systems was performed and all other systems are negative. Vitals Signs Reviewed. General: Intubated Derm: Warm, dry Head: Atraumatic, normocephalic, symmetric Eyes: Pupils equal and reactive Mouth: No lip lesion, mucus membranes moist Cardiovascular: S1S2 reg, no murmur Lungs: Bilateral rhonchi, intubated Abdominal: Soft, no guarding, no appreciable organomegaly Ext: No gross muscle atrophy, 2+ pitting edema, no contractures Neuro: No movement Psych: Unable to assess Data Reviewed Today: Pertinent Labs: WBC 22.3, hemoglobin 11.4, platelet 109, sodium 147, potassium 5.6, BUN 131, creatinine 2.33, blood sugars range between 1 59-1 87 Imaging: Chest x-ray independently interpreted, shows persistent left lower lobe opacity. Assessment and Plan: Family elected for comfort care measures. 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 Chronic: GERD Tobacco dependence BPH Permanent atrial fibrillation Code status: No code Anticipated discharge place: Pending clinical course Anticipated discharge time: Pending clinical course Objective - Vital Signs Vital signs: Vital Signs Temp 101.2 F H 02/14/24 12:00 Pulse 82 02/14/24 12:47 Resp 29 H 02/14/24 12:00 BP 112/57 02/12/24 12:00 Pulse Ox 93 L 02/14/24 12:00 FiO2 50 02/14/24 12:29 Intake & Output 02/13/24 02/14/24 02/14/24 18:59 06:59 18:59 Intake Total 1417 1158 608 Output Total 1623 645 195 Balance -208 513 413 Weight 141.974 kg Intake: IV 1057 888 568 .9ns pressure bag 27 33 18 Ampicillin-Sulbactam 3 gm 100 100 In Sodium Chloride 0.9% 100 ml @ 200 mls/hr IVPB Q8HR [facility] Rx#:[id number] Invasive Line 3 30 30 Sodium Chloride 0.45% 1, 150 825 450 000 ml @ 75 mls/hr IV . [id number] Rx#:[id number] Sodium Chloride 0.9% 1, 750 000 ml @ 75 mls/hr IV . [id number] [facility] Rx#:[id number] Tube Feeding 300 240 40 Other 60 30 Output: Urine 1625 645 195 Other: Voiding Method Indwelling Catheter Indwelling Catheter Indwelling Catheter ABP, PAP, CO, CI - Last Documented Arterial Blood Pressure 104/42 - Labs CBC & Chem 7: 02/14/24 04:30 02/14/24 04:30 Labs: Abnormal Lab Results - Last 24 Hours (Table) 02/13/24 02/14/24 02/14/24 Range/Units 17:35 00:18 04:30 WBC 22.3 H (3.8-10.6) k/uL RBC 3.33 L (4.30-5.90) m/uL Hgb 11.4 L (13.0-17.5) gm/dL Hct 37.9 L (39.0-53.0) % MCV 113.8 H (80.0-100.0) fL MCHC 30.2 L (31.0-37.0) g/dL RDW 16.5 H (11.5-15.5) % Plt Count 109 L (150-450) k/uL Neutrophils # (Manual) 18.70 H (1.3-7.7) k/uL Metamyelocytes # (Man) 0.67 H (0) k/uL Myelocytes # (Manual) 0.22 H (0) k/uL Nucleated RBCs 20 H (0-0) /100 WBC Macrocytosis Marked A ABG pH (7.35-7.45) ABG pCO2 (35-45) mmHg ABG HCO3 (21-25) mmol/L ABG Total CO2 (19-24) mmol/L Sodium (137-145) mmol/L Potassium (3.5-5.1) mmol/L Chloride (98-107) mmol/L BUN (9-20) mg/dL Creatinine (0.66-1.25) mg/dL Glucose (74-99) mg/dL POC Glucose (mg/dL) 144 H 173 H (70-110) mg/dL Calcium (8.4-10.2) mg/dL Magnesium (1.6-2.3) mg/dL 02/14/24 02/14/24 02/14/24 Range/Units 04:30 06:03 06:55 WBC (3.8-10.6) k/uL RBC (4.30-5.90) m/uL Hgb (13.0-17.5) gm/dL Hct (39.0-53.0) % MCV (80.0-100.0) fL MCHC (31.0-37.0) g/dL RDW (11.5-15.5) % Plt Count (150-450) k/uL Neutrophils # (Manual) (1.3-7.7) k/uL Metamyelocytes # (Man) (0) k/uL Myelocytes # (Manual) (0) k/uL Nucleated RBCs (0-0) /100 WBC Macrocytosis ABG pH 7.34 L (7.35-7.45) ABG pCO2 51 H (35-45) mmHg ABG HCO3 28 H (21-25) mmol/L ABG Total CO2 29 H (19-24) mmol/L Sodium 147 H (137-145) mmol/L Potassium 5.6 H (3.5-5.1) mmol/L Chloride 117 H (98-107) mmol/L BUN 131 H* (9-20) mg/dL Creatinine 2.33 H (0.66-1.25) mg/dL Glucose 159 H (74-99) mg/dL POC Glucose (mg/dL) 187 H (70-110) mg/dL Calcium 8.2 L (8.4-10.2) mg/dL Magnesium 3.3 H (1.6-2.3) mg/dL 02/14/24 Range/Units 11:41 WBC (3.8-10.6) k/uL RBC (4.30-5.90) m/uL Hgb (13.0-17.5) gm/dL Hct (39.0-53.0) % MCV (80.0-100.0) fL MCHC (31.0-37.0) g/dL RDW (11.5-15.5) % Plt Count (150-450) k/uL Neutrophils # (Manual) (1.3-7.7) k/uL Metamyelocytes # (Man) (0) k/uL Myelocytes # (Manual) (0) k/uL Nucleated RBCs (0-0) /100 WBC Macrocytosis ABG pH (7.35-7.45) ABG pCO2 (35-45) mmHg ABG HCO3 (21-25) mmol/L ABG Total CO2 (19-24) mmol/L Sodium (137-145) mmol/L Potassium (3.5-5.1) mmol/L Chloride (98-107) mmol/L BUN (9-20) mg/dL Creatinine (0.66-1.25) mg/dL Glucose (74-99) mg/dL POC Glucose (mg/dL) 154 H (70-110) mg/dL Calcium (8.4-10.2) mg/dL Magnesium (1.6-2.3) mg/dL Microbiology - Last 24 Hours (Table) 02/10/24 14:35 Blood Culture - Preliminary Blood 02/10/24 14:23 Blood Culture - Preliminary Blood
[2024-02-14] MEDS ORDERED: ATROPINE OPHTH SOLN 1% 5ML BTL SUBLINGUAL PRN (13:44)
--- NOTE | 2024-02-14 13:51 | P.PN ---
Subjective Progress Note Date: 02/14/24 Principal diagnosis: Respiratory failure. This is a 73-year-old white male, known history of liver cancer, receiving treatment at [facility]. History of COPD, chronic atrial fibrillation, history of congestive heart failure, tobacco dependence syndrome, patient was brought into the ER this morning by EMS, apparently the patient has been complaining of shortness of breath for the last couple of days. Today his shortness of breath has become more pronounced, and his pulse ox was noted to be in the 70s. EMS was called, and upon arrival patient was placed on BiPAP, and he was noted to have significant wheezing. Brought into the ER, and the patient was in extreme respiratory distress, did not tolerate BiPAP, intubated by ER physician, and I was asked to see the patient on consultation. Patient is now on assist-control rate of 20 tidal volume 450 FiO2 of 100% and PEEP of 5 ABG showed a pO2 of 108 pCO2 53 pH of 7.04. Vent settings were changed, increase his rate up to 24 cut down FiO2 to 80% increased PEEP to 8 and considering his metabolic acidosis I recommended 3 A of bicarb and 1 L of D5W running at 50 cc/h. Follow-up ABG will be done in few hours. Workup in the ER included chest x-ray which clearly showed significant consolidation in the left lower lobe and in the left perihilar area. CT of the head showed mild cerebral atrophy, no acute intracranial process, there was a layering of fluid within the paranasal sinuses consistent with acute sinusitis. CT angiogram of the chest was a suboptimal to diagnose pulmonary embolism, remind you patient is on Xarelto it did show evidence of pulmonary hypertension, severe consolidation throughout the left lower lobe extending into the lingula and a lesser consolidation noted in the right infrahilar area/right base. Posteriorly. Which raises the possibility of aspiration pneumonitis. There is a background COPD with moderate emphysema, and there is an apical nodule measuring 8 mm apparently this was noted on a previous CT of the chest measuring 5 mm back on 11/18/22. This is likely malignant, and according to the family this has been noted at [facility] and they are keeping an eye and close watch on it Progress note dated February 09, 2024. This is a 73-year-old male who is seen today in room 265. He was admitted yesterday, for respiratory failure and COPD. The patient has a history of liver cancer. The patient remains on the mechanical ventilator for respiratory failur e, with settings of volume assist-control, rate 24, tidal volume 500, FiO2 80%, PEEP of 8. Blood gases show pO2 of 89, pCO2 of 50, and a pH of 7.29. In an attempt to reduce the FiO2, the PEEP was increased from 8 to 12 cm of water. The patient was intubated yesterday, on February 08. He continues on propofol at 35 mcg/kg/min, and norepinephrine at 22 mcg/min. Is getting a sodium bicarbonate drip, with 3 ampoules of sodium bicarb in D5W at 75 cc an hour. He is also getting vancomycin and cefepime, and he was started on vital HP at 10 cc an hour, awaiting a dietary evaluation. White count is 10.8, hemoglobin 14.3, hematocrit 46.9, and a platelet count is currently pending. Sodium 141, pot assium 5.3, chlorides 110, CO2 21, anion gap 10, BUN 34, and creatinine 2.39. Lactic acid is 8.5. Calcium is 7.7. Magnesium is 2.0. Blood cultures show evidence of Streptococcus pneumoniae. Chest x-ray shows bilateral mid and lower lung airspace disease. Progress note dated February 10, 2024. This is a 73-year-old male who is seen today in room 265. He was admitted on the , for respiratory failure and COPD. The patient has a history of liver cancer. The patient continues on the mechanical ventilator. Settings include volume assist-control, rate 24, tidal volume 500, FiO2 70%, PEEP of 12. Blood gases show pO2 76, pCO2 of 56, pH is 7.32. The patient is getting dextrose with saline at 75 cc an hour, propofol at 35 mcg/kg/min, vasopressin at 0.03 units/min, norepinephrine at 18 mcg/min, and vital AF at 42 cc an hour which is goal. The patient had streptococci in the blood, and for that he is on Zosyn. We did speak to his [id number] today. White count 13, hemoglobin 13.2, hematocrit 40.8, platelet count 121,000. Sodium 140, potassium 4.8, chloride 110, CO2 28, BUN 55, creatinine 2.89. Calcium is 7.7. Glucose is 164. Blood cultures are positive for Streptococcus pneumoniae. Chest x-ray is unchanged. Progress note dated February 11, 2024. 73-year-old male seen today in room 265. The patient was admitted on 07 February, for respiratory failure and COPD. The patient does have a history of liver cancer. The patient remains on the mechanical ventilator. His condition is essentially unchanged. He is on volume assist-control, rate 24, tidal volume 500, FiO2 50%, PEEP of 15. Blood gases show pO2 of 87, pCO2 of 53, and a pH of 7.35. The patient is getting saline at 75 cc an hour, and vital, at 42 cc an hour, which is goal. Propofol was held, for daily interruption of sedation. The patient was not responsive, but was asynchronous with the ventilator, so propofol was restarted. In addition, the patient continues on Unasyn. White count is 14.3, hemoglobin 12.8, hematocrit 39.8, platelet count 208,000. Sodium 141, potassium 4.8, chlorides 111, CO2 28, BUN 78, creatinine 2.72, glucose 157, and albumin 2.2. Blood cultures are positive for Streptococcus pneumoniae. Sputum Gram stain is also positive for the same organism. Chest x-ray shows cardiomegaly, and patchy bilateral infiltrates. Progress note dated February 12, 2024. 73-year-old male seen in room 265. Patient was admitted on February 07 for respiratory failure and COPD. The patient does have a history of liver cancer. Patient remains on the ventilator. Ventilator settings include volume assist- control, rate 24, tidal volume 500, FiO2 50%, PEEP of 15. Blood gases show pO2 of 87, pCO2 of 52, pH is 7.37. The patient continues on Unasyn. The patient is also on propofol at 5 mcg/kg/min, saline at 75 cc an hour, and vasopressin at 0.03 units/min. Will add some Reglan 10 mg every 6 for, high residuals. In addition, tube feedings are currently on hold. We will do a daily interruption of sedation today. Current white count 10.5, hemoglobin 12.5, hematocrit 38.9, platelet count 78,000. Sodium 142, potassium 4.9, chlorides 112, CO2 28, BUN 95, creatinine 2.26. Glucose 163. Calcium 8. Albumin 2.1. Blood cultures and sputum cultures show evidence of Streptococcus pneumoniae. Chest x-ray shows changes of COPD, was a small left-sided pleural effusion. Lower lung capacities are improved. Progress note dated February 13, 2024. 73-year-old male seen in 265. The patient remains in the intensive care unit, on the ventilator. He was admitted on February 07 for respiratory failure and COPD. He does have a history of liver cancer. Current ventilator settings include volume assist-control, rate 24, tidal volume 500, FiO2 50%, PEEP of 12. Blood gases show pO2 of 82, pCO2 44, pH is 7.44. The patient is getting saline at 75 cc an hour. He is getting vital AF at 20, which is goal. He continues on Unasyn. The patient had an EEG which showed slowing, consistent with anoxic/metabolic encephalopathy. The patient has been off of propofol since 10:00 AM, on February 11. The patient may end up having a lumbar puncture later today. Current white count 12.2, hemoglobin 12.3, hematocrit 38.4, and platelet count was 96,000. Sodium 145, potassium 4.9, chlorides 115, CO2 30, BUN 109, creatinine 1.87. Glucose is 131. Albumin 2.1. Calcium 8.5. Bilirubin is 4.0. Previous cultures were positive for Streptococcus pneumoniae, both in sputum and blood. Chest x-ray shows small bilateral pleural effusions, and some atelectatic changes at the bases. Progress note dated February 14, 2024. The patient is seen today in room 265. The patient remains on the mechanical v entilator. Ventilator settings include volume assist-control, rate 24, tidal volume 500, FiO2 50%, PEEP of 12. Blood gases show pO2 of 84, pCO2 of 51, pH is 7.34. The patient is getting half-normal saline at 75 cc an hour, and saline at 10 cc an hour. The patient is also getting vital AF at 20 cc an hour, which is goal. Apparently according to the nurse, the patient's family is considering co mfort care. Current laboratory data includes a white count 22.3, hemoglobin 11.4, hematocrit 37.9, and a platelet count of 109,000. Sodium 147, potassium 5.6, chlorides 117, CO2 27, BUN 131, creatinine 2.33. Calcium 8.2, magnesium 3.3. Glucose 154. Blood cultures were positive for Streptococcus pneumoniae, as well as a sputum sampling. Chest x-ray is interpreted as showing changes of fluid overload, as well as COPD. Objective - Vital Signs Vital signs: Vital Signs Temp 101.2 F H 02/14/24 12:00 Pulse 82 02/14/24 12:47 Resp 29 H 02/14/24 12:00 BP 112/57 02/12/24 12:00 Pulse Ox 93 L 02/14/24 12:00 FiO2 50 02/14/24 12:29 Intake & Output 02/13/24 02/14/24 02/14/24 18:59 06:59 18:59 Intake Total 1417 1158 608 Output Total 1625 645 195 Balance -208 513 413 Weight 141.974 kg Intake: IV 1057 888 568 .9ns pressure bag 27 33 18 Ampicillin-Sulbactam 3 gm 100 100 In Sodium Chloride 0.9% 100 ml @ 200 mls/hr IVPB Q8HR [facility] Rx#:[id number] Invasive Line 3 30 30 Sodium Chloride 0.45% 1, 150 825 450 000 ml @ 75 mls/hr IV . [id number] [facility] Rx#:[id number] Sodium Chloride 0.9% 1, 750 000 ml @ 75 mls/hr IV . [id number] [facility] Rx#:[id number] Tube Feeding 300 240 40 Other 60 30 Output: Urine 1625 645 195 Other: Voiding Method Indwelling Catheter Indwelling Catheter Indwelling Catheter ABP, PAP, CO, CI - Last Documented Arterial Blood Pressure 104/42 - Exam No acute distress, off of all sedation, with an orally placed endotracheal tube. HEENT examination is grossly unremarkable. Neck supple. Full range of motion. No adenopathy thyromegaly or neck vein distention. Cardiovascular examination reveals regular rhythm rate. S1-S2 normal. No S3 or S4. No discernible murmur noted. Heart rate 85 bpm. Lungs reveal coarse bilateral rhonchi and expiratory wheezes. No crackles. Breath sounds equal. Saturations are 96 %. Abdomen soft with bowel sounds. Extremities are intact. No cyanosis clubbing or edema. Skin is without rash or lesion. Neurologic examination cannot be assessed at this time. - Labs CBC & Chem 7: 02/14/24 04:30 02/14/24 04:30 Labs: Abnormal Lab Results - Last 24 Hours (Table) 02/13/24 02/14/24 02/14/24 Range/Units 17:35 00:18 04:30 WBC 22.3 H (3.8-10.6) k/uL RBC 3.33 L (4.30-5.90) m/uL Hgb 11.4 L (13.0-17.5) gm/dL Hct 37.9 L (39.0-53.0) % MCV 113.8 H (80.0-100.0) fL MCHC 30.2 L (31.0-37.0) g/dL RDW 16.5 H (11.5-15.5) % Plt Count 109 L (150-450) k/uL Neutrophils # (Manual) 18.70 H (1.3-7.7) k/uL Metamyelocytes # (Man) 0.67 H (0) k/uL Myelocytes # (Manual) 0.22 H (0) k/uL Nucleated RBCs 20 H (0-0) /100 WBC Macrocytosis Marked A ABG pH (7.35-7.45) ABG pCO2 (35-45) mmHg ABG HCO3 (21-25) mmol/L ABG Total CO2 (19-24) mmol/L Sodium (137-145) mmol/L Potassium (3.5-5.1) mmol/L Chloride (98-107) mmol/L BUN (9-20) mg/dL Creatinine (0.66-1.25) mg/dL Glucose (74-99) mg/dL POC Glucose (mg/dL) 144 H 173 H (70-110) mg/dL Calcium (8.4-10.2) mg/dL Magnesium (1.6-2.3) mg/dL 02/14/24 02/14/24 02/14/24 Range/Units 04:30 06:03 06:55 WBC (3.8-10.6) k/uL RBC (4.30-5.90) m/uL Hgb (13.0-17.5) gm/dL Hct (39.0-53.0) % MCV (80.0-100.0) fL MCHC (31.0-37.0) g/dL RDW (11.5-15.5) % Plt Count (150-450) k/uL Neutrophils # (Manual) (1.3-7.7) k/uL Metamyelocytes # (Man) (0) k/uL Myelocytes # (Manual) (0) k/uL Nucleated RBCs (0-0) /100 WBC Macrocytosis ABG pH 7.34 L (7.35-7.45) ABG pCO2 51 H (35-45) mmHg ABG HCO3 28 H (21-25) mmol/L ABG Total CO2 29 H (19-24) mmol/L Sodium 147 H (137-145) mmol/L Potassium 5.6 H (3.5-5.1) mmol/L Chloride 117 H (98-107) mmol/L BUN 131 H* (9-20) mg/dL Creatinine 2.33 H (0.66-1.25) mg/dL Glucose 159 H (74-99) mg/dL POC Glucose (mg/dL) 187 H (70-110) mg/dL Calcium 8.2 L (8.4-10.2) mg/dL Magnesium 3.3 H (1.6-2.3) mg/dL 02/14/24 Range/Units 11:41 WBC (3.8-10.6) k/uL RBC (4.30-5.90) m/uL Hgb (13.0-17.5) gm/dL Hct (39.0-53.0) % MCV (80.0-100.0) fL MCHC (31.0-37.0) g/dL RDW (11.5-15.5) % Plt Count (150-450) k/uL Neutrophils # (Manual) (1.3-7.7) k/uL Metamyelocytes # (Man) (0) k/uL Myelocytes # (Manual) (0) k/uL Nucleated RBCs (0-0) /100 WBC Macrocytosis ABG pH (7.35-7.45) ABG pCO2 (35-45) mmHg ABG HCO3 (21-25) mmol/L ABG Total CO2 (19-24) mmol/L Sodium (137-145) mmol/L Potassium (3.5-5.1) mmol/L Chloride (98-107) mmol/L BUN (9-20) mg/dL Creatinine (0.66-1.25) mg/dL Glucose (74-99) mg/dL POC Glucose (mg/dL) 154 H (70-110) mg/dL Calcium (8.4-10.2) mg/dL Magnesium (1.6-2.3) mg/dL Microbiology - Last 24 Hours (Table) 02/10/24 14:35 Blood Culture - Preliminary Blood 02/10/24 14:23 Blood Culture - Preliminary Blood Assessment and Plan Assessment: Acute hypoxemic and hypercapnic respiratory failure, secondary to COPD exacerbation, complicated by bilateral suspected aspiration pneumonia. S/P intubation and mechanical ventilation on February 07, for respiratory failure. Streptococcus pneumoniae tracheobronchitis/bronchopneumonia, and bacteremia. Severe anoxic/metabolic encephalopathy. History of liver cancer, being treated at [facility]. Paroxysmal atrial fibrillation. History of congestive heart failure. History of acute COPD exacerbation. Tobacco dependence syndrome. History of hepatitis C. History of alcoholism. Gastroesophageal reflux disease. History of liver cirrhosis. History of IV drug use. History of portal hypertension and esophageal varices. Acute anion gap metabolic acidosis. Acute kidney injury with possible ATN. Plan: Plan dated February 09, 2024. A arterial line was placed on this patient. We had to use a right femoral space for the arterial line. Labs, x-rays, and medications are reviewed. The patient continues on propofol at 35 mcg/kg/min, norepinephrine at 22 mcg/min. Patient also continues on a sodium bicarb drip 75 cc an hour. The patient continues on vancomycin and cefepime. Cultures were positive for Streptococcus pneumoniae. We will continue to follow make recommendations along the way. In addition, the PEEP was increased from 8-12, in an attempt to wean the FiO2. His qtemhnuf-cq-trd is a nurse on the fourth floor, and we did speak to her today, and gave her an update. Plan dated February 10, 2024. The patient is seen today in room 265. The patient remains on the mechanical ventilator. We increased the PEEP from 12 to 15 cm of water, to see if we cannot wean down the FiO2. The patient continues on dextrose and saline at 75 cc an hour, propofol at 35 mcg/kg/min, vasopressin at 0.04 units/min, and norepinephrine 18 mcg/min. The patient continues on Zosyn for streptococci in his blood stream. The patient is getting vital AF at 42 cc an hour which is goal. Overall prognosis remains very guarded. We will continue to follow the patient, make recommendations along the way. We did speak to the patient's [id number] today. Prognosis is certainly guarded. Plan dated February 11, 2024. The patient is seen today in room 265. I do have the opportunity speak to the vish burks's son and [id number]. I told him that basically he remains relatively stable, but critically ill. The patient continues on Unasyn for the streptococci, and his sputum, and blood. Currently, the patient is also on propofol, as it was turned off for daily interruption of sedation. The patient has improved and sense that his blood pressure is much more stable, and yesterday as you remember he was on both vasopressin and norepinephrine. Labs, x-rays, and medications are reviewed. We will continue to follow make recommendations along the way. Prognosis is guarded. Plan dated February 12, 2024. The patient is seen today in room 265. Labs, x-rays, medications are reviewed. The patient is doing about the same overall. The patient is overall prognosis is poor. The patient is back on vasopressin. I did have a chance to speak to the family today. The patient had a daily interruption of sedation, but apparently did not improve neurologically. We have ordered an EEG. He may need a repeat CT scan. Additional recommendations and suggestions are forthcoming. We will continue to follow make recommendations. Prognosis as mentioned above, is guarded. Plan dated February 13, 2024. The patient is seen today in room 265. The patient is currently not on any vasopressors at this time. Unfortunately, his mental status is very poor, and the patient has been off of propofol since 10:00 on February 11. The patient's EEG showed abnormal slowing, consistent with toxic/metabolic encephalopathy. The patient is getting saline at 75 cc an hour. He will be converted to lactated Ringer's. The patient is getting tube feedings at goal. He continues on Unasyn for streptococcal infection. Blood gases are reasonable. The patient's overall prognosis remains guarded. We will continue to follow make recommendations along the way. Plan dated February 14, 2024. The patient is seen today in room 265. The patient's blood gases show pO2 of 84, pCO2 of 51, and a pH of 7.34. The patient continues on saline at 10 cc an hour. The patient is also getting half-normal saline at 75 cc an hour. The patient is receiving tube feedings with vital AF at 20 cc an hour. Apparently the family is considering the possibility of comfort care. Labs, x-rays, and medications are reviewed. We will continue to follow the patient, make recommendations along the way. The patient's repeat EEG continues to show slowing of the brain waves, consistent with anoxic/metabolic encephalopathy. Time with Patient: Greater than 30
--- NOTE | 2024-02-14 13:54 | P.PN ---
Subjective Progress Note Date: 02/14/24 Patient is seen in follow-up for acute kidney injury. Renal function better. No improvement in mentation. Nonoliguric. Off vasopressors. Intubated. Family planning for comfort care today. Vital signs are stable. Off vasopressor support. General: Resting in bed. HEENT: Intubated. LUNGS: No audible rhonchi or wheezes. HEART: Rate and Rhythm are regular. ABDOMEN: Obese, soft. EXTREMITITES: Trace edema. Objective - Vital Signs Vital signs: Vital Signs Temp 100.0 F H 02/14/24 08:00 Pulse 82 02/14/24 10:00 Resp 31 H 02/14/24 10:00 BP 112/57 02/12/24 12:00 Pulse Ox 94 L 02/14/24 10:00 FiO2 50 02/14/24 08:43 Intake & Output 02/13/24 02/14/24 02/14/24 18:59 06:59 18:59 Intake Total 1417 1158 118 Output Total 1625 645 40 Balance -208 513 78 Weight 141.974 kg Intake: IV 1057 888 78 .9ns pressure bag 27 33 3 Ampicillin-Sulbactam 3 gm 100 In Sodium Chloride 0.9% 100 ml @ 200 mls/hr IVPB Q8HR [facility] Rx#:[id number] Invasive Line 3 30 30 Sodium Chloride 0.45% 1, 150 825 75 000 ml @ 75 mls/hr IV . [id number] [facility] Rx#:[id number] Sodium Chloride 0.9% 1, 750 000 ml @ 75 mls/hr IV . [id number] [facility] Rx#:[id number] Tube Feeding 300 240 40 Other 60 30 Output: Urine 1625 645 40 Other: Voiding Method Indwelling Catheter Indwelling Catheter Indwelling Catheter ABP, PAP, CO, CI - Last Documented Arterial Blood Pressure 118/53 - Labs CBC & Chem 7: 02/14/24 04:30 02/14/24 04:30 Labs: Abnormal Lab Results - Last 24 Hours (Table) 02/13/24 02/13/24 02/14/24 Range/Units 11:42 17:35 00:18 WBC (3.8-10.6) k/uL RBC (4.30-5.90) m/uL Hgb (13.0-17.5) gm/dL Hct (39.0-53.0) % MCV (80.0-100.0) fL MCHC (31.0-37.0) g/dL RDW (11.5-15.5) % Plt Count (150-450) k/uL Neutrophils # (Manual) (1.3-7.7) k/uL Metamyelocytes # (Man) (0) k/uL Myelocytes # (Manual) (0) k/uL Nucleated RBCs (0-0) /100 WBC Macrocytosis ABG pH (7.35-7.45) ABG pCO2 (35-45) mmHg ABG HCO3 (21-25) mmol/L ABG Total CO2 (19-24) mmol/L Sodium (137-145) mmol/L Potassium (3.5-5.1) mmol/L Chloride (98-107) mmol/L BUN (9-20) mg/dL Creatinine (0.66-1.25) mg/dL Glucose (74-99) mg/dL POC Glucose (mg/dL) 131 H 144 H 173 H (70-110) mg/dL Calcium (8.4-10.2) mg/dL Magnesium (1.6-2.3) mg/dL 02/14/24 02/14/24 02/14/24 Range/Units 04:30 04:30 06:03 WBC 22.3 H (3.8-10.6) k/uL RBC 3.33 L (4.30-5.90) m/uL Hgb 11.4 L (13.0-17.5) gm/dL Hct 37.9 L (39.0-53.0) % MCV 113.8 H (80.0-100.0) fL MCHC 30.2 L (31.0-37.0) g/dL RDW 16.5 H (11.5-15.5) % Plt Count 109 L (150-450) k/uL Neutrophils # (Manual) 18.70 H (1.3-7.7) k/uL Metamyelocytes # (Man) 0.67 H (0) k/uL Myelocytes # (Manual) 0.22 H (0) k/uL Nucleated RBCs 20 H (0-0) /100 WBC Macrocytosis Marked A ABG pH (7.35-7.45) ABG pCO2 (35-45) mmHg ABG HCO3 (21-25) mmol/L ABG Total CO2 (19-24) mmol/L Sodium 147 H (137-145) mmol/L Potassium 5.6 H (3.5-5.1) mmol/L Chloride 117 H (98-107) mmol/L BUN 131 H* (9-20) mg/dL Creatinine 2.33 H (0.66-1.25) mg/dL Glucose 159 H (74-99) mg/dL POC Glucose (mg/dL) 187 H (70-110) mg/dL Calcium 8.2 L (8.4-10.2) mg/dL Magnesium 3.3 H (1.6-2.3) mg/dL 02/14/24 Range/Units 06:55 WBC (3.8-10.6) k/uL RBC (4.30-5.90) m/uL Hgb (13.0-17.5) gm/dL Hct (39.0-53.0) % MCV (80.0-100.0) fL MCHC (31.0-37.0) g/dL RDW (11.5-15.5) % Plt Count (150-450) k/uL Neutrophils # (Manual) (1.3-7.7) k/uL Metamyelocytes # (Man) (0) k/uL Myelocytes # (Manual) (0) k/uL Nucleated RBCs (0-0) /100 WBC Macrocytosis ABG pH 7.34 L (7.35-7.45) ABG pCO2 51 H (35-45) mmHg ABG HCO3 28 H (21-25) mmol/L ABG Total CO2 29 H (19-24) mmol/L Sodium (137-145) mmol/L Potassium (3.5-5.1) mmol/L Chloride (98-107) mmol/L BUN (9-20) mg/dL Creatinine (0.66-1.25) mg/dL Glucose (74-99) mg/dL POC Glucose (mg/dL) (70-110) mg/dL Calcium (8.4-10.2) mg/dL Magnesium (1.6-2.3) mg/dL Microbiology - Last 24 Hours (Table) 02/10/24 14:35 Blood Culture - Preliminary Blood 02/10/24 14:23 Blood Culture - Preliminary Blood Assessment and Plan Plan: Assessment: 1. Acute kidney injury secondary to ATN secondary to septic shock. Renal function better. Creatinine worsening to 2.3 today. No hydronephrosis noted on CAT scan. Patient received IV contrast for CT on February 08, 2024. 2. Septic shock secondary to strep pneumo bacteremia and pneumonia. On antibiotics. Now off vasopressors. 3. Alcohol induced liver cirrhosis. 4. Acute hypoxic respiratory failure. 5. Mild hypernatremia from lack of oral water intake. Plan: Creatinine, sodium and potassium worsening today. On IVF without much improvement Family planning for comfort care this afternoon.
[2024-02-14] MEDS: MORPHINE SULFATE (100 MG/2 ML) 100 MG in SODIUM CHLORIDE 0.9% 100 ML IV SCH (14:47)
[2024-02-14 17:35] VITALS: PULSE 87; RESP 24
[2024-02-15] MEDS ORDERED: levETIRAcetam IV 500 MG/5 ML VIAL IVP SCH (09:00)
--- NOTE | 2024-02-15 16:58 | P.DS ---
Providers Date of admission: 02/08/24 12:23 Expected date of discharge: 02/15/24 Attending physician: Marleni Parish MD Consults: 02/08/24 12:22 Consult Physician Stat Consulting Provider: Greg Adkins Consult Reason/Comments: icu patient Do you want consulting provider notified?: Already Contacted 02/08/24 16:18 Consult Physician Routine Consulting Provider: Jorge A Morelos Consult Reason/Comments: MITCH, cirrhotic, dHF Do you want consulting provider notified?: Yes 02/09/24 08:24 Consult Physician Routine Consulting Provider: Jason Corcoran Consult Reason/Comments: positive blood cultures Do you want consulting provider notified?: Yes 02/12/24 14:34 Consult Physician Routine Consulting Provider: Antoni Perez Consult Reason/Comments: eeg discharges Do you want consulting provider notified?: Already Contacted Primary care physician: Ricky Gayle [facility] Course: Discharge Diagnosis: Septic shock with acute hypoxemic and hypercarbic respiratory failure Hypoglycemia related to sepsis Community-acquired pneumonia Streptococcus pneumonia bacteremia COPD exacerbation Acute kidney injury Chronic diastolic heart failure, not in exacerbation Decompensated liver cirrhosis Mild thrombocytopenia, likely in the setting of liver cirrhosis Hospital Course: 73-year-old male, with tobacco dependence, with medical history of cirrhosis secondary to alcohol use/hepatitis C, former IV drug user, hepatocellular carcinoma status post Y90 radiation, COPD, permanent atrial fibrillation, chronic diastolic heart failure presenting for evaluation of dyspnea. In the emergency room, patient was afebrile, 152/118, heart rate 107, respiratory rate of 46, 81% on BiPAP. Therefore, patient was intubated in the emergency room and oxygen saturation went up to 95% with vent settings of PEEP of 8, FiO2 of 80%, volume control 500. CBC demonstrated elevated MCV of 112.2, otherwise unremarkable. Basic metabolic panel demonstrated creatinine of 2.12 with a baseline of 1. Liver function test showed elevation of AST to 122, ALT of 59, total bilirubin of 3.5, albumin of 3.1. Troponin was 0.154, BNP was 5390. Initial ABG demonstrated pH of 7.04, pCO2 of 53, pO2 of 106. Coags demonstrated elevated INR of 2.1, D-dimer 5.05. Influenza A, B, RSV, COVID were negative. EKG, personally interpreted, demonstrates atrial fibrillation with RVR, multiple instances of aberrant conduction. Chest x-ray, personally interpreted demonstrates left-sided consolidation with likely pleural effusion. Chest CTA showed moderate emphysematous change, pulmonary arterial hypertension, severe consolidation throughout the left lower lobe extending into the lingula, but was suboptimal to exclude pulmonary embolism. CT abdomen/pelvis demonstrated cirrhosis with prominent collaterals in the gastrohepatic ligament suggesting portal venous hypertension, suspicious 2-1/2 cm nodule in the inferior right liver lobe. Head/cervical spine CT shows mild cerebral atrophy and moderate patchy burden of chronic small vessel ischemic disease. This also demonstrated incidental finding of right upper lobe pulmonary nodule which was suspicious, confirmed on CTA to be an 8 mm right apical nodule which was spiculated. Pulmonary/critical care medicine was consulted and patient was transferred to the intensive care unit for further monitoring/management. Blood cultures posi tive for strep pneumo. Patient currently on IV Zosyn. ID following. Pressor requirements continue to go up. Patient also in acute renal failure. Nephrology following. Head CT did not show any acute process. EEG showed background slowing suggestive of moderate to severe encephalopathy, sharp and slow waves over bilateral temporal region but no clear epileptiform discharges or seizures on the EEG. Patient remained off of sedation for 2 days without any meaningful neurological activity. Family decided to pursue comfort care measures. Time of 1821 on 02/14/24 Plan - Discharge Summary New Discharge Prescriptions: No Action Furosemide [Lasix] 40 mg PO BID Esomeprazole Magnesium [NexIUM] 20 mg PO DAILY traMADol HCL [Ultram] 50 mg PO BID PRN PRN Reason: Pain Potassium Chloride [Potassium Chloride ER] 8 meq PO BID Finasteride [Proscar] 5 mg PO DAILY Rivaroxaban [Xarelto] 20 mg PO W/SUPPER Tiotropium 2.5 Mcg/Puff [Spiriva Respimat 2.5 Mcg] 2 puff INHALATION RT-DAILY Discharge Medication List Esomeprazole Magnesium [NexIUM] 20 mg PO DAILY 12/13/21 [History] Finasteride [Proscar] 5 mg PO DAILY 12/13/21 [History] Furosemide [Lasix] 40 mg PO BID 12/13/21 [History] Potassium Chloride [Potassium Chloride ER] 8 meq PO BID 12/13/21 [History] traMADol HCL [Ultram] 50 mg PO BID PRN 12/13/21 [History] Rivaroxaban [Xarelto] 20 mg PO W/SUPPER 02/08/24 [History] Tiotropium 2.5 Mcg/Puff [Spiriva Respimat 2.5 Mcg] 2 puff INHALATION RT-DAILY 02/08/24 [History] Follow up Appointment(s)/Referral(s): Ricky Gayle DO [Primary Care Provider] - 1-2 days Discharge Disposition: - Preliminary Cause of Preliminary Cause of : pneumonia
--- NOTE | 2024-02-15 17:01 | P.PN ---
Progress Note - Text Progress Note Date: 02/14/24 Advanced Care Planning: Diagnoses: Septic shock with acute hypoxemic and hypercarbic respiratory failure Hypoglycemia related to sepsis Community-acquired pneumonia Streptococcus pneumonia bacteremia COPD exacerbation Acute kidney injury Chronic diastolic heart failure, not in exacerbation Decompensated liver cirrhosis Mild thrombocytopenia, likely in the setting of liver cirrhosis Discussion: Person(s) present and participating in discussion: Daughter, son, girlfriend Summary: Extensive discussion with regards to prognosis, poor prognosis given no meaningful neurological activity while being off of sedation for greater than 2 days. Family decided for comfort care measures. A total of 20 minutes of face to face time was spent discussing advanced care planning.
== END 2024-02-14 20:08 | disposition expired | DRG 870 ==
LOC: EC 08:48 → 2SICU 12:23
PROVIDERS: ADMIT Internal Medicine; ATTEND Internal Medicine
PROC: 5A1955Z Respiratory Ventilation, Greater than 96 Consecutive Hours (ICD-10-PCS; principal; 2024-02-08)
PROC: 0BH17EZ Insertion of Endotracheal Airway into Trachea, Via Natural or Artificial Opening (ICD-10-PCS; principal; 2024-02-08)
PROC: 3E0G76Z Introduction of Nutritional Substance into Upper GI, Via Natural or Artificial Opening (ICD-10-PCS; 2024-02-08)
PROC: 0DH67UZ Insertion of Feeding Device into Stomach, Via Natural or Artificial Opening (ICD-10-PCS; 2024-02-08)
PROC: 5A09357 Assistance with Respiratory Ventilation, Less than 24 Consecutive Hours, Continuous Positive Airway Pressure (ICD-10-PCS; 2024-02-08)
PROC: 4A133J1 Monitoring of Arterial Pulse, Peripheral, Percutaneous Approach (ICD-10-PCS; 2024-02-09)
PROC: 03HY32Z Insertion of Monitoring Device into Upper Artery, Percutaneous Approach (ICD-10-PCS; 2024-02-09)
PROC: 4A133B1 Monitoring of Arterial Pressure, Peripheral, Percutaneous Approach (ICD-10-PCS; 2024-02-09)
PROC: 06HY33Z Insertion of Infusion Device into Lower Vein, Percutaneous Approach (ICD-10-PCS; 2024-02-09)
PROC: 3E043XZ Introduction of Vasopressor into Central Vein, Percutaneous Approach (ICD-10-PCS; 2024-02-11)
DX: A40.9 Streptococcal sepsis, unspecified (principal); G93.41 Metabolic encephalopathy; J13 Pneumonia due to Streptococcus pneumoniae; J96.02 Acute respiratory failure with hypercapnia; J96.01 Acute respiratory failure with hypoxia; J69.0 Pneumonitis due to inhalation of food and vomit; N17.0 Acute kidney failure with tubular necrosis; R65.21 Severe sepsis with septic shock; C22.9 Malignant neoplasm of liver, not specified as primary or secondary; E87.0 Hyperosmolality and hypernatremia; I48.21 Permanent atrial fibrillation; I50.32 Chronic diastolic (congestive) heart failure; J44.0 Chronic obstructive pulmonary disease with (acute) lower respiratory infection; J44.1 Chronic obstructive pulmonary disease with (acute) exacerbation; K76.6 Portal hypertension; F11.11 Opioid abuse, in remission; K70.30 Alcoholic cirrhosis of liver without ascites; J43.9 Emphysema, unspecified; Z51.5 Encounter for palliative care; Z66 Do not resuscitate; D69.59 Other secondary thrombocytopenia; F10.21 Alcohol dependence, in remission; I11.0 Hypertensive heart disease with heart failure; I27.21 Secondary pulmonary arterial hypertension; Z87.891 Personal history of nicotine dependence; K21.9 Gastro-esophageal reflux disease without esophagitis; N40.0 Benign prostatic hyperplasia without lower urinary tract symptoms; R79.1 Abnormal coagulation profile; B19.20 Unspecified viral hepatitis C without hepatic coma; R91.1 Solitary pulmonary nodule; M19.90 Unspecified osteoarthritis, unspecified site; M48.061 Spinal stenosis, lumbar region without neurogenic claudication; Z79.899 Other long term (current) drug therapy; Z79.01 Long term (current) use of anticoagulants; Z11.52 Encounter for screening for COVID-19; Z71.3 Dietary counseling and surveillance; Z78.1 Physical restraint status
CPT/HCPCS: 31500; 36415; 36600; 70450; 71045; 71275; 72125; 74177; 80048; 80053; 81001; 82140; 82570; 82607; 82746; 82805; 83605; 83735; 83880; 84132; 84300; 84484; 84540; 85025; 85379; 85610; 85730; 87040; 87070; 87077; 87086; 87186; 87205; 87636; 93005; 93970; 94002; 94003; 94640; 95816; 95822; 96365; 96368; 96375; 99291